=== PATIENT | male | born 1945 | race Caucasian/White ===

== ENCOUNTER → 2018-06-18 11:36 | Outpatient (CLI) | payer MEDICARE, OTHER, SELFPAY ==
--- NOTE | 2018-06-18 | DI.RAD.S_ITS ---
PROCEDURE: XR SHOULDER RT MIN 2V INDICATIONS: SHOULDER PAIN TECHNIQUE: 3 views of the shoulder were acquired. COMPARISON: None. FINDINGS: Bones: No fractures or dislocations. No suspicious bony lesions. Visualized ribs appear intact. Soft tissues: No suspicious soft tissue calcifications. IMPRESSION: Moderate a.c. joint osteoarthritis. Dictated by: Mateo Delgado M.D. on 06/18/2018 at 12:30 Approved by: Mateo Delgado M.D. on 06/18/2018 at 12:30
--- NOTE | 2018-06-18 | DI.RAD.S_ITS ---
PROCEDURE: XR CERVICAL SPINE 2V OR 3V INDICATIONS: SHOULDER PAIN TECHNIQUE: 4 view(s) of the cervical spine were acquired. COMPARISON: None. FINDINGS: Bones: No fractures or dislocations to the T1 level. The lateral masses of C1 appear intact on the odontoid view. No suspicious bony lesions. Moderately severe degenerative disc disease is seen at C5-6 and C6-7 and there is also slight anterolisthesis of C4 on C5. Moderate osteoarthritis along the facet joints or the middle and lower thirds of the cervical spine is associated. Soft tissues: No prevertebral soft tissue swelling. IMPRESSION: Degenerative disc disease and facet osteoarthritis is moderate to moderately severe along the middle and lower thirds of the cervical spine, where spinal and foraminal stenosis likely would be present. Additionally there is slight grade 1 anterolisthesis of C4 on C5. Dictated by: Mateo Delgado M.D. on 06/18/2018 at 12:30 Approved by: Mateo Delgado M.D. on 06/18/2018 at 12:31
== END ==
PROVIDERS: PCP Physician Assistant; Visit Provider Physician Assistant
DX: M19.011 Primary osteoarthritis, right shoulder (principal); M43.12 Spondylolisthesis, cervical region; M47.22 Other spondylosis with radiculopathy, cervical region; M50.122 Cervical disc disorder at C5-C6 level with radiculopathy; M25.511 Pain in right shoulder
CPT/HCPCS: 72040; 73030

== ENCOUNTER → 2018-07-21 13:49 | Outpatient (CLI) | payer MEDICARE, OTHER, SELFPAY ==
--- NOTE | 2018-07-21 | DI.MRI.S_ITS ---
PROCEDURE: MR CERVICAL SPINE WO CON INDICATIONS: LOW BACK PAIN CERVICALGIA TECHNIQUE: Noncontrast sagittal T1 spin echo and T2 fast spin echo, sagittal STIR, foraminal oblique sagittal T2 fast spin echo, and axial gradient echo or T2 fast spin echo through the cervical spine. COMPARISON: None. FINDINGS: Image quality: Partially degraded by motion artifact. Alignment and Curvature: There is loss of normal cervical lordosis. There is mild grade 1 retrolisthesis of C5 on C6. Bone Marrow: Marrow demonstrates normal overall signal. There is mild reactive signal within the endplates adjacent to the C5-C6, C6-C7, C7-T1, and T1-T2 intervertebral discs. Spinal Cord: Visualized spinal cord has normal size and signal. No cerebellar tonsillar herniation. Paraspinous Soft Tissues: No paravertebral masses. Prevertebral soft tissues are normal in thickness. C2-C3: Moderate disc desiccation. Mild diffuse disc bulge with superimposed left far lateral broad-based protrusion/osteophyte. Mild facet and uncovertebral hypertrophy, left greater than right. Moderate canal stenosis. Moderate right and severe left foraminal stenosis. C3-C4: Mild disc height loss and desiccation. Mild diffuse disc bulge/osteophyte. Moderate facet and uncovertebral hypertrophy bilaterally. Moderate canal stenosis. Severe right and moderate left foraminal stenosis. C4-C5: Moderate disc desiccation and diffuse disc bulge with superimposed central protrusion. Right greater than left moderate facet and uncovertebral hypertrophy. Moderate canal stenosis. Moderate right and mild to moderate left foraminal stenosis. C5-C6: Moderate discoid loss and desiccation. Moderate diffuse disc bulge/osteophyte. Moderate facet and uncovertebral hypertrophy bilaterally. Severe canal stenosis. Mild cord flattening. Severe foraminal stenosis bilaterally. C6-C7: Moderate disc height loss and desiccation. Moderate diffuse disc bulge/osteophyte with superimposed broad-based left posterolateral protrusion/osteophyte. Moderate facet and uncovertebral hypertrophy bilaterally. Moderate to severe canal stenosis. Minimal left cord flattening. Severe foraminal stenosis bilaterally. C7-T1: Moderate disc height loss and desiccation. Moderate diffuse disc bulge/osteophyte. Moderate facet and uncovertebral hypertrophy. Mild canal stenosis. Severe foraminal stenosis bilaterally. IMPRESSION: 1. Multilevel degenerative disc and facet disease, as well as uncovertebral hypertrophy. 2. Multilevel canal stenoses, worst at C5-C6 where there is mild cord flattening. There is moderate to severe canal stenosis at C6-C7 with minimal cord flattening. 3. Multilevel foraminal stenoses as described above. Dictated by: Ramandeep Terrazas M.D. on 07/21/2018 at 16:52 Approved by: Ramandeep Terrazas M.D. on 07/21/2018 at 16:57
--- NOTE | 2018-07-21 | DI.MRI.S_ITS ---
PROCEDURE: MR LUMBAR SPINE WO CON INDICATIONS: LOW BACK PAIN CERVICALGIA TECHNIQUE: Noncontrast sagittal T1 spin echo and T2 fast echo, sagittal STIR, axial T1 and T2 fast spin echo through the lumbar spine. In cases with scoliosis, additional coronal T2 fast spin echo may be performed. COMPARISON: [facility], MR, L-SPINE WITHOUT CONTRAST, 08/22/2016, 7:42. [facility], CR, L-SPINE 2-3 VIEWS, 10/05/2014, 14:10. [facility], CR, L-SPINE 2-3 VIEWS, 02/23/2012, 10:25. FINDINGS: Image quality: Excellent. Alignment and Curvature: Mild dextroconvex scoliotic curvature is seen. Bone Marrow: Marrow is of normal overall signal. No acute vertebral body compression fractures. Scattered foci are seen, which are hyperintense on T1-weighted and T2-weighted imaging, which are most consistent with benign vertebral body hemangiomas. Spinal Cord: Conus medullaris terminates at the L1 level. Visualized cord demonstrates normal signal and size. Paraspinous Soft Tissues: No paravertebral masses. T12-L1: Moderate loss of disc height is seen. Loss of disc signal is seen. Moderate disc bulge is seen at this level. There is a central/right disc extrusion seen. The volume of the disc extrusion is decreased compared to the prior examination. There is moderate to severe central canal narrowing. Moderate bilateral neural foraminal narrowing is seen. L1-L2: Mild to moderate loss of disc height is seen. Loss of disc signal is seen. Moderate disc bulge is seen, which is eccentric to the left. There is a central/left disc extrusion seen, with inferior migration of the disc material. This disc extrusion is new compared to 2016. Moderate bilateral neural foraminal narrowing is seen, right worse than left. There is at least moderate central canal narrowing. L2-L3: The disc height is well-preserved. Loss of disc signal is seen at this level. Moderate disc bulge is seen, which is eccentric to the right. Mild to moderate facet hypertrophy is seen. There is moderate right-sided and mild left-sided neural foraminal narrowing seen. Moderate central canal narrowing is seen. These findings are similar to the prior examination. L3-L4: The disc height is well-preserved. Loss of disc signal is seen at this level. Moderate disc bulge is seen at this level. There is a central disc protrusion seen. Moderate to prominent facet hypertrophy is seen. There is moderate right-sided and moderate to severe left-sided neural foraminal narrowing seen. There is a degree of impingement upon the exiting left L3 nerve root. Moderate to severe central canal narrowing is seen. The degenerative changes have progressed compared to 2016. L4-L5: The disc height is well-preserved. Loss of disc signal is seen at this level. Moderate generalized disc bulge is seen. Moderate to prominent facet hypertrophy is seen, right worse than left. There is at least moderate bilateral neural foraminal narrowing seen. At least moderate central canal narrowing is seen. These findings are similar to the prior examination. L5-S1: At least moderate loss of disc height is seen. There is loss of disc signal. Reactive marrow endplate changes are seen, which are hyperintense on T1-weighted and T2-weighted imaging and most consistent with fatty metaplasia (Modic type II changes). Moderate disc bulge is seen, which is eccentric to the left. Moderate facet joint hypertrophy is seen. There is at least moderate right-sided and moderate to severe left-sided neural foraminal narrowing seen. A degree of impingement can be seen upon the exiting left L5 nerve root. Minimal central canal narrowing is seen. These findings are similar to the prior examination. IMPRESSION: There is a new disc extrusion seen on the LEFT at the L1-L2 level. Interval improvement of the previously seen RIGHT sided disc extrusion at T12-L1. Progression of degenerative change is also seen at L3-L4 compared to 2016. Dictated by: Taiwo Rosario M.D. on 07/21/2018 at 16:15 Approved by: Taiwo Rosario M.D. on 07/21/2018 at 16:30
== END ==
PROVIDERS: PCP Physician Assistant; Visit Provider Orthopaedic Surgery Orthopaedic Surgery of the Spine
DX: M51.26 Other intervertebral disc displacement, lumbar region (principal); M51.36 Other intervertebral disc degeneration, lumbar region; M48.02 Spinal stenosis, cervical region; M50.31 Other cervical disc degeneration, high cervical region
CPT/HCPCS: 72141; 72148

== ENCOUNTER → 2018-08-07 11:37 | Outpatient (CLI) | payer MEDICARE, OTHER, SELFPAY | PROVIDERS: PCP Physician Assistant; Visit Provider Orthopaedic Surgery Orthopaedic Surgery of the Spine | DX: Z01.818 Encounter for other preprocedural examination (principal) | CPT/HCPCS: 93005 ==

== ENCOUNTER → 2018-08-13 13:29 | Outpatient (CLI) | payer MEDICARE, OTHER, SELFPAY ==
[2018-08-13 14:02] LABS: Add Manual Diff / Slide Review NO; Basophils Percent Auto 0.8 % (0-2); Hematocrit 44.7 % (41-53); Hemoglobin 15.3 g/dL (13.5-17.5); Lymphocytes Percent Auto 30.5 % (25-40); Mean Corpuscular HGB Conc 34.3 % (30-36); Mean Corpuscular Hemoglobin 29.8 PG (26-34); Monocytes Percent Auto 7.7 % (3-14); Neutrophils Absolute Auto 4100 /uL (3000-5900); Platelet Count 230 X10^3/uL (150-400); Red Blood Cell Count 5.14 X10^6/uL (4.5-5.9); Red Cell Distribution Width 13.8 % (11.6-14.8); White Blood Cell Count 7.4 X10^3/uL (4.5-11.0)
[2018-08-13 15:01] LABS: Blood Urea Nitrogen 19 mg/dL (9-20); Calcium 10.1 mg/dL (8.4-10.2); Carbon Dioxide 32 mmol/L (22-32); Chloride 101 mmol/L (98-107); Estimated Glomerular Filt Rate > 60.0 mL/min (>60); Glucose 101 mg/dL (80-110); HEMOLYSIS < 15 (0-50); Potassium 4.4 mmol/L (3.4-5.1); Sodium 141 mmol/L (137-145)
== END ==
PROVIDERS: PCP Physician Assistant; Visit Provider Orthopaedic Surgery Orthopaedic Surgery of the Spine
DX: M51.24 Other intervertebral disc displacement, thoracic region (principal)
CPT/HCPCS: 36415; 80048; 85025

== ENCOUNTER 2018-09-06 12:10 | Inpatient (IN) | payer MEDICARE, OTHER, SELFPAY ==
[2018-09-03 08:45] VITALS: BMI 35.9
[2018-09-06] VITALS (13 sets, daily range): BP systolic 113–141; BP diastolic 52–83; PULSE 63–114; RESP 13–23; TEMP 36.2–37.2; O2SAT 93–99; BMI 35.9
--- NOTE | 2018-09-06 | DI.RAD.S_ITS ---
PROCEDURE: XR CERVICAL SPINE 2V OR 3V INDICATIONS: C56 C67 ACDF TECHNIQUE: Fluoroscopic images were obtained during an operative procedure and submitted for interpretation following the completion of the procedure. COMPARISON: [facility], MR, MR CERVICAL SPINE WO CON, 07/21/2018, 14:00. [facility], CR, XR CERVICAL SPINE 2V OR 3V, 06/18/2018, 11:21. FINDINGS: These fluoroscopic images were performed for intraoperative localization. On these images, anterior fixation hardware has been placed at the C4-C6 levels. Please correlate with intraoperative findings. IMPRESSION: Normal intraoperative examination. Dictated by: Taiwo Rosario M.D. on 09/06/2018 at 16:56 Approved by: Taiwo Rosario M.D. on 09/06/2018 at 16:57
--- NOTE | 2018-09-06 14:05 | PM.PREOP ---
Pre-operative Note Interval Note Pre-op Check: Yes History & Physical Reviewed by Physician, Yes Exam Performed and Yes History & Physical exam performed today by Physician Changes: No
[2018-09-06] MEDS: LACTATED RINGERS 1,000 ML 42 ML IV ×2 (15:00→16:08)
[2018-09-06] MEDS: CEFAZOLIN 2 GM/100 ML FROZ.PIGGY IV ×2 (15:10→22:19)
--- NOTE | 2018-09-06 15:47 | SUR.OPER ---
Supine on padded OR bed, head on gel donut, arms papoosed with gel pads, legs uncrossed, safety belt at thigh, tape over blanket over lower legs, pt taped from shoulders to foot of bed .
[2018-09-06] MEDS: BUPIVACAINE 0.25% W/ EPI VIAL 50 ML INJ (15:59)
--- NOTE | 2018-09-06 17:40 | P.OP_ITS ---
Operative Date/Time/Diagnoses Date of procedure: 09/06/18 Time of procedure: 15:32 Pre-op diagnosis: 1. C4-5, C5-6, C6-7 spondylosis with radiculopathy 2. C4-5, C5-6, C6-7 spinal stenosis Post-op diagnosis: same Procedure & Clinicians Procedure: 1. C4-5, C5-6 anterior cervical diskectomy and fusion 2. C4-5, C5-6 anterior interbody cage placement 3. C4-5, C5-6 anterior instrumentation with plate and screw placement in C4-5, C5-6 vertebrae 4. Utilization of microsurgical technique and operating microscope Same procedure as scheduled: No Indications: Patient has been having chronic neck pain and worsening cervical radiculopathy. Patient failed multiple conservative management with worsening pain weakness and numbness in her upper extremity. Patient has been having difficulty performing activity of daily living. After discussing risks benefits of treatment options, patient elected proceed with surgery. Surgeon: Ana M Alas Sulfide Head Operator: Krystin Lee'Brien Click Yes if Unassisted: No Anesthesia Type: General Operative Notes Closure Type: primary Implants & Drains: GLobus extend plate, Peek cages Estimated Blood Loss (mL): 50 Procedure in detail: Patient was seen in the preoperative area. Risks and benefits of the surgery was discussed with the patient. Operative consent was obtained and placed in the chart. Patient was then taken to the operative room. Prophylactic antibiotic was given less than 0.5 hr prior to skin incision. General anesthesia was administered. Patient was placed into a supine position on her radiolucent table. Bilateral shoulders were taped down to allow proper C-arm imaging. Anterior cervical area was prepped and draped in a sterile fashion. Time-out was performed at this time. Patient was originally scheduled for C5-6, C6-7 level ACDF. After reviewing patient's MRI again in the operating room and correlating with patient's symptoms, decision was made intraoperatively to perform C4-5, C5-6 ACDF instead of the originally scheduled levels. Using lateral C-arm imaging, the level between C4-5, C5-6 was identified and marked on patient's neck. A oblique incision from midline towards medial border of sternocleidomastoid muscle was made. The platysma muscle was incised in line with skin incision. Metzenbaum scissor was used to develop the plane between the medial border of sternocleidomastoid d and the strap muscles medially. The carotid sheath and its contents were identified and protected behind the hand- held retractor during the entire case. The plane between the carotid sheath and strap muscles was developed with Metzenbaum scissors. Dissection was made down to the level of the anterior cervical fascia. Longus colli muscle was incised on the anterior aspect of vertebral bodies bilaterally from C4-5, C5-6. Spinal needle was placed into the C5-6 disc space and confirmed with lateral C-arm imaging. Using microsurgical technique and operative microscope, anterior cervical diskectomy was performed at C4-5, C5-6 level. This was done by removing the disc material, removing the anterior and posterior osteophytes posterior longitudinal ligaments along with performing bilateral foraminotomies at both levels. Patient was found to have severe central and foraminal stenosis at both levels. Patient's stenosis was fully decompressed after decompression was completed. After the diskectomy was completed, 2 anterior interbody cages were obtained. The cages were packed with globus via cell bone grafting material. One cage each along with the bone grafting material was then packed into the interbody spaces from C4-5, C5-6 with one cage into each interbody level. After the cages were placed, the anterior cervical plate was stabilized to the C4-5, C5-6 vertebrae using 2 screws at each each level. Total 6 screws were placed. After confirming placement of the hardware with AP and lateral C-arm imaging, the screws were locked into the plate using the locking mechanism and torque limiting screwdriver. After the hardware was placed and confirmed with AP and lateral C-arm imaging, the wound was irrigated with sterile normal saline. The platysma muscle and the subcutaneous tissue was closed with 2-0 Vicryl. The skin was closed with 4- 0Monocryl and Steri-Strips. Patient tolerated the procedure well. Patient was transferred recovery room in stable condition. There were no complications. Patient's was notified by phone the changes in the operating levels after the procedure was completed and the reasons for doing so. She understands the information and will pass it onto her when she sees him. I will do the same once patient is more alert. Complications: none Condition: stable Disposition: Acute Care Plan for aftercare: Admit to inpatient hospital
[2018-09-06] MEDS: hydrOXYzine 50 MG/ML INJ 25 MG IM (18:05)
[2018-09-06] MEDS: HYDROMORPHONE 2 MG INJ 0.5 MG IV ×3 (18:11→18:30)
--- NOTE | 2018-09-06 18:28 | SUR.PHASEI ---
pt turned independently to rt. side. Repoted pain decreased.
--- NOTE | 2018-09-06 18:38 | SUR.PHASEI ---
Report called to José Rausch
--- NOTE | 2018-09-06 19:04 | SUR.PHASEI ---
Pt. transferred to the floor. Report to PHILOMENA Lerma. VS stable. IV saline locked. Pt moving all extremities independently. Neck dressing CDI. Cervical in place.
[2018-09-06] MEDS: SODIUM CHLORIDE 0.9% 1,000 ML 100 ML IV (20:33)
[2018-09-06] MEDS: AMLODIPINE 5 MG TABLET PO (20:34)
[2018-09-06] MEDS: LOSARTAN 50 MG TABLET 100 MG PO (20:34)
[2018-09-06] MEDS: DOCUSATE 100 MG CAPSULE PO (20:34)
[2018-09-06] MEDS: SENNOSIDES 8.6 MG TABLET 17.2 MG PO (20:35)
[2018-09-06] MEDS: ALLOPURINOL 300 MG TABLET PO (20:38)
[2018-09-06] MEDS: hydroCHLOROthiazide 25 MG TABLET 50 MG PO ×2 (20:38→20:40)
[2018-09-06] MEDS: hydrOXYzine pamoate 25 MG CAPSULE PO (23:06)
--- NOTE | 2018-09-07 00:54 | PC.NURSE ---
1900- Pt arrived to room from PACU via bed. A.O x3, 95% RA, LS clear. Incision to anterior neck covered with gauze and tegaderm, CDI. Denies pain at this time. PP+, BT+, denies nausea. Advanced diet to regular and provided pt with snacks, water, and coffee. RFA NS @ 100 infusing. Own CPAP for sleep without O2 bleed-in. Using urinal indep so doesn't have to take the iv pole with to the bathroom. Reports going home tomorrow. Call light in reach and bed alarm on.
--- NOTE | 2018-09-07 01:41 | PC.NURSE ---
Addendum entered by Lesa Mir R.N. 09/07/18 06:00: Last note was entered incorrectly in this patient's chart Original Note: Addendum entered by Lesa Mir R.N. 09/07/18 05:51: States pain is only 1/10 in severity and declines pain med but requested and was given an ice pack for comfort. Original Note: Addendum entered by Lesa Mir R.N. 09/07/18 05:47: Continues to complain of very minimal pain stating only 1-2/10 and feels like someone is pinching him. Declines any pain medication. Has been awake most of night. HR remains slightly elevated at 101. RA sat 95%. Original Note: Patient is alert and oriented. Breath sounds CTA with sat of 94% with use of CPAP; on continuous pulse oximeter per MD order. HRR but tachy at 106 bpm. Denies nausea. BT present and is passing flatus. Denies dysuria, frequency, urgency or incontinence; using urinal in bed. Independent with bed mobility. Dressing to anterior neck is CDI; declines to wear soft collar as is too hot. Does complain of 3-4/10 pain in neck muscle to left of incision but declines pain med and/or ice. CMS intact. Wearing bilateral SCD's. Fall risk score is moderate; bed alarm is activated.
[2018-09-07 03:08] VITALS: O2SAT 93
[2018-09-07 03:21] VITALS: BP 138/82; PULSE 100; RESP 20; TEMP 36.6; O2SAT 95
[2018-09-07] MEDS: CEFAZOLIN 2 GM/100 ML FROZ.PIGGY IV (06:28)
[2018-09-07 06:36] LABS: Hematocrit 41.7 % (41-53); Hemoglobin 14.2 g/dL (13.5-17.5)
[2018-09-07 08:00] VITALS: BP 144/84; PULSE 88; RESP 16; TEMP 36.3; O2SAT 94
--- NOTE | 2018-09-07 08:09 | P.DS_ITS ---
History of Present Illness Date Patient Seen: 09/07/18 Chief complaint: C5-6 C6-7 acdf with anterior instrumentation Narrative: Patient seen bedside s/p C5-6, C6-[address] Alas on 09/06/18. Patient is POD #1. Denies N/V, SOB, CP, pain is well controlled. He would like to go home today. Discharge Providers Date of admission: 09/06/18 12:10 Primary care physician: Maryann Wray PA-C Consults: 09/06/18 18:54 Consult to Occupational Therapy Evaluate & Treat Comment: Physician Instructions: Evaluate and treat Consult to Physical Therapy Evaluate & Treat Comment: Physician Instructions: Evaluate and Treat 09/06/18 19:02 Consult to Respiratory Therapy Evaluate & Treat Comment: Physician Instructions: Evaluate and treat Discharge provider: Robina Acevedo PA-C Discharge Date: 09/07/18 Summary Discharge Diagnosis: 1. 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 Cervical spinal stenosis Hospital Course: Patient was admitted s/p C5-6, C6-[address] Alas on . Patient tolerated the procedure well with no major complications. Patient was transferred to the acute care floor where he was seen by physical therapy and recommended for discharge home. He was stable and ready for discharge on . Status at Discharge Cognitive/behavioral status at discharge: Alert & oriented x3 Functional status at discharge: independent ambulation Overall status at discharge: patient is progressing back to baseline Time Spent with Patient Less than 30 minutes Exam Vital Signs (past 8 hours): - 09/07/18 03:08 09/07/18 03:21 Temperature 97.8 F Pulse Rate 100 H Respiratory Rate 20 Blood Pressure 138/82 Pulse Oximetry 93 95 Oxygen Delivery Method CPAP Oxygen Flow Rate 0 Narrative Exam Narrative: WDWN NAD A&Ox3. Anterior neck dressing CDI, minimal edema/ erythma noted. No focal deficits in upper extremities noted. Objective Labs Result Diagrams: 09/07/18 05:32 Labs: Laboratory Results - last 24 hr 09/07/18 05:32 Hgb 14.2 Hct 41.7 Discharge Plan Discharge Plan Patient Disposition: Home Discharge Med Rec/Prescriptions Prescriptions: New acetaminophen 325 mg Tablet 650 mg PO Q6HR PRN (Reason: Pain, Mild (1-3)) Qty: 0 RF: 0 docusate sodium 100 mg Capsule 100 mg PO BID Qty: 0 RF: 0 hydroxyzine pamoate 25 mg Capsule 25 mg PO Q4HR PRN (Reason: Nausea And Vomiting) Qty: 50 RF: 1 oxycodone 5 mg tablet 5 mg PO Q4-6H PRN (Reason: pain) Qty: 40 RF: 0 Continue losartan [Cozaar] 50 MG tablet 100 mg PO BEDTIME Qty: 0 RF: 0 hydrochlorothiazide 50 MG tablet 50 mg PO QDAY Qty: 0 RF: 0 allopurinol 300 MG tablet 300 mg PO QDAY Qty: 0 RF: 0 ibuprofen 800 mg Tablet 800 mg PO BID PRN (Reason: pain) RF: 0 amlodipine 5 mg Tablet 5 mg PO BEDTIME RF: 0 oxycodone 5 MG tablet 1 - 2 tab PO Q6HP PRN (Reason: pain) RF: 0 Discontinued aspirin 325 MG tablet 325 mg PO QDAY Qty: 0 RF: 0 Follow up/Referrals: Maryann Wray PA-C [Primary Care Provider] - Ana M Alas MD [Physician] - 09/20/18 3:30 pm (Follow up with Christie Ibrahim PA-C at the [facility] office.) Provider Discharge Instructions Diet: Diet as Tolerated Activity: Limit turning head, wear soft collar when ambulating/sleeping, limit lifting to no more than 5 lbs. Cold/Heat Therapy: Apply ice as needed to surgical area. Skin/Wound/Dressing Care Report to your healthcare provider any signs of infection, such as:: chills, fever, night sweats, increased pain and unusual drainage Dressing: Keep surgical dressing clean, dry, and intact. Visit Report/Discharge Packet Instructions: DI for Anterior Cervical Discectomy and Fusion, Acetaminophen, Hydroxyzine Visit Report Forms: Stroke Signs & Symptoms Discharge Data Primary Care Provider: Maryann Wray Attending Provider: Ana M Alas Admit Date/Time: 09/06/18 12:10 Discharges patient from system. Discharge Date/Time: 09/07/18 11:10 Quality VTE Deep Vein Thrombosis/Pulmonary Embolism Present on Admission: No
--- NOTE | 2018-09-07 09:15 | PT.IIE ---
Current Diagnoses Other spondylosis with radiculopathy, cervical region (09/06/18) Spinal stenosis, cervical region (09/06/18) Surgery Performed Operation Date: 09/06/18 14:15 Actual Procedures p C5-6, C6-7 ACDF w/Anterior Instru. - Ana M Alas MD Surgical History (Last Updated 09/03/18 @ 08:52 by Nicolle Ren, RN) Hx of microdiscectomy (Acute 09/24/16) S/P excision of lipoma (Acute) Status post cataract extraction of both eyes with insertion of intraocular lens (Acute) Medical History (Last Updated 09/03/18 @ 09:09 by Nicolle Ren RN) Primary insomnia (Resolved) Snoring (Resolved) BPH (benign prostatic hyperplasia) (Acute) Low back pain (Acute) Nephrolithiasis (Acute) SOTERO treated with BiPAP (Acute) Osteoporosis (Acute) Polio (Acute) Shingles (Acute) Spinal stenosis (Acute) Tingling of right upper extremity (Acute) Allergic rhinitis (Chronic) Degenerative disc disease, lumbar (Chronic) GERD (gastroesophageal reflux disease) (Chronic) Gout (Chronic) Hyperlipidemia (Chronic) Hypertension (Chronic) Osteoarthritis (Chronic) Physical Therapy Inpatient Evaluation/Re-Eval M1 PT/OT-IP Prior Functional Status Start: 09/07/18 10:33 Freq: NEEDED Status: Active Protocol: Document 09/07/18 09:15 AB (Rec: 09/07/18 10:41 AB [email or web address]) Medical Review Prior Functional Status Medical History Reviewed Yes Communication able to make needs known Mobility and Gait stated that he is independent with all mobilities and ambulation without AD Social History Household Members spouse Living Arrangements House Number of Floors (Floors) One Floor Number of Stairs To Enter/Railing? 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 M2 PT-IP Current Condition Start: 09/07/18 10:33 Freq: NEEDED Status: Active Protocol: Document 09/07/18 09:15 AB (Rec: 09/07/18 10:41 AB [email or web address]) Physical Therapy Current Condition Current Condition Evaluation Date 09/07/18 Treatment Diagnosis s/p C4-6 ACDF; difficulty in walking Onset Date 09/06/18 Precautions Cervical Spine Precautions Soft Collar for Comfort Brace cervical soft collar M3 PT-IP Subjective Start: 09/07/18 10:33 Freq: NEEDED Status: Active Protocol: Document 09/07/18 09:15 AB (Rec: 09/07/18 10:41 AB [email or web address]) Subjective Physical Therapy Visit Type Type Initial Evaluation Visit Start Time 09:15 Visit Stop Time 09:40 Total Visit Minutes 25 Number of MACHINE I ENGRAVER Visits 0 Physical Therapy Visit Comments Patient Comments pt agreeable to do PT Patient Goals to go home Therapy Pain Assessment Pain Present Pain Present Denied Pain M4 PT-IP Mobility and Gait Start: 09/07/18 10:33 Freq: NEEDED Status: Active Protocol: Document 09/07/18 09:15 AB (Rec: 09/07/18 10:41 AB [email or web address]) PT-Bed Mobility Assessment Supine to Sit Supine to Sit Standby Assistance Head of Bed Elevated Sit to Supine Sit to Supine Standby Assistance Head of Bed Elevated Scooting Scooting to Edge of Bed Standby Assistance PT-Transfer Assessment Sit to and From Stand Sit to and from Stand Standby Assistance Equipment Transfer Assistive Device Gait Belt Comments Mobility Comments pt has an adjustable bed and usually has HOB elevated when getting in/out of bed. Gait Assessment Gait Gait Assistance Required: Standby Assistance Distance (Feet) 200 Able to Maintain Weight Bearing Status Yes During Gait Assistive Devices Assistive Device Gait Belt Factors Limiting Gait Function Factors Limiting Gait Function Limited Range of Motion Stair Climbing Assessment Evaluation Level of Assist On Stairs Standby Assistance Devices Stair Climbing Assistive Devices Right Railing Technique/Endurance Stair Climbing Direction Ascend and Descend Stair Climbing Technique Step to Step Number of Steps Climbed 1 Query Text: Stair Climbing Set # Repetitions (reps) 4 PT-Balance Assessment Sitting Balance and Reactions Static Sitting Balance Ability Good Dynamic Sitting Balance Ability Good Standing Balance and Reactions Static Standing Balance Ability Good Dynamic Standing Balance Ability Fair Device Used without AD M5 PT-IP Objective Assessments Start: 09/07/18 10:33 Freq: NEEDED Status: Active Protocol: Document 09/07/18 09:15 AB (Rec: 09/07/18 10:41 AB [email or web address]) Orientation Orientation/Cognition Level of Alertness Alert Orientation Name Age Birthday Month Date Year Day of Week Place Situation Safety Awareness Understands Safety Issues Gross Range of Motion Lower Extremity ROM Assessment Within Functional Limits Strength Lower Extremity Strength Assessment Within Functional Limits Sensation Assessment Sensation Gross Sensation WNL M6 PT-IP Treatment Start: 09/07/18 10:33 Freq: NEEDED Status: Active Protocol: Document 09/07/18 09:15 AB (Rec: 09/07/18 10:41 AB [email or web address]) Physical Therapy Treatment Education Education Provided Precautions Weight Bearing Status Post-Op Packet Safety Brace Education [place] Patient Other Treatments Other Treatment Performed educated pt on donning/doffing soft collar and was able to manage safely M7 PT-IP Assessment and Plan Start: 09/07/18 10:33 Freq: NEEDED Status: Active Protocol: Document 09/07/18 09:15 AB (Rec: 09/07/18 10:41 AB [email or web address]) PT Summary Assessment and Plan Potential Rehabilitation Potential Good Status of Condition at Evaluation Stable Summary Impairments ROM Balance Bed Mobility Transfers Gait Activity Tolerance Assessment Summary pt doing well with mobility and plans to go home with spouse and daughter to assist him. Goals Bed Mobility Goal Independent Transfer Goal Independent Gait Goal Independent Gait Distance 250 Other Goals up/down 1 step without rail SBA Days to Meet Goals 2 Frequency of Treatment Frequency Of Treatment Twice a Day Treatment Plan Physical Therapy Treatment Plan Bed Mobility Training Transfer Training Gait Training Therapeutic Exercise Balance Retraining Post Op Education Discharge Planning Hot or Cold Pack Neuromuscular Re-ed Coordination Retraining Manual Therapy Recommendations To Nursing Amount of Assist Needed Standby Assistance Discharge Recommendations PT Discharge Recommendations Home with Assistance
[2018-09-07] MEDS: SODIUM CHLORIDE 0.9% FLUSH 10 ML IV (09:29)
[2018-09-07] MEDS: DOCUSATE 100 MG CAPSULE PO (09:29)
--- NOTE | 2018-09-07 09:52 | PC.NURSE ---
Addendum entered by Mckayla Steward R.N. 09/07/18 11:14: Spoke with Felicitas Acevedo PA-C, HOLD ASA 81mg. Pt aware of this. Pt D/C'D with all belongings and escorted down by MINE SAFETY MANAGER to personal vehicle w/spouse. Original Note: Pt A&Ox3. Anterior neck drsg CDI, agreed to wear soft collar after P.T. He reports aching to LT side, denies swallowing or breathing issues, numbness and tingling resolved. Instructor Programmable Controllers equal/strong. O2 RA 95%. Minimal pain rating 2-3/10. Expresses eagerness to d/c. Awaiting clearance from P.T/O.T.
--- NOTE | 2018-09-07 10:16 | ST.IPSCREEN ---
Swallow screen performed per ACDF protocol. Patient denies any difficulty with swallowing or voice. Written education provided.
--- NOTE | 2018-09-07 10:28 | OT.IP.EVAL ---
Current Diagnoses Other spondylosis with radiculopathy, cervical region (09/06/18) Spinal stenosis, cervical region (09/06/18) Surgery Performed Operation Date: 09/06/18 14:15 Actual Procedures p C5-6, C6-7 ACDF w/Anterior Instru. - Ana M Alas MD Past Medical History (Last Updated 09/03/18 @ 09:09 by Nicolle Ren RN) Primary insomnia (Resolved) Snoring (Resolved) BPH (benign prostatic hyperplasia) (Acute) Low back pain (Acute) Nephrolithiasis (Acute) SOTERO treated with BiPAP (Acute) Osteoporosis (Acute) Polio (Acute) Shingles (Acute) Spinal stenosis (Acute) Tingling of right upper extremity (Acute) Allergic rhinitis (Chronic) Degenerative disc disease, lumbar (Chronic) GERD (gastroesophageal reflux disease) (Chronic) Gout (Chronic) Hyperlipidemia (Chronic) Hypertension (Chronic) Osteoarthritis (Chronic) Surgical History (Last Updated 09/03/18 @ 08:52 by Nicolle Ren RN) Hx of microdiscectomy (Acute 09/24/16) S/P excision of lipoma (Acute) Status post cataract extraction of both eyes with insertion of intraocular lens (Acute) Occupational Therapy Inpatient Evaluation/Re-Eval M1 PT/OT-IP Prior Functional Status Start: 09/07/18 14:53 Freq: NEEDED Status: Active Protocol: Document 09/07/18 10:28 BASIA (Rec: 09/07/18 15:04 BASIA [email or web address]) Medical Review Prior Functional Status Medical History Reviewed Yes Diet/Fluid Consistency Regular Communication WNL Mobility and Gait stated that he is independent with all mobilities and ambulation without AD Activities of Daily Living and IADL's Pt was independent in all self care and IADLS. 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 He plans to take 8 weeks off work. Social History Household Members spouse Living Arrangements House Number of Floors (Floors) One Floor Number of Stairs To Enter/Railing? 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 M2 OT-IP Current Condition Start: 09/07/18 14:53 Freq: Status: Active Protocol: Document 09/07/18 10:28 PJM (Rec: 09/07/18 15:04 [facility] [id number]) Occupational Therapy Current Condition Current Condition Evaluation Date 09/07/18 Treatment Diagnosis decreased self care s/p C5-7 ACDF Post Operative Precautions Cervical Spine Precautions Soft Collar for Comfort No Heavy Lifting Log Roll M3 OT- IP Subjective and Pain Start: 09/07/18 14:53 Freq: Status: Active Protocol: Document 09/07/18 10:28 PJM (Rec: 09/07/18 15:04 [facility] [id number]) OT- Subjective Occupational Therapy Visit Type Type Initial Evaluation Visit Start Time 10:00 Visit Stop Time 10:28 Total Visit Minutes 28 Occupational Therapy Visit Comments Patient Comments My can help me out at home. Patient/Caregiver Goals to return to work in 8 weeks OT Pain Assessment Pain When Pain Assessed At Rest Pain Present Pain Present Pain Reported Location neck Intensity 1 Scale Used Numeric (1 - 10) Description Aching Acute M4 OT- IP ADL's Start: 09/07/18 14:53 Freq: Status: Active Protocol: Document 09/07/18 10:28 PJM (Rec: 09/07/18 15:04 [facility] [id number]) OT [id number] General Evaluation Diet Level for Self-Feeding soft diet recommended Self-Feeding Ability Independent OT ADL-Grooming General Evaluation Grooming Ability Independent Comments OT Grooming Comments after education re: body mechanics standing at sink OT ADL-Oral Care General Eval Oral Care Ability Independent Comments Oral Care Comments after education re: body mechanics standing at sink OT ADL-Dressing General Eval Upper Body Dressing Ability Independent Lower Body Dressing Ability Independent Comments OT Dressing Comments Pt declines need for any adaptive equipt. Provided education re: body mechanics. OT ADL-Toileting General Evaluation Toileting Ability Independent OT ADL-Bathing Bathing Type Bathing Type Shower General Evaluation Bathing Ability Standby Assistance Comments OT Bathing Comments can assist PRN. Provided education re: body mechanics and keeping incision dry. M5 OT- IP IADL's Start: 09/07/18 14:53 Freq: Status: Active Protocol: Document 09/07/18 10:28 PJM (Rec: 09/07/18 15:04 [facility] [email or web address]) OT-Instrumental Activities of Daily Living Deficits IADL Deficits Identified Deficits Home Safety Awareness Awareness of Need for Assistance at Home Good Awareness Ability to Problem Solve Emergency Able to Problem Solve Situations Medication Management Medication Management No Deficits Identified Money Management Money Management No Deficits Identified Meal Preparation Meal Preparation Caregiver Provides Assist Meal Preparation Comments to assist PRN Blower Installer Blower Installer Caregiver Provides Assist Blower Installer Comments to assist PRN Driving Driving Caregiver Provides Assist Driving Comments to assist until pt able M6 OT- IP Functional Cognition Start: 09/07/18 14:53 Freq: Status: Active Protocol: Document 09/07/18 10:28 PJM (Rec: 09/07/18 15:04 [facility] NRTM) Cognitive Factors Limiting Selfcare Function Cognitive Ability Level of Alertness Alert Patient Orientation Name Age Birthday Month Date Year Day of Week Place Situation Attention Span Ability Capable of Focused Attention Capable of Sustained Attention Ability to Follow Commands Able to Follow One Step Commands Able to Follow Multi-Step Commands Memory Description No Deficits Noted Safety Awareness No Deficits Noted Problem Solving Ability No deficits Noted Executive Function Ability No Deficits Noted Cognitive Comments Cognitive Assessment Comments Pt recalls and applies C spine precautions during self care tasks. Cognition appears WNL. OT- Vision and Hearing OT- Hearing Assessment OT- Hearing Assessment WFL OT- Vision Assessment Visual Acuity WFL Vision Assessment Comments Pt denies any recent vison changes. M7 OT- IP Mobility and Balance Start: 09/07/18 14:53 Freq: Status: Active Protocol: Document 09/07/18 10:28 PJM (Rec: 09/07/18 15:04 [facility] NR) OT-Transfer Assessment Sit to and From Stand Sit to and from Stand Independent Transfers Transfer Ability Independent Technique Transfer Destination Car Chair Comments Mobility Comments provided education re: car transfer technique. Pt up in chair when therapist arrived. OT- Gait Assessment Gait Gait Assistance Required: Independent Assistive Devices Assistive Device None Comments Gait Ability Comments Pt up ad moises in room. OT- Balance Assessment Sitting Balance and Reactions Static Sitting Balance Ability Good Dynamic Sitting Balance Ability Good Standing Balance and Reactions Static Standing Balance Ability Good Dynamic Standing Balance Ability Good M8 OT- IP Objective Assessments Start: 09/07/18 14:53 Freq: Status: Active Protocol: Document 09/07/18 10:28 PJM (Rec: 09/07/18 15:04 [facility] NRTM) OT Gross Range of Motion Upper Extremity Range of Motion Assessment Within Functional Limits ROM Impairments end range of shoulders NT due to recent C spine surgery OT Strength Upper Extremity Strength Assessment Within Functional Limits Comments Strength Comments full MMT not completed due to recent C spine surgery OT- Coordination Assessment Comments Coordination Comments BUE WFL OT-Muscle Tone Assessment Muscle Tone WNL Yes OT Sensation Assessment Comments Summary Comments Pt denies sensory deficits in BUE's Edema Edema Absent Edema Comments None in BUE's M9 OT- IP Assessment and Plan Start: 09/07/18 14:53 Freq: Status: Active Protocol: Document 09/07/18 10:28 PJM (Rec: 09/07/18 15:04 PJM [email or web address]) OT Summary Assessment and Plan Potential Rehabilitation Potential Excellent Analytic Complexity at Evaluation Low Summary Progress Towards Goals Safe For Discharge Assessment Summary Low complexity OT assessment and all OT education completed today re: C spine precautions, body mechanics and adapted ADLS. Pt plans to d/c home today with 24 hr assist from supportive . No further OT services needed. Frequency of Treatment Frequency Of Treatment Discharge Discharge Recommendations OT Discharge Recommendations Home with Assistance Home Equipment Needs long bath sponge recommended
--- NOTE | 2018-09-07 11:29 | CM.DANOTE ---
DCP: Case received, EMR reviewed and met with patient. Introduced self and role. DCP template completed with information currently available. Patient is a 73 year old male who admitted yesterdy leonel to the care of the hospitalist team. PCP: Maryann Wray. Payer: confirmed: Medicare/[employer] FFT. Patient came to hospital for C4-5, C5-6 Cervical Disketomy. Patient had procedure due to chronic neck pain. Patient pleasant, alert and oriented. Lives in [place] with his spouse. 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 Patient is anxious to return home, does not feel that he needs any additional resources. P: Patient should be discharged home today. Mónica Yao RN/Zinc Miner
--- NOTE | 2018-10-22 16:22 | CM.IDA ---
DCP Assessment: Met w/pt this morning, he hopes to be DC home later today. 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 Pt is indp at baseline, eager to return home and plans to get outpt PT when cleared through Dr Alas's office. No barriers indicated for safe return home, PT = Home. Family to transport. ISAI Mcclure
== END 2018-09-07 11:10 | disposition home or self-care (01) | DRG 473 ==
PROVIDERS: Admitting Provider Orthopaedic Surgery Orthopaedic Surgery of the Spine; PCP Physician Assistant; Visit Provider Orthopaedic Surgery Orthopaedic Surgery of the Spine
PROC: 0RG20A0 Fusion of 2 or more Cervical Vertebral Joints with Interbody Fusion Device, Anterior Approach, Anterior Column, Open Approach (ICD-10-PCS; principal; 2018-09-06 14:15)
DX: M48.02 Spinal stenosis, cervical region (principal); M47.22 Other spondylosis with radiculopathy, cervical region; G47.33 Obstructive sleep apnea (adult) (pediatric); M81.0 Age-related osteoporosis without current pathological fracture; I10 Essential (primary) hypertension; Z87.891 Personal history of nicotine dependence; K21.9 Gastro-esophageal reflux disease without esophagitis
CPT/HCPCS: 36415; 72040; 76001; 85014; 85018; 97161; 97165; C1776; J0690; J1100; J1170; J2250; J2405; J2704; J3010; J3410

== ENCOUNTER → 2018-10-14 12:35 | Outpatient (CLI) | payer MEDICARE, OTHER, SELFPAY ==
[2018-09-06 18:55] VITALS: BMI 35.9
[2018-10-14 13:12] LABS: Add Manual Diff / Slide Review NO; Basophils Percent Auto 0.7 % (0-2); Eosinophils Percent Auto 7.9 % (2-4); Hematocrit 42.3 % (41-53); Hemoglobin 14.7 g/dL (13.5-17.5); Lymphocytes Percent Auto 20.8 % (25-40); Mean Corpuscular HGB Conc 34.7 % (30-36); Mean Corpuscular Hemoglobin 30.2 PG (26-34); Mean Corpuscular Volume 87.1 fL (80-100); Monocytes Percent Auto 8.8 % (3-14); Neutrophils Absolute Auto 5200 /uL (3000-5900); Neutrophils Percent Auto 61.8 % (50-75); Platelet Count 221 X10^3/uL (150-400); Red Blood Cell Count 4.85 X10^6/uL (4.5-5.9); Red Cell Distribution Width 13.6 % (11.6-14.8); White Blood Cell Count 8.4 X10^3/uL (4.5-11.0)
[2018-10-14 13:22] LABS: Blood Urea Nitrogen 22 mg/dL (9-20); Calcium 10.1 mg/dL (8.4-10.2); Carbon Dioxide 29 mmol/L (22-32); Chloride 100 mmol/L (98-107); Estimated Glomerular Filt Rate > 60.0 mL/min (>60); Glucose 106 mg/dL (80-110); HEMOLYSIS < 15 (0-50); Potassium 3.5 mmol/L (3.4-5.1); Sodium 143 mmol/L (137-145)
== END ==
PROVIDERS: PCP Physician Assistant; Visit Provider Orthopaedic Surgery Orthopaedic Surgery of the Spine
DX: M51.24 Other intervertebral disc displacement, thoracic region (principal)
CPT/HCPCS: 36415; 80048; 85025

== ENCOUNTER 2018-10-21 10:46 | Inpatient (IN) | payer MEDICARE, OTHER, SELFPAY ==
[2018-09-06 18:55] VITALS: BMI 35.9
[2018-10-19 11:01] VITALS: BMI 34.8
[2018-10-21] VITALS (14 sets, daily range): BP systolic 95–164; BP diastolic 54–95; PULSE 63–105; RESP 10–18; TEMP 35.8–36.6; O2SAT 90–98; BMI 34.8
--- NOTE | 2018-10-21 | DI.RAD.S_ITS ---
PROCEDURE: XR LUMBAR SPINE 2-3V INDICATIONS: L5-S1 TLIF TECHNIQUE: 2 views of the lumbar spine were acquired. COMPARISON: [facility], , L-SPINE 2-3 VIEWS, 09/24/2016, 18:16. FINDINGS: Spot fluoroscopic intraoperative images demonstrating L5-S1 posterior spinal fixation with interbody cage graft. There is expected intraoperative alignment. Dictated by: José Miguel Duvall M.D. on 10/21/2018 at 15:56 Approved by: José Miguel Duvall M.D. on 10/21/2018 at 15:58
[2018-10-21] MEDS: LACTATED RINGERS 1,000 ML 42 ML IV (11:21)
[2018-10-21] MEDS: CEFAZOLIN 2 GM/100 ML FROZ.PIGGY IV ×2 (13:08→21:31)
--- NOTE | 2018-10-21 13:21 | PM.PREOP ---
Pre-operative Note Interval Note Pre-op Check: Yes History & Physical Reviewed by Physician, Yes Exam Performed and Yes History & Physical exam performed today by Physician Changes: No
--- NOTE | 2018-10-21 13:50 | SUR.OPER ---
Prone on spine table, head in foam head support, padded chest and pelvic supports, gel pad at knees, lower legs supported by pillows; nipples, genitalia and toes free of pressure, arms secured on foam padded arm boards at <90 degrees abduction. Tape over blanket at thigh secured to table.
[2018-10-21] MEDS: BUPIVACAINE 0.25% W/ EPI VIAL 30 ML INJ (14:05)
[2018-10-21] MEDS: BUPIVACAINE LIPOSOME 266 MG/20 ML VIAL INJ (14:06)
[2018-10-21] MEDS: ACETAMINOPHEN 1,000 MG/100 ML VIAL IV (15:10)
--- NOTE | 2018-10-21 15:27 | PM.OP.1 ---
Operative Date/Time/Diagnoses Date of procedure: 10/21/18 Time of procedure: 13:15 Pre-op diagnosis: 1. L5-S1 spinal stenosis 2. L5-S1 spondylosis with radiculopathy Post-op diagnosis: same Procedure & Clinicians Procedure: 1. L5-S1 Postero-lateral and posterior interbody fusion 2. L5-S1 interbody cage placement. 3. L5-S1 decompressive laminectomy with bilateral facetecomies 4. L5-S1 Posterior non-segmental instrumentation 5. [place] of bone marrow from iliac crest 6. Utilization of microsurgical technique and operating microscope Same procedure as scheduled: Yes Indications: Patient failed multiple conservative management with worsening pain weakness and numbness in her lower extremity. Patient has been having difficulty performing activity of daily living. After discussing risks benefits of treatment options, patient elected proceed with surgery. Surgeon: Ana M Alas Plush Dresser: Sharri Ware Click Yes if Unassisted: No Anesthesia Type: General Operative Notes Closure Type: primary Specimen(s): none sent Implants & Drains: Globus revolve screws, Rise cage Estimated Blood Loss (mL): 50 Blood products transfused: none Procedure in detail: Patient was seen in the preoperative area. Risks and benefits of the surgery was discussed with the patient. Informed consent was obtained from the patient and placed in the chart. Surgical site was marked. Patient was taken to the operative room. General anesthesia was administered. Prophylactic antibiotic was given to the patient less than 30 min before the incision was made. Patient was placed into a prone position on the Bryce table. Patient's back was then prepped and draped in the sterile fashion. Time-out was performed at this time. Using AP and lateral C-arm imaging the interval between L5-S1 was identified and marked on patient's back. A 2 inch incision 2 in from midline was made on the left side first. The fascia was incised in line with skin incision. Globus MARS retractors was placed inside the incision and docked onto the L5 lamina. Using microsurgical technique and operating microscope, a L5 laminectomy and L5-S1 facetectomy was performed using a Kerrison rongeur. The disc space at L5-S1 was identified. And a total diskectomy was performed at L5-S1 level. The endplates were decorticated using a rasp and shaver. The total diskectomy and decortication was performed at L5-S1 level in order to to accomplish a L5-S1 fusion. The local bone from the laminectomy and facetectomy was saved for local bone grafting. After the total diskectomy and decortication was completed, Globus viacell bone graft material was combined with local bone that was harvested earlier. At this time, a separate skin is incision was made over the iliac crest. The bone grafting material, which consisted of local bone that was harvested earlier along with bio4 bone grafting material was placed into the L5-S1 interbody space along with a expandable cage. The cage was expanded to its maximum height using the torque limiting screwdriver. At this time a mirror image incision was made on the right side. The fascia was incised in line with the skin incision. Globus MARS retractor was inserted and docked onto the L5-S1 posterolateral gutter. Using the power drill, posterior-lateral decortication was performed at L5-S1 level until bleeding cortical bone was identified. The remaining bone grafting material was placed into the L5-S1 posterior lateral gutter he order to accomplish posterolateral fusion at the L5-S1 level. Using the double C-arm technique, pedicle screws were placed into the L5-S1 pedicles bilaterally. This was done by placing the Jamshidi needle into the pedicles, then placing the guidewires over the Jamshidi needle, and finally placing the cannulated screws over the guidewires bilaterally. After the pedicle screws were placed, 2 titanium rods was locked into the heads of the pedicle screws using locking caps and torque limiting screwdriver. After all the hardware was placed, and confirmed with AP and lateral C-arm imaging, the wound was then irrigated with sterile normal saline and packed with Ray-Fili gauze for 3 min to accomplish hemostasis. After the gauze was removed the deep fascia was closed with #1 Vicryl suture. The subcutaneous layer was closed with 2-0 Vicryl. The skin was closed with skin tara. Patient tolerated the procedure well. There were no complications. Condition: stable Disposition: PACU Plan for aftercare: Admit to inpatient hospital
--- NOTE | 2018-10-21 15:30 | P.OP_ITS ---
Operative Date/Time/Diagnoses Date of procedure: 10/21/18 Time of procedure: 13:15 Pre-op diagnosis: 1. L5-S1 spinal stenosis 2. L5-S1 spondylosis with radiculopathy Post-op diagnosis: same Procedure & Clinicians Procedure: 1. L5-S1 Postero-lateral and posterior interbody fusion 2. L5-S1 interbody cage placement. 3. L5-S1 decompressive laminectomy with bilateral facetecomies 4. L5-S1 Posterior non-segmental instrumentation 5. Parkman of bone marrow from iliac crest 6. Utilization of microsurgical technique and operating microscope Same procedure as scheduled: Yes Indications: Patient failed multiple conservative management with worsening pain weakness and numbness in her lower extremity. Patient has been having difficulty performing activity of daily living. After discussing risks benefits of treatment options, patient elected proceed with surgery. Surgeon: Ana M Alas [place] Conservation Laborer: Sharri Ware Click Yes if Unassisted: No Anesthesia Type: General Operative Notes Closure Type: primary Specimen(s): none sent Implants & Drains: Globus revolve screws, Rise cage Estimated Blood Loss (mL): 50 Blood products transfused: none Procedure in detail: Patient was seen in the preoperative area. Risks and benefits of the surgery was discussed with the patient. Informed consent was obtained from the patient and placed in the chart. Surgical site was marked. Patient was taken to the operative room. General anesthesia was administered. Prophylactic antibiotic was given to the patient less than 30 min before the incision was made. Patient was placed into a prone position on the Bryce table. Patient's back was then prepped and draped in the sterile fashion. Time- out was performed at this time. Using AP and lateral C-arm imaging the interval between L5-S1 was identified and marked on patient's back. A 2 inch incision 2 in from midline was made on the left side first. The fascia was incised in line with skin incision. Globus MARS retractors was placed inside the incision and docked onto the L5 lamina. Using microsurgical technique and operating microscope, a L5 laminectomy and L5- S1 facetectomy was performed using a Kerrison rongeur. The disc space at L5-S1 was identified. And a total diskectomy was performed at L5-S1 level. The endplates were decorticated using a rasp and shaver. The total diskectomy and decortication was performed at L5-S1 level in order to to accomplish a L5-S1 fusion. The local bone from the laminectomy and facetectomy was saved for local bone grafting. After the total diskectomy and decortication was completed , Globus viacell bone graft material was combined with local bone that was harvested earlier. At this time, a separate skin is incision was made over the iliac crest. The bone grafting material, which consisted of local bone that was harvested earlier along with bio4 bone grafting material was placed into the L5-S1 interbody space along with a expandable cage. The cage was expanded to its maximum height using the torque limiting screwdriver. At this time a mirror image incision was made on the right side. The fascia was incised in line with the skin incision. Globus MARS retractor was inserted and docked onto the L5-S1 posterolateral gutter. Using the power drill, posterior- lateral decortication was performed at L5-S1 level until bleeding cortical bone was identified. The remaining bone grafting material was placed into the L5-S1 posterior lateral gutter he order to accomplish posterolateral fusion at the L5- S1 level. Using the double C-arm technique, pedicle screws were placed into the L5-S1 pedicles bilaterally. This was done by placing the Jamshidi needle into the pedicles, then placing the guidewires over the Jamshidi needle, and finally placing the cannulated screws over the guidewires bilaterally. After the pedicle screws were placed, 2 titanium rods was locked into the heads of the pedicle screws using locking caps and torque limiting screwdriver. After all the hardware was placed, and confirmed with AP and lateral C-arm imaging, the wound was then irrigated with sterile normal saline and packed with Ray-Fili gauze for 3 min to accomplish hemostasis. After the gauze was removed the deep fascia was closed with #1 Vicryl suture. The subcutaneous layer was closed with 2-0 Vicryl. The skin was closed with skin tara. Patient tolerated the procedure well. There were no complications. Condition: stable Disposition: PACU Plan for aftercare: Admit to inpatient hospital
--- NOTE | 2018-10-21 16:06 | SUR.PHASEI ---
PT TOLERATING JUICE, DENIES ANY PAIN OR DISCOMFORT. BACK DRESSING REMAINS DRY AND INTAKE.
[2018-10-21] MEDS: SODIUM CHLORIDE 0.9% 1,000 ML 100 ML IV (17:42)
[2018-10-21] MEDS: AMLODIPINE 5 MG TABLET PO (21:13)
[2018-10-21] MEDS: LOSARTAN 50 MG TABLET 100 MG PO (21:13)
[2018-10-21] MEDS: DOCUSATE 100 MG CAPSULE PO (21:14)
[2018-10-21] MEDS: NITROFURANTOIN 50 MG CAPSULE 100 MG PO (21:32)
[2018-10-21] MEDS: SENNOSIDES 8.6 MG TABLET 17.2 MG PO (21:32)
[2018-10-22 00:30] VITALS: BP 131/70; PULSE 96; RESP 17; TEMP 36.4; O2SAT 93
[2018-10-22 04:31] VITALS: BP 133/73; PULSE 96; RESP 18; TEMP 36.4; O2SAT 95
[2018-10-22] MEDS: CEFAZOLIN 2 GM/100 ML FROZ.PIGGY IV (05:06)
[2018-10-22 06:24] LABS: Hemoglobin 13.7 g/dL (13.5-17.5)
--- NOTE | 2018-10-22 06:55 | PC.NURSE ---
No c/o pain tonight. Heplocked IV at 0635 after last dose of cefazolin completed. Patient taking po well, and voiding per urinal.
--- NOTE | 2018-10-22 07:26 | PM.PNPO.1 ---
Subjective Date Patient Seen: 10/22/18 Interval history: Patient seen bedside s/p L5-S1 TLIF [address] Dr[address] Alas POD #1. Patient is doing well, he is resting comfortably and pain is under control. Exam Vital Signs (past 8 hours): - 10/22/18 00:30 10/22/18 04:31 Temperature 97.5 F L 97.5 F L Pulse Rate 96 H 96 H Respiratory Rate 17 18 Blood Pressure 131/70 133/73 Pulse Oximetry 93 95 Oxygen Delivery Method Nasal Cannula,CPAP Oxygen Flow Rate 2 Narrative Exam Narrative: WDWN NAD A&Ox3. Dressing on lumbar spine is CDI, no signs of erythema, edema, or drainage. Calves are soft and compressible, no focal deficits noted. Objective Labs Result Diagrams: 10/22/18 06:03 Labs: Laboratory Results - last 24 hr 10/22/18 06:03 Hgb 13.7 Hct 40.0 L Assessment & Plan Post-op Postoperative Procedures Operation Date: 10/21/18 12:15 Actual Procedures Side Surgeon p L4-5 Hemilaminectomy, L5-S1 TLIF w/Posterior Instru. Ana M Alas MD 1. POD #1 s/p above procedure--up with PT, discontinue saucedo when mobile, pain control. If patient cleared by PT and comfortable he may go home later today. If not plan for discharge over the weekend. Quality VTE Deep Vein Thrombosis/Pulmonary Embolism Present on Admission: No
[2018-10-22 08:00] VITALS: BP 163/92; PULSE 88; RESP 16; TEMP 36.6
--- NOTE | 2018-10-22 09:10 | PT.IIE ---
Current Diagnoses Other spondylosis with radiculopathy, lumbar region (10/21/18) Spinal stenosis, lumbar region without neurogenic claudication (10/21/18) Surgery Performed Operation Date: 10/21/18 12:15 Actual Procedures p L4-5 Hemilaminectomy, L5-S1 TLIF w/Posterior Instru. - Ana M Alas MD Surgical History (Last Updated 10/19/18 @ 11:10 by Nicolle Ren, RN) Hx of microdiscectomy (Acute 09/24/16) S/P cervical spinal fusion (Acute 09/06/18) S/P excision of lipoma (Acute) Status post cataract extraction of both eyes with insertion of intraocular lens (Acute) Medical History (Last Updated 10/19/18 @ 11:10 by Nicolle Ren RN) Primary insomnia (Resolved) Snoring (Resolved) BPH (benign prostatic hyperplasia) (Acute) Low back pain (Acute) Nephrolithiasis (Acute) SOTERO treated with BiPAP (Acute) Osteoporosis (Acute) Polio (Acute) Shingles (Acute) Spinal stenosis (Acute) Tingling of right upper extremity (Acute) Allergic rhinitis (Chronic) Degenerative disc disease, lumbar (Chronic) GERD (gastroesophageal reflux disease) (Chronic) Gout (Chronic) Hyperlipidemia (Chronic) Hypertension (Chronic) Osteoarthritis (Chronic) Physical Therapy Inpatient Evaluation/Re-Eval M1 PT/OT-IP Prior Functional Status Start: 10/22/18 09:45 Freq: NEEDED Status: Active Protocol: Document 10/22/18 09:10 AB (Rec: 10/22/18 09:50 AB [id number]) Medical Review Prior Functional Status Medical History Reviewed Yes Communication able to make needs known Mobility and Gait stated that he is independent with all mobilities and ambulation without AD Social History Household Members spouse Living Arrangements House Number of Floors (Floors) One Floor Number of Stairs To Enter/Railing? 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 PT-IP Current Condition Start: 10/22/18 09:45 Freq: NEEDED Status: Active Protocol: Document 10/22/18 09:10 AB (Rec: 10/22/18 09:50 AB [id number]) Physical Therapy Current Condition Current Condition Evaluation Date 10/22/18 Treatment Diagnosis s/p L5S1 TLIF/lami; difficulty in walking Onset Date 10/21/18 Precautions Cervical Spine Precautions Soft Collar for Comfort No Heavy Lifting Log Roll Lumbar Precautions Log Roll No Twisting Limit Bending Lifting Restriction of 10 lbs Gait Belt above Incisional Area M3 PT-IP Subjective Start: 10/22/18 09:45 Freq: NEEDED Status: Active Protocol: Document 10/22/18 09:10 AB (Rec: 10/22/18 09:50 AB [id number]) Subjective Physical Therapy Visit Type Type Initial Evaluation Visit Start Time 09:10 Visit Stop Time 09:33 Total Visit Minutes 23 Number of DESKTOP SUPPORT SPECIALIST Visits 0 M4 PT-IP Mobility and Gait Start: 10/22/18 09:45 Freq: NEEDED Status: Active Protocol: Document 10/22/18 09:10 AB (Rec: 10/22/18 09:59 AB [id number]) PT-Bed Mobility Assessment Rolling Type of Rolling Log Rolling Level of Assist Standby Assistance Supine to Sit Supine to Sit Standby Assistance Scooting Scooting to Edge of Bed Standby Assistance PT-Transfer Assessment Sit to and From Stand Sit to and from Stand Standby Assistance Equipment Transfer Assistive Device Gait Belt Orthotic/Prosthetic Devices or Brace: No Gait Assessment Gait Gait Assistance Required: Standby Assistance Distance (Feet) 125 Able to Maintain Weight Bearing Status Yes During Gait Assistive Devices Assistive Device Gait Belt Front Wheeled Walker Orthotic/Prosthetic Devices or Brace: No Gait Deviations General Gait Pattern Antalgic Factors Limiting Gait Function Factors Limiting Gait Function Decreased Activity Tolerance Decreased Strength Limited Range of Motion Comments Gait Comments pt ambulated using FWW 125 ft + 50 ft SBA. assessed ambulation using SPC and completed ~ 40 ft SBA to CGA with unsteady uneven steps. ambulated in room without AD ~ 30 ft SBA and presents to be steadier compared to use of SPC. pt also presens with increase lateral trunk shift to the R and pt stated that he had polio when he was young and one leg is shorter that the other. educated pt on using FWW especially for outdoor mobility but may ambulate at home short distances without AD. pt agreed. Stair Climbing Assessment Evaluation Level of Assist On Stairs Standby Assistance Contact Guard Assistance Devices Stair Climbing Assistive Devices None Straight Cane Technique/Endurance Stair Climbing Direction Ascend and Descend Stair Climbing Technique Step to Step Number of Steps Climbed 1 Query Text: Stair Climbing Set # Repetitions (reps) 4 Comments Stair Climbing Comments pt completed up/down platform step without AD CGA; completed again with use of SPC SBA. pt presented to be steadier with use of SPC and educated on use of SPC for stair climbing and pt agreed. PT-Balance Assessment Sitting Balance and Reactions Static Sitting Balance Ability Good Dynamic Sitting Balance Ability Good Standing Balance and Reactions Static Standing Balance Ability Fair Dynamic Standing Balance Ability Fair Device Used FWW M5 PT-IP Objective Assessments Start: 10/22/18 09:45 Freq: NEEDED Status: Active Protocol: Document 10/22/18 09:10 AB (Rec: 10/22/18 09:59 AB [id number]) Orientation Orientation/Cognition Level of Alertness Alert Orientation Name Age Birthday Month Date Year Day of Week Place Situation Safety Awareness Understands Safety Issues Memory Description No Deficits Noted Gross Range of Motion Lower Extremity ROM Assessment Within Functional Limits Strength Lower Extremity Strength Assessment Within Functional Limits Coordination Assessment Gross Coordination Gross Coordination WNL Sensation Assessment Sensation Gross Sensation Right LE Impaired Sensation Description Numbness Comments Sensation Comments c/o R plantar foot numbness Muscle Tone Muscle Tone WNL Yes M6 PT-IP Treatment Start: 10/22/18 09:45 Freq: NEEDED Status: Active Protocol: Document 10/22/18 09:10 AB (Rec: 10/22/18 09:59 AB [id number]) Physical Therapy Treatment Education Education Provided Precautions Weight Bearing Status Post-Op Packet Safety M7 PT-IP Assessment and Plan Start: 10/22/18 09:45 Freq: NEEDED Status: Active Protocol: Document 10/22/18 09:10 AB (Rec: 10/22/18 09:59 AB [id number]) PT Summary Assessment and Plan Potential Rehabilitation Potential Good Status of Condition at Evaluation Stable Summary Impairments Pain ROM Strength Balance Sensation Bed Mobility Transfers Gait Activity Tolerance Assessment Summary pt doing well with mobility requiring SBA to CGA and plans to go home today. pt will have spouse to assist him at home. pt just had cervical surgery last september and stated that he has outpt PT for that. Goals Bed Mobility Goal Independent Transfer Goal Independent Gait Goal Independent Gait Distance 250 Other Goals up/down 2 steps without rail mod I Days to Meet Goals 2 Frequency of Treatment Frequency Of Treatment Twice a Day Treatment Plan Physical Therapy Treatment Plan Bed Mobility Training Transfer Training Gait Training Therapeutic Exercise Balance Retraining Post Op Education Discharge Planning Hot or Cold Pack Neuromuscular Re-ed Coordination Retraining Manual Therapy Other Recommendations and Next Treatment ambulation; stair climbing Focus Recommendations To Nursing Amount of Assist Needed Standby Assistance Discharge Recommendations PT Discharge Recommendations Home with Assistance
[2018-10-22] MEDS: ALLOPURINOL 300 MG TABLET PO (09:42)
[2018-10-22] MEDS: DOCUSATE 100 MG CAPSULE PO (09:42)
[2018-10-22] MEDS: NITROFURANTOIN 50 MG CAPSULE 100 MG PO (09:42)
[2018-10-22] MEDS: hydroCHLOROthiazide 25 MG TABLET 50 MG PO (09:42)
--- NOTE | 2018-10-22 10:44 | OT.IP.EVAL ---
Current Diagnoses Other spondylosis with radiculopathy, lumbar region (10/21/18) Spinal stenosis, lumbar region without neurogenic claudication (10/21/18) Surgery Performed Operation Date: 10/21/18 12:15 Actual Procedures p L4-5 Hemilaminectomy, L5-S1 TLIF w/Posterior Instru. - Ana M Alas MD Past Medical History (Last Updated 10/19/18 @ 11:10 by Nicolle Ren RN) Primary insomnia (Resolved) Snoring (Resolved) BPH (benign prostatic hyperplasia) (Acute) Low back pain (Acute) Nephrolithiasis (Acute) SOTERO treated with BiPAP (Acute) Osteoporosis (Acute) Polio (Acute) Shingles (Acute) Spinal stenosis (Acute) Tingling of right upper extremity (Acute) Allergic rhinitis (Chronic) Degenerative disc disease, lumbar (Chronic) GERD (gastroesophageal reflux disease) (Chronic) Gout (Chronic) Hyperlipidemia (Chronic) Hypertension (Chronic) Osteoarthritis (Chronic) Surgical History (Last Updated 10/19/18 @ 11:10 by Nicolle Ren RN) Hx of microdiscectomy (Acute 09/24/16) S/P cervical spinal fusion (Acute 09/06/18) S/P excision of lipoma (Acute) Status post cataract extraction of both eyes with insertion of intraocular lens (Acute) Occupational Therapy Inpatient Evaluation/Re-Eval M1 PT/OT-IP Prior Functional Status Start: 10/22/18 09:45 Freq: NEEDED Status: Active Protocol: Document 10/22/18 09:10 AB (Rec: 10/22/18 09:50 AB [id number]) Medical Review Prior Functional Status Medical History Reviewed Yes Communication able to make needs known Mobility and Gait stated that he is independent with all mobilities and ambulation without AD Social History Household Members spouse Living Arrangements House Number of Floors (Floors) One Floor Number of Stairs To Enter/Railing? 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 Social History Household Members spouse Living Arrangements House Number of Floors (Floors) One Floor Number of Stairs To Enter/Railing? 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 OT-IP Current Condition Start: 10/22/18 10:32 Freq: Status: Active Protocol: Document 10/22/18 10:34 [facility] (Rec: 10/22/18 10:43 [facility] [id number]) Occupational Therapy Current Condition Current Condition Evaluation Date 10/22/18 Treatment Diagnosis Lumbar spinal stenosis Diagnosis Onset Date 10/21/18 Post Operative Precautions Lumbar Precautions Log Roll No Twisting Limit Bending Lifting Restriction of 10 lbs Gait Belt above Incisional Area M3 OT- IP Subjective and Pain Start: 10/22/18 10:32 Freq: Status: Active Protocol: Document 10/22/18 10:34 [facility] (Rec: 10/22/18 10:43 [facility] [id number]) OT- Subjective Occupational Therapy Visit Type Type Initial Evaluation Visit Start Time 09:05 Visit Stop Time 10:00 Total Visit Minutes 55 Occupational Therapy Visit Comments Patient Comments Pt agreeable to get up and wanting to go home today. OT Pain Assessment Pain When Pain Assessed At Rest Pain Present Pain Present Denied Pain M4 OT- IP ADL's Start: 10/22/18 10:32 Freq: Status: Active Protocol: Document 10/22/18 10:34 [facility] (Rec: 10/22/18 10:43 [facility] [id number]) OT ADL-Dressing General Eval Upper Body Dressing Ability Independent Lower Body Dressing Ability Minimal Assistance Areas Needing Assistance Shoes Comments OT Dressing Comments Just assist to help put shoes on and tied them, otherwise educated for use of sock aid and servicer. OT ADL-Toileting Comments OT Toileting Comments Educated to stand from pericare needs after bowel movement. M5 OT- IP IADL's Start: 10/22/18 10:32 Freq: Status: Active Protocol: Document 10/22/18 10:34 [facility] (Rec: 10/22/18 10:43 [facility] [id number]) OT-Instrumental Activities of Daily Living Home Safety Awareness Awareness of Need for Assistance at Home Good Awareness Medication Management Medication Management No Deficits Identified Money Management Money Management No Deficits Identified Meal Preparation Meal Preparation Caregiver Provides Assist Investigative Reporter Investigative Reporter Caregiver Provides Assist M6 OT- IP Functional Cognition Start: 10/22/18 10:32 Freq: Status: Active Protocol: Document 10/22/18 10:34 [facility] (Rec: 10/22/18 10:43 [facility] [id number]) Cognitive Factors Limiting Selfcare Function Cognitive Ability Level of Alertness Alert Patient Orientation Name Age Birthday Month Date Year Day of Week Place Situation Attention Span Ability Capable of Focused Attention Capable of Sustained Attention Ability to Follow Commands Able to Follow Multi-Step Commands Memory Description No Deficits Noted Safety Awareness No Deficits Noted Problem Solving Ability No deficits Noted Executive Function Ability No Deficits Noted Cognitive Comments Cognitive Assessment Comments Pt independent with all needs for cognition. OT- Vision and Hearing OT- Hearing Assessment OT- Hearing Assessment WFL M7 OT- IP Mobility and Balance Start: 10/22/18 10:32 Freq: Status: Active Protocol: Document 10/22/18 10:34 [facility] (Rec: 10/22/18 10:43 [facility] [id number]) OT- Bed Mobility Assessment Rolling Type of Rolling Roll to Right Level of Assistance Standby Assistance Supine to Sit Supine to Sit Assist Standby Assistance OT-Transfer Assessment Sit to and From Stand Sit to and from Stand Standby Assistance Transfers Transfer Ability Standby Assistance Technique Transfer Destination Bed Chair Transfer Technique Stand Step Pivot Devices Transfer Assistive Devices None Gait Belt Straight Cane Front Wheeled Walker Comments Mobility Comments Pt SBA with FWW, a little unsteady when using cahe with PT, and actually better without device then cane. For know suggesting use of FWW . OT- Balance Assessment Sitting Balance and Reactions Static Sitting Balance Ability Normal Dynamic Sitting Balance Ability Normal Standing Balance and Reactions Static Standing Balance Ability Normal Dynamic Standing Balance Ability Good M8 OT- IP Objective Assessments Start: 10/22/18 10:32 Freq: Status: Active Protocol: Document 10/22/18 10:34 [facility] (Rec: 10/22/18 10:43 [facility] [id number]) OT Gross Range of Motion Upper Extremity Range of Motion Assessment Within Functional Limits OT Strength Upper Extremity Strength Assessment Within Functional Limits M9 OT- IP Assessment and Plan Start: 10/22/18 10:32 Freq: Status: Active Protocol: Document 10/22/18 10:34 [facility] (Rec: 10/22/18 10:43 [facility] [id number]) OT Summary Assessment and Plan Potential Rehabilitation Potential Excellent Analytic Complexity at Evaluation Low Summary OT Impairments Balance Functional Mobility Progress Towards Goals Progressing Toward Goals Assessment Summary Pt Low complexity and doing well and going home today, to assist as needed at home. Pt mainly just needing assist for tying shoes, IADl needs, and for showering. Goals Patient/Caregiver Education Goal Demonstrate Post-Op Precautions OT-Other Goals Pt to have good safety for all Adl needs and incorporation of back precautions. Days to Meet Goals 1 Frequency of Treatment Frequency Of Treatment Once a Day Treatment Plan OT Treatment Plan Patient/Family Education Discharge Planning Discharge Recommendations OT Discharge Recommendations Home with Assistance Home Equipment Needs sock aid issued
--- NOTE | 2018-10-22 11:43 | PC.NURSE ---
Pt is ready for discharge home. He is dressed, dressing to back changed, discharge orders reviewed-discussed d/c meds, time of last dose, no bending, lifting, or twisting. Keep dressing clean and dry. Reviewed stroke education. Pt denies pain and declines pain meds. Pt ready for discharge home when son arrives and will be taken out via w/c to pov with Son and all belongings.
== END 2018-10-22 11:53 | disposition home or self-care (01) | DRG 455 ==
PROVIDERS: Admitting Provider Orthopaedic Surgery Orthopaedic Surgery of the Spine; PCP Physician Assistant; Visit Provider Orthopaedic Surgery Orthopaedic Surgery of the Spine
PROC: 0SG30AJ Fusion of Lumbosacral Joint with Interbody Fusion Device, Posterior Approach, Anterior Column, Open Approach (ICD-10-PCS; principal; 2018-10-21 12:15)
DX: M48.07 Spinal stenosis, lumbosacral region (principal); M48.061 Spinal stenosis, lumbar region without neurogenic claudication; M47.26 Other spondylosis with radiculopathy, lumbar region; G47.33 Obstructive sleep apnea (adult) (pediatric); I10 Essential (primary) hypertension; E78.5 Hyperlipidemia, unspecified; Z87.891 Personal history of nicotine dependence
CPT/HCPCS: 72100; 76001; 85014; 85018; 97161; 97165; 97530; 97535; C1776; C9290; J0131; J0330; J0690; J1100; J1170; J2405; J2704; J3010

== ENCOUNTER → 2018-12-23 10:58 | Outpatient (CLI) | payer MEDICARE, OTHER, SELFPAY ==
[2018-10-21 12:08] VITALS: BMI 34.8
--- NOTE | 2018-12-23 | DI.US.S_ITS ---
PROCEDURE: US RENAL COMPLETE INDICATIONS: DYSURIA TECHNIQUE: Real-time scanning was performed of the kidneys and bladder, with image documentation. COMPARISON: CT abdomen and pelvis dated . FINDINGS: Kidneys: Kidneys are normal in size. Right kidney measures 12.7 cm long; left kidney measures 13.4 cm long. Right renal cortical thickness is 1.8 cm; left renal cortical thickness is 1.7 cm. Renal cortical echotexture is normal. No right-sided hydronephrosis or nephrolithiasis. Interval increase in size of right renal cyst now measuring approximately 6.0 cm in maximum dimension versus 5.4 cm previously. Small nonobstructing left nephrolithiasis and a 1.2 cm left renal cyst is identified. No suspicious solid mass lesions. Bladder: Pre-void bladder volume is 206 mL. Post-void residual is 192 mL. Pre-void images demonstrate no intraluminal masses or stones. On pre-void images, bilateral ureteral jets are noted with color Doppler interrogation. (Of note, ureteral jets may not be detectable in up to 25% of cases due to insufficient differences in specific gravity between ureteral and bladder urine). Miscellaneous: No free pelvic fluid. IMPRESSION: 1. Left nephrolithiasis without evidence for obstruction. 2. Mild interval increase in size of right renal cyst now measuring up to 6.0 cm in maximum dimension versus 5.4 cm previously. No right-sided nephrolithiasis or hydronephrosis. 3. Post void residual urinary bladder volume of 192 mL versus prevoid urinary bladder volume of 206 mL. Dictated by: Ja Kincaid M.D. on 12/23/2018 at 23:13 Approved by: Ja Kincaid M.D. on 12/23/2018 at 23:20
== END ==
PROVIDERS: PCP Physician Assistant; Visit Provider Urology
DX: R30.0 Dysuria (principal); N20.0 Calculus of kidney; N28.1 Cyst of kidney, acquired
CPT/HCPCS: 76770

== ENCOUNTER → 2019-02-08 09:48 | Outpatient (CLI) | payer MEDICARE, OTHER, SELFPAY ==
[2018-12-28 16:01] VITALS: BMI 34.8
--- NOTE | 2019-02-08 | DI.CT.S_ITS ---
PROCEDURE: CT CHEST WO CON INDICATIONS: SOLITARY PULMONARY NODULE TECHNIQUE: Noncontrast 5 mm thick sections acquired from the pulmonary apices to the posterior costophrenic angles. 7 mm thick coronal and sagittal MIP reformats were then acquired. For radiation dose reduction, the following was used: automated exposure control, adjustment of mA and/or kV according to patient size. COMPARISON: [facility], RG, XR CXR 2V, 12/27/2018, 14:28. FINDINGS: Image quality: Excellent. Lungs and pleura: No acute air space opacities. No pleural effusions or pneumothorax. Central and peripheral airways are patent and normal in caliber. Mediastinum: Heart size is normal. No pericardial effusion. No mediastinal adenopathy by size criteria. Thoracic aorta and central pulmonary arteries are normal in size. Esophagus is normal in caliber. No hiatal hernia. Bones and chest wall: No suspicious bony lesions. No vertebral body compression fractures. No axillary or supraclavicular adenopathy by size criteria. Thyroid gland is not well-seen by this noncontrast CT. Abdomen: Visualized upper abdominal solid organs and bowel loops appear normal in the absence of contrast. IMPRESSION: No left upper lobe nodule is present. The area of prior plain film concern appears to have represented superimposition of normal structures. No followup recommended. Dictated by: Mateo Delgado M.D. on 02/08/2019 at 13:04 Approved by: Mateo Delgado M.D. on 02/08/2019 at 13:05
== END ==
PROVIDERS: PCP Physician Assistant; Visit Provider Physician Assistant
DX: R91.1 Solitary pulmonary nodule (principal)
CPT/HCPCS: 71250

== ENCOUNTER 2019-03-01 13:04 | Emergency (ER) | payer MEDICARE, OTHER, SELFPAY ==
[2018-12-28 16:01] VITALS: BMI 34.8
[2019-03-01 13:14] VITALS: BP 132/79; PULSE 96; RESP 20; TEMP 36.4; O2SAT 97
[2019-03-01 14:12] LABS: Add Manual Diff / Slide Review NO; Basophils Absolute Auto 0 /uL (0-100); Basophils Percent Auto 0.1 % (0-2); Eosinophils Absolute Auto 100 /uL (0-450); Eosinophils Percent Auto 1.4 % (2-4); Hematocrit 46.4 % (41-53); Hemoglobin 15.6 g/dL (13.5-17.5); Lymphocytes Absolute Auto 200 /uL (1100-4500); Lymphocytes Percent Auto 2.2 % (25-40); Mean Corpuscular HGB Conc 33.5 % (30-36); Mean Corpuscular Hemoglobin 28.7 PG (26-34); Mean Corpuscular Volume 85.8 fL (80-100); Monocytes Absolute Auto 300 /uL (0-900); Monocytes Percent Auto 2.6 % (3-14); Neutrophils Absolute Auto 9900 /uL (1500-7000); Neutrophils Percent Auto 93.7 % (50-75); Platelet Count 193 X10^3/uL (150-400); Red Blood Cell Count 5.41 X10^6/uL (4.5-5.9); Red Cell Distribution Width 14.6 % (11.6-14.8); White Blood Cell Count 10.6 X10^3/uL (4.5-11.0)
[2019-03-01 14:36] LABS: Alanine Aminotransferase 38 IU/L (21-72); Albumin 4.5 g/dL (3.5-5.0); Albumin Globulin Ratio 1.5 (1.0-2.8); Alkaline Phosphatase 66 U/L (38-126); Amylase 69 U/L (30-110); Aspartate Aminotransferase 33 IU/L (17-59); BUN Creatinine Ratio 28.8 (6-22); Bilirubin Total 1.2 mg/dL (0.2-1.3); Blood Urea Nitrogen 23 mg/dL (9-20); Calcium 9.1 mg/dL (8.4-10.2); Carbon Dioxide 25 mmol/L (22-32); Chloride 102 mmol/L (98-107); Estimated Glomerular Filt Rate > 60.0 mL/min (>60); Glucose 130 mg/dL (80-110); HEMOLYSIS 16 (0-50); Lipase 101 U/L (23-300); Potassium 3.1 mmol/L (3.4-5.1); Sodium 137 mmol/L (137-145); Total Protein 7.5 g/dL (6.3-8.2)
[2019-03-01] MEDS: ONDANSETRON 4 MG/2 ML INJ IV (14:36)
[2019-03-01] MEDS: SODIUM CHLORIDE 0.9% 500 ML 1000 ML IV (14:36)
[2019-03-01 15:16] LABS: Influenza A and B by PCR Rapid Negative (Negative)
--- NOTE | 2019-03-01 15:33 | DI.CT.S_ITS ---
PROCEDURE: CT ABDOMEN PELVIS W CON INDICATIONS: abd pain, fever TECHNIQUE: After the administration of oral and intravenous contrast, 5 mm thick sections acquired from the diaphragms to the symphysis. 5 mm thick coronal and sagittal reformats were performed. For radiation dose reduction, the following was used: automated exposure control, adjustment of mA and/or kV according to patient size. COMPARISON: [facility], CT, KIDNEY/ URETER/BLADDER, 08/13/2016, 19:23. [facility], CT, ABDOMEN/PELVIS WITH CONTRAST, 04/05/2013, 10:07. FINDINGS: Image quality: Diagnostic. ABDOMEN: Lung bases: Lung bases are clear. Mild scarring at the right lung base is similar to the prior exam. Otherwise, the lung bases are clear. There is coronary artery atherosclerosis. Heart size is normal. Solid organs: The liver is slightly hypodense when compared to the spleen. No focal liver lesions are identified, however. The gallbladder is not enlarged or inflamed. No extrahepatic biliary dilatation is evident. The pancreas is atrophic. The spleen is unremarkable. The adrenals are within normal limits. A dominant simple appearing posterior right inferior renal cyst is identified. The kidneys are otherwise unremarkable. There is no hydronephrosis. No solid renal lesions are evident. No definite renal calculi are appreciated. Peritoneum and bowel: The stomach and duodenum are unremarkable. The small bowel loops are nondilated. The appendix is well-visualized and normal. Distal colonic diverticulosis is present without surrounding mesenteric inflammation/edema to suggest acute diverticulitis. Incidental note is made of a small fat containing periumbilical hernia with a defect of the anterior abdominal wall measuring up to 2.1 cm. No bowel extends into this hernia. No free fluid, loculated fluid collection or free air is identified. Nodes and vessels: No retroperitoneal or mesenteric adenopathy. Aorta and inferior vena cava are normal in caliber. There is aortic and iliac artery atherosclerosis. Bones: No acute fractures or suspicious osseous lesions are present. Moderate multilevel degenerative changes of the lower lumbar spine are primarily evident involving the lower lumbar facet joints. Post surgical changes related to a lumbosacral fusion are present at L5-S1 with an interbody spacer evident. The hardware appears to be grossly intact. PELVIS: Genitourinary: Bladder wall thickness is normal. The prostate is not enlarged. Miscellaneous: No inguinal hernias or adenopathy. No free fluid or loculated fluid collection is evident. Bones: No suspicious bony lesions. No acute pelvic fractures are identified. Age-appropriate degenerative changes of the pelvic joints are noted. IMPRESSION: 1. No source for the patient's abdominal pain or fever is evident. 2. Colonic diverticulosis without evidence of diverticulitis. No bowel obstruction. 2. Hepatic steatosis. 4. Simple right renal cyst appears similar to the exam from 2016. 5. Small fat containing periumbilical hernia. 6. Coronary and aortic atherosclerosis. Dictated by: Ha Ocampo M.D. on 03/01/2019 at 15:10 Approved by: Ha Ocampo M.D. on 03/01/2019 at 15:15
--- NOTE | 2019-03-01 16:19 | ED_ITS ---
HPI - Abdominal Pain <Marialuisa PaceYANELIP-BC - Last Filed: 03/01/19 22:06> General Chief Complaint: Abdominal Pain Stated Complaint: FEVER UPSET STOMACH INFECTION OF SOMETHING THROWIN Time Seen by Provider: 03/01/19 13:32 Source: patient and family Mode of arrival: ambulatory Limitations: no limitations History of Present Illness HPI narrative: The patient is a 73-year-old male with history of hypertension who presents with a chief complaint of a sudden onset of fever, chills nausea and vomiting. He states he thinks he ate a bad piece of bread. He denies any chest pain or shortness of breath. He does state that he has a recent diagnosis of pleurisy. He has not taken anything at home to feel better. He denies any diarrhea and states that he had a good bowel movement this morning. He denies any blood in his vomit or stool. He was recently started on finasteride. He denies any cough or congestion. Related Data Home Medications Medication Instructions Recorded Confirmed allopurinol 150 mg PO DAILY #0 12/14/12 03/01/19 hydrochlorothiazide 50 mg PO DAILY #0 12/14/12 03/01/19 amlodipine 5 mg PO BEDTIME 09/03/18 03/01/19 BIPAP PRO #1 ea 01/12/19 03/01/19 aspirin 325 mg tablet 325 mg PO DAILY 02/16/19 03/01/19 finasteride 5 mg tablet 5 mg PO DAILY 02/16/19 03/01/19 d-mannose 1 dose PO DIRECTED 03/01/19 ibuprofen 800 mg PO TID PRN 03/01/19 03/01/19 losartan 100 mg PO BEDTIME 03/01/19 03/01/19 ranitidine HCl 75 mg PO BEDTIME PRN 03/01/19 03/01/19 Previous Rx's Medication Instructions Recorded ondansetron 4 mg PO TID PRN 5 Days #20 tab 03/01/19 Allergies Allergy/AdvReac Type Severity Reaction Status Date / Time cefuroxime [From Ceftin] Allergy Unknown Verified 03/01/19 15:54 tamsulosin Allergy Difficulty Verified 02/16/19 10:14 Breathing doxazosin AdvReac Intermediate SOB, Verified 03/01/19 14:08 fever, extreme fatigue, cough, flu-like symptoms lisinopril AdvReac Mild COUGH, Verified 02/16/19 10:14 Palpitations cyclobenzaprine AdvReac Unknown Drowsy Verified 03/01/19 15:54 [From Flexeril] ezetimibe [From Vytorin] AdvReac Unknown Back Pain Verified 03/01/19 15:54 hydrocodone [HYDROCODONE] AdvReac Unknown CONSTIPATIO Verified 02/16/19 10:14 N pravastatin [From Pravachol] AdvReac Unknown Back Pain Verified 03/01/19 15:54 simvastatin [From Vytorin] AdvReac Unknown Back Pain Verified 03/01/19 15:54 Review of Systems <CHRISTINA Osorio - Last Filed: 03/01/19 22:06> Review of Systems GENERAL: See HPI HEENT: Denies sinus pain, ear pain, sore throat, difficulty swallowing, dizziness. RESPIRATORY: Denies dyspnea, cough, wheezing, hemoptysis, sputum. CARDIOVASCULAR: Denies chest pain, palpitations, orthopnea, edema, GASTROINTESTINAL: See HPI : Denies dysuria, frequency, incontinence, hematuria, urinary retention. MUSCULOSKELETAL: denies weakness, joint pain, or bony pain SKIN: Denies rash, skin lesions, or other NEUROLOGIC: Denies weakness, headache, numbness, change in speech, confusion, seizures, incoordination. PSYCHIATRIC: No concerning psychosocial issues. 12 point review of systems is negative except for those stated above PFSH <CHRISTINA Osorio - Last Filed: 03/01/19 22:06> Medical History Primary insomnia (Resolved) Snoring (Resolved) Nephrolithiasis (Acute) Polio (Acute) Shingles (Acute) Tingling of right upper extremity (Acute) Allergic rhinitis (Chronic) BPH (benign prostatic hyperplasia) (Chronic) Degenerative disc disease, lumbar (Chronic) GERD (gastroesophageal reflux disease) (Chronic) Gout (Chronic) Hyperlipidemia (Chronic) Hypertension (Chronic) Low back pain (Chronic) SOTERO treated with BiPAP (Chronic) Osteoarthritis (Chronic) Osteoporosis (Chronic) Spinal stenosis (Chronic) Surgical History Hx of microdiscectomy (Acute 09/24/16) S/P cervical spinal fusion (Acute 09/06/18) S/P excision of lipoma (Acute) Status post cataract extraction of both eyes with insertion of intraocular lens (Acute) Social History marital status: household members: spouse Smoking Status: Former smoker alcohol intake: current substance use type: does not use Social History marital status: household members: spouse Smoking Status: Former smoker alcohol intake: current substance use type: does not use Exam <CHRISTINA Osorio - Last Filed: 03/01/19 22:06> Narrative Exam Narrative: GENERAL: Obese gentleman lying on stretcher HEAD: Atraumatic. Normocephalic. No temporal or scalp tenderness. EYES: Pupils equal round and reactive. Extraocular motions intact. No scleral icterus. No injection or drainage. ENT: Nose without bleeding, purulent drainage or septal hematoma. Throat without erythema, tonsillar hypertrophy or exudate. Uvula midline. Airway patent. NECK: Trachea midline. No JVD or lymphadenopathy. Supple, nontender, no meningeal signs. CARDIOVASCULAR: Regular rate and rhythm RESPIRATORY: Clear to auscultation. Breath sounds equal bilaterally. No wheezes, rales, or rhonchi. No cough on exam. No increased accessory muscle use. GASTROINTESTINAL: Abdomen soft, diffusely tender, nondistended. No hepato- splenomegaly, or palpable masses. No guarding. active bowel sounds all 4 quadrants EXTREMITIES: No clubbing, cyanosis, or edema. No joint tenderness, effusion, or edema noted. BACK: Nontender without deformity or crepitance. No flank tenderness. NEURO: AOx3. Stable gait. SKIN: No rash or erythema. Initial Vital Signs Initial Vital Signs: Vital Signs Temperature 97.6 F 03/01/19 13:14 Pulse Rate 96 H 03/01/19 13:14 Respiratory Rate 20 03/01/19 13:14 Blood Pressure 132/79 03/01/19 13:14 Pulse Oximetry 97 03/01/19 13:14 <America Cortez MD - Last Filed: 03/02/19 07:32> Initial Vital Signs Initial Vital Signs: Vital Signs Temperature 97.6 F 03/01/19 13:14 Pulse Rate 96 H 03/01/19 13:14 Respiratory Rate 20 03/01/19 13:14 Blood Pressure 132/79 03/01/19 13:14 Pulse Oximetry 97 03/01/19 13:14 Course <CHRISTINA Osorio - Last Filed: 03/01/19 22:06> Orders Ordered: Discontinued Medications Sodium Chloride (Normal Saline 0.9%) 500 mls @ 1,000 mls/hr IV BOLUS ONE Stop: 03/01/19 14:32 Last Infusion: 03/01/19 15:10 Dose: 0 mls/hr Admin: 03/01/19 14:36 Dose: 1,000 mls/hr Ondansetron HCl (Zofran) 4 mg IV NOW ONE Stop: 03/01/19 14:03 Last Admin: 03/01/19 14:36 Dose: 4 mg Potassium Chloride (Potassium Chloride) 40 meq PO NOW ONE Stop: 03/01/19 16:20 Last Admin: 03/01/19 16:24 Dose: 40 meq Vital Signs - 8 hr 03/01/19 17:03 Temperature 101.0 F H Pulse Rate 90 Respiratory Rate 18 Blood Pressure [Left Arm] 118/71 Pulse Oximetry 95 <America Cortez MD - Last Filed: 03/02/19 07:32> Orders Ordered: Discontinued Medications Sodium Chloride (Normal Saline 0.9%) 500 mls @ 1,000 mls/hr IV BOLUS ONE Stop: 03/01/19 14:32 Last Infusion: 03/01/19 15:10 Dose: 0 mls/hr Admin: 03/01/19 14:36 Dose: 1,000 mls/hr Ondansetron HCl (Zofran) 4 mg IV NOW ONE Stop: 03/01/19 14:03 Last Admin: 03/01/19 14:36 Dose: 4 mg Potassium Chloride (Potassium Chloride) 40 meq PO NOW ONE Stop: 03/01/19 16:20 Last Admin: 03/01/19 16:24 Dose: 40 meq Vital Signs - 8 hr 03/01/19 17:03 Temperature 101.0 F H Pulse Rate 90 Respiratory Rate 18 Blood Pressure [Left Arm] 118/71 Pulse Oximetry 95 MDM - Abdominal Pain <CHRISTINA Osorio - Last Filed: 03/01/19 22:06> Lab Data Result diagrams: 03/01/19 13:57 03/01/19 13:57 Lab Results 03/01/19 03/01/19 03/01/19 Range/Units 13:57 13:57 13:57 WBC 10.6 (4.5-11.0) X10^3/uL RBC 5.41 (4.5-5.9) X10^6/uL Hgb 15.6 (13.5-17.5) g/dL Hct 46.4 (41-53) % MCV 85.8 (80-100) fL MCH 28.7 (26-34) PG MCHC 33.5 (30-36) % RDW 14.6 (11.6-14.8) % Plt Count 193 (150-400) X10^3/uL Neut % (Auto) 93.7 H (50-75) % Lymph % (Auto) 2.2 L (25-40) % [place] % (Auto) 2.6 L (3-14) % Eos % (Auto) 1.4 L (2-4) % Baso % (Auto) 0.1 (0-2) % Neut # (Auto) 9900 H (6185-1386) /uL Lymph # (Auto) 200 L (5606-7646) /uL [place] # (Auto) 300 (0-900) /uL Eos # (Auto) 100 (0-450) /uL Baso # (Auto) 0 (0-100) /uL Sodium 137 (137-145) mmol/L Potassium 3.1 L (3.4-5.1) mmol/L Chloride 102 (98-107) mmol/L Carbon Dioxide 25 (22-32) mmol/L BUN 23 H (9-20) mg/dL Creatinine 0.80 (0.66-1.25) mg/dL Estimated GFR > 60.0 (>60) mL/min BUN/Creatinine Ratio 28.8 H (6-22) Glucose 130 H (80-110) mg/dL Calcium 9.1 (8.4-10.2) mg/dL Total Bilirubin 1.2 (0.2-1.3) mg/dL AST 33 (17-59) IU/L ALT 38 (21-72) IU/L Alkaline Phosphatase 66 (38-126) U/L Total Creatine Kinase (55-170) U/L CK-MB (CK-2) (<2.37) ng/mL CK-MB (CK-2) Rel Index (1.5-5.0) % Troponin I (0.01-0.034) ng/mL Total Protein 7.5 (6.3-8.2) g/dL Albumin 4.5 (3.5-5.0) g/dL Globulin 3.0 (1.7-4.1) g/dL Albumin/Globulin Ratio 1.5 (1.0-2.8) Amylase 69 (30-110) U/L Lipase 101 (23-300) U/L Urine RBC (0-5/HPF) Urine WBC (0-5/HPF) Ur Squamous Epith Cells (0-5/HPF) Urine Bacteria (None) Ur Culture Indicated? Influenza A & B (PCR) (Negative) 03/01/19 03/01/19 03/01/19 Range/Units 13:57 14:52 15:51 WBC (4.5-11.0) X10^3/uL RBC (4.5-5.9) X10^6/uL Hgb (13.5-17.5) g/dL Hct (41-53) % MCV (80-100) fL MCH (26-34) PG MCHC (30-36) % RDW (11.6-14.8) % Plt Count (150-400) X10^3/uL Neut % (Auto) (50-75) % Lymph % (Auto) (25-40) % [place] % (Auto) (3-14) % Eos % (Auto) (2-4) % Baso % (Auto) (0-2) % Neut # (Auto) (7706-3528) /uL Lymph # (Auto) (7700-0029) /uL [place] # (Auto) (0-900) /uL Eos # (Auto) (0-450) /uL Baso # (Auto) (0-100) /uL Sodium (137-145) mmol/L Potassium (3.4-5.1) mmol/L Chloride (98-107) mmol/L Carbon Dioxide (22-32) mmol/L BUN (9-20) mg/dL Creatinine (0.66-1.25) mg/dL Estimated GFR (>60) mL/min BUN/Creatinine Ratio (6-22) Glucose (80-110) mg/dL Calcium (8.4-10.2) mg/dL Total Bilirubin (0.2-1.3) mg/dL AST (17-59) IU/L ALT (21-72) IU/L Alkaline Phosphatase (38-126) U/L Total Creatine Kinase 180 H (55-170) U/L CK-MB (CK-2) 2.14 (<2.37) ng/mL CK-MB (CK-2) Rel Index 1.2 L (1.5-5.0) % Troponin I < 0.012 (0.01-0.034) ng/mL Total Protein (6.3-8.2) g/dL Albumin (3.5-5.0) g/dL Globulin (1.7-4.1) g/dL Albumin/Globulin Ratio (1.0-2.8) Amylase (30-110) U/L Lipase (23-300) U/L Urine RBC 5-10/hpf H (0-5/HPF) Urine WBC 1-5/hpf (0-5/HPF) Ur Squamous Epith Cells 0-1 /hpf (0-5/HPF) Urine Bacteria Occasional (0-1) (None) Ur Culture Indicated? Cult not indicated Influenza A & B (PCR) Negative (Negative) Point of care testing: Urine Dip Bedside Urine Glucose Negative Bedside Urine Bilirubin - Negative Bedside Urine Ketone +/- 5 Urine Specific [place] 1.025 Bedside Urine Occult Blood +/- Bedside Urine pH 6.0 Bedside Urine Protein +/- 15 Bedside Urine Urobilinogen +/- 1mg Bedside Urine Nitrite - Negative Bedside Urine Leukocytes - Negative Esterase Imaging Data CT scan - abdomen: Radiologist's impression: [address] [address] [address] Scan Report Signed Patient: Huey Newman [facility]#: [id number] : 7Acct:[id number] Age/Sex: 73 / MDate of Service: 03/01/19 Loc: ED Accession Number: [id number] Procedure: CT abdomen pelvis w con Ordering Provider: Marialuisa Pace [employer]IDENT[employer]ERTY MANAGER-BC PROCEDURE: CT ABDOMEN PELVIS W CON INDICATIONS: abd pain, fever TECHNIQUE: After the administration of oral and intravenous contrast, 5 mm thick sections acquired from the diaphragms to the symphysis. 5 mm thick coronal and sagittal reformats were performed. For radiation dose reduction, the following was used: automated exposure control, adjustment of mA and/or kV according to patient size. COMPARISON: [facility], CT, KIDNEY/ URETER/BLADDER, 08/13/2016, 19:23. [facility], CT, ABDOMEN/PELVIS WITH CONTRAST, 04/05/2013, 10:07. FINDINGS: Image quality: Diagnostic. ABDOMEN: Lung bases: Lung bases are clear. Mild scarring at the right lung base is similar to the prior exam. Otherwise, the lung bases are clear. There is coronary artery atherosclerosis. Heart size is normal. Solid organs: The liver is slightly hypodense when compared to the spleen. No focal liver lesions are identified, however. The gallbladder is not enlarged or inflamed. No extrahepatic biliary dilatation is evident. The pancreas is atrophic. The spleen is unremarkable. The adrenals are within normal limits. A dominant simple appearing posterior right inferior renal cyst is identified. The kidneys are otherwise unremarkable. There is no hydronephrosis. No solid renal lesions are evident. No definite renal calculi are appreciated. Peritoneum and bowel: The stomach and duodenum are unremarkable. The small bowel loops are nondilated. The appendix is well-visualized and normal. Distal colonic diverticulosis is present without surrounding mesenteric inflammation/edema to suggest acute diverticulitis. Incidental note is made of a small fat containing periumbilical hernia with a defect of the anterior abdominal wall measuring up to 2.1 cm. No bowel extends into this hernia. No free fluid, loculated fluid collection or free air is identified. Nodes and vessels: No retroperitoneal or mesenteric adenopathy. Aorta and inferior vena cava are normal in caliber. There is aortic and iliac artery atherosclerosis. Bones: No acute fractures or suspicious osseous lesions are present. Moderate multilevel degenerative changes of the lower lumbar spine are primarily evident involving the lower lumbar facet joints. Post surgical changes related to a lumbosacral fusion are present at L5-S1 with an interbody spacer evident. The hardware appears to be grossly intact. PELVIS: Genitourinary: Bladder wall thickness is normal. The prostate is not enlarged. Miscellaneous: No inguinal hernias or adenopathy. No free fluid or loculated fluid collection is evident. Bones: No suspicious bony lesions. No acute pelvic fractures are identified. Age-appropriate degenerative changes of the pelvic joints are noted. IMPRESSION: 1. No source for the patient's abdominal pain or fever is evident. 2. Colonic diverticulosis without evidence of diverticulitis. No bowel obstruction. 2. Hepatic steatosis. 4. Simple right renal cyst appears similar to the exam from 2016. 5. Small fat containing periumbilical hernia. 6. Coronary and aortic atherosclerosis. Dictated by: Ha Ocampo M.D. on 03/01/2019 at 15:10 Approved by: Ha Ocampo M.D. on 03/01/2019 at 15:15 Chest x-ray: Radiologist's impression: [address] [address] XRay Report Signed Patient: Huey Newman [facility]#: [id number] : 7Acct:[id number] Age/Sex: 73 / MDate of Service: 03/01/19 Loc: ED Accession Number: [id number] Procedure: XR chest 1V Ordering Provider: Marialuisa Pace PROCEDURE: XR CHEST 1V INDICATIONS: difficulty breathing TECHNIQUE: One view of the chest was acquired. COMPARISON: [facility], , CHEST 2 VIEW, 02/03/2013, 8:20. FINDINGS: Surgical changes and devices: Post-fusion changes in lower cervical spine are seen. Lungs and pleura: Mild pulmonary vascular congestion is seen. No definite focal infiltrate. No pleural effusions or pneumothorax. Mediastinum: Mediastinal contours appear normal. Heart size is enlarged. Bones and chest wall: No suspicious bony lesions. Overlying soft tissues appear unremarkable. IMPRESSION: Cardiomegaly and mild congestion. No focal infiltrate, pleural effusion or pneumothorax. Dictated by: Tony Marie M.D. on 03/01/2019 at 16:52 Approved by: Tony Marie M.D. on 03/01/2019 at 16:[address] [facility] Narrative Medical decision making narrative: The patient is a 73-year-old male who presents with a chief complaint of fever, muscle aches nausea and vomiting. He did not vomit in the emergency department. He had a negative troponin, grossly normal lab work, a normal chest x-ray as well as a normal CT of his abdomen and pelvis. He did have a negative flu swab here. I discussed at length with the patient conservative measures including Zofran, and symptomatic care. He passed a p.o. trial the emergency department prior to discharge. His potassium was slightly low, so I did replace him in the ER. I discussed at length that he needs to follow up with primary care provider soon as possible and discuss coming back to the emergency department for any acute concerns such as chest pain, shortness of breath or inability keep down fluids. The patient's history correlates with a viral illness at this point time. He did not vomit or have any diarrhea in the emergency department. He was hemodynamically stable throughout his stay. <America Cortez MD - Last Filed: 03/02/19 07:32> Lab Data Lab Results 03/01/19 03/01/19 03/01/19 Range/Units 13:57 13:57 13:57 WBC 10.6 (4.5-11.0) X10^3/uL RBC 5.41 (4.5-5.9) X10^6/uL Hgb 15.6 (13.5-17.5) g/dL Hct 46.4 (41-53) % MCV 85.8 (80-100) fL MCH 28.7 (26-34) PG MCHC 33.5 (30-36) % RDW 14.6 (11.6-14.8) % Plt Count 193 (150-400) X10^3/uL Neut % (Auto) 93.7 H (50-75) % Lymph % (Auto) 2.2 L (25-40) % [place] % (Auto) 2.6 L (3-14) % Eos % (Auto) 1.4 L (2-4) % Baso % (Auto) 0.1 (0-2) % Neut # (Auto) 9900 H (3096-1264) /uL Lymph # (Auto) 200 L (9324-0440) /uL [place] # (Auto) 300 (0-900) /uL Eos # (Auto) 100 (0-450) /uL Baso # (Auto) 0 (0-100) /uL Sodium 137 (137-145) mmol/L Potassium 3.1 L (3.4-5.1) mmol/L Chloride 102 (98-107) mmol/L Carbon Dioxide 25 (22-32) mmol/L BUN 23 H (9-20) mg/dL Creatinine 0.80 (0.66-1.25) mg/dL Estimated GFR > 60.0 (>60) mL/min BUN/Creatinine Ratio 28.8 H (6-22) Glucose 130 H (80-110) mg/dL Calcium 9.1 (8.4-10.2) mg/dL Total Bilirubin 1.2 (0.2-1.3) mg/dL AST 33 (17-59) IU/L ALT 38 (21-72) IU/L Alkaline Phosphatase 66 (38-126) U/L Total Creatine Kinase (55-170) U/L CK-MB (CK-2) (<2.37) ng/mL CK-MB (CK-2) Rel Index (1.5-5.0) % Troponin I (0.01-0.034) ng/mL Total Protein 7.5 (6.3-8.2) g/dL Albumin 4.5 (3.5-5.0) g/dL Globulin 3.0 (1.7-4.1) g/dL Albumin/Globulin Ratio 1.5 (1.0-2.8) Amylase 69 (30-110) U/L Lipase 101 (23-300) U/L Urine RBC (0-5/HPF) Urine WBC (0-5/HPF) Ur Squamous Epith Cells (0-5/HPF) Urine Bacteria (None) Ur Culture Indicated? Influenza A & B (PCR) (Negative) 03/01/19 03/01/19 03/01/19 Range/Units 13:57 14:52 15:51 WBC (4.5-11.0) X10^3/uL RBC (4.5-5.9) X10^6/uL Hgb (13.5-17.5) g/dL Hct (41-53) % MCV (80-100) fL MCH (26-34) PG MCHC (30-36) % RDW (11.6-14.8) % Plt Count (150-400) X10^3/uL Neut % (Auto) (50-75) % Lymph % (Auto) (25-40) % [place] % (Auto) (3-14) % Eos % (Auto) (2-4) % Baso % (Auto) (0-2) % Neut # (Auto) (3658-7797) /uL Lymph # (Auto) (5145-2684) /uL [place] # (Auto) (0-900) /uL Eos # (Auto) (0-450) /uL Baso # (Auto) (0-100) /uL Sodium (137-145) mmol/L Potassium (3.4-5.1) mmol/L Chloride (98-107) mmol/L Carbon Dioxide (22-32) mmol/L BUN (9-20) mg/dL Creatinine (0.66-1.25) mg/dL Estimated GFR (>60) mL/min BUN/Creatinine Ratio (6-22) Glucose (80-110) mg/dL Calcium (8.4-10.2) mg/dL Total Bilirubin (0.2-1.3) mg/dL AST (17-59) IU/L ALT (21-72) IU/L Alkaline Phosphatase (38-126) U/L Total Creatine Kinase 180 H (55-170) U/L CK-MB (CK-2) 2.14 (<2.37) ng/mL CK-MB (CK-2) Rel Index 1.2 L (1.5-5.0) % Troponin I < 0.012 (0.01-0.034) ng/mL Total Protein (6.3-8.2) g/dL Albumin (3.5-5.0) g/dL Globulin (1.7-4.1) g/dL Albumin/Globulin Ratio (1.0-2.8) Amylase (30-110) U/L Lipase (23-300) U/L Urine RBC 5-10/hpf H (0-5/HPF) Urine WBC 1-5/hpf (0-5/HPF) Ur Squamous Epith Cells 0-1 /hpf (0-5/HPF) Urine Bacteria Occasional (0-1) (None) Ur Culture Indicated? Cult not indicated Influenza A & B (PCR) Negative (Negative) Point of care testing: Urine Dip Bedside Urine Glucose Negative Bedside Urine Bilirubin - Negative Bedside Urine Ketone +/- 5 Urine Specific [place] 1.025 Bedside Urine Occult Blood +/- Bedside Urine pH 6.0 Bedside Urine Protein +/- 15 Bedside Urine Urobilinogen +/- 1mg Bedside Urine Nitrite - Negative Bedside Urine Leukocytes - Negative Esterase Discharge Plan Departure Patient Disposition: Home Clinical Impression: Nausea & vomiting Qualifiers: Vomiting type: unspecified Vomiting Intractability: non-intractable Qualified Code(s): R11.2 - Nausea with vomiting, unspecified Fever Qualifiers: Fever type: unspecified Qualified Code(s): R50.9 - Fever, unspecified Discharge Date/Time: 03/01/19 18:03 Interventions: ED Discharge Assessment Last Done: 03/01/19 18:02 Instructions: DI for Abdominal Pain-Adult, DI for Nausea -- Adult, DI for Vomiting -- Adult, DI for Fever (Symptom) -- Adult Activity Restrictions/Additional Instructions: Your chest x-ray and abdominal CT, UA, and flu test came back normal today. Please symptomatic care including the nausea medication I have given you. Please eat a simple diet. Please follow up with primary care provider soon as possible. Please come back to emergency department for concern of heart attack stroke or other concerns. Please rest and push fluids. Come back to the ER if needed. Prescriptions: New ondansetron 4 mg tablet,disintegrating 4 mg PO TID PRN (Reason: nausea and vomiting) 5 Days Qty: 20 RF: 0 No Action hydrochlorothiazide 50 MG tablet 50 mg PO DAILY Qty: 0 RF: 0 allopurinol 300 MG tablet 150 mg PO DAILY Qty: 0 RF: 0 aspirin 325 mg tablet 325 mg PO DAILY RF: 0 finasteride 5 mg tablet 5 mg PO DAILY RF: 0 amlodipine 5 mg Tablet 5 mg PO BEDTIME RF: 0 losartan 100 mg tablet 100 mg PO BEDTIME RF: 0 ibuprofen 800 mg Tablet 800 mg PO TID PRN (Reason: Back Pain) RF: 0 ranitidine HCl 75 mg Tablet 75 mg PO BEDTIME PRN (Reason: Acid Reflux) RF: 0 d-mannose Powder 1 dose PO DIRECTED RF: 0 BIPAP PRO Qty: 1 RF: 0 Referrals: Maryann Wray PA-C [Primary Care Provider] -
[2019-03-01] MEDS: POTASSIUM CHLORIDE 20 MEQ/15 ML UDC 40 MEQ PO (16:24)
--- NOTE | 2019-03-01 16:29 | DI.RAD.S_ITS ---
PROCEDURE: XR CHEST 1V INDICATIONS: difficulty breathing TECHNIQUE: One view of the chest was acquired. COMPARISON: [facility], , CHEST 2 VIEW, 02/03/2013, 8:20. FINDINGS: Surgical changes and devices: Post-fusion changes in lower cervical spine are seen. Lungs and pleura: Mild pulmonary vascular congestion is seen. No definite focal infiltrate. No pleural effusions or pneumothorax. Mediastinum: Mediastinal contours appear normal. Heart size is enlarged. Bones and chest wall: No suspicious bony lesions. Overlying soft tissues appear unremarkable. IMPRESSION: Cardiomegaly and mild congestion. No focal infiltrate, pleural effusion or pneumothorax. Dictated by: Tony Marie M.D. on 03/01/2019 at 16:52 Approved by: Tony Marie M.D. on 03/01/2019 at 16:53
[2019-03-01 16:53] LABS: Bacteria Urine Occasional (0-1); Culture Indicated Urine Cult Not Indicated; RBC Urine 5-10/HPF (0-5/HPF); Squamous Epithelial Cell Urine 0-1 /HPF (0-5/HPF); WBC Urine 1-5/HPF (0-5/HPF)
[2019-03-01 17:03] VITALS: BP 118/71; PULSE 90; RESP 18; TEMP 38.3; O2SAT 95
[2019-03-01 17:10] LABS: Creatine Kinase 180 U/L (55-170)
[2019-03-01 17:21] LABS: Troponin I < 0.012 ng/mL (0.01-0.034)
[2019-03-01 17:25] LABS: CKMB % Relative Index 1.2 % (1.5-5.0); Creatine Kinase MB 2.14 ng/mL (<2.37)
== END 2019-03-01 18:03 | disposition home or self-care (01) ==
PROVIDERS: Emergency Medicine; Emergency Provider Nurse Practitioner Family; PCP Physician Assistant
DX: R11.2 Nausea with vomiting, unspecified (principal); R10.9 Unspecified abdominal pain; R50.9 Fever, unspecified; I10 Essential (primary) hypertension
CPT/HCPCS: 36591; 71045; 74177; 80053; 81003; 81015; 82150; 82550; 82553; 83690; 84484; 85025; 87400; 93005; 96361; 96374; 99283; 99285; J2405; Q9967

== ENCOUNTER → 2019-03-04 09:02 | Outpatient (CLI) | payer MEDICARE, OTHER, SELFPAY ==
[2018-12-28 16:01] VITALS: BMI 34.8
--- NOTE | 2019-03-04 | DI.ECHO.S_ITS ---
[facility]+ [facility] +---------+ : : [address] : : : : [id number] : : : : Phone: [phone]+ Echocardiogram Report + + :Name: FRANTZ LANZA Study Date: 03/04/2019 Height: 72 in : :[facility] Weight: 238 lb : : Gender: Male BSA: 2.3 m2 : :: 1945 Age: 73 yrs BP: 122/62 mmHg: :Reason For Study: CHEST PAIN : : Performed By: Blanca Yang : :Referring: DEE FRANK : + + Interpretation Summary -Color Doppler suggests abnormal flow, posterior to the aortic root. No obvious dissection flap is seen. This could be an inlet VSD based on the mid- parasternal short axis view. But is unusual as the flow is mostly diastolic, raising the possibility that this could be the jet of aortic insufficiency. -The left ventricular ejection fraction is normal with no focal wall motion abnormalities. -The right ventricle is moderately dilated. -No prior echo for comparison. -Recommend a cardiac CT or CODY for further evaluation. Procedure: A two-dimensional transthoracic echocardiogram with color flow and Doppler was performed. The study quality was technically adequate. There is no prior echocardiogram noted for this patient. A contrast injection of Definity was performed to improve assessment of LV function. The patient was in normal sinus rhythm during the exam. The patient had frequent PACs during the exam. Left Ventricle: The left ventricle is normal in size. There is normal left ventricular wall thickness. The ejection fraction is estimated to be 55-60%. Right Ventricle: The right ventricle is moderately dilated. Right ventricular systolic function is at the lower limits of normal. Atria: Both atria are normal in size. Mitral Valve: The mitral valve is normal in structure and function. There is trace mitral regurgitation. Aortic Valve: The aortic valve is trileaflet. The aortic valve opens well. There is no aortic valve stenosis. There is mild to moderate aortic regurgitation. Tricuspid Valve: The tricuspid valve is normal in structure and function. There is a trace or physiologic amount of tricuspid regurgitation. Pulmonary artery pressures cannot be estimated because of the lack of a measurable TR jet velocity. Pulmonic Valve: The pulmonic valve is not well visualized. There is mild to moderate pulmonic regurgitation. Great Vessels: The aortic root is mildly dilated. The ascending aorta is mildly enlarged. The aortic arch could not be visualized. The pulmonary artery is normal size. The IVC is dilated (diameter is greater than 2.1 cm) yet it collapses greater than 50% with a sniff. This suggests a right atrial pressure of 8 mm Hg. Pericardium/ Pleura There is no pericardial effusion. There is no pleural effusion. MMode/2D Measurements & Calculations LVIDd: 5.3 cm LVOT diam: 2.3 cm LVIDs: 3.4 cm Ao root diam: 4.3 cm FS: 35.7 % asc Aorta Diam: 4.0 cm IVSd: 1.0 cm LVPWd: 0.99 cm LV mcneil. diameter/BSA (cm/m^2): 2.3 LV sys. diameter/BSA (cm/m^2): 1.5 LA A2 area: 21.1 cm2 RA long axis: 5.1 cm LA A4 area: 23.2 cm2 RA area: 18.5 cm2 LA length (vol): 6.0 cm RA vol: 57.3 ml LA vol: 69.0 ml RA : 25.0 ml/m2 LA vol index: 30.1 ml/m2 IVC diam: 2.2 cm RVD1 (basal): 5.1 cm TAPSE: 1.7 cm Doppler Measurements & Calculations Ao V2 max: 114.3 cm/sec LVOT Max Brian: 100.0 cm/sec Ao V2 mean: 81.7 cm/sec LV V1 max P.0 mmHg Ao max P.2 mmHg LV V1 VTI: 19.3 cm Ao mean P.9 mmHg CHANDLER(I,D): 3.2 cm2 Ao V2 VTI: 24.9 cm CHANDLER(V,D): 3.6 cm2 sev ratio: 0.77 CHANDLER indexed to BSA (cm^2/m^2): 1.4 MV E max brian: 49.5 cm/sec SV(LVOT): 80.0 ml MV A max brian: 58.7 cm/sec MV E/A: 0.84 Med Peak E' Brian: 4.5 cm/sec E/E' med: 10.9 Lat Peak E' Brian: 7.3 cm/sec E/E' lat: 6.8 E/e' average: 8.9 MV dec time: 0.22 sec Electronically signed by: Checo Benites M.D. on Reading Physician:03/04/2019 10:54 PM
== END ==
PROVIDERS: PCP Physician Assistant; Visit Provider Physician Assistant
DX: I35.1 Nonrheumatic aortic (valve) insufficiency (principal); I37.1 Nonrheumatic pulmonary valve insufficiency; R07.9 Chest pain, unspecified; I77.89 Other specified disorders of arteries and arterioles
CPT/HCPCS: C8929; Q9957

== ENCOUNTER 2019-12-26 10:59 | Inpatient (IN) | payer MEDICARE, OTHER, SELFPAY ==
[2018-12-28 16:01] VITALS: BMI 34.8
[2019-12-26] VITALS (17 sets, daily range): BP systolic 104–148; BP diastolic 63–91; PULSE 52–95; RESP 10–19; TEMP 36–36.9; O2SAT 91–96; BMI 34.2
--- NOTE | 2019-12-26 | PATH_ITS ---
[facility] Accession Number: [id number] . 01 Material submitted: . prostate - PROSTATE CHIPS . 01 Diagnosis: Prostate Chips, Transurethral Resection: Benign prostatic parenchyma, 9.0 grams, with mild chronic inflammation. Mild chronic inflammation of urothelial mucosa also present. Negative for high-grade prostatic intraepithelial neoplasia and invasive carcinoma. MRV 12/28/2019 1522 Local . 01 Electronically signed: . Mckinley Fletcher MD, Pathologist NPI- [id number] . 01 Gross description: . Received in formalin, labeled with the patient's name and prostate chips, is a 9.0 gram, 6.0 x 6.0 x 1.5 cm aggregate of multiple irregular fragments of rubbery pink and light chin soft tissue, entirely submitted. Summary of sections: A1-A5 - multiple pieces. (CT:[id number] [id number]) /MRV 12/27/2019 1336 Local . 01 Pathologist provided ICD-10: N40.1 . 01 CPT . 205438 Performed at: [address] [address], [place], [place] [id number] MD Davon Toro MD Phone: [phone]
[2019-12-26] MEDS: CELECOXIB 200 MG CAPSULE 400 MG PO (12:09)
[2019-12-26] MEDS: GABAPENTIN 300 MG CAPSULE PO (12:09)
[2019-12-26] MEDS: LACTATED RINGERS 1,000 ML 42 ML IV (12:23)
--- NOTE | 2019-12-26 12:56 | PM.PREOP ---
Pre-operative Note Interval Note History & Physical reviewed/Exam performed by Physician: Yes Changes to H&P: No H&P completed within 30 days and has changed as indicated here:: There are no changes to the scanned history and physical examination on file.
[2019-12-26] MEDS: levoFLOXacin 500 MG/100 ML PIGGYBACK 100 MG IV (13:19)
--- NOTE | 2019-12-26 13:43 | SUR.OPER ---
Lithotomy on padded OR bed, head on pillow, arms secured on padded arm boards at <90 degrees abduction. Legs secured in padded yellow fins stirrups.
[2019-12-26] MEDS: BELLADONNA/OPIUM SUPPOSITORIES 1 EACH PR (13:55)
--- NOTE | 2019-12-26 14:48 | P.OP_ITS ---
Operative Date/Time/Diagnoses Date of procedure: 12/26/19 Time of procedure: 14:48 Pre-op diagnosis: 1. Bladder outlet obstruction. 2. Failure of medical therapy. Post-op diagnosis: same Procedure & Clinicians Procedure: Transurethral section of prostate Same procedure as scheduled: Yes Indications: 1. Bladder outlet obstruction. 2. Failure medical therapy. Surgeon: Kenrda Ellis Click Yes if Unassisted: Yes Anesthesia Type: General Operative Notes Findings: Urethra normal. External sphincter coapted. Prostate 4 cm length with obstructing trilobar hyperplasia and elevated median bar. Bladder 2+ trabeculation normal orifices bilaterally no stone tumor or foreign body seen. Closure Type: not applicable Specimen(s): other (Prostate chips) Applied: catheter (Twenty-four Lebanese [address] hematuria catheter) Estimated Blood Loss (mL): 5 Blood products transfused: none Tourniquet time (min): 0 Procedure in detail: Patient was positioned supine and administered general anesthesia. He was then repositioned in semi lithotomy in the lower abdomen genitalia and groin were then prepped and draped in sterile fashion. The 25 Lebanese resectoscope was then advanced lower urinary tract with the findings as described above. Next a resecting loop and element were fitted within the resectoscope sheath. Transurethral incisions were made at the 11 and 1:00 a.m. positions on the prostate from bladder neck to verumontanum. The intervening anterior tissue was then resected. Next the left lobe, then followed by the right lobe were resected from anterior to posterior. Finally the median bar was resected from bladder neck to verumontanum. Resection was contained within the surgical capsule and no further distal than the verumontanum. Intentionally apical tissue was left on resected. Altered all chips were then irrigated manually removed from the bladder and prostatic fossa. These were some then submitted to pathology for routine gross and microscopic examination. The bladder was left partially filled. A 24 Lebanese hematuria catheter was then inserted and lower urinary tract and the balloon was filled with 30 cc it was then hand irrigated and was clear. The infant inflow was then attached to his gravity drainage continuous bladder irrigation the L flow to a [place] bag. The patient was then repositioned supine and was awakened. He was then transferred to [facility] and transferred to recovery in stable condition. Complications: none Post-operative Condition: stable Disposition: PACU Plan for aftercare: Admit to acute care for observation and continuous bladder irrigation.
--- NOTE | 2019-12-26 15:59 | SUR.PHASEI ---
Bladder scan reveals 18 mls of output. Abdomen soft and non-distended. Patient denies any pain at this time.
[2019-12-26] MEDS: DEXTROSE 5%-0.45% NS 1,000 ML 125 ML IV (16:37)
--- NOTE | 2019-12-26 18:59 | PC.NURSE ---
Addendum entered by Yue Ellis R.N. 12/26/19 23:36: CBI infusing w/o incidence Pt denies discomfort. IVF infusing as per orders. Call light w/in reach, bed alarm on for pt safety. Continue w/plan of care. Original Note: Pt arrived from PACU @ 1618 Alert/oriented. IV in right wrist area intact/patent. D5 1/2NS @ 125cc/hr via pup infusing w/o incidence. Triple lumen saucedo cath patent light mirella colored urine. CBI continues as per orders. Stable psot op course. Call light w/in reach, bed alarm on for pt safety.
[2019-12-26] MEDS: AMLODIPINE 5 MG TABLET PO (21:16)
[2019-12-26] MEDS: LOSARTAN 50 MG TABLET 100 MG PO (21:16)
[2019-12-26] MEDS: SODIUM CHLORIDE IRRIG SOLUTION 3,000 ML 3000 ML IRR ×2 (23:06→23:07)
[2019-12-27] MEDS: DEXTROSE 5%-0.45% NS 1,000 ML 125 ML IV (01:16)
[2019-12-27 01:19] VITALS: O2SAT 93
[2019-12-27] MEDS: SODIUM CHLORIDE IRRIG SOLUTION 3,000 ML 3000 ML IRR (04:18)
[2019-12-27 04:20] VITALS: BP 123/78; RESP 18; TEMP 36.6; O2SAT 95
--- NOTE | 2019-12-27 06:28 | PC.NURSE ---
Due to charting discrepancy on NOC shift patient had 1075ml urine output.
--- NOTE | 2019-12-27 07:18 | PM.DS.1 ---
History of Present Illness History of Present Illness Date Patient Seen: 12/27/19 Time Patient Seen: 07:18 Chief complaint: [id number] Narrative: 1. Bladder outlet obstruction. 2. Failure of medical therapy. Discharge Providers Provider Date of admission: 12/26/19 10:59 Discharge Date: 12/27/19 Primary care physician: Maryann Wray PA-C Consults: 12/26/19 16:26 Consult to Discharge Planning Routine Comment: Discharge provider: Kendra Ellis MD Summary Hospital Course Discharge Diagnosis: 1. Bladder outlet obstruction. 2. Failure of medical therapy. Hospital Course: The patient was admitted on the afternoon of 12/26/2019 and underwent an uncomplicated transurethral resection of the prostate under general anesthesia. His postoperative course was unremarkable and that he tolerated a general diet immediately postoperative and was able to ambulate without assistance on the 1st postoperative morning. Continuous bladder irrigation was kept at a low rate with a very clear out outflow and no clot. On the morning of the 1st postoperative day a catheter plug was placed in the inflow port and the catheter was left to gravity drainage. the outflow remained clear. He was stable for discharge. Arrangements will be made for supervised voiding trial in 24-48 hours. He was provided routine post TURP activity hygiene and driving instructions and restrictions. He was provided prescription for Macrobid and oxycodone. Pathology is pending at discharge. Status at Discharge Cognitive/behavioral status at discharge: oriented Functional status at discharge: independent ambulation Overall status at discharge: patient is back to baseline Exam Vital Signs (past 8 hours): - 12/27/19 01:19 12/27/19 04:20 Temperature 97.9 F Respiratory Rate 18 Blood Pressure 123/78 Pulse Oximetry 93 95 Oxygen Delivery Method Room Air,CPAP Oxygen Flow Rate 0 Discharge Plan Discharge Plan Patient Disposition: Home Discharge orders & Medications Prescriptions: New oxycodone 5 mg Tablet 5 mg PO Q6HR PRN (Reason: Pain, Moderate (4-6)) Qty: 10 RF: 0 Continued hydrochlorothiazide 50 MG tablet 50 mg PO DAILY Qty: 0 RF: 0 allopurinol 300 MG tablet 150 mg PO DAILY Qty: 0 RF: 0 aspirin 325 mg tablet 325 mg PO DAILY RF: 0 amlodipine 5 mg Tablet 5 mg PO BEDTIME RF: 0 losartan 100 mg tablet 100 mg PO BEDTIME RF: 0 ibuprofen 800 mg Tablet 800 mg PO TID PRN (Reason: Back Pain) RF: 0 d-mannose Powder 1 dose PO DIRECTED RF: 0 Discontinued alfuzosin 10 mg tablet extended release 24 hr 10 mg PO DAILY RF: 0 No Action (DME) BIPAP PRO Qty: 1 RF: 0 Follow up/Referrals: Maryann Wray PA-C [Primary Care Provider] - Discharge Data Primary Care Provider: Maryann Wray Quality VTE Deep Vein Thrombosis/Pulmonary Embolism Present on Admission: No
[2019-12-27 08:00] VITALS: O2SAT 96
[2019-12-27 08:21] VITALS: O2SAT 96
[2019-12-27] MEDS: SENNOSIDES 8.6 MG TABLET 17.2 MG PO (10:18)
[2019-12-27] MEDS: hydroCHLOROthiazide 25 MG TABLET 50 MG PO (10:18)
[2019-12-27] MEDS: allopurinoL 300 MG TABLET 150 MG PO (10:19)
--- NOTE | 2019-12-27 10:24 | CM.DANOTE ---
DCP: Case received, EMR reviewed and met with patient. Introduced self and role. Was able to meet with patient to obtain information regarding baseline activity and living situation. DCP assessment completed with information currently available. Patient is a 74 year old male who admitted yesterday morning to the care of the hospitalist/urology, team. PCP: Dr. Wray. Payer: confirmed: Medicare/[employer]. Patient came to the hospital for a surgical procedure. He had transurethral section of the prostate. Met with patient in his room. He was sitting up in his chair by his bed. pleasant. 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 Patient is independent. He resides in [place] with his spouse, Silvio. P: DCP to continue to follow. Patient does have discharge orders for home today. He will go home with his catheter, and will follow up at the urology office. Mónica Yao RN/Store Operations Specialist
[2019-12-27 11:46] VITALS: BP 122/68
--- NOTE | 2019-12-27 13:04 | PC.NURSE ---
Discharge- Pt denies pain all shift. Up with SBA and then independently. CBI clamped this AM, urine at start was quite red however no clots were ever observed. Urine cleared as day went on. Attempted to change saucedo bag to leg bag however i was unable to remove the catheter from night bag. Pt stated he was fine leaving the night bag in place. Instructed pt how to change to leg bag should he choose to do so at home and left with printed instructions as well. Aware to keep bag below level of catheter and to monitor for clots and reduction/stoppage of flow of urine. aware of f/u apt with MD on 12/29 for voiding trial and to contact MD with any additional questions or concerns. Left with all belongings. PIV removed prior to d/c. pt left in w/c with escort to car with .
== END 2019-12-27 12:50 | disposition home or self-care (01) | DRG 713 ==
PROVIDERS: Admitting Provider Specialist; PCP Physician Assistant; Referring Provider Specialist; Visit Provider Specialist
PROC: 0VT08ZZ Resection of Prostate, Via Natural or Artificial Opening Endoscopic (ICD-10-PCS; CPT 52601; principal; 2019-12-26 12:30)
DX: N40.1 Benign prostatic hyperplasia with lower urinary tract symptoms (principal); N13.8 Other obstructive and reflux uropathy; R33.9 Retention of urine, unspecified; N52.9 Male erectile dysfunction, unspecified; Z87.440 Personal history of urinary (tract) infections; G47.33 Obstructive sleep apnea (adult) (pediatric)
CPT/HCPCS: 87086; 94762; J1100; J1956; J2405; J2704; J3010

== ENCOUNTER 2020-03-30 21:01 | Emergency (ER) | payer MEDICARE, OTHER, SELFPAY ==
[2019-12-26 18:49] VITALS: BMI 34.2
[2020-03-30 21:10] VITALS: BP 166/77; PULSE 88; RESP 17; TEMP 37.1; O2SAT 95; BMI 34.4
--- NOTE | 2020-03-30 22:16 | ED.LOWEXIN ---
HPI - Extremity Injury (Lower) General Chief Complaint: Extremity Injury, Lower Stated Complaint: R inner thigh sore, pain, multiple complaints Time Seen by Provider: 03/30/20 22:08 Source: patient Mode of arrival: Ambulatory Limitations: no limitations History of Present Illness HPI Narrative: The patient developed low back pain initial about 6 weeks ago. He is having very and pains from his back, to his inner groin, down to his legs. He is taking narcotic and nonnarcotic analgesics, pain persist. He almost passed out for pain today. He has a history 3 lumbar surgeries, prior scans show a left SI arthritis. The pain starts in every the back, but he has pain radiating to the groin on both sides. He has no bowel or bladder incontinence. Has no nausea, vomiting or diarrhea. He underwent TURP December 2019. Earlier this month he was admitted for strep urosepsis. He just finished antibiotics. The pain persist. He is having no fever or chills. He has no dysuria. He has no difficulty making a stream of urine. Related Data Home Medications Medication Instructions Recorded Confirmed allopurinol 150 mg PO DAILY #0 12/14/12 01/04/20 hydrochlorothiazide 50 mg PO DAILY #0 12/14/12 01/04/20 amlodipine 5 mg PO BEDTIME 09/03/18 01/04/20 BIPAP PRO #1 ea 01/12/19 01/04/20 aspirin 325 mg tablet 325 mg PO DAILY 02/16/19 01/04/20 ibuprofen 800 mg PO TID PRN 03/01/19 01/04/20 losartan 100 mg PO BEDTIME 03/01/19 01/04/20 Previous Rx's Medication Instructions Recorded oxycodone 5 mg PO Q6HR PRN #10 tab 12/27/19 ciprofloxacin HCl [Cipro] 500 mg PO Q12H #20 tab 03/31/20 Allergies Allergy/AdvReac Type Severity Reaction Status Date / Time tamsulosin Allergy Severe Difficulty Verified 12/26/19 11:42 Breathing cefuroxime [From Ceftin] Allergy Unknown Verified 07/06/19 10:18 doxazosin AdvReac Intermediate SOB, Verified 07/06/19 10:18 fever, extreme fatigue, cough, flu-like symptoms lisinopril AdvReac Mild COUGH, Verified 07/06/19 10:18 Palpitations cyclobenzaprine AdvReac Unknown Drowsy Verified 07/06/19 10:18 [From Flexeril] ezetimibe [From Vytorin] AdvReac Unknown Back Pain Verified 07/06/19 10:18 hydrocodone [HYDROCODONE] AdvReac Unknown CONSTIPATIO Verified 07/06/19 10:18 N pravastatin [From Pravachol] AdvReac Unknown Back Pain Verified 07/06/19 10:18 simvastatin [From Vytorin] AdvReac Unknown Back Pain Verified 07/06/19 10:18 Review of Systems Review of Systems ROS Unobtainable: All systems reviewed & are unremarkable except as noted in HPI and below Constitutional Constitutional: Denies chills, Denies fever(s), Denies lethargy and Denies weakness ENT Ears, Nose, Mouth, and Throat: Denies vertigo and Denies dizziness Cardiovascular Cardiovascular: Denies chest pain, Denies lightheadedness, Denies palpitations, Denies dyspnea and Denies orthopnea Respiratory Respiratory: Denies cough and Denies dyspnea Gastrointestinal Gastrointestinal: Denies abdominal pain, Denies change in bowel habits, Denies diarrhea, Denies nausea and Denies vomiting Genitourinary Genitourinary: Denies genital pain, Denies dysuria and Denies testicular pain Comments: Normal urine output. Musculoskeletal Musculoskeletal: Denies numbness Comments: Pain in the lower back, pain in the groins, pain to the Internal thighs. Pain exacerbated with motion. Integumentary/Breasts Skin/Breast: Denies erythema and Denies rash Neurologic Neurologic: Denies confusion, Denies vertigo, Denies dizziness, Denies numbness and Denies weakness Psychiatric Psychiatric: Denies anxiety, Denies confusion, Denies depression, Denies homicidal ideation and Denies suicidal ideation Endocrine Endocrine: Denies palpitations Patient History Medical History (Updated 03/31/20 @ 02:22 by Fran Blount MD) Allergic rhinitis (Chronic) BPH w urinary obs/LUTS (Acute) Degenerative disc disease, lumbar (Chronic) GERD (gastroesophageal reflux disease) (Chronic) Gout (Chronic) Hyperlipidemia (Chronic) Hypertension (Chronic) Low back pain (Chronic) Nephrolithiasis (Acute) SOTERO treated with BiPAP (Chronic) Osteoarthritis (Chronic) Osteoporosis (Chronic) Polio (Acute) Shingles (Acute) Snoring (Inactive) Spinal stenosis (Chronic) Tingling of right upper extremity (Acute) Surgical History (Updated 12/23/19 @ 08:12 by Nicolle Ren RN) History of lumbar spinal fusion (Acute 10/21/18) History of vasectomy (Acute) Hx of circumcision (Acute) Hx of microdiscectomy (Acute 09/24/16) S/P cervical spinal fusion (Acute 09/06/18) S/P excision of lipoma (Acute) Status post cataract extraction of both eyes with insertion of intraocular lens (Acute) Social History marital status: household members: spouse Smoking Status: Former smoker alcohol intake: current substance use type: does not use Smoking Status: Former smoker alcohol intake frequency: a few times a month Substance Use Type: does not use Exam Initial Vital Signs Initial Vital Signs: Vital Signs Temperature 98.8 F 03/30/20 21:10 Pulse Rate 88 03/30/20 21:10 Respiratory Rate 17 03/30/20 21:10 Blood Pressure 166/77 H 03/30/20 21:10 Pulse Oximetry 95 03/30/20 21:10 Course Course Course Narrative: The patient was given IV Toradol for pain. Continued UTI despite his recent inpatient treatment for urosepsis was discovered, he was started on Cipro. CT of the abdomen pelvis had no significant findings. The clinical exam is consistent with piriformis syndrome, bilaterally. Regarding the UTI, he is advised to recheck with his physician following treatment of the UTI. He may consider following up with his urologist if he has ongoing infectious issues even with this forthcoming treatment. Regarding the pain, he has analgesics. I advised follow-up with his doctor and seek physical therapy. Orders Ordered: ED Orders 03/30/20 22:27 Urine Culture Stat Urine Microscopic Stat 03/30/20 22:37 CT abdomen pelvis w con Stat 03/30/20 23:00 Complete Blood Count AUTO DIFF Stat Comprehensive Metabolic Panel Stat Discontinued Medications Sodium Chloride (Normal Saline 0.9%) 1,000 mls @ 150 mls/hr IV CONT CHELI Last Infusion: 03/31/20 02:44 Dose: 0 mls/hr Documented by: Admin: 03/30/20 22:51 Dose: 150 mls/hr Documented by: MARY Ketorolac Tromethamine (Toradol) 15 mg IV NOW ONE Stop: 03/30/20 22:38 Last Admin: 03/30/20 22:50 Dose: 15 mg Documented by: MARY Levofloxacin (Levaquin) 500 mg PO NOW ONE Stop: 03/31/20 02:17 Last Admin: 03/31/20 02:44 Dose: 500 mg Documented by: SU Vital Signs Vital signs: Vital Signs - 8 hr 03/31/20 00:00 03/31/20 01:00 03/31/20 02:30 Pulse Rate 84 81 93 H Respiratory Rate 16 Blood Pressure [Left Arm] 175/84 H 156/75 H 156/74 H Pulse Oximetry 96 95 95 MDM - Extremity Injury (Lower) Lab Data Result diagrams: 03/30/20 23:00 03/30/20 23:00 Labs: Lab Results 03/30/20 03/30/20 03/30/20 Range/Units 22:27 23:00 23:00 WBC 12.7 H (4.5-11.0) X10^3/uL RBC 4.58 (4.5-5.9) X10^6/uL Hgb 13.3 L (13.5-17.5) g/dL Hct 38.7 L (41-53) % MCV 84.6 (80-100) fL MCH 29.0 (26-34) PG MCHC 34.2 (30-36) % RDW 13.7 (11.6-14.8) % Plt Count 251 (150-400) X10^3/uL Neut % (Auto) 76.2 H (50-75) % Lymph % (Auto) 11.5 L (25-40) % Jessamine % (Auto) 8.7 (3-14) % Eos % (Auto) 3.1 (2-4) % Baso % (Auto) 0.5 (0-2) % Neut # (Auto) 9700 H (4147-9753) /uL Lymph # (Auto) 1500 (1019-7108) /uL Jessamine # (Auto) 1100 H (0-900) /uL Eos # (Auto) 400 (0-450) /uL Baso # (Auto) 100 (0-100) /uL Sodium 137 (137-145) mmol/L Potassium 3.2 L (3.4-5.1) mmol/L Chloride 99 (98-107) mmol/L Carbon Dioxide 28 (22-32) mmol/L BUN 32 H (9-20) mg/dL Creatinine 1.03 (0.66-1.25) mg/dL Estimated GFR > 60.0 (>60) mL/min BUN/Creatinine Ratio 31.1 H (6-22) Glucose 125 H (80-110) mg/dL Calcium 9.7 (8.4-10.2) mg/dL Total Bilirubin 0.7 (0.2-1.3) mg/dL AST 27 (17-59) IU/L ALT 16 (<50) IU/L Alkaline Phosphatase 99 (38-126) U/L Total Protein 7.6 (6.3-8.2) g/dL Albumin 4.3 (3.5-5.0) g/dL Globulin 3.3 (1.7-4.1) g/dL Albumin/Globulin Ratio 1.3 (1.0-2.8) Urine RBC 0-1/hpf (0-5/HPF) Urine WBC 10-30/hpf H (0-5/HPF) Urine Bacteria Many (>30) H (None) Ur Culture Indicated? Specimen cultured Imaging Data CT scan - abdomen/pelvis: Radiologist's Impression: No acute intra-abdominal or pelvic findings. Diverticulosis without diverticulitis. Constipation. No bowel obstruction. Discharge Plan Departure Patient Disposition: Home Clinical Impression: Bilateral piriformis syndrome Urinary tract infection Qualifiers: Urinary tract infection type: acute cystitis Hematuria presence: without hematuria Qualified Code(s): N30.00 - Acute cystitis without hematuria Discharge Date/Time: 03/31/20 02:52 Instructions: Chronic Pelvic Pain-Male, DI for Urinary Tract Infection (UTI) Activity Restrictions/Additional Instructions: Cipro 2 times daily as instructed. Be sure you are drinking plenty of fluids. Continue your current pain medications, ibuprofen 3-4 times daily. Use oxycodone every 6 hours as needed for added pain control. Contact your doctor, I would recommend physical therapy for the pelvic pain. I would recommend recheck the urine sample in approximately 2 weeks. You may consider a repeat evaluation from your urologist for the persistent urinary infection. Return to the ER as necessary. Prescriptions: New ciprofloxacin HCl [Cipro] 500 mg tablet 500 mg PO Q12H Qty: 20 RF: 0 No Action hydrochlorothiazide 50 MG tablet 50 mg PO DAILY Qty: 0 RF: 0 allopurinol 300 MG tablet 150 mg PO DAILY Qty: 0 RF: 0 aspirin 325 mg tablet 325 mg PO DAILY RF: 0 amlodipine 5 mg Tablet 5 mg PO BEDTIME RF: 0 oxycodone 5 mg Tablet 5 mg PO Q6HR PRN (Reason: Pain, Moderate (4-6)) Qty: 10 RF: 0 losartan 100 mg tablet 100 mg PO BEDTIME RF: 0 ibuprofen 800 mg Tablet 800 mg PO TID PRN (Reason: Back Pain) RF: 0 (DME) BIPAP PRO Qty: 1 RF: 0 Referrals: Maryann Wray PA-C [Primary Care Provider] -
[2020-03-30 22:33] VITALS: BP 166/77; PULSE 82; RESP 12; O2SAT 97
--- NOTE | 2020-03-30 22:37 | DI.CT.S_ITS ---
PROCEDURE: CT ABDOMEN PELVIS W CON INDICATIONS: Status post TURP. Status post urosepsis. Pelvic pain for 6 weeks TECHNIQUE: After the administration of oral and intravenous contrast, 5 mm thick sections acquired from the diaphragms to the symphysis. 5 mm thick coronal and sagittal reformats were performed. For radiation dose reduction, the following was used: automated exposure control, adjustment of mA and/or kV according to patient size. COMPARISON: None. FINDINGS: Image quality: Excellent. ABDOMEN: Lung bases: Lung bases are clear. Heart size is normal. Extensive coronary artery calcifications. Solid organs: Liver is normal in size and enhancement. Gallbladder is unremarkable. Biliary system is non-dilated. Pancreas enhances normally. Spleen is normal in size and enhancement. No adrenal nodules. Kidneys are normal in size and enhancement, without hydronephrosis. Exophytic right renal cyst off the lower pole measuring 5.9 cm. Peritoneum and bowel: Stomach, small bowel, and colon loops are normal in caliber and wall thickness. No free fluid or air. Mild diverticulosis. No abscess cavity. Nodes and vessels: No retroperitoneal or mesenteric adenopathy. Aorta and inferior vena cava are normal in caliber. Mild atherosclerotic calcifications. Miscellaneous: Periumbilical hernia containing fat. PELVIS: Genitourinary: Bladder wall thickness is normal. TURP defect in the prostate. Miscellaneous: No inguinal hernias or adenopathy. Bones: No suspicious bony lesions. No vertebral body compression fractures. L5-S1 fusion. Canal stenosis at L3-L4 and L4-L5. IMPRESSION: 1. No evidence of acute abdominal process. 2. Incidental note made of lumbar canal stenosis at L3-4 and L4-L5. Comment: Final report is concordant with preliminary interpretation provided by [facility]. Dictated by: Philip Hunter M.D. on 03/31/2020 at 6:51 Approved by: Philip Hunter M.D. on 03/31/2020 at 6:56
[2020-03-30] MEDS: KETOROLAC 60 MG/2 ML VIAL 15 MG IV (22:50)
[2020-03-30] MEDS: SODIUM CHLORIDE 0.9% 1,000 ML 150 ML IV (22:51)
[2020-03-30 23:02] LABS: Bacteria Urine Many (>30); RBC Urine 0-1/HPF (0-5/HPF); WBC Urine 10-30/HPF (0-5/HPF)
[2020-03-30 23:03] LABS: Culture Indicated Urine Specimen Cultured
[2020-03-30 23:10] LABS: Add Manual Diff / Slide Review NO; Basophils Absolute Auto 100 /uL (0-100); Basophils Percent Auto 0.5 % (0-2); Eosinophils Absolute Auto 400 /uL (0-450); Eosinophils Percent Auto 3.1 % (2-4); Hematocrit 38.7 % (41-53); Hemoglobin 13.3 g/dL (13.5-17.5); Lymphocytes Absolute Auto 1500 /uL (1100-4500); Lymphocytes Percent Auto 11.5 % (25-40); Mean Corpuscular HGB Conc 34.2 % (30-36); Mean Corpuscular Volume 84.6 fL (80-100); Monocytes Absolute Auto 1100 /uL (0-900); Monocytes Percent Auto 8.7 % (3-14); Neutrophils Absolute Auto 9700 /uL (1500-7000); Neutrophils Percent Auto 76.2 % (50-75); Platelet Count 251 X10^3/uL (150-400); Red Blood Cell Count 4.58 X10^6/uL (4.5-5.9); Red Cell Distribution Width 13.7 % (11.6-14.8); White Blood Cell Count 12.7 X10^3/uL (4.5-11.0)
[2020-03-30 23:17] LABS: Alanine Aminotransferase 16 IU/L (<50); Albumin 4.3 g/dL (3.5-5.0); Albumin Globulin Ratio 1.3 (1.0-2.8); Alkaline Phosphatase 99 U/L (38-126); Aspartate Aminotransferase 27 IU/L (17-59); BUN Creatinine Ratio 31.1 (6-22); Bilirubin Total 0.7 mg/dL (0.2-1.3); Blood Urea Nitrogen 32 mg/dL (9-20); Calcium 9.7 mg/dL (8.4-10.2); Carbon Dioxide 28 mmol/L (22-32); Chloride 99 mmol/L (98-107); Estimated Glomerular Filt Rate > 60.0 mL/min (>60); Globulin 3.3 g/dL (1.7-4.1); Glucose 125 mg/dL (80-110); HEMOLYSIS 17 (0-50); Potassium 3.2 mmol/L (3.4-5.1); Sodium 137 mmol/L (137-145); Total Protein 7.6 g/dL (6.3-8.2)
[2020-03-31] VITALS: BP 175/84; PULSE 84; O2SAT 96
[2020-03-31 01:00] VITALS: BP 156/75; PULSE 81; O2SAT 95
[2020-03-31 02:30] VITALS: BP 156/74; PULSE 93; RESP 16; O2SAT 95
[2020-03-31] MEDS: levoFLOXacin 250 MG TABLET 500 MG PO (02:44)
== END 2020-03-31 02:52 | disposition home or self-care (01) ==
PROVIDERS: Emergency Provider Emergency Medicine; PCP Physician Assistant
DX: G57.03 Lesion of sciatic nerve, bilateral lower limbs (principal); N30.00 Acute cystitis without hematuria; K59.00 Constipation, unspecified
CPT/HCPCS: 36415; 74177; 80053; 81015; 85025; 87077; 87086; 87186; 96361; 96374; 99284; 99285; J1885; Q9967

== ENCOUNTER 2020-04-10 14:52 | Emergency (ER) | payer MEDICARE, OTHER, SELFPAY ==
[2019-12-26 18:49] VITALS: BMI 34.2
[2020-04-10 15:08] VITALS: BP 181/89; PULSE 87; RESP 18; TEMP 36.8; O2SAT 96
[2020-04-10 15:23] LABS: Add Manual Diff / Slide Review NO; Basophils Absolute Auto 100 /uL (0-100); Basophils Percent Auto 0.9 % (0-2); Eosinophils Absolute Auto 600 /uL (0-450); Eosinophils Percent Auto 7.5 % (2-4); Hematocrit 39.4 % (41-53); Hemoglobin 13.6 g/dL (13.5-17.5); Lymphocytes Absolute Auto 2000 /uL (1100-4500); Mean Corpuscular HGB Conc 34.4 % (30-36); Mean Corpuscular Hemoglobin 28.9 PG (26-34); Monocytes Absolute Auto 600 /uL (0-900); Monocytes Percent Auto 7.9 % (3-14); Neutrophils Absolute Auto 4200 /uL (1500-7000); Neutrophils Percent Auto 56.7 % (50-75); Platelet Count 357 X10^3/uL (150-400); Red Blood Cell Count 4.69 X10^6/uL (4.5-5.9); White Blood Cell Count 7.4 X10^3/uL (4.5-11.0)
[2020-04-10 15:36] LABS: Alanine Aminotransferase 19 IU/L (<50); Albumin 4.6 g/dL (3.5-5.0); Albumin Globulin Ratio 1.2 (1.0-2.8); Alkaline Phosphatase 114 U/L (38-126); Aspartate Aminotransferase 37 IU/L (17-59); BUN Creatinine Ratio 19.6 (6-22); Bilirubin Total 0.6 mg/dL (0.2-1.3); Blood Urea Nitrogen 19 mg/dL (9-20); Calcium 9.8 mg/dL (8.4-10.2); Carbon Dioxide 29 mmol/L (22-32); Chloride 101 mmol/L (98-107); Estimated Glomerular Filt Rate > 60.0 mL/min (>60); Globulin 3.7 g/dL (1.7-4.1); Glucose 120 mg/dL (80-110); HEMOLYSIS 34 (0-50); Lipase 134 U/L (23-300); Potassium 3.9 mmol/L (3.4-5.1); Sodium 138 mmol/L (137-145); Total Protein 8.3 g/dL (6.3-8.2)
[2020-04-10] MEDS: SODIUM CHLORIDE 0.9% 1,000 ML 150 ML IV (15:50)
--- NOTE | 2020-04-10 16:29 | DI.CT.S_ITS ---
PROCEDURE: CT ABDOMEN PELVIS W CON INDICATIONS: LLQ pain. Hx of diverticulitis, current tx for prostatitis TECHNIQUE: After the administration of intravenous contrast, 5 mm thick sections acquired from the diaphragm to the symphysis. 5 mm coronal and sagittal reformats were acquired. For radiation dose reduction, the following was used: automated exposure control, adjustment of mA and/or kV according to patient size. COMPARISON: [facility], CT, CT ABDOMEN PELVIS W CON, 03/30/2020, 23:28. FINDINGS: Image quality: Excellent. ABDOMEN: Lung bases: Lung bases are clear. Heart size is normal. Coronary artery calcifications are present. A Solid organs: Liver is normal in size and enhancement. Gallbladder negative. Biliary system is non dilated. Pancreas enhances normally. Spleen is normal in size and enhancement. No adrenal nodules. Kidneys demonstrate normal size and enhancement, without hydronephrosis. Large simple appearing right renal cyst Peritoneum and bowel: Bowel loops demonstrate normal wall thickness and caliber. No free fluid or air. Colonic diverticulosis is seen without evidence of acute complication. Appendix is not clearly identified however no suspicious pericecal inflammatory changes are seen. Nodes and vessels: No retroperitoneal or mesenteric adenopathy by size criteria. Aorta and inferior vena cava are normal in size. Fat containing small periumbilical hernia. PELVIS: Genitourinary: Bladder wall thickness is normal. Miscellaneous: No inguinal hernias or adenopathy. Bones: No suspicious bony lesions. No vertebral body compression fractures. Diffuse spondylosis, and postsurgical changes at L5-S1 IMPRESSION: No evidence of acute diverticulitis. No specific visualized etiology for left lower quadrant pain. Simple appearing right renal cyst Additional chronic and incidental findings as above. Dictated by: José Miguel Duvall M.D. on 04/10/2020 at 17:07 Approved by: José Miguel Duvall M.D. on 04/10/2020 at 17:13
[2020-04-10 16:51] VITALS: BP 147/77; PULSE 74; RESP 19; O2SAT 95; O2SAT 99
[2020-04-10 16:52] LABS: Bacteria Urine Few (2-10); RBC Urine 30-100/HPF (0-5/HPF); Squamous Epithelial Cell Urine 0-1 /HPF (0-5/HPF); WBC Urine 5-10/HPF (0-5/HPF)
[2020-04-10 16:53] LABS: Culture Indicated Urine Specimen Cultured
[2020-04-10 17:55] VITALS: BP 155/77; PULSE 71; RESP 18; O2SAT 97
--- NOTE | 2020-04-10 21:49 | ED_ITS ---
HPI - Abdominal Pain General Chief Complaint: Abdominal Pain Stated Complaint: pain right side abdominal pain Time Seen by Provider: 04/10/20 15:13 Source: patient Mode of arrival: Ambulatory Limitations: no limitations Related Data Home Medications Medication Instructions Recorded Confirmed allopurinol 150 mg PO DAILY #0 12/14/12 01/04/20 hydrochlorothiazide 50 mg PO DAILY #0 12/14/12 01/04/20 amlodipine 5 mg PO BEDTIME 09/03/18 01/04/20 BIPAP PRO #1 ea 01/12/19 01/04/20 aspirin 325 mg tablet 325 mg PO DAILY 02/16/19 01/04/20 ibuprofen 800 mg PO TID PRN 03/01/19 01/04/20 losartan 100 mg PO BEDTIME 03/01/19 01/04/20 Previous Rx's Medication Instructions Recorded oxycodone 5 mg PO Q6HR PRN #10 tab 12/27/19 ciprofloxacin HCl [Cipro] 500 mg PO Q12H #20 tab 03/31/20 Allergies Allergy/AdvReac Type Severity Reaction Status Date / Time tamsulosin Allergy Severe Difficulty Verified 12/26/19 11:42 Breathing cefuroxime [From Ceftin] Allergy Unknown Verified 07/06/19 10:18 doxazosin AdvReac Intermediate SOB, Verified 07/06/19 10:18 fever, extreme fatigue, cough, flu-like symptoms lisinopril AdvReac Mild COUGH, Verified 07/06/19 10:18 Palpitations cyclobenzaprine AdvReac Unknown Drowsy Verified 07/06/19 10:18 [From Flexeril] ezetimibe [From Vytorin] AdvReac Unknown Back Pain Verified 07/06/19 10:18 hydrocodone [HYDROCODONE] AdvReac Unknown CONSTIPATIO Verified 07/06/19 10:18 N pravastatin [From Pravachol] AdvReac Unknown Back Pain Verified 07/06/19 10:18 simvastatin [From Vytorin] AdvReac Unknown Back Pain Verified 07/06/19 10:18 Patient History Medical History (Updated 04/10/20 @ 17:48 by DEVONTE Sherman) Allergic rhinitis (Chronic) BPH w urinary obs/LUTS (Acute) Degenerative disc disease, lumbar (Chronic) GERD (gastroesophageal reflux disease) (Chronic) Gout (Chronic) Hyperlipidemia (Chronic) Hypertension (Chronic) Low back pain (Chronic) Nephrolithiasis (Acute) SOTERO treated with BiPAP (Chronic) Osteoarthritis (Chronic) Osteoporosis (Chronic) Polio (Acute) Shingles (Acute) Snoring (Inactive) Spinal stenosis (Chronic) Tingling of right upper extremity (Acute) Surgical History (Updated 12/23/19 @ 08:12 by Nicolle Ren RN) History of lumbar spinal fusion (Acute 10/21/18) History of vasectomy (Acute) Hx of circumcision (Acute) Hx of microdiscectomy (Acute 09/24/16) S/P cervical spinal fusion (Acute 09/06/18) S/P excision of lipoma (Acute) Status post cataract extraction of both eyes with insertion of intraocular lens (Acute) Social History marital status: household members: spouse Smoking Status: Former smoker alcohol intake: current substance use type: does not use Smoking Status: Former smoker alcohol intake frequency: a few times a month Substance Use Type: does not use Exam Initial Vital Signs Initial Vital Signs: Vital Signs Temperature 98.2 F 04/10/20 15:08 Pulse Rate 87 04/10/20 15:08 Respiratory Rate 18 04/10/20 15:08 Blood Pressure 181/89 H 04/10/20 15:08 Pulse Oximetry 96 04/10/20 15:08 Course Orders Ordered: ED Orders 04/10/20 15:17 Complete Blood Count AUTO DIFF Stat Comprehensive Metabolic Panel Stat Lactate (Lactic Acid) Stat Lipase Stat 04/10/20 16:15 Urine Culture Stat Urine Microscopic Stat 04/10/20 16:29 CT abdomen pelvis w con Stat Discontinued Medications Sodium Chloride (Normal Saline 0.9%) 1,000 mls @ 150 mls/hr IV CONT CHELI Last Admin: 04/10/20 15:50 Dose: 150 mls/hr Documented by: JAE Vital Signs Vital signs: Vital Signs - 8 hr 04/10/20 15:08 04/10/20 16:51 04/10/20 17:55 Temperature 98.2 F Pulse Rate 87 74 71 Respiratory Rate 18 19 18 Blood Pressure 181/89 H 155/77 H Blood Pressure [Left Arm] 147/77 H Pulse Oximetry 96 99 97 MDM - Abdominal Pain Lab Data Result diagrams: 04/10/20 15:17 04/10/20 15:17 Labs: Lab Results 04/10/20 04/10/20 04/10/20 Range/Units 15:17 15:17 15:17 WBC 7.4 (4.5-11.0) X10^3/uL RBC 4.69 (4.5-5.9) X10^6/uL Hgb 13.6 (13.5-17.5) g/dL Hct 39.4 L (41-53) % MCV 84.0 (80-100) fL MCH 28.9 (26-34) PG MCHC 34.4 (30-36) % RDW 14.0 (11.6-14.8) % Plt Count 357 (150-400) X10^3/uL Neut % (Auto) 56.7 (50-75) % Lymph % (Auto) 27.0 (25-40) % Randall % (Auto) 7.9 (3-14) % Eos % (Auto) 7.5 H (2-4) % Baso % (Auto) 0.9 (0-2) % Neut # (Auto) 4200 (3734-7524) /uL Lymph # (Auto) 2000 (3100-9232) /uL Randall # (Auto) 600 (0-900) /uL Eos # (Auto) 600 H (0-450) /uL Baso # (Auto) 100 (0-100) /uL Sodium 138 (137-145) mmol/L Potassium 3.9 (3.4-5.1) mmol/L Chloride 101 (98-107) mmol/L Carbon Dioxide 29 (22-32) mmol/L BUN 19 (9-20) mg/dL Creatinine 0.97 (0.66-1.25) mg/dL Estimated GFR > 60.0 (>60) mL/min BUN/Creatinine Ratio 19.6 (6-22) Glucose 120 H (80-110) mg/dL Lactate 1.0 (0.7-2.1) mmol/L Calcium 9.8 (8.4-10.2) mg/dL Total Bilirubin 0.6 (0.2-1.3) mg/dL AST 37 (17-59) IU/L ALT 19 (<50) IU/L Alkaline Phosphatase 114 (38-126) U/L Total Protein 8.3 H (6.3-8.2) g/dL Albumin 4.6 (3.5-5.0) g/dL Globulin 3.7 (1.7-4.1) g/dL Albumin/Globulin Ratio 1.2 (1.0-2.8) Lipase 134 (23-300) U/L Urine RBC (0-5/HPF) Urine WBC (0-5/HPF) Ur Squamous Epith Cells (0-5/HPF) Urine Bacteria (None) Ur Culture Indicated? 04/10/20 Range/Units 16:15 WBC (4.5-11.0) X10^3/uL RBC (4.5-5.9) X10^6/uL Hgb (13.5-17.5) g/dL Hct (41-53) % MCV (80-100) fL MCH (26-34) PG MCHC (30-36) % RDW (11.6-14.8) % Plt Count (150-400) X10^3/uL Neut % (Auto) (50-75) % Lymph % (Auto) (25-40) % Randall % (Auto) (3-14) % Eos % (Auto) (2-4) % Baso % (Auto) (0-2) % Neut # (Auto) (7081-0047) /uL Lymph # (Auto) (5677-2550) /uL Randall # (Auto) (0-900) /uL Eos # (Auto) (0-450) /uL Baso # (Auto) (0-100) /uL Sodium (137-145) mmol/L Potassium (3.4-5.1) mmol/L Chloride (98-107) mmol/L Carbon Dioxide (22-32) mmol/L BUN (9-20) mg/dL Creatinine (0.66-1.25) mg/dL Estimated GFR (>60) mL/min BUN/Creatinine Ratio (6-22) Glucose (80-110) mg/dL Lactate (0.7-2.1) mmol/L Calcium (8.4-10.2) mg/dL Total Bilirubin (0.2-1.3) mg/dL AST (17-59) IU/L ALT (<50) IU/L Alkaline Phosphatase (38-126) U/L Total Protein (6.3-8.2) g/dL Albumin (3.5-5.0) g/dL Globulin (1.7-4.1) g/dL Albumin/Globulin Ratio (1.0-2.8) Lipase (23-300) U/L Urine RBC 30-100/hpf H (0-5/HPF) Urine WBC 5-10/hpf H (0-5/HPF) Ur Squamous Epith Cells 0-1 /hpf (0-5/HPF) Urine Bacteria Few (2-10) H (None) Ur Culture Indicated? Specimen cultured Point of care testing: Urine Dip Bedside Urine Glucose Negative Bedside Urine Bilirubin - Negative Bedside Urine Ketone - Negative Urine Specific [place] 1.020 Bedside Urine Occult Blood +++ Bedside Urine pH 6.0 Bedside Urine Protein ++ 100 Bedside Urine Urobilinogen - Negative Bedside Urine Nitrite - Negative Bedside Urine Leukocytes +/- 15 Esterase Discharge Plan Departure Patient Disposition: Home Clinical Impression: Abdominal pain Qualifiers: Abdominal location: left lower quadrant Qualified Code(s): R10.32 - Left lower quadrant pain Discharge Date/Time: 04/10/20 17:55 Instructions: DI for Abdominal Pain-Adult Activity Restrictions/Additional Instructions: You have been diagnosed with [left lower quadrant pain likely strain muscle. Blood tests and CT test are assuring. No indication of infection today. CT test of abdomen and pelvis does not show acute findings. Incidental finding of simple renal cyst in right kidney. Urine test result appears to be improved from last visit in March 30. Urine is pending for culture and continue to take Cipro for next 1 month for prostatitis and please follow-up with Dr. Ellis as planned. Please follow-up with physical therapy as planned.]. What to do: *Take your medications as directed. You can take Tylenol 650-1000 mg as needed up to 3 to 4 times a day. Try to limit taking ibuprofen since this can cause GI upset and bleed. If needed, he can take ibuprofen 400 mg as needed up to 3 times a day with food *Follow up with your primary care provider in 2-3 days, call for an appointment. Let them know you were seen in the ED and that we asked you to be seen in follow up. *Return to ED if you have any new, worsening, or concerning symptoms, such as [chest pain, breathing difficulty, unable to tolerate fluids, fever, any acute concerns.]. Prescriptions: No Action hydrochlorothiazide 50 MG tablet 50 mg PO DAILY Qty: 0 RF: 0 allopurinol 300 MG tablet 150 mg PO DAILY Qty: 0 RF: 0 aspirin 325 mg tablet 325 mg PO DAILY RF: 0 amlodipine 5 mg Tablet 5 mg PO BEDTIME RF: 0 oxycodone 5 mg Tablet 5 mg PO Q6HR PRN (Reason: Pain, Moderate (4-6)) Qty: 10 RF: 0 losartan 100 mg tablet 100 mg PO BEDTIME RF: 0 ibuprofen 800 mg Tablet 800 mg PO TID PRN (Reason: Back Pain) RF: 0 ciprofloxacin HCl [Cipro] 500 mg tablet 500 mg PO Q12H Qty: 20 RF: 0 (DME) BIPAP PRO Qty: 1 RF: 0 Referrals: Maryann Wray PA-C [Primary Care Provider] -
--- NOTE | 2020-04-10 22:57 | ED_ITS ---
HPI - Abdominal Pain <DEVONTE Sherman - Last Filed: 04/10/20 23:20> General Chief Complaint: Abdominal Pain Stated Complaint: pain right side abdominal pain Time Seen by Provider: 04/10/20 15:13 Source: patient Mode of arrival: Ambulatory Limitations: no limitations History of Present Illness HPI narrative: This is a 75-year-old male, former smoker, who presents to ED with left lower quadrant pain for last 2 weeks which has been different from his recent abdominal pain which was locating suprapubic, low back, or right groin region. Patient states pain is more consistent and severe last couple of days. Patient states he just completed 7 day course of Cipro for UTI and when he followed up with his urologist he was diagnosed as prostatitis and he is about to start low-dose Cipro for 1 month. Patient denies urinary symptoms such as urgency, frequency, dysuria, hematuria. Patient denies fever, chills, nausea or vomiting. Patient denies bulging or swelling to left groin region. He reports pain is worse with certain movements. Patient states he had colonoscopy done 3 years ago at age 72 at that time some polyps were found and removed. Patient also was told has diverticulosis. He has remote history of 2 or 3 incidence of diverticulitis but that time the pain seemed different which was constant and sharp. Patient also states he was seen in ED about 10 days ago with hip and bilateral low abdominal pain which felt different. Reports CT and blood tests were negative for acute findings at that time. Related Data Home Medications Medication Instructions Recorded Confirmed allopurinol 150 mg PO DAILY #0 12/14/12 01/04/20 hydrochlorothiazide 50 mg PO DAILY #0 12/14/12 01/04/20 amlodipine 5 mg PO BEDTIME 09/03/18 01/04/20 BIPAP PRO #1 ea 01/12/19 01/04/20 aspirin 325 mg tablet 325 mg PO DAILY 02/16/19 01/04/20 ibuprofen 800 mg PO TID PRN 03/01/19 01/04/20 losartan 100 mg PO BEDTIME 03/01/19 01/04/20 Previous Rx's Medication Instructions Recorded oxycodone 5 mg PO Q6HR PRN #10 tab 12/27/19 ciprofloxacin HCl [Cipro] 500 mg PO Q12H #20 tab 03/31/20 Allergies Allergy/AdvReac Type Severity Reaction Status Date / Time tamsulosin Allergy Severe Difficulty Verified 12/26/19 11:42 Breathing cefuroxime [From Ceftin] Allergy Unknown Verified 07/06/19 10:18 doxazosin AdvReac Intermediate SOB, Verified 07/06/19 10:18 fever, extreme fatigue, cough, flu-like symptoms lisinopril AdvReac Mild COUGH, Verified 07/06/19 10:18 Palpitations cyclobenzaprine AdvReac Unknown Drowsy Verified 07/06/19 10:18 [From Flexeril] ezetimibe [From Vytorin] AdvReac Unknown Back Pain Verified 07/06/19 10:18 hydrocodone [HYDROCODONE] AdvReac Unknown CONSTIPATIO Verified 07/06/19 10:18 N pravastatin [From Pravachol] AdvReac Unknown Back Pain Verified 07/06/19 10:18 simvastatin [From Vytorin] AdvReac Unknown Back Pain Verified 07/06/19 10:18 Review of Systems <DEVONTE Sherman - Last Filed: 04/10/20 23:20> Review of Systems Narrative: General: Denies fever, chills, fatigue, malaise, sweats. HEENT: Denies sinus pain, ear pain, sore throat, difficulty swallowing, dizziness. Respiratory: Denies dyspnea, cough, wheezing, hemoptysis, sputum. Cardiovascular: Denies chest pain, palpitations, orthopnea, edema. Gastrointestinal: See HPI : See HPI Musculoskeletal: Denies weakness, joint pain or bony pain. Skin: Denies rash, skin lesions, or other. Neurologic: Denies weakness, headache, numbness, change in speech, confusion, seizures, incoordination. Psychiatric: No concerning psychosocial issues. 12-point review of systems is negative except for those stated above. Patient History <DEVONTE Sherman - Last Filed: 04/10/20 23:20> Medical History Allergic rhinitis (Chronic) BPH w urinary obs/LUTS (Acute) Degenerative disc disease, lumbar (Chronic) GERD (gastroesophageal reflux disease) (Chronic) Gout (Chronic) Hyperlipidemia (Chronic) Hypertension (Chronic) Low back pain (Chronic) Nephrolithiasis (Acute) SOTERO treated with BiPAP (Chronic) Osteoarthritis (Chronic) Osteoporosis (Chronic) Polio (Acute) Shingles (Acute) Snoring (Inactive) Spinal stenosis (Chronic) Tingling of right upper extremity (Acute) Surgical History History of lumbar spinal fusion (Acute 10/21/18) History of vasectomy (Acute) Hx of circumcision (Acute) Hx of microdiscectomy (Acute 09/24/16) S/P cervical spinal fusion (Acute 09/06/18) S/P excision of lipoma (Acute) Status post cataract extraction of both eyes with insertion of intraocular lens (Acute) Social History marital status: household members: spouse Smoking Status: Former smoker alcohol intake: current substance use type: does not use Smoking Status: Former smoker alcohol intake frequency: a few times a month Substance Use Type: does not use Exam <DEVONTE Sherman - Last Filed: 04/10/20 23:20> Narrative Exam Narrative: General appearance: well developed, well nourished, in no acute distress. Head: normocephalic, atraumatic, no scalp lesions, non-tender. ENT: Hearing grossly intact. Nose without bleeding, purulent discharge. Mucous membrane moist, no mucosal lesion. Throat without erythema, tonsillar hypertrophy or exudate. Uvula in midline, airway patent. Neck/Thyroid: neck supple, full range of motion, no visible masses or meningeal signs. No JVD, non-tender without lymphadenopathy. Skin: no suspicious rashes, lesions over visible areas. Warm and dry and appropriate color for ethnicity. Heart: no clubbing, no cyanosis, no edema. S1 and S2 normal. RRR w/o murmurs, clicks, or bruits. Lungs: Breathing even and unlabored. No stridor. No accessory muscles used. Able to speak in full sentences. Chest: normal shape and expansion. Abdomen: obese, non-distended, intact bowel sounds in 4 quadrant. Abdomen soft to palpate without rebound tenderness. Neurologic: alert and oriented. Cognitive exam, BLACK TOP ROLLER and PNS grossly intact on informal exam. Psych: good eye contact, normal affect. Initial Vital Signs Initial Vital Signs: Vital Signs Temperature 98.2 F 04/10/20 15:08 Pulse Rate 87 04/10/20 15:08 Respiratory Rate 18 04/10/20 15:08 Blood Pressure 181/89 H 04/10/20 15:08 Pulse Oximetry 96 04/10/20 15:08 <David Shukla DO - Last Filed: 04/11/20 07:12> Initial Vital Signs Initial Vital Signs: Vital Signs Temperature 98.2 F 04/10/20 15:08 Pulse Rate 87 04/10/20 15:08 Respiratory Rate 18 04/10/20 15:08 Blood Pressure 181/89 H 04/10/20 15:08 Pulse Oximetry 96 04/10/20 15:08 Scores <DEVONTE Sherman - Last Filed: 04/10/20 23:20> GCS [place] coma scale eye opening: Spontaneous [place] coma scale verbal response: Orientated [place] coma scale motor response: Obey commands Mary [place] coma scale total score: 15 Course <DEVONTE Sherman - Last Filed: 04/10/20 23:20> Orders Ordered: Discontinued Medications Sodium Chloride (Normal Saline 0.9%) 1,000 mls @ 150 mls/hr IV CONT CHELI Last Admin: 04/10/20 15:50 Dose: 150 mls/hr Documented by: EUSEBIO Vital Signs Vital signs: Vital Signs - 8 hr 04/10/20 15:08 04/10/20 16:51 04/10/20 17:55 Temperature 98.2 F Pulse Rate 87 74 71 Respiratory Rate 18 19 18 Blood Pressure 181/89 H 155/77 H Blood Pressure [Left Arm] 147/77 H Pulse Oximetry 96 99 97 <David Shukla DO - Last Filed: 04/11/20 07:12> Orders Ordered: Discontinued Medications Sodium Chloride (Normal Saline 0.9%) 1,000 mls @ 150 mls/hr IV CONT CHELI Last Admin: 04/10/20 15:50 Dose: 150 mls/hr Documented by: EUSEBIO Vital Signs Vital signs: Vital Signs - 8 hr 04/10/20 15:08 04/10/20 16:51 04/10/20 17:55 Temperature 98.2 F Pulse Rate 87 74 71 Respiratory Rate 18 19 18 Blood Pressure 181/89 H 155/77 H Blood Pressure [Left Arm] 147/77 H Pulse Oximetry 96 99 97 MDM - Abdominal Pain <Zelalem IGNACIA CorriganP - Last Filed: 04/10/20 23:20> Differential Diagnosis Differential diagnosis: Likely abdominal pain, calculus of kidney, diverticulitis, small bowel obstruction and other (Bladder infection) Medical Records Attestation: I reviewed the patient's medical records. Lab Data Attestation: I reviewed the patient's lab results. Result diagrams: 04/10/20 15:17 04/10/20 15:17 Labs: Lab Results 04/10/20 04/10/20 04/10/20 Range/Units 15:17 15:17 15:17 WBC 7.4 (4.5-11.0) X10^3/uL RBC 4.69 (4.5-5.9) X10^6/uL Hgb 13.6 (13.5-17.5) g/dL Hct 39.4 L (41-53) % MCV 84.0 (80-100) fL MCH 28.9 (26-34) PG MCHC 34.4 (30-36) % RDW 14.0 (11.6-14.8) % Plt Count 357 (150-400) X10^3/uL Neut % (Auto) 56.7 (50-75) % Lymph % (Auto) 27.0 (25-40) % [place] % (Auto) 7.9 (3-14) % Eos % (Auto) 7.5 H (2-4) % Baso % (Auto) 0.9 (0-2) % Neut # (Auto) 4200 (0717-0547) /uL Lymph # (Auto) 2000 (1896-3293) /uL [place] # (Auto) 600 (0-900) /uL Eos # (Auto) 600 H (0-450) /uL Baso # (Auto) 100 (0-100) /uL Sodium 138 (137-145) mmol/L Potassium 3.9 (3.4-5.1) mmol/L Chloride 101 (98-107) mmol/L Carbon Dioxide 29 (22-32) mmol/L BUN 19 (9-20) mg/dL Creatinine 0.97 (0.66-1.25) mg/dL Estimated GFR > 60.0 (>60) mL/min BUN/Creatinine Ratio 19.6 (6-22) Glucose 120 H (80-110) mg/dL Lactate 1.0 (0.7-2.1) mmol/L Calcium 9.8 (8.4-10.2) mg/dL Total Bilirubin 0.6 (0.2-1.3) mg/dL AST 37 (17-59) IU/L ALT 19 (<50) IU/L Alkaline Phosphatase 114 (38-126) U/L Total Protein 8.3 H (6.3-8.2) g/dL Albumin 4.6 (3.5-5.0) g/dL Globulin 3.7 (1.7-4.1) g/dL Albumin/Globulin Ratio 1.2 (1.0-2.8) Lipase 134 (23-300) U/L Urine RBC (0-5/HPF) Urine WBC (0-5/HPF) Ur Squamous Epith Cells (0-5/HPF) Urine Bacteria (None) Ur Culture Indicated? 04/10/20 Range/Units 16:15 WBC (4.5-11.0) X10^3/uL RBC (4.5-5.9) X10^6/uL Hgb (13.5-17.5) g/dL Hct (41-53) % MCV (80-100) fL MCH (26-34) PG MCHC (30-36) % RDW (11.6-14.8) % Plt Count (150-400) X10^3/uL Neut % (Auto) (50-75) % Lymph % (Auto) (25-40) % [place] % (Auto) (3-14) % Eos % (Auto) (2-4) % Baso % (Auto) (0-2) % Neut # (Auto) (2126-2726) /uL Lymph # (Auto) (4981-6379) /uL [place] # (Auto) (0-900) /uL Eos # (Auto) (0-450) /uL Baso # (Auto) (0-100) /uL Sodium (137-145) mmol/L Potassium (3.4-5.1) mmol/L Chloride (98-107) mmol/L Carbon Dioxide (22-32) mmol/L BUN (9-20) mg/dL Creatinine (0.66-1.25) mg/dL Estimated GFR (>60) mL/min BUN/Creatinine Ratio (6-22) Glucose (80-110) mg/dL Lactate (0.7-2.1) mmol/L Calcium (8.4-10.2) mg/dL Total Bilirubin (0.2-1.3) mg/dL AST (17-59) IU/L ALT (<50) IU/L Alkaline Phosphatase (38-126) U/L Total Protein (6.3-8.2) g/dL Albumin (3.5-5.0) g/dL Globulin (1.7-4.1) g/dL Albumin/Globulin Ratio (1.0-2.8) Lipase (23-300) U/L Urine RBC 30-100/hpf H (0-5/HPF) Urine WBC 5-10/hpf H (0-5/HPF) Ur Squamous Epith Cells 0-1 /hpf (0-5/HPF) Urine Bacteria Few (2-10) H (None) Ur Culture Indicated? Specimen cultured Point of care testing: Urine Dip Bedside Urine Glucose Negative Bedside Urine Bilirubin - Negative Bedside Urine Ketone - Negative Urine Specific [place] 1.020 Bedside Urine Occult Blood +++ Bedside Urine pH 6.0 Bedside Urine Protein ++ 100 Bedside Urine Urobilinogen - Negative Bedside Urine Nitrite - Negative Bedside Urine Leukocytes +/- [address] scan - abdomen/pelvis: Radiologist's Impression: [address] [address] [address] Scan Report Signed Patient: Huey Newman [facility]#: [id number] : 7Acct:[id number] Age/Sex: 75 / MDate of Service: 04/10/20 Loc: ED Accession Number: [id number] Procedure: CT abdomen pelvis w con Ordering Provider: Zelalem Corrigan PROCEDURE: CT ABDOMEN PELVIS W CON INDICATIONS: LLQ pain. Hx of diverticulitis, current tx for prostatitis TECHNIQUE: After the administration of intravenous contrast, 5 mm thick sections acquired from the diaphragm to the symphysis. 5 mm coronal and sagittal reformats were acquired. For radiation dose reduction, the following was used: automated exposure control, adjustment of mA and/or kV according to patient size. COMPARISON: [facility], CT, CT ABDOMEN PELVIS W CON, 03/30/2020, 23:28. FINDINGS: Image quality: Excellent. ABDOMEN: Lung bases: Lung bases are clear. Heart size is normal. Coronary artery calcifications are present. A Solid organs: Liver is normal in size and enhancement. Gallbladder negative. Biliary system is non dilated. Pancreas enhances normally. Spleen is normal in size and enhancement. No adrenal nodules. Kidneys demonstrate normal size and enhancement, without hydronephrosis. Large simple appearing right renal cyst Peritoneum and bowel: Bowel loops demonstrate normal wall thickness and caliber. No free fluid or air. Colonic diverticulosis is seen without evidence of acute complication. Appendix is not clearly identified however no suspicious pericecal inflammatory changes are seen. Nodes and vessels: No retroperitoneal or mesenteric adenopathy by size criteria. Aorta and inferior vena cava are normal in size. Fat containing small periumbilical hernia. PELVIS: Genitourinary: Bladder wall thickness is normal. Miscellaneous: No inguinal hernias or adenopathy. Bones: No suspicious bony lesions. No vertebral body compression fractures. Diffuse spondylosis, and postsurgical changes at L5-S1 IMPRESSION: No evidence of acute diverticulitis. No specific visualized etiology for left lower quadrant pain. Simple appearing right renal cyst Additional chronic and incidental findings as above. Dictated by: José Miguel Duvall M.D. on 04/10/2020 at 17:07 Approved by: José Miguel Duvall M.D. on 04/10/2020 at 17:13 [facility] Narrative Medical decision making narrative: This is a 75-year-old gentleman who return to ED with abdominal pain which seems different from previous visit on 03/30/20 as far as for locations with increase in severity. Patient is afebrile with within normal heart rate and hemodynamically stable. Patient has history of diverticulitis and diverticulosis in the past. Patient is currently getting treatment for UTI/prostatitis with Cipro and sees Dr. Ellis after TURP procedure in December this year. CBC without leukocytosis. Normal lipase with liver function test. Normal lactate of 1.0. Urine is pending for culture. Urine micro test shows RBC of 30-100 with WBC of 5-10 and few bactaria which appears to be an improvement from the previous visit. Urine culture from previous visit shows >100,000 Enterococcus faecalis and sensitivity to Cipro. Today's diagnostic test results her assuring. Patient reports he has been using [id number] Tylenol, Motrin, occasional Percocet from previous surgery for pain management. Findings were discussed with patient and advise to continue with [id number] Tylenol as first-line pain management with occasional low dose of Motrin 400 mg up to 3 times a day as needed. Patient advised to use stool softener or MiraLax as needed to prevent constipation. Return precautions were discussed with patient and patient advised to follow-up with PCP. Patient advised to continue with Cipro for next 1 month to treat prostatitis and follow-up with Dr. Ellis. Patient v erbalized understanding and agreement with treatment plan. <David Shukla, DO - Last Filed: 04/11/20 07:12> Lab Data Labs: Lab Results 04/10/20 04/10/20 04/10/20 Range/Units 15:17 15:17 15:17 WBC 7.4 (4.5-11.0) X10^3/uL RBC 4.69 (4.5-5.9) X10^6/uL Hgb 13.6 (13.5-17.5) g/dL Hct 39.4 L (41-53) % MCV 84.0 (80-100) fL MCH 28.9 (26-34) PG MCHC 34.4 (30-36) % RDW 14.0 (11.6-14.8) % Plt Count 357 (150-400) X10^3/uL Neut % (Auto) 56.7 (50-75) % Lymph % (Auto) 27.0 (25-40) % [place] % (Auto) 7.9 (3-14) % Eos % (Auto) 7.5 H (2-4) % Baso % (Auto) 0.9 (0-2) % Neut # (Auto) 4200 (9117-7817) /uL Lymph # (Auto) 2000 (5779-8769) /uL [place] # (Auto) 600 (0-900) /uL Eos # (Auto) 600 H (0-450) /uL Baso # (Auto) 100 (0-100) /uL Sodium 138 (137-145) mmol/L Potassium 3.9 (3.4-5.1) mmol/L Chloride 101 (98-107) mmol/L Carbon Dioxide 29 (22-32) mmol/L BUN 19 (9-20) mg/dL Creatinine 0.97 (0.66-1.25) mg/dL Estimated GFR > 60.0 (>60) mL/min BUN/Creatinine Ratio 19.6 (6-22) Glucose 120 H (80-110) mg/dL Lactate 1.0 (0.7-2.1) mmol/L Calcium 9.8 (8.4-10.2) mg/dL Total Bilirubin 0.6 (0.2-1.3) mg/dL AST 37 (17-59) IU/L ALT 19 (<50) IU/L Alkaline Phosphatase 114 (38-126) U/L Total Protein 8.3 H (6.3-8.2) g/dL Albumin 4.6 (3.5-5.0) g/dL Globulin 3.7 (1.7-4.1) g/dL Albumin/Globulin Ratio 1.2 (1.0-2.8) Lipase 134 (23-300) U/L Urine RBC (0-5/HPF) Urine WBC (0-5/HPF) Ur Squamous Epith Cells (0-5/HPF) Urine Bacteria (None) Ur Culture Indicated? 04/10/20 Range/Units 16:15 WBC (4.5-11.0) X10^3/uL RBC (4.5-5.9) X10^6/uL Hgb (13.5-17.5) g/dL Hct (41-53) % MCV (80-100) fL MCH (26-34) PG MCHC (30-36) % RDW (11.6-14.8) % Plt Count (150-400) X10^3/uL Neut % (Auto) (50-75) % Lymph % (Auto) (25-40) % [place] % (Auto) (3-14) % Eos % (Auto) (2-4) % Baso % (Auto) (0-2) % Neut # (Auto) (6331-0309) /uL Lymph # (Auto) (4484-0758) /uL [place] # (Auto) (0-900) /uL Eos # (Auto) (0-450) /uL Baso # (Auto) (0-100) /uL Sodium (137-145) mmol/L Potassium (3.4-5.1) mmol/L Chloride (98-107) mmol/L Carbon Dioxide (22-32) mmol/L BUN (9-20) mg/dL Creatinine (0.66-1.25) mg/dL Estimated GFR (>60) mL/min BUN/Creatinine Ratio (6-22) Glucose (80-110) mg/dL Lactate (0.7-2.1) mmol/L Calcium (8.4-10.2) mg/dL Total Bilirubin (0.2-1.3) mg/dL AST (17-59) IU/L ALT (<50) IU/L Alkaline Phosphatase (38-126) U/L Total Protein (6.3-8.2) g/dL Albumin (3.5-5.0) g/dL Globulin (1.7-4.1) g/dL Albumin/Globulin Ratio (1.0-2.8) Lipase (23-300) U/L Urine RBC 30-100/hpf H (0-5/HPF) Urine WBC 5-10/hpf H (0-5/HPF) Ur Squamous Epith Cells 0-1 /hpf (0-5/HPF) Urine Bacteria Few (2-10) H (None) Ur Culture Indicated? Specimen cultured Point of care testing: Urine Dip Bedside Urine Glucose Negative Bedside Urine Bilirubin - Negative Bedside Urine Ketone - Negative Urine Specific [place] 1.020 Bedside Urine Occult Blood +++ Bedside Urine pH 6.0 Bedside Urine Protein ++ 100 Bedside Urine Urobilinogen - Negative Bedside Urine Nitrite - Negative Bedside Urine Leukocytes +/- 15 Esterase Discharge Plan Departure Patient Disposition: Home Clinical Impression: Abdominal pain Qualifiers: Abdominal location: left lower quadrant Qualified Code(s): R10.32 - Left lower quadrant pain Discharge Date/Time: 04/10/20 17:55 Instructions: DI for Abdominal Pain-Adult Activity Restrictions/Additional Instructions: You have been diagnosed with [left lower quadrant pain likely strain muscle. Blood tests and CT test are assuring. No indication of infection today. CT test of abdomen and pelvis does not show acute findings. Incidental finding of simple renal cyst in right kidney. Urine test result appears to be improved from last visit in March 30. Urine is pending for culture and continue to take Cipro for next 1 month for prostatitis and please follow-up with Dr. Kevwitch as planned. Please follow-up with physical therapy as planned.]. What to do: *Take your medications as directed. You can take Tylenol 650-1000 mg as needed up to 3 to 4 times a day. Try to limit taking ibuprofen since this can cause GI upset and bleed. If needed, he can take ibuprofen 400 mg as needed up to 3 time s a day with food *Follow up with your primary care provider in 2-3 days, call for an appointment. Let them know you were seen in the ED and that we asked you to be seen in follow up. *Return to ED if you have any new, worsening, or concerning symptoms, such as [chest pain, breathing difficulty, unable to tolerate fluids, fever, any acute concerns.]. Prescriptions: No Action hydrochlorothiazide 50 MG tablet 50 mg PO DAILY Qty: 0 RF: 0 allopurinol 300 MG tablet 150 mg PO DAILY Qty: 0 RF: 0 aspirin 325 mg tablet 325 mg PO DAILY RF: 0 amlodipine 5 mg Tablet 5 mg PO BEDTIME RF: 0 oxycodone 5 mg Tablet 5 mg PO Q6HR PRN (Reason: Pain, Moderate (4-6)) Qty: 10 RF: 0 losartan 100 mg tablet 100 mg PO BEDTIME RF: 0 ibuprofen 800 mg Tablet 800 mg PO TID PRN (Reason: Back Pain) RF: 0 ciprofloxacin HCl [Cipro] 500 mg tablet 500 mg PO Q12H Qty: 20 RF: 0 (DME) BIPAP PRO Qty: 1 RF: 0 Referrals: Maryann Wray PA-C [Primary Care Provider] - <David Shukla DO - Last Filed: 04/11/20 07:12> [facility]: Dr Shukla Co-Sign Statement: I was available for consultation during this patient's emergency department visit. This chart is signed by myself for administrative purposes only. I did not have direct contact with this patient during this visit. They were seen independently by the APC.
== END 2020-04-10 17:55 | disposition home or self-care (01) ==
PROVIDERS: Emergency Medicine; Emergency Provider Nurse Practitioner Family; PCP Physician Assistant
DX: R10.32 Left lower quadrant pain (principal)
CPT/HCPCS: 36415; 74177; 80053; 81003; 81015; 83605; 83690; 85025; 87086; 99284; Q9967

== ENCOUNTER 2020-09-04 02:00 | Emergency (ER) | payer MEDICARE, OTHER, SELFPAY ==
[2019-12-26 18:49] VITALS: BMI 34.2
[2020-09-04] VITALS (34 sets, daily range): BP systolic 86–147; BP diastolic 51–76; PULSE 66–110; RESP 17–28; TEMP 36.5; O2SAT 93–99; BMI 34.8
--- NOTE | 2020-09-04 02:21 | ED_ITS ---
HPI - GI Bleed <David Shukla, DO - Last Filed: 09/08/20 07:04> General Chief complaint: GI Bleed Stated complaint: rectal bleeding Time Seen by Provider: 09/04/20 02:10 Source: patient Mode of arrival: Ambulatory Limitations: no limitations History of Present Illness HPI Narrative: Patient is a 75-year-old male here for evaluation of bright red blood per rectum. He states that he takes opioid medication for chronic back pain which causes him to have issues with constipation. He frequently has to use stool softeners in even laxatives. He states that he felt like he was somewhat constipated and he did take a laxative. He had 1 bowel movement earlier in the day yesterday that was somewhat hard with an has had multiple subsequent bowel movements after that that have been soft and were bright red. He has had hemorrhoids in the past. He states the bowel movements are not painful for him. He has no abdominal tenderness. No urinary symptoms. No fevers. He states that he is somewhat lightheaded with standing up which is new for him. Related Data Home Medications Medication Instructions Recorded Confirmed allopurinol 150 mg PO DAILY #0 12/14/12 01/04/20 hydrochlorothiazide 50 mg PO DAILY #0 12/14/12 01/04/20 amlodipine 5 mg PO BEDTIME 09/03/18 01/04/20 BIPAP PRO #1 ea 01/12/19 01/04/20 aspirin 325 mg tablet 325 mg PO DAILY 02/16/19 01/04/20 ibuprofen 800 mg PO TID PRN 03/01/19 01/04/20 losartan 100 mg PO BEDTIME 03/01/19 01/04/20 Previous Rx's Medication Instructions Recorded oxycodone 5 mg PO Q6HR PRN #10 tab 12/27/19 ciprofloxacin HCl [Cipro] 500 mg PO Q12H #20 tab 03/31/20 Allergies Allergy/AdvReac Type Severity Reaction Status Date / Time tamsulosin Allergy Severe Difficulty Verified 12/26/19 11:42 Breathing cefuroxime [From Ceftin] Allergy Unknown Verified 07/06/19 10:18 doxazosin AdvReac Intermediate SOB, Verified 07/06/19 10:18 fever, extreme fatigue, cough, flu-like symptoms lisinopril AdvReac Mild COUGH, Verified 07/06/19 10:18 Palpitations cyclobenzaprine AdvReac Unknown Drowsy Verified 07/06/19 10:18 [From Flexeril] ezetimibe [From Vytorin] AdvReac Unknown Back Pain Verified 07/06/19 10:18 hydrocodone [HYDROCODONE] AdvReac Unknown CONSTIPATIO Verified 07/06/19 10:18 N pravastatin [From Pravachol] AdvReac Unknown Back Pain Verified 07/06/19 10:18 simvastatin [From Vytorin] AdvReac Unknown Back Pain Verified 07/06/19 10:18 Review of Systems <David Shukla DO - Last Filed: 09/08/20 07:04> Constitutional Constitutional: Denies chills, Denies fever(s) and Denies headache(s) Eyes Eyes: Denies change in vision ENT Ears, Nose, Mouth, and Throat: Denies headache(s) Cardiovascular Cardiovascular: Denies chest pain and Reports dyspnea Respiratory Respiratory: Reports dyspnea Gastrointestinal Gastrointestinal: Denies abdominal pain, Reports hematochezia, Reports constipation, Denies nausea and Denies vomiting Genitourinary Genitourinary: Denies dysuria Genitourinary: Denies dysuria Musculoskeletal Musculoskeletal: Denies arthralgias and Denies myalgias Integumentary/Breasts Skin/Breast: Denies rash Neurologic Neurologic: Denies behavioral changes and Denies headache(s) Psychiatric Psychiatric: Denies behavioral changes Hematologic/Lymphatic Hematologic/Lymphatic: Denies easy bleeding and Denies easy bruising Allergic/Immunologic Allergic/Immunologic: Denies urticaria Patient History <David Shukla DO - Last Filed: 09/08/20 07:04> Medical History Allergic rhinitis (Chronic) Arthritis (Acute) BPH (benign prostatic hyperplasia) (Acute) BPH w urinary obs/LUTS (Acute) Chronic UTI (Acute) Degenerative disc disease, lumbar (Chronic) Depression (Acute) Diverticular disease (Acute) GERD (gastroesophageal reflux disease) (Chronic) Gout (Chronic) Hyperlipidemia (Chronic) Hypertension (Chronic) Low back pain (Chronic) Male circumcision (Acute) Nephrolithiasis (Acute) SOTERO treated with BiPAP (Chronic) Osteoarthritis (Chronic) Osteoporosis (Chronic) Polio (Acute) Shingles (Acute) Skin cancer (Acute) Snoring (Inactive) Spinal stenosis (Chronic) Tingling of right upper extremity (Acute) Surgical History H/O prostatectomy (Acute) History of lumbar spinal fusion (Acute 10/21/18) History of vasectomy (Acute) Hx of circumcision (Acute) Hx of microdiscectomy (Acute 09/24/16) Previous back surgery (Acute) S/P cervical spinal fusion (Acute 09/06/18) S/P excision of lipoma (Acute) Status post cataract extraction of both eyes with insertion of intraocular lens (Acute) Social History marital status: household members: spouse Smoking Status: Former smoker alcohol intake: current substance use type: does not use Smoking Status: Former smoker alcohol intake frequency: a few times a month Substance Use Type: does not use Exam <David Shukla DO - Last Filed: 09/08/20 07:04> Initial Vital Signs Initial Vital Signs: Vital Signs Temperature 97.7 F 09/04/20 02:11 Pulse Rate 110 H 09/04/20 02:11 Respiratory Rate 09/04/20 02:11 Blood Pressure 127/76 09/04/20 02:11 Pulse Oximetry 98 09/04/20 02:11 Const General: cooperative, healthy appearing, comfortable and well developed HENFL Head: normal to inspection and normocephalic Chest Chest: No tenderness Resp Effort & Inspection: normal respiratory effort and not labored Auscultation: clear to auscultation bilaterally Cardio Rate: tachycardic Rhythm: regular rhythm GI Inspection: non-distended Palpation: soft Rectal Exam: heme positive stool and hemorrhoids (External) Skin Lesions: no lesions Rashes: no rashes Neuro General: patient alert and patient awake Cognition: normal cognition Speech: speech normal Extrem General: normal to inspection and capillary refill normal Psych Appearance: grossly normal and well kempt <Katelynn Meadows MD - Last Filed: 09/04/20 17:20> Initial Vital Signs Initial Vital Signs: Vital Signs Temperature 97.7 F 09/04/20 02:11 Pulse Rate 110 H 09/04/20 02:11 Respiratory Rate 20 09/04/20 02:11 Blood Pressure 127/76 09/04/20 02:11 Pulse Oximetry 98 09/04/20 02:11 Scores <David PiperDO mimi - Last Filed: 09/08/20 07:04> GCS [place] coma scale eye opening: Spontaneous [place] coma scale verbal response: Orientated [place] coma scale motor response: Obey commands Mary [place] coma scale total score: 15 Course <David ShuklaDO - Last Filed: 09/08/20 07:04> Orders Ordered: Discontinued Medications Enoxaparin Sodium (Lovenox) 115 mg 1 mg/kg (115 mg) SUBCUT BID CHELI Enoxaparin Sodium (Lovenox) 115 mg 1 mg/kg (115 mg) SUBCUT NOW ONE Stop: 09/04/20 06:47 Last Admin: 09/04/20 06:53 Dose: 115 mg Documented by: KGALLAG Sodium Chloride (Normal Saline 0.9%) 1,000 mls @ 1,000 mls/hr IV BOLUS ONE Stop: 09/04/20 03:20 Last Infusion: 09/04/20 05:00 Dose: 0 mls/hr Documented by: Admin: 09/04/20 02:52 Dose: 1,000 mls/hr Documented by: KGALLAG Sodium Chloride (Normal Saline 0.9%) 1,000 mls @ 1,000 mls/hr IV BOLUS ONE Stop: 09/04/20 07:54 Last Infusion: 09/04/20 08:11 Dose: 0 mls/hr Documented by: Admin: 09/04/20 07:02 Dose: 1,000 mls/hr Documented by: KGALLAG Sodium Chloride (Normal Saline 0.9%) 1,000 mls @ 150 mls/hr IV CONT CHELI Last Admin: 09/04/20 09:34 Dose: 150 mls/hr Documented by: OZZIE Vital Signs Vital signs: Vital Signs - 8 hr 09/04/20 09:30 09/04/20 10:00 09/04/20 10:02 Pulse Rate 91 H 88 86 Respiratory Rate 27 H 23 28 H Blood Pressure 98/62 89/60 L 91/54 L Pulse Oximetry 97 95 96 09/04/20 10:30 09/04/20 10:31 09/04/20 11:00 Pulse Rate 84 85 77 Respiratory Rate 22 19 20 Blood Pressure 86/51 L 105/58 L Pulse Oximetry 97 97 97 09/04/20 11:30 09/04/20 12:00 09/04/20 12:30 Pulse Rate 95 H 90 92 H Respiratory Rate 20 25 H 27 H Blood Pressure 102/69 101/67 103/60 Pulse Oximetry 95 94 96 09/04/20 13:00 09/04/20 13:30 09/04/20 14:00 Pulse Rate 85 100 H 97 H Respiratory Rate 19 18 20 Blood Pressure 127/72 111/69 Pulse Oximetry 93 94 96 09/04/20 14:30 09/04/20 15:32 Pulse Rate 97 H 110 H Respiratory Rate 22 20 Blood Pressure 118/60 137/76 Pulse Oximetry 95 99 <Katelynn Meadows MD - Last Filed: 09/04/20 17:20> Course Course Narrative: 7:32 care is assumed 75-year-old gentleman presents with painless bright red blood per rectum initial H&H unremarkable. With workup an incidental large saddle pulmonary embolus was noted and confirmed with CT angio of the chest. Ultrasound of lower extremities reveal a left popliteal DVT. He was given a dose of Lovenox and within minutes had a episode of dizziness and mild hypotension with systolic dropping to 92 but map maintained 65. Blood work was repeated and over the course of his ER visit he has had 1 L of normal saline and hematocrit changed from 40.6 down to 35.8 and hemoglobin decreased from 13.4 down to 12.0. Echocardiogram has not yet been done. Now with evidence of rectal bleeding uncertain source (with no evidence of significant intra-abdominal mass on CT scan), hematocrit decreasing beyond what would be expected for simply 1 L of fluid and large saddle pulmonary embolus the patient will need to be transferred to a facility for higher level of care with consideration of interventional procedure to try to remove some of the clot in his pulmonary artery. Spoke with [facility], given the diagnostic uncertainty and Lovenox given in light of GI bleeding as well as unexpected episode of hypotension and tachypnea I believe that ICU care to begin with will likely be appropriate. 7:36: Dr Lui, [facility] returns call. All imaging studies have been sent to [facility]. 9:15 echocardiogram has been done were waiting for report. Troponin was repeated in his lower (still negative). Patient remains hemodynamically stable. No additional rectal bleeding although he is having some tenesmus. Patient is informed of plans and requests rechecking with [facility] for bed availability. 1230 patient has been accepted to [address] Rich hospitalist. Dr Winters, , will consult. Waiting for bed availability. Orders Ordered: Discontinued Medications Enoxaparin Sodium (Lovenox) 115 mg 1 mg/kg (115 mg) SUBCUT BID CHELI Enoxaparin Sodium (Lovenox) 115 mg 1 mg/kg (115 mg) SUBCUT NOW ONE Stop: 09/04/20 06:47 Last Admin: 09/04/20 06:53 Dose: 115 mg Documented by: KGALLAG Sodium Chloride (Normal Saline 0.9%) 1,000 mls @ 1,000 mls/hr IV BOLUS ONE Stop: 09/04/20 03:20 Last Infusion: 09/04/20 05:00 Dose: 0 mls/hr Documented by: Admin: 09/04/20 02:52 Dose: 1,000 mls/hr Documented by: KGALLAG Sodium Chloride (Normal Saline 0.9%) 1,000 mls @ 1,000 mls/hr IV BOLUS ONE Stop: 09/04/20 07:54 Last Infusion: 09/04/20 08:11 Dose: 0 mls/hr Documented by: Admin: 09/04/20 07:02 Dose: 1,000 mls/hr Documented by: KGALLAG Sodium Chloride (Normal Saline 0.9%) 1,000 mls @ 150 mls/hr IV CONT CHELI Last Admin: 09/04/20 09:34 Dose: 150 mls/hr Documented by: OZZIE Vital Signs Vital signs: Vital Signs - 8 hr 09/04/20 09:30 09/04/20 10:00 09/04/20 10:02 Pulse Rate 91 H 88 86 Respiratory Rate 27 H 23 28 H Blood Pressure 98/62 89/60 L 91/54 L Pulse Oximetry 97 95 96 09/04/20 10:30 09/04/20 10:31 09/04/20 11:00 Pulse Rate 84 85 77 Respiratory Rate 22 19 20 Blood Pressure 86/51 L 105/58 L Pulse Oximetry 97 97 97 09/04/20 11:30 09/04/20 12:00 09/04/20 12:30 Pulse Rate 95 H 90 92 H Respiratory Rate 20 25 H 27 H Blood Pressure 102/69 101/67 103/60 Pulse Oximetry 95 94 96 09/04/20 13:00 09/04/20 13:30 09/04/20 14:00 Pulse Rate 85 100 H 97 H Respiratory Rate 19 18 20 Blood Pressure 127/72 111/69 Pulse Oximetry 93 94 96 09/04/20 14:30 09/04/20 15:32 Pulse Rate 97 H 110 H Respiratory Rate 22 20 Blood Pressure 118/60 137/76 Pulse Oximetry 95 99 MDM - GI Bleed <David Shukla, - Last Filed: 09/08/20 07:04> Lab Data Attestation: I reviewed the patient's lab results. Result diagrams: 09/04/20 07:00 09/04/20 02:20 Labs: Lab Results 09/04/20 09/04/20 09/04/20 Range/Units 02:20 02:20 02:20 WBC 14.4 H (4.5-11.0) X10^3/uL RBC 4.66 (4.5-5.9) X10^6/uL Hgb 13.4 L (13.5-17.5) g/dL Hct 40.6 L (41-53) % MCV 87.0 (80-100) fL MCH 28.8 (26-34) PG MCHC 33.0 (30-36) % RDW 14.6 (11.6-14.8) % Plt Count 263 (150-400) X10^3/uL Neut % (Auto) Not Reportable Lymph % (Auto) Not Reportable [place] % (Auto) Not Reportable Eos % (Auto) Not Reportable Baso % (Auto) Not Reportable Neut # (Auto) (0184-9093) /uL Lymph # (Auto) Not Reportable [place] # (Auto) Not Reportable Eos # (Auto) (0-450) /uL Baso # (Auto) Not Reportable Total Counted 100 Seg Neutrophils % 55.0 (38-70) % Band Neutrophils % 5.0 (3-7) % Lymphocytes % (Manual) 32.0 (25-45) % Monocytes % (Manual) 6.0 (2-11) % Eosinophils % (Manual) 1.0 L (2-4) % Metamyelocytes % 1.0 H (-0) % Neutrophils # (Manual) 8640 H (5093-8502) /uL RBC Morphology Normal morphology PT 11.3 (10.1-12.7) SECONDS INR 1.0 (0.9-1.3) APTT (26.4-36.2) SECONDS Sodium 136 L (137-145) mmol/L Potassium 3.3 L (3.4-5.1) mmol/L Chloride 101 (98-107) mmol/L Carbon Dioxide 32 (22-32) mmol/L BUN 31 H (9-20) mg/dL Creatinine 0.89 (0.66-1.25) mg/dL Estimated GFR > 60.0 (>60) mL/min BUN/Creatinine Ratio 34.8 H (6-22) Glucose 127 H (80-110) mg/dL Calcium 9.7 (8.4-10.2) mg/dL Total Bilirubin 0.6 (0.2-1.3) mg/dL AST 19 (17-59) IU/L ALT 20 (<50) IU/L Alkaline Phosphatase 67 (38-126) U/L Total Creatine Kinase (55-170) U/L CK-MB (CK-2) CK-MB (CK-2) Rel Index Troponin I (0.01-0.034) ng/mL NT-Pro-B Natriuret Pep 79 (<125) pg/mL Total Protein 6.7 (6.3-8.2) g/dL Albumin 4.0 (3.5-5.0) g/dL Globulin 2.7 (1.7-4.1) g/dL Albumin/Globulin Ratio 1.5 (1.0-2.8) Lipase 50 (23-300) U/L COVID-19 PCR (Negative) Blood Type Antibody Screen 09/04/20 09/04/20 09/04/20 Range/Units 02:20 02:20 02:25 WBC (4.5-11.0) X10^3/uL RBC (4.5-5.9) X10^6/uL Hgb (13.5-17.5) g/dL Hct (41-53) % MCV (80-100) fL MCH (26-34) PG MCHC (30-36) % RDW (11.6-14.8) % Plt Count (150-400) X10^3/uL Neut % (Auto) Lymph % (Auto) [place] % (Auto) Eos % (Auto) Baso % (Auto) Neut # (Auto) (3068-2179) /uL Lymph # (Auto) [place] # (Auto) Eos # (Auto) (0-450) /uL Baso # (Auto) Total Counted Seg Neutrophils % (38-70) % Band Neutrophils % (3-7) % Lymphocytes % (Manual) (25-45) % Monocytes % (Manual) (2-11) % Eosinophils % (Manual) (2-4) % Metamyelocytes % (-0) % Neutrophils # (Manual) (8940-3637) /uL RBC Morphology PT (10.1-12.7) SECONDS INR (0.9-1.3) APTT 26 L (26.4-36.2) SECONDS Sodium (137-145) mmol/L Potassium (3.4-5.1) mmol/L Chloride (98-107) mmol/L Carbon Dioxide (22-32) mmol/L BUN (9-20) mg/dL Creatinine (0.66-1.25) mg/dL Estimated GFR (>60) mL/min BUN/Creatinine Ratio (6-22) Glucose (80-110) mg/dL Calcium (8.4-10.2) mg/dL Total Bilirubin (0.2-1.3) mg/dL AST (17-59) IU/L ALT (<50) IU/L Alkaline Phosphatase (38-126) U/L Total Creatine Kinase 46 L (55-170) U/L CK-MB (CK-2) TNP CK-MB (CK-2) Rel Index TNP Troponin I 0.028 (0.01-0.034) ng/mL NT-Pro-B Natriuret Pep (<125) pg/mL Total Protein (6.3-8.2) g/dL Albumin (3.5-5.0) g/dL Globulin (1.7-4.1) g/dL Albumin/Globulin Ratio (1.0-2.8) Lipase (23-300) U/L COVID-19 PCR (Negative) Blood Type O Negative Antibody Screen Negative 09/04/20 09/04/20 09/04/20 Range/Units 07:00 07:35 09:25 WBC 15.5 H (4.5-11.0) X10^3/uL RBC 4.11 L (4.5-5.9) X10^6/uL Hgb 12.0 L (13.5-17.5) g/dL Hct 35.8 L (41-53) % MCV 86.9 (80-100) fL MCH 29.2 (26-34) PG MCHC 33.6 (30-36) % RDW 14.1 (11.6-14.8) % Plt Count 251 (150-400) X10^3/uL Neut % (Auto) 58.2 Lymph % (Auto) 33.7 [place] % (Auto) 5.7 Eos % (Auto) 1.7 L Baso % (Auto) 0.7 Neut # (Auto) 9000 H (8744-7797) /uL Lymph # (Auto) [address] # (Auto) 900 Eos # (Auto) 300 (0-450) /uL Baso # (Auto) 100 Total Counted Seg Neutrophils % (38-70) % Band Neutrophils % (3-7) % Lymphocytes % (Manual) (25-45) % Monocytes % (Manual) (2-11) % Eosinophils % (Manual) (2-4) % Metamyelocytes % (-0) % Neutrophils # (Manual) (3697-2401) /uL RBC Morphology PT (10.1-12.7) SECONDS INR (0.9-1.3) APTT (26.4-36.2) SECONDS Sodium (137-145) mmol/L Potassium (3.4-5.1) mmol/L Chloride (98-107) mmol/L Carbon Dioxide (22-32) mmol/L BUN (9-20) mg/dL Creatinine (0.66-1.25) mg/dL Estimated GFR (>60) mL/min BUN/Creatinine Ratio (6-22) Glucose (80-110) mg/dL Calcium (8.4-10.2) mg/dL Total Bilirubin (0.2-1.3) mg/dL AST (17-59) IU/L ALT (<50) IU/L Alkaline Phosphatase (38-126) U/L Total Creatine Kinase 33 L (55-170) U/L CK-MB (CK-2) TNP CK-MB (CK-2) Rel Index TNP Troponin I < 0.012 (0.01-0.034) ng/mL NT-Pro-B Natriuret Pep 54 (<125) pg/mL Total Protein (6.3-8.2) g/dL Albumin (3.5-5.0) g/dL Globulin (1.7-4.1) g/dL Albumin/Globulin Ratio (1.0-2.8) Lipase (23-300) U/L COVID-19 PCR Negative (Negative) Blood Type Antibody Screen Imaging Data CT scan - abdomen/pelvis: Radiologist's Impression: Questionable pulmonary embolism within the right main pulmonary artery which is partially imaged. Recommend CT of the chest for further evaluation No evidence of colitis diverticulitis bowel obstruction or obstructive uropathy or acute appendicitis. CT scan - chest: Radiologist's Impression: Large saddle pulmonary embolism with extension of bilateral segmental pulmonary arteries of the right upper right middle right lower and left upper lobes. Mosaic attenuation along for ankle suggestive reactive airway disease ECG Data Attestation: I personally reviewed and interpreted this ECG as follows: Prior ECG tracings: not available for review Interpretation: Sinus rhythm Ventricular rate 81 Normal axis Normal QRS Normal QTC No ST T wave changes MDM Narrative Medical decision making narrative: Initial presentation shows a patient with l ess than 12 hours of multiple episodes of bright red blood per rectum. Was slightly tachycardic upon arrival but not hypotensive. He has a history of constipation secondary to opioid use. His exam was relatively unremarkable however does have external hemorrhoids that are nonthrombosed. Given his age, tachycardia, lightheadedness obtained a CT scan of his abdomen pelvis. This showed no intra-abdominal pathology that would be the cause of his rectal bleeding. On the CT scan there was an incidental finding of what looked like a right-sided pulmonary embolus. Went back in to re-evaluate the patient any does state that he has been somewhat short of breath over the past month. He also states he has been somewhat sedentary secondary to his back pain. A CT scan of his chest was obtained which showed a large saddle/bilateral pulmonary emboli. Troponin and BNP were unremarkable. I discussed the case with Dr. Hall with cardiology who recommended admission for echocardiogram and bilateral DVT ultrasounds and further workup of why they put his chin to potentially had a pulmonary embolism. 1 milligram/kilogram of Lovenox was ordered. As this was being administered I was called to the patient's room secondary to him feeling lightheaded. The Lovenox was administered. He was laid supine. Blood pressures obtained had a systolic in the 90s with a mean arterial pressure in the mid 60s. Patient did feel better after lying flat. He was not tachycardic during this time. Not hypoxic during this time. Repeat blood work was obtained. Does show a drop in his hemoglobin and hematocrit. This was over the course of several hours however during this time he did receive 1 L of normal saline secondary to the CT scans. Repeat troponin and BNP were ordered. The right DVT ultrasound was negative. The left DVT ultrasound showed a popliteal DVT. Echocardiogram pending. I then discussed the case with Dr. Lui with the ICU at [facility]. Discussion was around disposition as the cardiac/pulmonary issue would be handled at [facility] in the potential GI bleed would be hand read another everly. Patient's blood pressure improved. Plan of these to wait for repeat troponin and BNP and also obtain an echocardiogram to further distinguish whether not patient should be sent to facility where they could potentially handle catheter directed tPA or clot retrieval of the pulmonary embolus or potentially be sent to facility where he be seen for his GI issues. Care turned over to Dr. Meadows to continue with follow-up. <Katelynn Meadows MD - Last Filed: 09/04/20 17:20> Medical Records Attestation: I reviewed the patient's medical records. Lab Data Attestation: I reviewed the patient's lab results. Labs: Lab Results 09/04/20 09/04/20 09/04/20 Range/Units 02:20 02:20 02:20 WBC 14.4 H (4.5-11.0) X10^3/uL RBC 4.66 (4.5-5.9) X10^6/uL Hgb 13.4 L (13.5-17.5) g/dL Hct 40.6 L (41-53) % MCV 87.0 (80-100) fL MCH 28.8 (26-34) PG MCHC 33.0 (30-36) % RDW 14.6 (11.6-14.8) % Plt Count 263 (150-400) X10^3/uL Neut % (Auto) Not Reportable Lymph % (Auto) Not Reportable [place] % (Auto) Not Reportable Eos % (Auto) Not Reportable Baso % (Auto) Not Reportable Neut # (Auto) (3512-1900) /uL Lymph # (Auto) Not Reportable [place] # (Auto) Not Reportable Eos # (Auto) (0-450) /uL Baso # (Auto) Not Reportable Total Counted 100 Seg Neutrophils % 55.0 (38-70) % Band Neutrophils % 5.0 (3-7) % Lymphocytes % (Manual) 32.0 (25-45) % Monocytes % (Manual) 6.0 (2-11) % Eosinophils % (Manual) 1.0 L (2-4) % Metamyelocytes % 1.0 H (-0) % Neutrophils # (Manual) 8640 H (3361-8345) /uL RBC Morphology Normal morphology PT 11.3 (10.1-12.7) SECONDS INR 1.0 (0.9-1.3) APTT (26.4-36.2) SECONDS Sodium 136 L (137-145) mmol/L Potassium 3.3 L (3.4-5.1) mmol/L Chloride 101 (98-107) mmol/L Carbon Dioxide 32 (22-32) mmol/L BUN 31 H (9-20) mg/dL Creatinine 0.89 (0.66-1.25) mg/dL Estimated GFR > 60.0 (>60) mL/min BUN/Creatinine Ratio 34.8 H (6-22) Glucose 127 H (80-110) mg/dL Calcium 9.7 (8.4-10.2) mg/dL Total Bilirubin 0.6 (0.2-1.3) mg/dL AST 19 (17-59) IU/L ALT 20 (<50) IU/L Alkaline Phosphatase 67 (38-126) U/L Total Creatine Kinase (55-170) U/L CK-MB (CK-2) CK-MB (CK-2) Rel Index Troponin I (0.01-0.034) ng/mL NT-Pro-B Natriuret Pep 79 (<125) pg/mL Total Protein 6.7 (6.3-8.2) g/dL Albumin 4.0 (3.5-5.0) g/dL Globulin 2.7 (1.7-4.1) g/dL Albumin/Globulin Ratio 1.5 (1.0-2.8) Lipase 50 (23-300) U/L COVID-19 PCR (Negative) Blood Type Antibody Screen 09/04/20 09/04/20 09/04/20 Range/Units 02:20 02:20 02:25 WBC (4.5-11.0) X10^3/uL RBC (4.5-5.9) X10^6/uL Hgb (13.5-17.5) g/dL Hct (41-53) % MCV (80-100) fL MCH (26-34) PG MCHC (30-36) % RDW (11.6-14.8) % Plt Count (150-400) X10^3/uL Neut % (Auto) Lymph % (Auto) [place] % (Auto) Eos % (Auto) Baso % (Auto) Neut # (Auto) (3070-4046) /uL Lymph # (Auto) [place] # (Auto) Eos # (Auto) (0-450) /uL Baso # (Auto) Total Counted Seg Neutrophils % (38-70) % Band Neutrophils % (3-7) % Lymphocytes % (Manual) (25-45) % Monocytes % (Manual) (2-11) % Eosinophils % (Manual) (2-4) % Metamyelocytes % (-0) % Neutrophils # (Manual) (3507-6818) /uL RBC Morphology PT (10.1-12.7) SECONDS INR (0.9-1.3) APTT 26 L (26.4-36.2) SECONDS Sodium (137-145) mmol/L Potassium (3.4-5.1) mmol/L Chloride (98-107) mmol/L Carbon Dioxide (22-32) mmol/L BUN (9-20) mg/dL Creatinine (0.66-1.25) mg/dL Estimated GFR (>60) mL/min BUN/Creatinine Ratio (6-22) Glucose (80-110) mg/dL Calcium (8.4-10.2) mg/dL Total Bilirubin (0.2-1.3) mg/dL AST (17-59) IU/L ALT (<50) IU/L Alkaline Phosphatase (38-126) U/L Total Creatine Kinase 46 L (55-170) U/L CK-MB (CK-2) TNP CK-MB (CK-2) Rel Index TNP Troponin I 0.028 (0.01-0.034) ng/mL NT-Pro-B Natriuret Pep (<125) pg/mL Total Protein (6.3-8.2) g/dL Albumin (3.5-5.0) g/dL Globulin (1.7-4.1) g/dL Albumin/Globulin Ratio (1.0-2.8) Lipase (23-300) U/L COVID-19 PCR (Negative) Blood Type O Negative Antibody Screen Negative 09/04/20 09/04/20 09/04/20 Range/Units 07:00 07:35 09:25 WBC 15.5 H (4.5-11.0) X10^3/uL RBC 4.11 L (4.5-5.9) X10^6/uL Hgb 12.0 L (13.5-17.5) g/dL Hct 35.8 L (41-53) % MCV 86.9 (80-100) fL MCH 29.2 (26-34) PG MCHC 33.6 (30-36) % RDW 14.1 (11.6-14.8) % Plt Count 251 (150-400) X10^3/uL Neut % (Auto) 58.2 Lymph % (Auto) 33.7 [place] % (Auto) 5.7 Eos % (Auto) 1.7 L Baso % (Auto) 0.7 Neut # (Auto) 9000 H (3679-8158) /uL Lymph # (Auto) [address] [place] # (Auto) 900 Eos # (Auto) 300 (0-450) /uL Baso # (Auto) 100 Total Counted Seg Neutrophils % (38-70) % Band Neutrophils % (3-7) % Lymphocytes % (Manual) (25-45) % Monocytes % (Manual) (2-11) % Eosinophils % (Manual) (2-4) % Metamyelocytes % (-0) % Neutrophils # (Manual) (0901-1137) /uL RBC Morphology PT (10.1-12.7) SECONDS INR (0.9-1.3) APTT (26.4-36.2) SECONDS Sodium (137-145) mmol/L Potassium (3.4-5.1) mmol/L Chloride (98-107) mmol/L Carbon Dioxide (22-32) mmol/L BUN (9-20) mg/dL Creatinine (0.66-1.25) mg/dL Estimated GFR (>60) mL/min BUN/Creatinine Ratio (6-22) Glucose (80-110) mg/dL Calcium (8.4-10.2) mg/dL Total Bilirubin (0.2-1.3) mg/dL AST (17-59) IU/L ALT (<50) IU/L Alkaline Phosphatase (38-126) U/L Total Creatine Kinase 33 L (55-170) U/L CK-MB (CK-2) TNP CK-MB (CK-2) Rel Index TNP Troponin I < 0.012 (0.01-0.034) ng/mL NT-Pro-B Natriuret Pep 54 (<125) pg/mL Total Protein (6.3-8.2) g/dL Albumin (3.5-5.0) g/dL Globulin (1.7-4.1) g/dL Albumin/Globulin Ratio (1.0-2.8) Lipase (23-300) U/L COVID-19 PCR Negative (Negative) Blood Type Antibody Screen Imaging Data Cardiac echo: Radiologist's Impression: + + :Name: POOL FRANTZ Harris Study Date: 09/04/2020 Height: 71 in : :[facility] Weight: 250 lb : : Gender: Male BSA: 2.3 m2 : :: 1945 Age: 75 yrs BP: 140/66 mmHg: :Reason For Study: PULMONARY EMBOLISM : :Ordering Physician: ELSA, : :DAVID Performed By: Sandra Singleton : :Referring: LANKER, DAVID : + + Interpretation Summary Normal sinus rhythm. Normal LV size. Mild concentric LVH. Normal wall motion and LV systolic function. EF is 55-60%. Normal chamber sizes. Aortic sclerosis with mild associated aortic regurgitation.. No evidence of RV dilation or elevated PA systolic pressure. Compared to prior study 03/04/2019 no changes have occurred. Discharge Plan Departure Patient Disposition: [facility] Clinical Impression: Lower gastrointestinal hemorrhage Pulmonary embolism Qualifiers: Pulmonary embolism type: saddle Chronicity: acute Acute cor pulmonale presence: without acute cor pulmonale Qualified Code(s): I26.92 - Saddle embolus of pulmonary artery without acute cor pulmonale Discharge Date/Time: 09/04/20 14:58 Prescriptions: No Action hydrochlorothiazide 50 MG tablet 50 mg PO DAILY Qty: 0 RF: 0 allopurinol 300 MG tablet 150 mg PO DAILY Qty: 0 RF: 0 aspirin 325 mg tablet 325 mg PO DAILY RF: 0 amlodipine 5 mg Tablet 5 mg PO BEDTIME RF: 0 oxycodone 5 mg Tablet 5 mg PO Q6HR PRN (Reason: Pain, Moderate (4-6)) Qty: 10 RF: 0 losartan 100 mg tablet 100 mg PO BEDTIME RF: 0 ibuprofen 800 mg Tablet 800 mg PO TID PRN (Reason: Back Pain) RF: 0 ciprofloxacin HCl [Cipro] 500 mg tablet 500 mg PO Q12H Qty: 20 RF: 0 (DME) BIPAP PRO Qty: 1 RF: 0 Referrals: Maryann Wray PA-C [Primary Care Provider] -
--- NOTE | 2020-09-04 02:22 | DI.CT.S_ITS ---
PROCEDURE: CT ABDOMEN PELVIS W CON INDICATIONS: Rectal bleeding, lightheaded, tachycardic TECHNIQUE: After the administration of intravenous contrast, 5 mm thick sections acquired from the diaphragm to the symphysis. 5 mm coronal and sagittal reformats were acquired. For radiation dose reduction, the following was used: automated exposure control, adjustment of mA and/or kV according to patient size. COMPARISON: [facility], CT, CT ANGIO CHEST PE PROTOCOL, 09/04/2020, 4:35. [facility], CT, CT ABDOMEN PELVIS W CON, 04/10/2020, 16:29. [facility], CT, CT ABDOMEN PELVIS W CON, 03/30/2020, 23:28. FINDINGS: Image quality: Excellent. ABDOMEN: Lung bases: Lung bases are clear. Heart size is normal. Note is made of what appears to be a pulmonary embolus within the right lower lobe pulmonary artery orifice seen on the 1st image of the examination. Solid organs: Liver is normal in size and enhancement. Gallbladder appears normal . Biliary system is non dilated. Pancreas enhances normally. Spleen is normal in size and enhancement. No adrenal nodules. Kidneys demonstrate normal size and enhancement, without hydronephrosis. Bilateral renal cortical cysts measuring up to 5.9 cm exophytic posteriorly on the right and 1.2 cm exophytic laterally on the left Peritoneum and bowel: Bowel loops demonstrate normal wall thickness and caliber. No free fluid or air. Nodes and vessels: No retroperitoneal or mesenteric adenopathy by size criteria. Aorta and inferior vena cava are normal in size. Miscellaneous: No ventral hernias. PELVIS: Genitourinary: Bladder wall thickness is normal. Miscellaneous: No inguinal hernias or adenopathy. Sigmoid diverticulosis, no mass lesion seen. Bones: No suspicious bony lesions. No vertebral body compression fractures. Incidental note is made of a small ovoid lipoma within the gluteus katy muscle on the left. IMPRESSION: 1. Small pulmonary embolus partially visualized within the orifice of the right lower lobe pulmonary artery, seen at the uppermost imaging margin. Chest CT pulmonary angiogram is anticipated. Please refer to the report from that examination. 2. A source of rectal bleeding is not found. No mass lesion within the sigmoid colon or elsewhere is found. Mild sigmoid diverticulosis without acute diverticulitis is noted. 3. Incidental note is made of a small ovoid lipoma within the left gluteus katy muscle requiring no follow-up. Dictated by: Mateo Delgado M.D. on 09/04/2020 at 8:41 Approved by: Mateo Delgado M.D. on 09/04/2020 at 8:50
[2020-09-04 02:40] LABS: Hematocrit 40.6 % (41-53); Hemoglobin 13.4 g/dL (13.5-17.5); Mean Corpuscular Hemoglobin 28.8 PG (26-34); Platelet Count 263 X10^3/uL (150-400); Red Blood Cell Count 4.66 X10^6/uL (4.5-5.9); Red Cell Distribution Width 14.6 % (11.6-14.8); White Blood Cell Count 14.4 X10^3/uL (4.5-11.0)
[2020-09-04 02:41] LABS: Add Manual Diff / Slide Review YES
[2020-09-04 02:42] LABS: Prothrombin Time 11.3 SECONDS (10.1-12.7)
[2020-09-04 02:48] LABS: Alanine Aminotransferase 20 IU/L (<50); Albumin Globulin Ratio 1.5 (1.0-2.8); Alkaline Phosphatase 67 U/L (38-126); Aspartate Aminotransferase 19 IU/L (17-59); BUN Creatinine Ratio 34.8 (6-22); Bilirubin Total 0.6 mg/dL (0.2-1.3); Blood Urea Nitrogen 31 mg/dL (9-20); Calcium 9.7 mg/dL (8.4-10.2); Carbon Dioxide 32 mmol/L (22-32); Chloride 101 mmol/L (98-107); Estimated Glomerular Filt Rate > 60.0 mL/min (>60); Globulin 2.7 g/dL (1.7-4.1); Glucose 127 mg/dL (80-110); HEMOLYSIS < 15 (0-50); Lipase 50 U/L (23-300); Potassium 3.3 mmol/L (3.4-5.1); Sodium 136 mmol/L (137-145); Total Protein 6.7 g/dL (6.3-8.2)
[2020-09-04] MEDS: SODIUM CHLORIDE 0.9% 1,000 ML 1000 ML IV ×2 (02:52→07:02)
[2020-09-04 02:55] LABS: Neutrophils Absolute Manual 8640 /uL (3000-5900); Total Cells Counted 100
[2020-09-04 02:56] LABS: RBC Morphology Normal Morphology
[2020-09-04 02:57] LABS: NT-proBNP (BNP-Adult 18+) 79 pg/mL (<125)
--- NOTE | 2020-09-04 04:18 | DI.CT.S_ITS ---
PROCEDURE: CT ANGIO CHEST PE PROTOCOL INDICATIONS: Right-sided Pulmonary embolism on CT abdomen TECHNIQUE: After the administration of intravenous contrast, 2 mm thick sections acquired from the pulmonary apices to the posterior costophrenic angles. 3-dimensional maximum intensity projection (MIP) coronal and sagittal reformats were then acquired through the thorax. For radiation dose reduction, the following was used: automated exposure control, adjustment of mA and/or kV according to patient size. COMPARISON: None. FINDINGS: Image quality: Excellent. Pulmonary arteries: Pulmonary arteries are normal in size, and demonstrate definite intraluminal filling defects to diagnostic of central pulmonary embolism. There is a large right greater than left saddle embolus the crosses the main pulmonary artery bifurcation, with a thin strand of embolus tracking into the left upper lobe pulmonary artery. The majority of this saddle embolus extends rightward, partially occlusive, with extension of tendrils of this embolus into the right upper lobe, right middle lobe, and right lower lobe pulmonary arteries centrally. Lungs and pleura: Lungs are difficult to accurately assess due to prominently reduced inspiratory volume, right greater than left. There is likely atelectasis rather than cardiogenic pulmonary edema as cause of slight alveolar prominence.. No pleural effusions or pneumothorax. Central and peripheral airways are patent. Mediastinum: Heart size is normal, without pericardial effusion. No mediastinal or hilar adenopathy. Thoracic aorta is normal in caliber and enhancement. Esophagus is normal in caliber, without hiatal hernia. Bones and chest wall: No suspicious bony lesions. Ribs and thoracic spine appear intact throughout. Thyroid gland appears normal where well seen . No axillary or supraclavicular adenopathy. Abdomen: Visualized upper abdominal solid organs appear normal in the early arterial phase of enhancement. IMPRESSION: Large pulmonary embolus, saddle embolus, right greater than left as discussed above. Reduced inspiratory volume, secondary mild atelectasis. Note: These findings are concordant with the preliminary interpretation. Dictated by: Mateo Delgado M.D. on 09/04/2020 at 8:03 Approved by: Mateo Delgado M.D. on 09/04/2020 at 8:08
[2020-09-04 04:30] LABS: Creatine Kinase 46 U/L (55-170)
[2020-09-04 04:43] LABS: PTT Partial Thromboplastin Tim 26 SECONDS (26.4-36.2); Troponin I 0.028 ng/mL (0.01-0.034)
--- NOTE | 2020-09-04 06:37 | DI.US.S_ITS ---
PROCEDURE: US PERIPH VENOUS LOW EXTREM BI INDICATIONS: SOB TECHNIQUE: Real-time imaging, as well as color and pulse Doppler interrogation, were performed of the deep veins of both legs from the inguinal ligament to the popliteal fossa. COMPARISON: None. FINDINGS: Right: The common femoral, femoral and popliteal veins are normally compressible, and free of intraluminal thrombus. Color and pulse Doppler demonstrate normal phasic intravascular flow. There is normal augmentation response to distal compression maneuver. Left: The common femoral and femoral veins are normally compressible, and free of intraluminal thrombus. There is, however, Thor on this within the popliteal vein Color and pulse Doppler demonstrate normal phasic intravascular flow. There is normal augmentation response to distal compression maneuver. IMPRESSION: DVT within the popliteal vein on the left, the remaining left-side and entire right side venous structures of the lower extremities show no thrombosis. Please also review chest CT report regarding significant pulmonary emboli currently present. Dictated by: Mateo Delgado M.D. on 09/04/2020 at 9:18 Approved by: Mateo Delgado M.D. on 09/04/2020 at 9:20
--- NOTE | 2020-09-04 06:38 | DI.ECHO.S_ITS ---
[place] [facility]---------+ [facility] +---------+ : : [address] : : : : [id number] : : : : Phone: [phone] Echocardiogram Report + + :Name: FRANTZ LANZA Study Date: 09/04/2020 Height: 71 in : :[facility] Weight: 250 lb : : Gender: Male BSA: 2.3 m2 : :: 1945 Age: 75 yrs BP: 140/66 mmHg: :Reason For Study: PULMONARY EMBOLISM : :Ordering Physician: ELSA, : :ROWENA Performed By: Sandra Singleton : :Referring: ROWENA HUNTER : + + Interpretation Summary Normal sinus rhythm. Normal LV size. Mild concentric LVH. Normal wall motion and LV systolic function. EF is 55-60%. Normal chamber sizes. Aortic sclerosis with mild associated aortic regurgitation.. No evidence of RV dilation or elevated PA systolic pressure. Compared to prior study 03/04/2019 no changes have occurred. Procedure: A two-dimensional transthoracic echocardiogram with color flow and Doppler was performed. The study quality was technically adequate. Comparison is made with the echocardiogram of 03/04/2019. The patient was in sinus rhythm with heart rates between 77-85 bpm during the exam. The patient had frequent PACs during the exam. Left Ventricle: The left ventricle is normal in size. There is mild concentric left ventricular hypertrophy. Proximal septal thickening is noted. The ejection fraction is estimated to be 55-60%. Right Ventricle: The right ventricle is mildly dilated. The right ventricular systolic function is normal. Atria: Both atria are normal in size. There is no Doppler evidence for an interatrial shunt. Mitral Valve: The mitral valve is normal in structure and function. There is mild mitral regurgitation. Aortic Valve: The aortic valve opens well. The aortic valve is trileaflet. There is no aortic valve stenosis. There is mild aortic regurgitation. Tricuspid Valve: The tricuspid valve is not well visualized, but is grossly normal. There is mild tricuspid regurgitation. Pulmonary artery pressures cannot be estimated because of the lack of a measurable TR jet velocity but the IVC suggests a CVP of around 3 mmHg. Pulmonic Valve: The pulmonic valve is not well visualized. There is mild pulmonic regurgitation. Great Vessels: The aortic root is normal size. The ascending aorta is mildly enlarged. The IVC is of normal diameter and collapses greater than 50% with a sniff. This suggests a low right atrial pressure of 3 mm Hg. Pericardium/ Pleura There is no pericardial effusion. There is no pleural effusion. MMode/2D Measurements & Calculations LVIDd: 4.5 cm LVOT diam: 2.3 cm LVIDs: 2.9 cm Ao root diam: 3.7 cm FS: 35.2 % asc Aorta Diam: 4.1 cm IVSd: 1.4 cm Ao Arch Diam (Prox Trans): 2.8 cm LVPWd: 1.4 cm LV mcneil. diameter/BSA (cm/m^2): 1.9 LV sys. diameter/BSA (cm/m^2): 1.2 LA A2 area: 18.7 cm2 RA long axis: 4.7 cm LA A4 area: 17.0 cm2 RA area: 11.3 cm2 LA length (vol): 4.5 cm RA vol: 23.2 ml LA vol: 60.5 ml RA : 10.0 ml/m2 LA vol index: 26.1 ml/m2 IVC diam: 1.7 cm RVD1 (basal): 4.3 cm TAPSE: 2.0 cm Doppler Measurements & Calculations Ao V2 max: 137.2 cm/sec LVOT Max Brian: 120.8 cm/sec Ao V2 mean: 89.2 cm/sec LV V1 max P.8 mmHg Ao max P.5 mmHg LV V1 VTI: 22.0 cm Ao mean P.7 mmHg CHANDLER(I,D): 4.1 cm2 Ao V2 VTI: 22.5 cm CHANDLER(V,D): 3.7 cm2 sev ratio: 0.98 CHANDLER indexed to BSA (cm^2/m^2): 1.8 MV E max brian: 54.0 cm/sec SV(LVOT): 93.3 ml MV A max brian: 62.5 cm/sec MV E/A: 0.87 Med Peak E' Brian: 5.2 cm/sec E/E' med: 10.4 Lat Peak E' Brian: 9.8 cm/sec E/E' lat: 5.5 E/e' average: 8.0 MV dec time: 0.20 sec Electronically signed by: Rubina Hawkins M.D. on Reading Physician:09/04/2020 09:27 AM
[2020-09-04] MEDS: ENOXAPARIN 100 MG/ML SYRINGE 115 MG SUBCUT (06:53)
--- NOTE | 2020-09-04 07:04 | PC.NURSE ---
Pt put personal development educator light to report lightheadedness/clamminess. Symptoms occured when he repositioned himself to sit up straighter. Initial automatic BP reading didn't take; HOB lowered and BP retaken-- 92/51. Pt reports feeling better with HOB lower. Dr Shukla summoned to bedside, orders received to recheck labs, give IVF.
[2020-09-04 07:16] LABS: Basophils Absolute Auto 100 /uL (0-100); Lymphocytes Absolute Auto 5200 /uL (1100-4500)
[2020-09-04 07:19] LABS: Add Manual Diff / Slide Review NO; Basophils Percent Auto 0.7 % (0-2); Eosinophils Absolute Auto 300 /uL (0-450); Eosinophils Percent Auto 1.7 % (2-4); Hematocrit 35.8 % (41-53); Lymphocytes Percent Auto 33.7 % (25-40); Mean Corpuscular HGB Conc 33.6 % (30-36); Mean Corpuscular Hemoglobin 29.2 PG (26-34); Mean Corpuscular Volume 86.9 fL (80-100); Monocytes Absolute Auto 900 /uL (0-900); Monocytes Percent Auto 5.7 % (3-14); Neutrophils Absolute Auto 9000 /uL (1500-7000); Neutrophils Percent Auto 58.2 % (50-75); Platelet Count 251 X10^3/uL (150-400); Red Blood Cell Count 4.11 X10^6/uL (4.5-5.9); Red Cell Distribution Width 14.1 % (11.6-14.8); White Blood Cell Count 15.5 X10^3/uL (4.5-11.0)
[2020-09-04 07:53] LABS: Creatine Kinase 33 U/L (55-170)
[2020-09-04 08:06] LABS: NT-proBNP (BNP-Adult 18+) 54 pg/mL (<125); Troponin I < 0.012 ng/mL (0.01-0.034)
--- NOTE | 2020-09-04 08:52 | PC.NURSE ---
Assisted pt to the commode. Pt felt like he needed to have a bowel movement but was unable to have one. Pt denied any dizziness or lightheadedness. PHILOMENA Cantor and Dr Meadows notified
[2020-09-04] MEDS: SODIUM CHLORIDE 0.9% 1,000 ML 150 ML IV (09:34)
[2020-09-04 09:49] LABS: COVID19 -Nasal RAPID Negative (Negative)
--- NOTE | 2020-09-04 13:30 | PC.NURSE ---
pt requesting a meal. will ask dr. nicole.
--- NOTE | 2020-09-04 13:41 | PC.NURSE ---
Per dr Bobby orders, pt was given food and water. Pt is sitting on bed with phone. Call light is within reach, and patient is on the media monitor
--- NOTE | 2020-09-04 15:33 | PC.NURSE ---
report given to brian canales.
--- NOTE | 2020-09-26 17:28 | PC.NURSE ---
late entry 09/04/20 ns iv 1000ml infused at 1000.
== END 2020-09-04 14:58 | disposition short-term general hospital (02) ==
PROVIDERS: Emergency Medicine; Emergency Provider Emergency Medicine; PCP Physician Assistant
DX: K92.2 Gastrointestinal hemorrhage, unspecified (principal); I26.92 Saddle embolus of pulmonary artery without acute cor pulmonale; R42 Dizziness and giddiness; R00.0 Tachycardia, unspecified
CPT/HCPCS: 36415; 71275; 74177; 80053; 82550; 83690; 83880; 84484; 85025; 85610; 85730; 86850; 86900; 86901; 87635; 93005; 93306; 93970; 96360; 96361; 96372; 99285; J1650; Q9967

== ENCOUNTER 2020-10-15 11:30 | Emergency (ER) | payer MEDICARE, OTHER, SELFPAY ==
[2019-12-26 18:49] VITALS: BMI 34.2
[2020-10-15 11:35] VITALS: BP 173/103; PULSE 99; RESP 16; TEMP 36.2; O2SAT 99; BMI 34.8
[2020-10-15 12:11] LABS: Add Manual Diff / Slide Review NO; Basophils Absolute Auto 100 /uL (0-100); Basophils Percent Auto 0.9 % (0-2); Eosinophils Absolute Auto 400 /uL (0-450); Eosinophils Percent Auto 6.2 % (2-4); Hematocrit 39.3 % (41-53); Hemoglobin 12.8 g/dL (13.5-17.5); Lymphocytes Absolute Auto 1500 /uL (1100-4500); Mean Corpuscular HGB Conc 32.6 % (30-36); Mean Corpuscular Hemoglobin 28.8 PG (26-34); Mean Corpuscular Volume 88.3 fL (80-100); Monocytes Absolute Auto 500 /uL (0-900); Monocytes Percent Auto 8.2 % (3-14); Neutrophils Absolute Auto 3800 /uL (1500-7000); Neutrophils Percent Auto 60.7 % (50-75); Platelet Count 296 X10^3/uL (150-400); Red Blood Cell Count 4.45 X10^6/uL (4.5-5.9); Red Cell Distribution Width 15.7 % (11.6-14.8); White Blood Cell Count 6.2 X10^3/uL (4.5-11.0)
[2020-10-15 12:25] LABS: Alanine Aminotransferase 15 IU/L (<50); Albumin 4.6 g/dL (3.5-5.0); Albumin Globulin Ratio 1.3 (1.0-2.8); Alkaline Phosphatase 81 U/L (38-126); Aspartate Aminotransferase 24 IU/L (17-59); BUN Creatinine Ratio 12.9 (6-22); Bilirubin Total 0.8 mg/dL (0.2-1.3); Blood Urea Nitrogen 12 mg/dL (9-20); Calcium 10.1 mg/dL (8.4-10.2); Carbon Dioxide 28 mmol/L (22-32); Chloride 104 mmol/L (98-107); Estimated Glomerular Filt Rate > 60.0 mL/min (>60); Globulin 3.5 g/dL (1.7-4.1); Glucose 123 mg/dL (80-110); HEMOLYSIS < 15 (0-50); Lipase 70 U/L (23-300); Potassium 3.4 mmol/L (3.4-5.1); Sodium 138 mmol/L (137-145); Total Protein 8.1 g/dL (6.3-8.2)
--- NOTE | 2020-10-15 12:53 | DI.CT.S_ITS ---
PROCEDURE: CT ABDOMEN PELVIS W CON INDICATIONS: abd pain. 09/15 IR intervention for GI bleeding, ?complicati TECHNIQUE: After the administration of intravenous contrast, 5 mm thick sections acquired from the diaphragm to the symphysis. 5 mm coronal and sagittal reformats were acquired. For radiation dose reduction, the following was used: automated exposure control, adjustment of mA and/or kV according to patient size. COMPARISON: [facility], CT, CT ABDOMEN PELVIS W CON, 09/04/2020, 2:57. FINDINGS: Image quality: Excellent. ABDOMEN: Lung bases: Lung bases are clear. Heart size is normal. Coronary artery calcifications. Solid organs: Liver is normal in size and enhancement. Gallbladder is unremarkable. Biliary system is non dilated. Pancreas enhances normally. Spleen is normal in size and enhancement. No adrenal nodules. Kidneys demonstrate normal size and enhancement, without hydronephrosis. Peritoneum and bowel: Interval placement of arterial embolization coils at the level of the transverse colon. There is mild inflammatory change in the surrounding fat. The transverse colon becomes mildly narrowed just distal to the coils. However, this segment was somewhat narrowing the caliber in this location prior to embolization. There is moderate to large fecal debris proximal to the narrowed segment. Mild colonic diverticulosis without evidence of diverticulitis. No free fluid or air. Bowel loops are otherwise unremarkable. Nodes and vessels: No retroperitoneal or mesenteric adenopathy by size criteria. Aorta and inferior vena cava are normal in size. Miscellaneous: Small periumbilical hernia containing fat. PELVIS: Genitourinary: Bladder wall thickness is normal. Miscellaneous: No inguinal hernias or adenopathy. Bones: No suspicious bony lesions. No vertebral body compression fractures. A calcified posterior disc protrusion at T12-L1 causes canal stenosis. This is a chronic . Finding. Canal stenosis at L3-L4. Previous posterior laminectomy at L5-S1 and jose and pedicle screw fixation at L5-S1 and hemilaminectomy at L4-L5. IMPRESSION: 1. Interval embolization of a transverse colonic bleed. 2. Just distal to the embolization coils is a narrowed segment of transverse colon. This appears to be a chronically narrowed segment of distal transverse colon. It was narrowed prior to the embolization. It may represent an area of chronic ischemia. It may result in a degree of obstruction of the colon, as there is moderately large fecal debris proximal to this narrowed segment. 3. Coronary artery disease. Dictated by: Philip Hunter M.D. on 10/15/2020 at 13:06 Approved by: Philip Hunter M.D. on 10/15/2020 at 13:16
--- NOTE | 2020-10-15 15:03 | ED_ITS ---
HPI - Abdominal Pain General Chief Complaint: Abdominal Pain Stated Complaint: Gut pain for five days Time Seen by Provider: 10/15/20 11:51 Source: patient Mode of arrival: Ambulatory Limitations: no limitations History of Present Illness HPI narrative: 75-year-old gentleman with a history of rectal bleeding that on workup was found to have a bleeding area in the transverse colon and incidental saddle pulmonary embolism. He was sent to [facility] where the transverse colon area of bleeding was embolized via Interventional Radiology and then started on Xarelto for the large pulmonary embolism. He was also started on pantoprazole and told to continue it for a month. He found that it definitely helped with his reflux symptoms but he is concerned that it is causing significant abdominal pain. Over the last week he has noticed that he is having more and more episodes of severe crampy abdominal pain seeming to be located along the right side to the middle portion of his abdomen. He reports no vomi ting, diarrhea, fevers, dyspnea, shortness of breath, chest pain, increased lower extremity edema, headaches. Related Data Home Medications Medication Instructions Recorded Confirmed allopurinol 150 mg PO DAILY #0 12/14/12 01/04/20 hydrochlorothiazide 50 mg PO DAILY #0 12/14/12 01/04/20 amlodipine 5 mg PO BEDTIME 09/03/18 01/04/20 BIPAP PRO #1 ea 01/12/19 01/04/20 aspirin 325 mg tablet 325 mg PO DAILY 02/16/19 01/04/20 ibuprofen 800 mg PO TID PRN 03/01/19 01/04/20 losartan 100 mg PO BEDTIME 03/01/19 01/04/20 Previous Rx's Medication Instructions Recorded oxycodone 5 mg PO Q6HR PRN #10 tab 12/27/19 ciprofloxacin HCl [Cipro] 500 mg PO Q12H #20 tab 03/31/20 Allergies Allergy/AdvReac Type Severity Reaction Status Date / Time tamsulosin Allergy Severe Difficulty Verified 12/26/19 11:42 Breathing cefuroxime [From Ceftin] Allergy Unknown Verified 07/06/19 10:18 doxazosin AdvReac Intermediate SOB, Verified 07/06/19 10:18 fever, extreme fatigue, cough, flu-like symptoms lisinopril AdvReac Mild COUGH, Verified 07/06/19 10:18 Palpitations cyclobenzaprine AdvReac Unknown Drowsy Verified 07/06/19 10:18 [From Flexeril] ezetimibe [From Vytorin] AdvReac Unknown Back Pain Verified 07/06/19 10:18 hydrocodone [HYDROCODONE] AdvReac Unknown CONSTIPATIO Verified 07/06/19 10:18 N pravastatin [From Pravachol] AdvReac Unknown Back Pain Verified 07/06/19 10:18 simvastatin [From Vytorin] AdvReac Unknown Back Pain Verified 07/06/19 10:18 Review of Systems Review of Systems Narrative: Remainder of review of systems including constitutional, ENT, cardiovascular, respiratory, GI, , musculoskeletal, skin, neurologic and psychiatric systems reviewed and are unremarkable except as noted in HPI. Patient History Medical History Allergic rhinitis Arthritis BPH (benign prostatic hyperplasia) BPH w urinary obs/LUTS Chronic UTI Degenerative disc disease, lumbar Depression Diverticular disease GERD (gastroesophageal reflux disease) Gout Hyperlipidemia Hypertension Low back pain Male circumcision Nephrolithiasis SOTERO treated with BiPAP Osteoarthritis Osteoporosis Polio Shingles Skin cancer Snoring Spinal stenosis Tingling of right upper extremity Surgical History H/O prostatectomy History of lumbar spinal fusion (10/21/18) History of vasectomy Hx of circumcision Hx of microdiscectomy (09/24/16) Previous back surgery S/P cervical spinal fusion (09/06/18) S/P excision of lipoma Status post cataract extraction of both eyes with insertion of intraocular lens Social History marital status: household members: spouse Smoking Status: Former smoker alcohol intake: current substance use type: does not use Smoking Status: Former smoker alcohol intake frequency: a few times a month Substance Use Type: does not use Exam Narrative Exam Narrative: General: Healthy appearing, in no acute distress. Able to give a complete and coherent history. Well-nourished well-developed Respiratory: Lungs are clear to auscultation, no wheezing no rales no rhonchi. Full and symmetrical air movement Cardiac: Regular rate and rhythm no murmurs no bruits Abdomen: Obese, Soft, mild right-sided tenderness without rebound or guarding , no flank pain Skin: Warm and dry, no rashes Neurologic: Grossly neurologically intact with no obvious asymmetries or abnormalities Extremities: No trauma, well perfused Psych: Cooperative, appropriate insight and affect Initial Vital Signs Initial Vital Signs: Vital Signs Temperature 97.2 F L 10/15/20 11:35 Pulse Rate 99 H 10/15/20 11:35 Respiratory Rate 16 10/15/20 11:35 Blood Pressure 173/103 H 10/15/20 11:35 Pulse Oximetry 99 10/15/20 11:35 Course Orders Ordered: ED Orders 10/15/20 12:00 Complete Blood Count AUTO DIFF Stat Comprehensive Metabolic Panel Stat Lactate (Lactic Acid) Stat Lipase Stat Type and Screen Stat 10/15/20 12:53 CT abdomen pelvis w con Stat Discontinued Medications Magnesium Citrate (Magnesium Citrate 300 Ml Solution) 300 ml PO NOW ONE Stop: 10/15/20 15:04 Vital Signs Vital signs: Vital Signs - 8 hr 10/15/20 11:35 Temperature 97.2 F L Pulse Rate 99 H Respiratory Rate 16 Blood Pressure 173/103 H Pulse Oximetry 99 MDM - Abdominal Pain Medical Records Attestation: I reviewed the patient's medical records. Lab Data Attestation: I reviewed the patient's lab results. Result diagrams: 10/15/20 12:00 10/15/20 12:00 Labs: Lab Results 10/15/20 10/15/20 10/15/20 Range/Units 12:00 12:00 12:00 WBC 6.2 (4.5-11.0) X10^3/uL RBC 4.45 L (4.5-5.9) X10^6/uL Hgb 12.8 L (13.5-17.5) g/dL Hct 39.3 L (41-53) % MCV 88.3 (80-100) fL MCH 28.8 (26-34) PG MCHC 32.6 (30-36) % RDW 15.7 H (11.6-14.8) % Plt Count 296 (150-400) X10^3/uL Neut % (Auto) 60.7 (50-75) % Lymph % (Auto) 24.0 L (25-40) % Hodgeman % (Auto) 8.2 (3-14) % Eos % (Auto) 6.2 H (2-4) % Baso % (Auto) 0.9 (0-2) % Neut # (Auto) 3800 (6656-8945) /uL Lymph # (Auto) 1500 (9848-2630) /uL Hodgeman # (Auto) 500 (0-900) /uL Eos # (Auto) 400 (0-450) /uL Baso # (Auto) 100 (0-100) /uL Sodium 138 (137-145) mmol/L Potassium 3.4 (3.4-5.1) mmol/L Chloride 104 (98-107) mmol/L Carbon Dioxide 28 (22-32) mmol/L BUN 12 (9-20) mg/dL Creatinine 0.93 (0.66-1.25) mg/dL Estimated GFR > 60.0 (>60) mL/min BUN/Creatinine Ratio 12.9 (6-22) Glucose 123 H (80-110) mg/dL Lactate 1.0 (0.7-2.1) mmol/L Calcium 10.1 (8.4-10.2) mg/dL Total Bilirubin 0.8 (0.2-1.3) mg/dL AST 24 (17-59) IU/L ALT 15 (<50) IU/L Alkaline Phosphatase 81 (38-126) U/L Total Protein 8.1 (6.3-8.2) g/dL Albumin 4.6 (3.5-5.0) g/dL Globulin 3.5 (1.7-4.1) g/dL Albumin/Globulin Ratio 1.3 (1.0-2.8) Lipase 70 (23-300) U/L Blood Type Antibody Screen 10/15/20 Range/Units 12:00 WBC (4.5-11.0) X10^3/uL RBC (4.5-5.9) X10^6/uL Hgb (13.5-17.5) g/dL Hct (41-53) % MCV (80-100) fL MCH (26-34) PG MCHC (30-36) % RDW (11.6-14.8) % Plt Count (150-400) X10^3/uL Neut % (Auto) (50-75) % Lymph % (Auto) (25-40) % Hodgeman % (Auto) (3-14) % Eos % (Auto) (2-4) % Baso % (Auto) (0-2) % Neut # (Auto) (5029-1308) /uL Lymph # (Auto) (6599-2098) /uL Hodgeman # (Auto) (0-900) /uL Eos # (Auto) (0-450) /uL Baso # (Auto) (0-100) /uL Sodium (137-145) mmol/L Potassium (3.4-5.1) mmol/L Chloride (98-107) mmol/L Carbon Dioxide (22-32) mmol/L BUN (9-20) mg/dL Creatinine (0.66-1.25) mg/dL Estimated GFR (>60) mL/min BUN/Creatinine Ratio (6-22) Glucose (80-110) mg/dL Lactate (0.7-2.1) mmol/L Calcium (8.4-10.2) mg/dL Total Bilirubin (0.2-1.3) mg/dL AST (17-59) IU/L ALT (<50) IU/L Alkaline Phosphatase (38-126) U/L Total Protein (6.3-8.2) g/dL Albumin (3.5-5.0) g/dL Globulin (1.7-4.1) g/dL Albumin/Globulin Ratio (1.0-2.8) Lipase (23-300) U/L Blood Type O Negative Antibody Screen Negative Imaging Data CT scan - abdomen/pelvis: Radiologist's Impression: FINDINGS: Image quality: Excellent. ABDOMEN: Lung bases: Lung bases are clear. Heart size is normal. Coronary artery calcifications. Solid organs: Liver is normal in size and enhancement. Gallbladder is unremarkable. Biliary system is non dilated. Pancreas enhances normally. Spleen is normal in size and enhancement. No adrenal nodules. Kidneys demonstrate normal size and enhancement, without hydronephrosis. Peritoneum and bowel: Interval placement of arterial embolization coils at the level of the transverse colon. There is mild inflammatory change in the surrounding fat. The transverse colon becomes mildly narrowed just distal to the coils. However, t his segment was somewhat narrowing the caliber in this location prior to embolization. There is moderate to large fecal debris proximal to the narrowed segment. Mild colonic diverticulosis without evidence of diverticulitis. No free fluid or air. Bowel loops are otherwise unremarkable. Nodes and vessels: No retroperitoneal or mesenteric adenopathy by size criteria. Aorta and inferior vena cava are normal in size. Miscellaneous: Small periumbilical hernia containing fat. PELVIS: Genitourinary: Bladder wall thickness is normal. Miscellaneous: No inguinal hernias or adenopathy. Bones: No suspicious bony lesions. No vertebral body compression fractures. A calcified posterior disc protrusion at T12-L1 causes canal stenosis. This is a chronic . Finding. Canal stenosis at L3-L4. Previous posterior laminectomy at L5-S1 and jose and pedicle screw fixation at L5-S1 and hemilaminectomy at L4-L5. IMPRESSION: 1. Interval embolization of a transverse colonic bleed. 2. Just distal to the embolization coils is a narrowed segment of transverse colon. This appears to be a chronically narrowed segment of distal transverse colon. It was narrowed prior to the embolization. It may represent an area of chronic ischemia. It may result in a degree of obstruction of the colon, as there is moderately large fecal debris proximal to this narrowed segment. 3. Coronary artery disease. Dictated by: Philip Hunter M.D. on 10/15/2020 at 13:06 [facility] Narrative Medical decision making narrative: 75-year-old gentleman with abdominal pain likely related to right-sided constipation secondary to a chronically narrowed segment of the distal transverse colon that seems to predate his recent in terventional radiology procedure for transverse colon bleeding site. No evidence of bowel obstruction, recurrent bleeding, sepsis or other abnormalities today. All labs and CT scans reviewed with him. Questions are answered. He is given magnesium citrate along with instructions on continuing MiraLax to keep his stool as soft as possible to avoid continued difficulties with right-sided constipation. He is safe for home discharge at this time Discharge Plan Departure Patient Disposition: Home Clinical Impression: Constipation Qualifiers: Constipation type: unspecified constipation type Qualified Code(s): K59.00 - Constipation, unspecified Abdominal pain Qualifiers: Abdominal location: generalized Qualified Code(s): R10.84 - Generalized abdominal pain Instructions: DI for Constipation Activity Restrictions/Additional Instructions: Thank you for coming in today Your labs in CT scan are very reassuring. Your CT scan does show quite a bit of stool backed up in the right side of your colon. There is an area in the mid transverse colon that is somewhat constricted but likely is causing part of the problem. This area is close to the area where the bleeding was but not related and was there prior to the procedure that you had at the bleeding site this month. I very much doubt that the pantoprazole is causing your abdominal pain. I have given you a bottle of magnesium citrate to try and encourage the right side of your colon to pushed all of the stool through the tight area so that you can evacuate. If you do not have quite a bit of stool come out you can repeat the magnesium citrate tomorrow (it is available [email or web address]). Once you have gotten mostly cleaned out I would recommend daily MiraLax to keep your stool soft so that this small stricture does not continue to cause problems If you have fevers, worsening pain, something else is changing or additional concerns, please feel free to return to the emergency department Prescriptions: No Action hydrochlorothiazide 50 MG tablet 50 mg PO DAILY Qty: 0 RF: 0 allopurinol 300 MG tablet 150 mg PO DAILY Qty: 0 RF: 0 aspirin 325 mg tablet 325 mg PO DAILY RF: 0 amlodipine 5 mg Tablet 5 mg PO BEDTIME RF: 0 oxycodone 5 mg Tablet 5 mg PO Q6HR PRN (Reason: Pain, Moderate (4-6)) Qty: 10 RF: 0 losartan 100 mg tablet 100 mg PO BEDTIME RF: 0 ibuprofen 800 mg Tablet 800 mg PO TID PRN (Reason: Back Pain) RF: 0 ciprofloxacin HCl [Cipro] 500 mg tablet 500 mg PO Q12H Qty: 20 RF: 0 (DME) BIPAP PRO Qty: 1 RF: 0 Referrals: Maryann Wray PA-C [Primary Care Provider] -
[2020-10-15] MEDS: MAGNESIUM CITRATE 300 ML SOLUTION PO (15:11)
[2020-10-15 15:15] VITALS: BP 184/88; PULSE 73; RESP 22; O2SAT 100
== END 2020-10-15 15:25 | disposition home or self-care (01) ==
PROVIDERS: Emergency Provider Emergency Medicine; PCP Physician Assistant
DX: K59.00 Constipation, unspecified (principal); R10.84 Generalized abdominal pain; I26.99 Other pulmonary embolism without acute cor pulmonale; Z79.01 Long term (current) use of anticoagulants; Z79.82 Long term (current) use of aspirin; I10 Essential (primary) hypertension; K21.9 Gastro-esophageal reflux disease without esophagitis; E78.5 Hyperlipidemia, unspecified
CPT/HCPCS: 36415; 74177; 80053; 83605; 83690; 85025; 86850; 86900; 86901; 99283; 99284; Q9967

== ENCOUNTER 2020-10-18 14:06 | Emergency (ER) | payer MEDICARE, OTHER, SELFPAY ==
[2019-12-26 18:49] VITALS: BMI 34.2
[2020-10-18 14:18] VITALS: BP 192/98; PULSE 91; RESP 18; TEMP 36.4; O2SAT 96; BMI 34.8
--- NOTE | 2020-10-18 14:20 | ED_ITS ---
HPI - Abdominal Pain General Chief Complaint: Abdominal Pain Stated Complaint: Abd Pain, Blockage of Some Sort Time Seen by Provider: 10/18/20 14:11 Source: patient and family () Mode of arrival: Ambulatory Limitations: no limitations History of Present Illness HPI narrative: This is a 75-year-old male who comes to the emergency department with complaint of abdominal discomfort and cramping. Patient has had an eventful several months he had severe back pain which caused him to be essentially bed-bound for approximately a month he developed constipation from narcotics subsequently a GI bleed which required embolization but was also found to have a pulmonary embolism and he is now on Eliquis. This was in September. He was seen here 3 days prior after having abdominal pain, cramping and no bowel movement. Patient was found to have some chronic narrowing adjacent to the area embolization and patient had a large amount of stool on CT. He went home took a bottle Mag citrate with minimal improvement and took another bottle and had large watery bowel movement, he has had several additional and last night took his MiraLax and had a large liquidy bowel movement that did not have any bright red blood or melena. He states today he continued to have some cramping sometimes the same level of intensity as before, he has not had any additional bowel movements since this morning. He has not had any nausea or vomiting in the last 2 days, he has not had any issues with urination. He felt warm last night but is unsure if he had a temperature. He has not had any chest pain or pressure. His shortness of breath has been improving since his PE was diagnosed, he has not had any new swelling in his extremities. Related Data Home Medications Medication Instructions Recorded Confirmed allopurinol 150 mg PO DAILY #0 12/14/12 01/04/20 hydrochlorothiazide 50 mg PO DAILY #0 12/14/12 01/04/20 amlodipine 5 mg PO BEDTIME 09/03/18 01/04/20 BIPAP PRO #1 ea 01/12/19 01/04/20 aspirin 325 mg tablet 325 mg PO DAILY 02/16/19 01/04/20 ibuprofen 800 mg PO TID PRN 03/01/19 01/04/20 losartan 100 mg PO BEDTIME 03/01/19 01/04/20 Previous Rx's Medication Instructions Recorded oxycodone 5 mg PO Q6HR PRN #10 tab 12/27/19 ciprofloxacin HCl [Cipro] 500 mg PO Q12H #20 tab 03/31/20 dicyclomine 10 mg PO TID PRN #10 cap 10/18/20 Allergies Allergy/AdvReac Type Severity Reaction Status Date / Time tamsulosin Allergy Severe Difficulty Verified 12/26/19 11:42 Breathing cefuroxime [From Ceftin] Allergy Unknown Verified 07/06/19 10:18 doxazosin AdvReac Intermediate SOB, Verified 07/06/19 10:18 fever, extreme fatigue, cough, flu-like symptoms lisinopril AdvReac Mild COUGH, Verified 07/06/19 10:18 Palpitations cyclobenzaprine AdvReac Unknown Drowsy Verified 07/06/19 10:18 [From Flexeril] ezetimibe [From Vytorin] AdvReac Unknown Back Pain Verified 07/06/19 10:18 hydrocodone [HYDROCODONE] AdvReac Unknown CONSTIPATIO Verified 07/06/19 10:18 N pravastatin [From Pravachol] AdvReac Unknown Back Pain Verified 07/06/19 10:18 simvastatin [From Vytorin] AdvReac Unknown Back Pain Verified 07/06/19 10:18 Review of Systems Review of Systems ROS Unobtainable: All systems reviewed & are unremarkable except as noted in HPI and below Patient History Medical History (Updated 10/18/20 @ 16:35 by Marialuisa Coronado DO) Allergic rhinitis Arthritis BPH (benign prostatic hyperplasia) BPH w urinary obs/LUTS Chronic UTI Degenerative disc disease, lumbar Depression Diverticular disease GERD (gastroesophageal reflux disease) Gout Hyperlipidemia Hypertension Low back pain Male circumcision Nephrolithiasis SOTERO treated with BiPAP Osteoarthritis Osteoporosis Polio Shingles Skin cancer Snoring Spinal stenosis Tingling of right upper extremity Surgical History H/O prostatectomy History of lumbar spinal fusion (10/21/18) History of vasectomy Hx of circumcision Hx of microdiscectomy (09/24/16) Previous back surgery S/P cervical spinal fusion (09/06/18) S/P excision of lipoma Status post cataract extraction of both eyes with insertion of intraocular lens Social History marital status: household members: spouse Smoking Status: Former smoker alcohol intake: current substance use type: does not use Smoking Status: Former smoker alcohol intake frequency: a few times a month Substance Use Type: does not use Exam Narrative Exam Narrative: GENERAL: Alert and oriented x three, obese male in mild distress. HEENT: Head normocephalic, atraumatic, EOMI, pupils reactive, face symmetric, moist mucous membranes NECK: Supple, full range of motion CARDIOVASCULAR: Regular rate and rhythm without murmurs, rubs or gallops. RESPIRATORY: Breath sounds equal bilaterally, no wheezes rales or rhonchi. ABDOMEN: Soft, nontender. Normoactive bowel sounds all 4 quadrants. No guarding or rebound, rigidity, no mass. : No CVA tenderness EXTREMITIES: Normal range of motion, no clubbing or edema. Neurovascularly intact NEUROLOGICAL: Cranial nerves II through XII grossly intact. Moving all extremities SKIN: Warm, dry, no petechiae, no rashes or lesions. Initial Vital Signs Initial Vital Signs: Vital Signs Temperature 97.5 F L 10/18/20 14:18 Pulse Rate 91 H 10/18/20 14:18 Respiratory Rate 18 10/18/20 14:18 Blood Pressure 192/98 H 10/18/20 14:18 Pulse Oximetry 96 10/18/20 14:18 Course Orders Ordered: ED Orders 10/18/20 14:22 Complete Blood Count AUTO DIFF Stat Comprehensive Metabolic Panel Stat Lipase Stat Partial Thromboplastin Time Stat Prothrombin Time INR Stat 10/18/20 14:24 EKG-12 Lead Stat 10/18/20 14:50 CT abdomen pelvis w con Stat Discontinued Medications Sodium Chloride (Normal Saline 0.9%) 1,000 mls @ 500 mls/hr IV CONT CHELI Last Infusion: 10/18/20 16:47 Dose: 0 mls/hr Documented by: Admin: 10/18/20 15:00 Dose: 500 mls/hr Documented by: ROSI Vital Signs Vital signs: Vital Signs - 8 hr 10/18/20 14:18 10/18/20 17:02 Temperature 97.5 F L Pulse Rate 91 H 70 Respiratory Rate 18 19 Blood Pressure 192/98 H 180/84 H Pulse Oximetry 96 97 MDM - Abdominal Pain Lab Data Attestation: I reviewed the patient's lab results. Result diagrams: 10/18/20 14:22 10/18/20 14:22 Labs: Lab Results 10/18/20 10/18/20 10/18/20 Range/Units 14:22 14:22 14:22 WBC 6.7 (4.5-11.0) X10^3/uL RBC 4.29 L (4.5-5.9) X10^6/uL Hgb 12.2 L (13.5-17.5) g/dL Hct 37.8 L (41-53) % MCV 88.3 (80-100) fL MCH 28.6 (26-34) PG MCHC 32.4 (30-36) % RDW 15.5 H (11.6-14.8) % Plt Count 291 (150-400) X10^3/uL Neut % (Auto) 56.7 (50-75) % Lymph % (Auto) 24.3 L (25-40) % Edwards % (Auto) 9.1 (3-14) % Eos % (Auto) 8.9 H (2-4) % Baso % (Auto) 1.0 (0-2) % Neut # (Auto) 3800 (9483-4194) /uL Lymph # (Auto) 1600 (9521-4686) /uL Edwards # (Auto) 600 (0-900) /uL Eos # (Auto) 600 H (0-450) /uL Baso # (Auto) 100 (0-100) /uL PT 13.4 H (10.1-12.7) SECONDS INR 1.2 (0.9-1.3) APTT 34 D (26.4-36.2) SECONDS Sodium 138 (137-145) mmol/L Potassium 3.6 (3.4-5.1) mmol/L Chloride 103 (98-107) mmol/L Carbon Dioxide 28 (22-32) mmol/L BUN 21 H (9-20) mg/dL Creatinine 1.20 (0.66-1.25) mg/dL Estimated GFR 59.3 L (>60) mL/min BUN/Creatinine Ratio 17.5 (6-22) Glucose 128 H (80-110) mg/dL Calcium 9.6 (8.4-10.2) mg/dL Total Bilirubin 0.6 (0.2-1.3) mg/dL AST 25 (17-59) IU/L ALT 13 (<50) IU/L Alkaline Phosphatase 79 (38-126) U/L Total Protein 7.2 (6.3-8.2) g/dL Albumin 4.2 (3.5-5.0) g/dL Globulin 3.0 (1.7-4.1) g/dL Albumin/Globulin Ratio 1.4 (1.0-2.8) Lipase 81 (23-300) U/L Point of care testing: Urine Dip Bedside Urine Glucose Negative Bedside Urine Bilirubin - Negative Bedside Urine Ketone - Negative Urine Specific [place] 1.015 Bedside Urine Occult Blood - Negative Bedside Urine pH 7.0 Bedside Urine Protein - Negative Bedside Urine Urobilinogen - Negative Bedside Urine Nitrite - Negative Bedside Urine Leukocytes - Negative Esterase Imaging Data CT scan - abdomen/pelvis: Radiologist's Impression: [address] [id number] Scan ReportSigned Patient: Huey Newman [facility]#: [id number]: 7Acct:[id number]/Sex: 75 / MDate of Service: 10/18/20Loc: EDAccession Number: [id number] Procedure: CT abdomen pelvis w con Ordering Provider: Marialuisa Coronado D.O. PROCEDURE: CT ABDOMEN PELVIS W CON INDICATIONS: intermittent abd pain, narrowing from area of embolization TECHNIQUE: After the administration of intravenous contrast, 5 mm thick sections acquired from the diaphragm to the symphysis. 5 mm coronal and sagittal reformats were acquired. For radiation dose reduction, the following was used: automated exposure control, adjustment of mA and/or kV according to patient size. COMPARISON: [facility], CT, CT ABDOMEN PELVIS W CON, 10/15/2020, 12:55. FINDINGS: Image quality: Excellent. ABDOMEN: Lung bases: Lung bases are clear. Heart size is normal. Extensive coronary artery calcifications. Solid organs: Liver is normal in size and enhancement. Gallbladder is unremarkable. Biliary system is non dilated. Pancreas enhances normally. Spleen is normal in size and enhancement. No adrenal nodules. Kidneys demonstrate normal size and enhancement, without hydronephrosis. Peritoneum and bowel: Vascular embolization coils at the level of the transverse colon. Chronic mild focal narrowing of the transverse colon just distal to the embolization coils. Slight interval decrease in the amount of fecal content present proximal to that area of narrowing. No abnormally dilated loops of bowel. Bowel loops otherwise demonstrate normal wall thickness and caliber. Mild diverticulosis without evidence of diverticulitis. No free fluid or air. Nodes and vessels: No retroperitoneal or mesenteric adenopathy by size criteria. Aorta and inferior vena cava are normal in size. Miscellaneous: Small periumbilical hernia containing fat. PELVIS: Genitourinary: Bladder wall thickness is normal. Miscellaneous: No inguinal hernias or adenopathy. Bones: No suspicious bony lesions. No vertebral body compression fractures. Extensive lumbar degenerative change with multilevel canal stenosis. Previous lower lumbar laminectomy and fusion. IMPRESSION: 1. Evidence of coil embolization of the transverse colon. 2. Mild chronic narrowing of the transverse colon just distal to the embolization coils, present before the embolization. 3. Improvement in the amount of fecal debris present in the colon proximal to the area of mild colonic narrowing. 4. No evidence of acute abdominal process. 5. Prominent coronary artery calcifications. Dictated by: Philip Hunter M.D. on 10/18/2020 at 16:12 Approved by: Philip Hunter M.D. on 10/18/2020 at 16:17 ECG Data Attestation: I personally reviewed and interpreted this ECG as follows: Prior ECG tracings: available for review Interpretation: Sinus rhythm with a rate of 82, P are 188, QRS of 110 and QTC of 455. No ST elevation depression appreciated. S1Q3T3 present on EKG. Patient has prior EKG with similar findings from 09/04/20. [facility] Narrative Medical decision making narrative: This is a 75-year-old male who comes in with complaint of abdominal pain that is been occurring for the past week he was seen on the had a CT which showed some mild narrowing adjacent to the ER where he had embolization for GI bleed. He also has known saddle PE and is currently on Eliquis and taking it regularly. Patient's labs show a stable anemia, BUN is 21, GFR is 59 slightly decreased from 10/15. Discussed with patient he has had multiple CTs recently likely benefit from not having any further and increasing his fluid intake. Urine is negative. Imaging shows mild narrowing which is chronic on the transverse colon just distal to the embolization coils, there is improvement amount of fecal debris in the colon proximal to the area of mild colonic narrowing and no obvious signs of bowel obstruction or acute abdominal process otherwise. He does have prominent coronary artery calcifications. Patient to continue with stools softeners prn. He has been having bowel movements but they have been liquid. Patient does have intermittent cramping and offered bentyl prescription but discussed this may slow gut motility and to be vigilant about preventing constipation. Discharge Plan Departure Patient Disposition: Home Clinical Impression: Abdominal pain Instructions: DI for Abdominal Pain-Adult Activity Restrictions/Additional Instructions: Follow up with your physician. Your imaging today shows an area of chronic narrowing but does not appear to be blocked or obstructed. Continue your home medications. I would use the stools softeners as needed. If you have liquid stools hold or stop the softeners and if you have harder stools take the stool softener. Return to the ER for lightheadedness, passing out, black or bloody stools, rapidly worsening abdominal pain, persistent vomiting, new swelling in her extremities or distention of her abdomen. New chest pain or shortness of breath or other new or concerning symptoms. Prescriptions: New dicyclomine 10 mg capsule 10 mg PO TID PRN (Reason: abdominal cramping) Qty: 10 RF: 0 No Action hydrochlorothiazide 50 MG tablet 50 mg PO DAILY Qty: 0 RF: 0 allopurinol 300 MG tablet 150 mg PO DAILY Qty: 0 RF: 0 aspirin 325 mg tablet 325 mg PO DAILY RF: 0 amlodipine 5 mg Tablet 5 mg PO BEDTIME RF: 0 oxycodone 5 mg Tablet 5 mg PO Q6HR PRN (Reason: Pain, Moderate (4-6)) Qty: 10 RF: 0 losartan 100 mg tablet 100 mg PO BEDTIME RF: 0 ibuprofen 800 mg Tablet 800 mg PO TID PRN (Reason: Back Pain) RF: 0 ciprofloxacin HCl [Cipro] 500 mg tablet 500 mg PO Q12H Qty: 20 RF: 0 (DME) BIPAP PRO Qty: 1 RF: 0 Referrals: Maryann Wray PA-C [Primary Care Provider] -
[2020-10-18 14:31] LABS: Add Manual Diff / Slide Review NO; Basophils Absolute Auto 100 /uL (0-100); Eosinophils Absolute Auto 600 /uL (0-450); Eosinophils Percent Auto 8.9 % (2-4); Hematocrit 37.8 % (41-53); Hemoglobin 12.2 g/dL (13.5-17.5); Lymphocytes Absolute Auto 1600 /uL (1100-4500); Lymphocytes Percent Auto 24.3 % (25-40); Mean Corpuscular HGB Conc 32.4 % (30-36); Mean Corpuscular Hemoglobin 28.6 PG (26-34); Mean Corpuscular Volume 88.3 fL (80-100); Monocytes Absolute Auto 600 /uL (0-900); Monocytes Percent Auto 9.1 % (3-14); Neutrophils Absolute Auto 3800 /uL (1500-7000); Neutrophils Percent Auto 56.7 % (50-75); Platelet Count 291 X10^3/uL (150-400); Red Blood Cell Count 4.29 X10^6/uL (4.5-5.9); Red Cell Distribution Width 15.5 % (11.6-14.8); White Blood Cell Count 6.7 X10^3/uL (4.5-11.0)
[2020-10-18 14:44] LABS: INR 1.2 (0.9-1.3); Prothrombin Time 13.4 SECONDS (10.1-12.7)
[2020-10-18 14:47] LABS: PTT Partial Thromboplastin Tim 34 SECONDS (26.4-36.2)
[2020-10-18 14:48] LABS: Alanine Aminotransferase 13 IU/L (<50); Albumin 4.2 g/dL (3.5-5.0); Albumin Globulin Ratio 1.4 (1.0-2.8); Alkaline Phosphatase 79 U/L (38-126); Aspartate Aminotransferase 25 IU/L (17-59); BUN Creatinine Ratio 17.5 (6-22); Bilirubin Total 0.6 mg/dL (0.2-1.3); Blood Urea Nitrogen 21 mg/dL (9-20); Calcium 9.6 mg/dL (8.4-10.2); Carbon Dioxide 28 mmol/L (22-32); Chloride 103 mmol/L (98-107); Estimated Glomerular Filt Rate 59.3 mL/min (>60); Glucose 128 mg/dL (80-110); HEMOLYSIS < 15 (0-50); Lipase 81 U/L (23-300); Potassium 3.6 mmol/L (3.4-5.1); Sodium 138 mmol/L (137-145); Total Protein 7.2 g/dL (6.3-8.2)
--- NOTE | 2020-10-18 14:50 | DI.CT.S_ITS ---
PROCEDURE: CT ABDOMEN PELVIS W CON INDICATIONS: intermittent abd pain, narrowing from area of embolization TECHNIQUE: After the administration of intravenous contrast, 5 mm thick sections acquired from the diaphragm to the symphysis. 5 mm coronal and sagittal reformats were acquired. For radiation dose reduction, the following was used: automated exposure control, adjustment of mA and/or kV according to patient size. COMPARISON: [facility], CT, CT ABDOMEN PELVIS W CON, 10/15/2020, 12:55. FINDINGS: Image quality: Excellent. ABDOMEN: Lung bases: Lung bases are clear. Heart size is normal. Extensive coronary artery calcifications. Solid organs: Liver is normal in size and enhancement. Gallbladder is unremarkable. Biliary system is non dilated. Pancreas enhances normally. Spleen is normal in size and enhancement. No adrenal nodules. Kidneys demonstrate normal size and enhancement, without hydronephrosis. Peritoneum and bowel: Vascular embolization coils at the level of the transverse colon. Chronic mild focal narrowing of the transverse colon just distal to the embolization coils. Slight interval decrease in the amount of fecal content present proximal to that area of narrowing. No abnormally dilated loops of bowel. Bowel loops otherwise demonstrate normal wall thickness and caliber. Mild diverticulosis without evidence of diverticulitis. No free fluid or air. Nodes and vessels: No retroperitoneal or mesenteric adenopathy by size criteria. Aorta and inferior vena cava are normal in size. Miscellaneous: Small periumbilical hernia containing fat. PELVIS: Genitourinary: Bladder wall thickness is normal. Miscellaneous: No inguinal hernias or adenopathy. Bones: No suspicious bony lesions. No vertebral body compression fractures. Extensive lumbar degenerative change with multilevel canal stenosis. Previous lower lumbar laminectomy and fusion. IMPRESSION: 1. Evidence of coil embolization of the transverse colon. 2. Mild chronic narrowing of the transverse colon just distal to the embolization coils, present before the embolization. 3. Improvement in the amount of fecal debris present in the colon proximal to the area of mild colonic narrowing. 4. No evidence of acute abdominal process. 5. Prominent coronary artery calcifications. Dictated by: Philip Hunter M.D. on 10/18/2020 at 16:12 Approved by: Philip Hunetr M.D. on 10/18/2020 at 16:17
[2020-10-18] MEDS: SODIUM CHLORIDE 0.9% 1,000 ML 500 ML IV (15:00)
[2020-10-18 17:02] VITALS: BP 180/84; PULSE 70; RESP 19; O2SAT 97
== END 2020-10-18 17:03 | disposition home or self-care (01) ==
PROVIDERS: Emergency Provider Emergency Medicine; PCP Physician Assistant
DX: R10.9 Unspecified abdominal pain (principal); I26.99 Other pulmonary embolism without acute cor pulmonale; Z79.01 Long term (current) use of anticoagulants; R06.02 Shortness of breath; I10 Essential (primary) hypertension
CPT/HCPCS: 36415; 74177; 80053; 81003; 83690; 85025; 85610; 85730; 93005; 93010; 96360; 96361; 99282; 99284

== ENCOUNTER → 2020-11-28 15:24 | Outpatient (CLI) | payer MEDICARE, OTHER, SELFPAY ==
[2019-12-26 18:49] VITALS: BMI 34.2
== END ==
PROVIDERS: PCP Physician Assistant; Visit Provider Specialist
DX: N39.0 Urinary tract infection, site not specified (principal); R31.9 Hematuria, unspecified; Z87.440 Personal history of urinary (tract) infections; N40.1 Benign prostatic hyperplasia with lower urinary tract symptoms
CPT/HCPCS: 51798; 81002; 87077; 87086; 87186; 99214

== ENCOUNTER 2020-12-04 15:16 | Emergency (ER) | payer MEDICARE, OTHER, SELFPAY ==
[2020-11-28 16:04] VITALS: BMI 34.2
[2020-12-04] VITALS (30 sets, daily range): BP systolic 115–171; BP diastolic 71–97; PULSE 99–114; RESP 24–43; TEMP 35.8; O2SAT 92–96
--- NOTE | 2020-12-04 15:38 | ED_ITS ---
HPI - General Adult General Chief complaint: Abdominal Pain Stated complaint: stomach issues Time Seen by Provider: 12/04/20 15:27 Source: patient Mode of arrival: Ambulatory Limitations: no limitations History of Present Illness HPI narrative: Patient is a 75-year-old male on anticoagulation secondary to pulmonary embolisms who is here for evaluation of several weeks with worsening over the past several days of abdominal discomfort. He did state that today he started having vomiting and he does feel like his abdomen is distended. At the end of last year I evaluated this patient here in the emergency department and subsequently transferred him for a GI bleed with incidental findings of pulmonary embolisms with significant clot burden on his CT scans. He was sent to the [facility] where he subsequently underwent a embolization of the vessels supplying the transverse colon. He has been on apixaban since that time. He states that since that visit to the hospital he has had episodes where he is constipated needing to use MiraLax. He then develops diarrhea for couple days and then symptoms improving then this sequence start over again. He denies any fevers. He is taking all of his medications as directed. He is currently on antibiotic for a urinary tract infection. He has been seen here in this emergency department since his GI bleed and pulmonary embolisms for abdominal discomfort and has had multiple CT scans. Related Data Home Medications Medication Instructions Recorded Confirmed allopurinol 150 mg PO DAILY #0 12/14/12 11/28/20 hydrochlorothiazide 50 mg PO DAILY #0 12/14/12 01/04/20 amlodipine 5 mg PO BEDTIME 09/03/18 11/28/20 BIPAP PRO #1 ea 01/12/19 11/28/20 aspirin 325 mg tablet 325 mg PO DAILY 02/16/19 11/28/20 ibuprofen 800 mg PO TID PRN 03/01/19 01/04/20 losartan 100 mg PO BEDTIME 03/01/19 11/28/20 acetaminophen 500 mg tablet 500 mg PO Q6H PRN 11/23/20 11/28/20 apixaban 5 mg tablet 5 mg PO BID 11/23/20 11/28/20 gabapentin 300 mg capsule 300 mg PO DAILY 11/23/20 11/28/20 pantoprazole 40 mg tablet,delayed 40 mg PO DAILY 11/23/20 11/28/20 release Previous Rx's Medication Instructions Recorded oxycodone 5 mg PO Q6HR PRN #10 tab 12/27/19 dicyclomine 10 mg PO TID PRN #10 cap 10/18/20 ciprofloxacin HCl 500 mg tablet 500 mg PO BID #30 tab 11/30/20 Allergies Allergy/AdvReac Type Severity Reaction Status Date / Time tamsulosin Allergy Severe Difficulty Verified 12/04/20 16:21 Breathing cefuroxime [From Ceftin] Allergy Unknown Verified 12/04/20 16:21 doxazosin AdvReac Intermediate SOB, Verified 12/04/20 16:21 fever, extreme fatigue, cough, flu-like symptoms lisinopril AdvReac Mild COUGH, Verified 12/04/20 16:21 Palpitations cyclobenzaprine AdvReac Unknown Drowsy Verified 12/04/20 16:21 [From Flexeril] ezetimibe [From Vytorin] AdvReac Unknown Back Pain Verified 12/04/20 16:21 hydrocodone [HYDROCODONE] AdvReac Unknown CONSTIPATIO Verified 07/06/19 10:18 N pravastatin [From Pravachol] AdvReac Unknown Back Pain Verified 12/04/20 16:21 simvastatin [From Vytorin] AdvReac Unknown Back Pain Verified 12/04/20 16:21 Review of Systems Constitutional Constitutional: Denies fever(s) and Denies headache(s) ENT Ears, Nose, Mouth, and Throat: Denies vertigo, Denies dizziness and Denies headache(s) Cardiovascular Cardiovascular: Denies chest pain and Denies dyspnea Respiratory Respiratory: Denies dyspnea Gastrointestinal Gastrointestinal: Reports abdominal pain, Reports bloating, Reports constipation, Reports nausea and Reports vomiting Genitourinary Genitourinary: Denies dysuria Genitourinary: Denies dysuria Musculoskeletal Musculoskeletal: Denies arthralgias and Denies myalgias Integumentary/Breasts Skin/Breast: Denies lesions and Denies rash Neurologic Neurologic: Denies vertigo, Denies dizziness and Denies headache(s) Psychiatric Psychiatric: Denies anxiety Hematologic/Lymphatic On Anticoagulants: Yes Allergic/Immunologic Allergic/Immunologic: Denies urticaria Patient History Medical History Allergic rhinitis Anemia Arthritis BPH (benign prostatic hyperplasia) BPH NOS w/o ur obs/LUTS BPH w urinary obs/LUTS Chronic UTI Degenerative disc disease, lumbar Depression Diverticular disease GERD (gastroesophageal reflux disease) Gout History of UTI Hyperlipidemia Hypertension Low back pain Male circumcision Nephrolithiasis SOTERO treated with BiPAP Osteoarthritis Osteoporosis Polio Shingles Skin cancer Snoring Spinal stenosis Tingling of right upper extremity UTI (urinary tract infection) Surgical History H/O prostatectomy History of lumbar spinal fusion (10/21/18) History of vasectomy Hx of circumcision Hx of microdiscectomy (09/24/16) Previous back surgery S/P cervical spinal fusion (09/06/18) S/P excision of lipoma Status post cataract extraction of both eyes with insertion of intraocular lens Family History Mother COPD (chronic obstructive pulmonary disease) Social History marital status: number of children: 3 household members: spouse occupational status: previously employed Smoking Status: Former smoker alcohol intake: current substance use type: does not use caffeine: Yes Smoking Status: Former smoker alcohol intake frequency: a few times a month Substance Use Type: does not use Exam Initial Vital Signs Initial Vital Signs: Vital Signs Temperature 96.5 F L 12/04/20 15:19 Pulse Rate 113 H 12/04/20 15:19 Respiratory Rate 24 12/04/20 15:19 Blood Pressure 171/92 H 12/04/20 15:19 Pulse Oximetry 96 12/04/20 15:19 Const General: cooperative, comfortable, well developed and well groomed Limitations: mental status not altered [facility] Head: normocephalic Eyes General: appearance normal, both eyes and all related structures Resp Effort & Inspection: normal respiratory effort Auscultation: clear to auscultation bilaterally Cardio Rate: tachycardic Rhythm: regular rhythm GI Inspection: distended Palpation: soft and tender (Diffusely tender) Skin Lesions: no lesions Rashes: no rashes Neuro General: patient alert, patient awake and patient oriented x3 Cognition: normal cognition Speech: speech normal Extrem General: normal to inspection and capillary refill normal Psych Appearance: grossly normal and well kempt Scores GCS Mary Jane coma scale eye opening: Spontaneous Mary Jane coma scale verbal response: Orientated Mary Jane coma scale motor response: Obey commands [place] coma scale total score: 15 Course Orders Ordered: ED Orders 12/04/20 15:27 EKG-12 Lead Stat 12/04/20 15:32 Complete Blood Count AUTO DIFF Stat Comprehensive Metabolic Panel Stat Lactate (Lactic Acid) Stat Lipase Stat Partial Thromboplastin Time Stat Procalcitonin Stat Prothrombin Time INR Stat 12/04/20 15:40 CT abdomen pelvis w con Stat 12/04/20 15:42 Blood Culture Stat 12/04/20 15:49 COVID19 Stat 12/04/20 17:27 Urine Microscopic Stat Discontinued Medications Sodium Chloride (Normal Saline 0.9%) 1,000 mls @ 1,000 mls/hr IV BOLUS ONE Stop: 12/04/20 16:38 Last Infusion: 12/04/20 17:36 Dose: 0 mls/hr Documented by: Admin: 12/04/20 15:52 Dose: 1,000 mls/hr Documented by: KATE Vital Signs Vital signs: Vital Signs - 8 hr 12/04/20 15:19 12/04/20 15:47 12/04/20 16:00 Temperature 96.5 F L Pulse Rate 113 H 107 H 102 H Respiratory Rate 24 27 H 26 H Blood Pressure 171/92 H 138/82 Pulse Oximetry 96 94 94 12/04/20 16:15 12/04/20 16:30 12/04/20 16:46 Temperature Pulse Rate 101 H 100 H 105 H Respiratory Rate 26 H 28 H 26 H Blood Pressure 136/82 Pulse Oximetry 94 95 93 12/04/20 17:00 12/04/20 17:15 12/04/20 17:30 Temperature Pulse Rate 104 H 99 H 105 H Respiratory Rate 26 H 25 H 31 H Blood Pressure 134/81 142/97 H Pulse Oximetry 96 94 96 12/04/20 17:45 12/04/20 17:48 12/04/20 18:00 Temperature Pulse Rate 111 H 107 H 104 H Respiratory Rate 31 H 26 H 30 H Blood Pressure 125/75 135/72 Pulse Oximetry 94 94 95 12/04/20 18:15 12/04/20 18:30 Temperature Pulse Rate 109 H 110 H Respiratory Rate 27 H 37 H Blood Pressure 141/81 H Pulse Oximetry 95 96 Medical Decision Making Lab Data Lab results reviewed: Yes I reviewed the patient's lab results. Result diagrams: 12/04/20 15:32 12/04/20 15:32 Labs: Lab Results 12/04/20 12/04/20 12/04/20 Range/Units 15:32 15:32 15:32 WBC 12.8 H (4.5-11.0) X10^3/uL RBC 5.52 (4.5-5.9) X10^6/uL Hgb 15.4 (13.5-17.5) g/dL Hct 46.1 (41-53) % MCV 83.5 (80-100) fL MCH 27.9 (26-34) PG MCHC 33.4 (30-36) % RDW 14.2 (11.6-14.8) % Plt Count 330 (150-400) X10^3/uL Neut % (Auto) 89.1 H (50-75) % Lymph % (Auto) 6.5 L (25-40) % Brooks % (Auto) 3.9 (3-14) % Eos % (Auto) 0.2 L (2-4) % Baso % (Auto) 0.3 (0-2) % Neut # (Auto) 31736 H (8176-2317) /uL Lymph # (Auto) 800 L (6290-3180) /uL Brooks # (Auto) 500 (0-900) /uL Eos # (Auto) 0 (0-450) /uL Baso # (Auto) 0 (0-100) /uL PT 16.1 H (10.1-12.7) SECONDS INR 1.4 H (0.9-1.3) APTT 37 H (26.4-36.2) SECONDS Sodium 137 (137-145) mmol/L Potassium 3.8 (3.4-5.1) mmol/L Chloride 97 L (98-107) mmol/L Carbon Dioxide 28 (22-32) mmol/L BUN 17 (9-20) mg/dL Creatinine 1.24 (0.66-1.25) mg/dL Estimated GFR 57.1 L (>60) mL/min BUN/Creatinine Ratio 13.7 (6-22) Glucose 171 H (80-110) mg/dL Lactate (0.7-2.1) mmol/L Calcium 10.5 H (8.4-10.2) mg/dL Total Bilirubin 0.7 (0.2-1.3) mg/dL AST 37 (17-59) IU/L ALT 35 (<50) IU/L Alkaline Phosphatase 89 (38-126) U/L Total Protein 8.2 (6.3-8.2) g/dL Albumin 4.8 (3.5-5.0) g/dL Globulin 3.4 (1.7-4.1) g/dL Albumin/Globulin Ratio 1.4 (1.0-2.8) Lipase 56 (23-300) U/L Procalcitonin (<0.5) ng/mL Urine RBC (0-5/HPF) Urine WBC (0-5/HPF) Ur Squamous Epith Cells (0-5/HPF) Amorphous Sediment Urine Bacteria (None) Urine Mucus (Negative) Ur Culture Indicated? SARS-CoV-2 (PCR) (Negative) 12/04/20 12/04/20 12/04/20 Range/Units 15:32 15:32 15:49 WBC (4.5-11.0) X10^3/uL RBC (4.5-5.9) X10^6/uL Hgb (13.5-17.5) g/dL Hct (41-53) % MCV (80-100) fL MCH (26-34) PG MCHC (30-36) % RDW (11.6-14.8) % Plt Count (150-400) X10^3/uL Neut % (Auto) (50-75) % Lymph % (Auto) (25-40) % Brooks % (Auto) (3-14) % Eos % (Auto) (2-4) % Baso % (Auto) (0-2) % Neut # (Auto) (1578-7214) /uL Lymph # (Auto) (6997-3506) /uL Brooks # (Auto) (0-900) /uL Eos # (Auto) (0-450) /uL Baso # (Auto) (0-100) /uL PT (10.1-12.7) SECONDS INR (0.9-1.3) APTT (26.4-36.2) SECONDS Sodium (137-145) mmol/L Potassium (3.4-5.1) mmol/L Chloride (98-107) mmol/L Carbon Dioxide (22-32) mmol/L BUN (9-20) mg/dL Creatinine (0.66-1.25) mg/dL Estimated GFR (>60) mL/min BUN/Creatinine Ratio (6-22) Glucose (80-110) mg/dL Lactate 2.5 H (0.7-2.1) mmol/L Calcium (8.4-10.2) mg/dL Total Bilirubin (0.2-1.3) mg/dL AST (17-59) IU/L ALT (<50) IU/L Alkaline Phosphatase (38-126) U/L Total Protein (6.3-8.2) g/dL Albumin (3.5-5.0) g/dL Globulin (1.7-4.1) g/dL Albumin/Globulin Ratio (1.0-2.8) Lipase (23-300) U/L Procalcitonin < 0.05 (<0.5) ng/mL Urine RBC (0-5/HPF) Urine WBC (0-5/HPF) Ur Squamous Epith Cells (0-5/HPF) Amorphous Sediment Urine Bacteria (None) Urine Mucus (Negative) Ur Culture Indicated? SARS-CoV-2 (PCR) Negative (Negative) 12/04/20 12/04/20 Range/Units 17:27 18:01 WBC (4.5-11.0) X10^3/uL RBC (4.5-5.9) X10^6/uL Hgb (13.5-17.5) g/dL Hct (41-53) % MCV (80-100) fL MCH (26-34) PG MCHC (30-36) % RDW (11.6-14.8) % Plt Count (150-400) X10^3/uL Neut % (Auto) (50-75) % Lymph % (Auto) (25-40) % Brooks % (Auto) (3-14) % Eos % (Auto) (2-4) % Baso % (Auto) (0-2) % Neut # (Auto) (5533-6106) /uL Lymph # (Auto) (0367-4442) /uL Brooks # (Auto) (0-900) /uL Eos # (Auto) (0-450) /uL Baso # (Auto) (0-100) /uL PT (10.1-12.7) SECONDS INR (0.9-1.3) APTT (26.4-36.2) SECONDS Sodium (137-145) mmol/L Potassium (3.4-5.1) mmol/L Chloride (98-107) mmol/L Carbon Dioxide (22-32) mmol/L BUN (9-20) mg/dL Creatinine (0.66-1.25) mg/dL Estimated GFR (>60) mL/min BUN/Creatinine Ratio (6-22) Glucose (80-110) mg/dL Lactate 1.3 (0.7-2.1) mmol/L Calcium (8.4-10.2) mg/dL Total Bilirubin (0.2-1.3) mg/dL AST (17-59) IU/L ALT (<50) IU/L Alkaline Phosphatase (38-126) U/L Total Protein (6.3-8.2) g/dL Albumin (3.5-5.0) g/dL Globulin (1.7-4.1) g/dL Albumin/Globulin Ratio (1.0-2.8) Lipase (23-300) U/L Procalcitonin (<0.5) ng/mL Urine RBC None seen (0-5/HPF) Urine WBC 1-5/hpf (0-5/HPF) Ur Squamous Epith Cells 1-5 /hpf (0-5/HPF) Amorphous Sediment 1+ Urine Bacteria None seen (None) Urine Mucus 2+ H (Negative) Ur Culture Indicated? Cult not indicated SARS-CoV-2 (PCR) (Negative) Urine Dip Bedside Urine Glucose Negative Bedside Urine Bilirubin + 1 Bedside Urine Ketone +/- 5 Urine Specific [place] 1.015 Bedside Urine Occult Blood - Negative Bedside Urine pH 6.0 Bedside Urine Protein + 30 Bedside Urine Urobilinogen - Negative Bedside Urine Nitrite - Negative Bedside Urine Leukocytes - Negative Esterase Point of care testing: Urine Dip Bedside Urine Glucose Negative Bedside Urine Bilirubin + 1 Bedside Urine Ketone +/- 5 Urine Specific [place] 1.015 Bedside Urine Occult Blood - Negative Bedside Urine pH 6.0 Bedside Urine Protein + 30 Bedside Urine Urobilinogen - Negative Bedside Urine Nitrite - Negative Bedside Urine Leukocytes - Negative Esterase Imaging Data CT scan - abdomen/pelvis: Radiologist's Impression: [address] [id number] Scan ReportSigned Patient: Huey Newman [facility]#: [id number]: 7Acct:[id number]/Sex: 75 / MDate of Service: 12/04/20Loc: EDAccession Number: [id number] Procedure: CT abdomen pelvis w con Ordering Provider: David Shukla D.O. PROCEDURE: CT ABDOMEN PELVIS W CON INDICATIONS: Generalized abdominal pain and bloating TECHNIQUE: After the administration of intravenous contrast, 5 mm thick sections acquired from the diaphragm to the symphysis. 5 mm coronal and sagittal reformats were acquired. For radiation dose reduction, the following was used: automated exposure control, adjustment of mA and/or kV according to patient size. COMPARISON: [facility], CT, CT ABDOMEN PELVIS W CON, 10/18/2020, 15:27. [facility], CT, CT ABDOMEN PELVIS W CON, 03/30/2020, 23:28. FINDINGS: Image quality: Excellent. ABDOMEN: Lung bases: Lung bases are clear. Heart size is normal. Solid organs: Liver is normal in size . Moderate hepatic steatosis is seen, no discrete hepatic lesion. Gallbladder is distended and shows no gross abnormality. Biliary system is non dilated. Pancreas enhances normally. Spleen is normal in size and enhancement. No adrenal nodules. Kidneys demonstrate normal size and enhancement, without hydronephrosis. Bilateral renal cysts are again seen, unchanged from previous study. Peritoneum and bowel: There is extensive fluid distension of small bowel loops measuring up to 4.3 centimeters in diameter with multiple air-fluid levels. There is also suggestion of fluid distended ascending colon and proximal to mid transverse colon with focal bowel caliber change in mid abdomen best seen on series 2 image 44 and series 4, image 28 a metallic density is noted posterior and superior to the distended mid transverse colon just proximal to the area of caliber change series 2, image 40, new since 2019 CT study, suggest clinical correlation. There is no free fluid or free air. Descending colon and sigmoid colon is E compressed. Colonic diverticulosis is seen, no CT evidence of acute diverticulitis. Nodes and vessels: No retroperitoneal or mesenteric adenopathy by size criteria. Aorta and inferior vena cava are normal in size. Mild to moderate amount of atherosclerotic disease is seen. Miscellaneous: Small umbilical hernia is seen containing fat and small amount of ascites fluid. PELVIS: Genitourinary: Bladder wall thickness is normal. Miscellaneous: No inguinal hernias or adenopathy. Bones: No suspicious bony lesions. No vertebral body compression fractures. Postsurgical changes are again noted in lower lumbar spine. IMPRESSION: 1. Finding is suggestive of high-grade obstruction involving mid transverse colon as described above with fluid distended small bowel and colon loops proximal to the site of stenosis/obstruction. Decompressed distal colon loops and sigmoid colon. No free fluid or free air. 2. Metallic density seen near the zone of transition suggest clinical correlation. This is a new finding since previous study. 3. Bilateral renal cysts. No obstructing renal stone or hydronephrosis. 4. Hepatic steatosis. Distended gallbladder, no CT evidence of acute cholecystitis. Dictated by: Toyn Marie M.D. on 12/04/2020 at 16:13 Approved by: Tony Marie M.D. on 12/04/2020 at 16:27 ECG Data Attestation: I personally reviewed and interpreted this ECG as follows: Prior ECG tracings: not available for review Interpretation: Sinus tachycardia Ventricular rate of 115 Normal axis Normal QRS Normal QTC No ST T wave changes MDM Narrative Medical decision making narrative: Patient does have a leukocytosis and also has a soft distended diffusely tender abdomen. CT scan today is concerning for a large bowel obstruction with transition point near the embolization coil. The CT report today is comparing a CT from the beginning of last year. There have been multiple CT scans at this facility since that time that shows the embolization coil and narrowing. Patient is afebrile. He is not vomiting here in the ER. Declined the need for pain medication or nausea medication. He did take his anticoagulation today. I did discuss the case with Dr. Rodriguez with General surgery who recommended the patient be transferred to a facility where they have a more robust ICU, interventional Radiology another subspecialist given his prior history. I discussed the case with Dr. Abdi who was on-call with the General surgery group at [facility] who accepts the patient for Dr. Major. I discussed the transfer with the patient. He expressed understanding. Patient is stable for transport. Discharge Plan Departure Patient Disposition: [facility] Clinical Impression: Bowel obstruction Prescriptions: No Action hydrochlorothiazide 50 MG tablet 50 mg PO DAILY Qty: 0 RF: 0 allopurinol 300 MG tablet 150 mg PO DAILY Qty: 0 RF: 0 pantoprazole 40 mg tablet,delayed release (DR/EC) 40 mg PO DAILY RF: 0 Eliquis 5 mg tablet 5 mg PO BID RF: 0 gabapentin 300 mg capsule 300 mg PO DAILY RF: 0 acetaminophen [Tylenol Extra Strength] 500 mg tablet 500 mg PO Q6H PRNRF: 0 ciprofloxacin HCl 500 mg tablet 500 mg PO BID Qty: 30 RF: 0 aspirin 325 mg tablet 325 mg PO DAILY RF: 0 amlodipine 5 mg Tablet 5 mg PO BEDTIME RF: 0 oxycodone 5 mg Tablet 5 mg PO Q6HR PRN (Reason: Pain, Moderate (4-6)) Qty: 10 RF: 0 dicyclomine 10 mg capsule 10 mg PO TID PRN (Reason: abdominal cramping) Qty: 10 RF: 0 losartan 100 mg tablet 100 mg PO BEDTIME RF: 0 ibuprofen 800 mg Tablet 800 mg PO TID PRN (Reason: Back Pain) RF: 0 (DME) BIPAP PRO Qty: 1 RF: 0 Referrals: Maryann Wray PA-C [Primary Care Provider] -
[2020-12-04 15:52] LABS: Add Manual Diff / Slide Review NO; Basophils Absolute Auto 0 /uL (0-100); Basophils Percent Auto 0.3 % (0-2); Eosinophils Absolute Auto 0 /uL (0-450); Eosinophils Percent Auto 0.2 % (2-4); Hematocrit 46.1 % (41-53); Hemoglobin 15.4 g/dL (13.5-17.5); Lymphocytes Absolute Auto 800 /uL (1100-4500); Lymphocytes Percent Auto 6.5 % (25-40); Mean Corpuscular HGB Conc 33.4 % (30-36); Mean Corpuscular Hemoglobin 27.9 PG (26-34); Mean Corpuscular Volume 83.5 fL (80-100); Monocytes Absolute Auto 500 /uL (0-900); Monocytes Percent Auto 3.9 % (3-14); Neutrophils Absolute Auto 11400 /uL (1500-7000); Neutrophils Percent Auto 89.1 % (50-75); Platelet Count 330 X10^3/uL (150-400); Red Blood Cell Count 5.52 X10^6/uL (4.5-5.9); Red Cell Distribution Width 14.2 % (11.6-14.8); White Blood Cell Count 12.8 X10^3/uL (4.5-11.0)
[2020-12-04] MEDS: SODIUM CHLORIDE 0.9% 1,000 ML 1000 ML IV (15:52)
[2020-12-04 16:00] LABS: INR 1.4 (0.9-1.3); Prothrombin Time 16.1 SECONDS (10.1-12.7)
[2020-12-04 16:02] LABS: PTT Partial Thromboplastin Tim 37 SECONDS (26.4-36.2)
[2020-12-04 16:04] LABS: Alanine Aminotransferase 35 IU/L (<50); Albumin 4.8 g/dL (3.5-5.0); Albumin Globulin Ratio 1.4 (1.0-2.8); Alkaline Phosphatase 89 U/L (38-126); Aspartate Aminotransferase 37 IU/L (17-59); BUN Creatinine Ratio 13.7 (6-22); Bilirubin Total 0.7 mg/dL (0.2-1.3); Blood Urea Nitrogen 17 mg/dL (9-20); Calcium 10.5 mg/dL (8.4-10.2); Carbon Dioxide 28 mmol/L (22-32); Chloride 97 mmol/L (98-107); Estimated Glomerular Filt Rate 57.1 mL/min (>60); Globulin 3.4 g/dL (1.7-4.1); Glucose 171 mg/dL (80-110); HEMOLYSIS < 15 (0-50); Lactate (Lactic Acid) 2.5 mmol/L (0.7-2.1); Lipase 56 U/L (23-300); Potassium 3.8 mmol/L (3.4-5.1); Sodium 137 mmol/L (137-145); Total Protein 8.2 g/dL (6.3-8.2)
[2020-12-04 16:16] LABS: COVID19 -Nasal RAPID Negative (Negative)
[2020-12-04 16:58] LABS: Procalcitonin < 0.05 ng/mL (<0.5)
[2020-12-04 17:40] LABS: Bacteria Urine None Seen; RBC Urine None Seen (0-5/HPF)
[2020-12-04 17:47] LABS: Reflexed Lactate in 2 Hours Y
[2020-12-04 18:01] LABS: Amorphous Sediment Urine 1+; Mucus Urine 2+ (Negative); Squamous Epithelial Cell Urine 1-5 /HPF (0-5/HPF); WBC Urine 1-5/HPF (0-5/HPF)
[2020-12-04 18:02] LABS: Culture Indicated Urine Cult Not Indicated
[2020-12-04 18:25] LABS: Lactate 2HR (Lactic Acid Rflx) 1.3 mmol/L (0.7-2.1)
[2020-12-04] MEDS: SODIUM CHLORIDE 0.9% 1,000 ML 125 ML IV (20:31)
[2020-12-04] MEDS: CIPROFLOXACIN 400 MG/200 ML PIGGYBACK 200 MG IV (21:14)
== END 2020-12-04 23:20 | disposition short-term general hospital (02) ==
PROVIDERS: Emergency Provider Emergency Medicine; PCP Physician Assistant
DX: K56.609 Unspecified intestinal obstruction, unspecified as to partial versus complete obstruction (principal); D72.829 Elevated white blood cell count, unspecified; R10.84 Generalized abdominal pain; I26.99 Other pulmonary embolism without acute cor pulmonale; Z79.01 Long term (current) use of anticoagulants; R11.2 Nausea with vomiting, unspecified; K59.00 Constipation, unspecified; I10 Essential (primary) hypertension; E78.5 Hyperlipidemia, unspecified; Z20.822 Contact with and (suspected) exposure to COVID-19
CPT/HCPCS: 36415; 74177; 80053; 81003; 81015; 83605; 83690; 84145; 85025; 85610; 85730; 87040; 87635; 93005; 96361; 96365; 99284; C9803; J0744

== ENCOUNTER 2020-12-28 16:02 | Emergency (ER) | payer MEDICARE, OTHER, SELFPAY ==
[2020-11-28 16:04] VITALS: BMI 34.2
--- NOTE | 2020-12-28 16:16 | DI.RAD.S_ITS ---
PROCEDURE: XR RIBS LT MIN 3V W CXR1V INDICATIONS: Left posterior ribs TECHNIQUE: 3 views of the left ribs were acquired, along with a single view chest. COMPARISON: None. FINDINGS: Surgical changes and devices: Cervical spine fixation hardware. Bones and chest wall: No fractures or dislocations. No suspicious bony lesions. Overlying soft tissues appear unremarkable. Lungs and pleura: No pleural effusions or pneumothorax. Lungs appear clear. Mediastinum: Mediastinal contours appear normal. Heart size is normal. IMPRESSION: No displaced rib fracture. No acute cardiopulmonary disease process. Dictated by: Noni Fernandez MD, PhD on 12/28/2020 at 16:33 Approved by: Noni Fernandez MD, PhD on 12/28/2020 at 16:34
[2020-12-28 16:17] VITALS: BP 194/91; PULSE 85; RESP 17; TEMP 36.5; O2SAT 97; BMI 32.8
--- NOTE | 2020-12-28 17:34 | ED_ITS ---
HPI - Back Pain/Injury General Chief Complaint: Back Pain/Injury Stated Complaint: fall in tub, ribs pain Time Seen by Provider: 12/28/20 17:24 Source: patient Mode of arrival: Ambulatory Limitations: no limitations History of Present Illness HPI Narrative: 75-year-old male who is on anti coagulation here for evaluation of a fall. He states that earlier today he was taking a shower and he slipped in the shower landing on his left back against the faucet. He did not hit his head. There was no loss of conscious. He was ambulatory afterwards. Described no extremity tenderness. No shortness of breath. Related Data Home Medications Medication Instructions Recorded Confirmed allopurinol 150 mg PO DAILY #0 12/14/12 12/04/20 amlodipine 5 mg PO BEDTIME 09/03/18 12/04/20 BIPAP PRO #1 ea 01/12/19 12/04/20 losartan 100 mg PO BEDTIME 03/01/19 12/04/20 acetaminophen 500 mg tablet 500 mg PO Q6H PRN 11/23/20 12/04/20 apixaban 5 mg tablet 5 mg PO BID 11/23/20 12/04/20 gabapentin 300 mg capsule 300 mg PO DAILY 11/23/20 12/04/20 pantoprazole 40 mg tablet,delayed 40 mg PO DAILY 11/23/20 12/04/20 release Previous Rx's Medication Instructions Recorded oxycodone 5 mg PO Q6HR PRN #10 tab 12/27/19 ciprofloxacin HCl 500 mg tablet 500 mg PO BID #30 tab 11/30/20 Allergies Allergy/AdvReac Type Severity Reaction Status Date / Time tamsulosin Allergy Severe Difficulty Verified 12/04/20 16:21 Breathing cefuroxime [From Ceftin] Allergy Unknown Verified 12/04/20 16:21 doxazosin AdvReac Intermediate SOB, Verified 12/04/20 16:21 fever, extreme fatigue, cough, flu-like symptoms lisinopril AdvReac Mild COUGH, Verified 12/04/20 16:21 Palpitations cyclobenzaprine AdvReac Unknown Drowsy Verified 12/04/20 16:21 [From Flexeril] ezetimibe [From Vytorin] AdvReac Unknown Back Pain Verified 12/04/20 16:21 hydrocodone [HYDROCODONE] AdvReac Unknown CONSTIPATIO Verified 07/06/19 10:18 N pravastatin [From Pravachol] AdvReac Unknown Back Pain Verified 12/04/20 16:21 simvastatin [From Vytorin] AdvReac Unknown Back Pain Verified 12/04/20 16:21 Review of Systems Constitutional Constitutional: Denies fever(s) and Denies headache(s) ENT Ears, Nose, Mouth, and Throat: Denies headache(s) Cardiovascular Cardiovascular: Denies chest pain and Denies dyspnea Respiratory Respiratory: Denies dyspnea Gastrointestinal Gastrointestinal: Denies abdominal pain, Denies nausea and Denies vomiting Genitourinary Genitourinary: Denies dysuria Genitourinary: Denies dysuria Comments: No hematuria Musculoskeletal Musculoskeletal: Reports back pain Comments: Left-sided mid back pain Integumentary/Breasts Comments: Bruising left back Neurologic Neurologic: Denies behavioral changes and Denies headache(s) Psychiatric Psychiatric: Denies behavioral changes Hematologic/Lymphatic On Anticoagulants: Yes Allergic/Immunologic Allergic/Immunologic: Denies urticaria Patient History Medical History Allergic rhinitis Anemia Arthritis BPH (benign prostatic hyperplasia) BPH NOS w/o ur obs/LUTS BPH w urinary obs/LUTS Chronic UTI Degenerative disc disease, lumbar Depression Diverticular disease GERD (gastroesophageal reflux disease) Gout History of UTI Hyperlipidemia Hypertension Low back pain Male circumcision Nephrolithiasis SOTERO treated with BiPAP Osteoarthritis Osteoporosis Polio Shingles Skin cancer Snoring Spinal stenosis Tingling of right upper extremity UTI (urinary tract infection) Surgical History H/O prostatectomy History of lumbar spinal fusion (10/21/18) History of vasectomy Hx of circumcision Hx of microdiscectomy (09/24/16) Previous back surgery S/P cervical spinal fusion (09/06/18) S/P excision of lipoma Status post cataract extraction of both eyes with insertion of intraocular lens Family History Mother COPD (chronic obstructive pulmonary disease) Social History marital status: number of children: 3 household members: spouse occupational status: previously employed Smoking Status: Former smoker alcohol intake: current substance use type: does not use caffeine: Yes Smoking Status: Former smoker alcohol intake frequency: a few times a month Substance Use Type: does not use Exam Initial Vital Signs Initial Vital Signs: Vital Signs Temperature 97.7 F 12/28/20 16:17 Pulse Rate 85 12/28/20 16:17 Respiratory Rate 17 12/28/20 16:17 Blood Pressure 194/91 H 12/28/20 16:17 Pulse Oximetry 97 12/28/20 16:17 Const General: cooperative and comfortable Limitations: mental status not altered HENMT Head: normal to inspection and normocephalic Chest Chest: No crepitus and No tenderness Resp Effort & Inspection: normal respiratory effort Auscultation: clear to auscultation bilaterally Cardio Rate: regular rate Rhythm: regular rhythm GI Inspection: non-distended Palpation: soft Back/Spine/Pelvis Thoracic/Lumbar Spine: paraspinal tenderness (Left thoracic region), No thoracic spinal tenderness and No lumbar spinal tenderness Skin Other: Small 1 cm area of Bruising left flank Neuro General: patient alert and patient awake Cognition: normal cognition Speech: speech normal Extrem General: capillary refill normal Psych Appearance: grossly normal and well kempt Procedures FAST Exam FAST Exam 1: Fluid in Morison's pouch: No Fluid in Splenorenal Junction: No Fluid around bladder, Transverse view: No Fluid around bladder, Sagittal view: No Fluid in Pericardial Sac: No Gross Wall Motion Abnormality: No Study normal for this patient: Yes Images saved for further review: No Course Orders Ordered: ED Orders 12/28/20 16:16 XR ribs LT min 3V w CXR1V Stat Vital Signs Vital signs: Vital Signs - 8 hr 12/28/20 16:17 12/28/20 17:49 Temperature 97.7 F 97.7 F Pulse Rate 85 63 Respiratory Rate 17 16 Blood Pressure 194/91 H 171/88 H Pulse Oximetry 97 100 MDM - Back Pain/Injury Imaging Data Rib x-ray: Radiologist's Impression: [address] [id number] ReportSigned Patient: Huey Newman DMR#: [id number]: 7Acct:[id number]/Sex: 75 / MDate of Service: 12/28/20Loc: EDAccession Number: [id number] Procedure: XR ribs LT min 3V w CXR1V Ordering Provider: David Shukla D.O. PROCEDURE: XR RIBS LT MIN 3V W CXR1V INDICATIONS: Left posterior ribs TECHNIQUE: 3 views of the left ribs were acquired, along with a single view chest. COMPARISON: None. FINDINGS: Surgical changes and devices: Cervical spine fixation hardware. Bones and chest wall: No fractures or dislocations. No suspicious bony lesions. Overlying soft tissues appear unremarkable. Lungs and pleura: No pleural effusions or pneumothorax. Lungs appear clear. Mediastinum: Mediastinal contours appear normal. Heart size is normal. IMPRESSION: No displaced rib fracture. No acute cardiopulmonary disease process. Dictated by: Noni Fernandez MD, PhD on 12/28/2020 at 16:33 Approved by: Noni Fernandez MD, PhD on 12/28/2020 at 16:34 [facility] Narrative Medical decision making narrative: Patient has a benign exam. No fractures on the x-rays. No respiratory distress. Has a small area bruising on his left flank however it is not tender to palpation. Fast exam was negative. No abdominal tenderness. Is not having any hematuria. He did not hit his head. He has no other musculoskeletal complaints. Feel we can hold on further workup for now. He was given strict return precautions and follow-up instructions. This was a mechanical fall. He expressed understanding and agreement. Discharge Plan Departure Patient Disposition: Home Clinical Impression: Contusion of flank, Fall Instructions: Contusion Activity Restrictions/Additional Instructions: Continue all of your medications as directed. Contact her primary provider for follow-up. Return to the emergency department for any new or worsening symptoms Prescriptions: No Action allopurinol 300 MG tablet 150 mg PO DAILY Qty: 0 RF: 0 pantoprazole 40 mg tablet,delayed release (DR/EC) 40 mg PO DAILY RF: 0 Eliquis 5 mg tablet 5 mg PO BID RF: 0 gabapentin 300 mg capsule 300 mg PO DAILY RF: 0 acetaminophen [Tylenol Extra Strength] 500 mg tablet 500 mg PO Q6H PRN (Reason: Pain (Scale Score 4-6)) RF: 0 ciprofloxacin HCl 500 mg tablet 500 mg PO BID Qty: 30 RF: 0 amlodipine 5 mg Tablet 5 mg PO BEDTIME RF: 0 oxycodone 5 mg Tablet 5 mg PO Q6HR PRN (Reason: Pain, Moderate (4-6)) Qty: 10 RF: 0 losartan 100 mg tablet 100 mg PO BEDTIME RF: 0 (DME) BIPAP PRO Qty: 1 RF: 0 Referrals: Maryann Wray PA-C [Primary Care Provider] -
[2020-12-28 17:49] VITALS: BP 171/88; PULSE 63; RESP 16; TEMP 36.5; O2SAT 100
== END 2020-12-28 17:51 | disposition home or self-care (01) ==
PROVIDERS: Emergency Provider Emergency Medicine; PCP Physician Assistant
DX: S30.1XXA Contusion of abdominal wall, initial encounter (principal); W18.2XXA Fall in (into) shower or empty bathtub, initial encounter; Z79.01 Long term (current) use of anticoagulants
CPT/HCPCS: 71101; 99283

== ENCOUNTER → 2021-02-04 12:00 | Outpatient (CLI) | payer MEDICARE, OTHER, SELFPAY ==
[2020-11-28 16:04] VITALS: BMI 34.2
[2021-02-04 13:33] LABS: Prostate Specific Antigen 0.738 ng/mL (0.10-4.00)
== END ==
PROVIDERS: PCP Physician Assistant; Referring Provider Specialist; Visit Provider Specialist
DX: N40.0 Benign prostatic hyperplasia without lower urinary tract symptoms (principal); N39.0 Urinary tract infection, site not specified; Z87.440 Personal history of urinary (tract) infections
CPT/HCPCS: 36415; 81002; 84153; 99213

== ENCOUNTER → 2021-02-07 14:41 | Outpatient (ROUT) | payer MEDICARE, OTHER, SELFPAY ==
[2020-11-28 16:04] VITALS: BMI 34.2
[2021-02-07 15:04] LABS: Add Manual Diff / Slide Review NO; Basophils Absolute Auto 100 /uL (0-100); Basophils Percent Auto 1.4 % (0-2); Eosinophils Absolute Auto 500 /uL (0-450); Eosinophils Percent Auto 8.9 % (2-4); Hemoglobin 12.5 g/dL (13.5-17.5); Lymphocytes Absolute Auto 1900 /uL (1100-4500); Lymphocytes Percent Auto 36.1 % (25-40); Mean Corpuscular HGB Conc 32.2 % (30-36); Mean Corpuscular Hemoglobin 26.6 PG (26-34); Mean Corpuscular Volume 82.6 fL (80-100); Monocytes Absolute Auto 500 /uL (0-900); Monocytes Percent Auto 8.7 % (3-14); Neutrophils Absolute Auto 2300 /uL (1500-7000); Neutrophils Percent Auto 44.9 % (50-75); Platelet Count 224 X10^3/uL (150-400); Red Blood Cell Count 4.72 X10^6/uL (4.5-5.9); Red Cell Distribution Width 16.5 % (11.6-14.8); White Blood Cell Count 5.2 X10^3/uL (4.5-11.0)
[2021-02-07 15:10] LABS: Alanine Aminotransferase 18 IU/L (<50); Albumin 4.2 g/dL (3.5-5.0); Albumin Globulin Ratio 1.6 (1.0-2.8); Alkaline Phosphatase 92 U/L (38-126); Aspartate Aminotransferase 29 IU/L (17-59); BUN Creatinine Ratio 21.1 (6-22); Bilirubin Total 0.6 mg/dL (0.2-1.3); Blood Urea Nitrogen 19 mg/dL (9-20); Calcium 9.9 mg/dL (8.4-10.2); Carbon Dioxide 26 mmol/L (22-32); Chloride 104 mmol/L (98-107); Cholesterol 200 mg/dL (140-199); Estimated Glomerular Filt Rate > 60.0 mL/min (>60); Globulin 2.7 g/dL (1.7-4.1); Glucose 116 mg/dL (80-110); HDL Cholesterol 80 mg/dL (40-60); HEMOLYSIS < 15 (0-50); LDL Cholesterol Calculated 102 mg/dL (<100); Potassium 4.2 mmol/L (3.4-5.1); Sodium 138 mmol/L (137-145); Total Protein 6.9 g/dL (6.3-8.2); Triglycerides 89 mg/dL (35-150)
== END ==
PROVIDERS: PCP Physician Assistant; Visit Provider Physician Assistant
DX: I10 Essential (primary) hypertension (principal); E78.2 Mixed hyperlipidemia
CPT/HCPCS: 80053; 80061; 85025

== ENCOUNTER → 2021-04-03 10:26 | Outpatient (CLI) | payer MEDICARE, OTHER, SELFPAY ==
[2020-11-28 16:04] VITALS: BMI 34.2
--- NOTE | 2021-04-03 10:29 | DI.CT.S_ITS ---
PROCEDURE: CT LUMBAR SPINE WO CON INDICATIONS: Spinal stenosis, lumbar region without neurogenic TECHNIQUE: Noncontrast 3 mm thick sections acquired from the T12 level to the sacrum. Sagittal and coronal reformats were constructed. For radiation dose reduction, the following was used: automated exposure control. COMPARISON: [facility], CT, CT LUMBAR SPINE WITHOUT CONTRAST, 07/16/2020, 12:59. [facility], MR, MR LUMBAR SPINE WO CON, 07/21/2018, 14:28. [facility], CT, CT ABDOMEN PELVIS W CON, 12/04/2020, 16:38. [facility], CR, XR LUMBAR SPINE 2 OR 3 VIEWS, 03/26/2021, 11:05. FINDINGS: Image quality: Excellent. Bones: No acute vertebral body compression fractures. No suspicious lytic or blastic bony lesions. No pars defects. Mild dextroconvex scoliotic curvature is seen. Minimal retrolisthesis is seen at T12-L1 and L1-L2. T12-L1: At least moderate loss of disc height is seen. Vacuum disc phenomenon is seen at this level. Moderate disc bulge is seen, with posteriorly directed endplate osteophytes and calcification along the posterior aspect of the annulus fibrosus, as on series 5, image 36. At least moderate bilateral neural foraminal narrowing can be seen. Moderate to severe central canal narrowing is seen. When comparison is made with the prior images, these findings are similar. L1-L2: Mild loss of disc height is seen. Vacuum disc phenomenon is seen at this level. Moderate generalized disc bulge is seen. There is at least moderate bilateral neural foraminal narrowing seen, left worse than right. Moderate central canal narrowing is seen. The amount of gas seen along the disc space has clearly increased compared to the prior. L2-L3: The disc height is well preserved. Moderate disc bulge is seen, which is eccentric to the right. There is a central disc protrusion. There is moderate right-sided and mild left-sided neural foraminal narrowing seen. At least moderate central canal narrowing is seen. When comparison is made with the prior images, these findings are similar. L3-L4: The disc height is well preserved. Moderate disc bulge is seen, with a central disc protrusion. At least moderate facet hypertrophy is seen. There is at least moderate bilateral neural foraminal narrowing seen. Moderate to severe central canal narrowing is seen at this level. These images are similar to the prior images. L4-L5: The disc height is relatively well preserved. Vacuum disc phenomenon is seen at this level. Calcification can be seen along the disc level itself. A moderate disc bulge is seen, with a central disc protrusion. There is at least moderate bilateral neural foraminal narrowing seen. At least moderate central canal narrowing is seen at this level. These degenerative changes are similar to the outside prior. L5-S1: Postoperative changes are seen at this level, with bilateral pedicle screws and vertical fixation rods. A disc spacer is seen at this level. 5 nonrib-bearing, lumbar type vertebral bodies are seen. There has been removal of portions of the posterior elements. Moderate disc bulge is seen. There is at least moderate bilateral neural foraminal narrowing seen. No significant central canal narrowing is seen. When comparison is made with the prior images, these findings are similar. Soft tissues: No retroperitoneal masses or hematomas. Visualized aorta is normal in caliber. Atherosclerotic calcification is noted. IMPRESSION: L5-S1 postoperative hardware, which is similar to the outside prior CT examination. Multiple levels of degenerative change are seen, which are similar to the prior, although the amount of gas along the L1-L2 disc level has clearly progressed compared to 2020. Dictated by: Taiwo Rosario M.D. on 04/03/2021 at 16:58 Approved by: Taiwo Rosario M.D. on 04/03/2021 at 17:05
== END ==
PROVIDERS: PCP Physician Assistant; Referring Provider Orthopaedic Surgery Orthopaedic Surgery of the Spine; Visit Provider Orthopaedic Surgery Orthopaedic Surgery of the Spine
DX: M48.061 Spinal stenosis, lumbar region without neurogenic claudication (principal)
CPT/HCPCS: 72131

== ENCOUNTER → 2021-04-05 15:57 | Outpatient (ROUT) | payer MEDICARE, OTHER, SELFPAY ==
[2020-11-28 16:04] VITALS: BMI 34.2
[2021-04-05 16:07] LABS: Add Manual Diff / Slide Review NO; Basophils Absolute Auto 100 /uL (0-100); Basophils Percent Auto 1.1 % (0-2); Eosinophils Absolute Auto 400 /uL (0-450); Eosinophils Percent Auto 6.1 % (2-4); Hematocrit 45.9 % (41-53); Hemoglobin 14.8 g/dL (13.5-17.5); Lymphocytes Absolute Auto 1500 /uL (1100-4500); Lymphocytes Percent Auto 25.3 % (25-40); Mean Corpuscular HGB Conc 32.4 % (30-36); Mean Corpuscular Volume 86.4 fL (80-100); Monocytes Absolute Auto 500 /uL (0-900); Monocytes Percent Auto 7.9 % (3-14); Neutrophils Absolute Auto 3600 /uL (1500-7000); Neutrophils Percent Auto 59.6 % (50-75); Platelet Count 226 X10^3/uL (150-400); Red Blood Cell Count 5.31 X10^6/uL (4.5-5.9); Red Cell Distribution Width 16.3 % (11.6-14.8); White Blood Cell Count 6.1 X10^3/uL (4.5-11.0)
[2021-04-05 16:35] LABS: Alanine Aminotransferase 19 IU/L (<50); Albumin 4.2 g/dL (3.5-5.0); Albumin Globulin Ratio 1.4 (1.0-2.8); Alkaline Phosphatase 104 U/L (38-126); Aspartate Aminotransferase 32 IU/L (17-59); BUN Creatinine Ratio 15.4 (6-22); Bilirubin Total 0.5 mg/dL (0.2-1.3); Blood Urea Nitrogen 14 mg/dL (9-20); Calcium 9.8 mg/dL (8.4-10.2); Carbon Dioxide 25 mmol/L (22-32); Chloride 105 mmol/L (98-107); Estimated Glomerular Filt Rate > 60.0 mL/min (>60); Globulin 2.9 g/dL (1.7-4.1); Glucose 101 mg/dL (80-110); HEMOLYSIS < 15 (0-50); Potassium 4.2 mmol/L (3.4-5.1); Sodium 138 mmol/L (137-145); Total Protein 7.1 g/dL (6.3-8.2)
== END ==
PROVIDERS: PCP Physician Assistant; Visit Provider Physician Assistant
DX: Z01.818 Encounter for other preprocedural examination (principal); E78.2 Mixed hyperlipidemia; I10 Essential (primary) hypertension
CPT/HCPCS: 80053; 85025

== ENCOUNTER 2021-05-09 09:54 | Emergency (ER) | payer MEDICARE, OTHER, SELFPAY ==
[2020-11-28 16:04] VITALS: BMI 34.2
[2021-05-09 11:01] VITALS: BP 174/79; PULSE 54; RESP 18; TEMP 36.3; O2SAT 96; BMI 34.8
[2021-05-09 11:33] LABS: Add Manual Diff / Slide Review NO; Basophils Absolute Auto 100 /uL (0-100); Basophils Percent Auto 1.1 % (0-2); Eosinophils Absolute Auto 500 /uL (0-450); Eosinophils Percent Auto 8.7 % (2-4); Hematocrit 45.6 % (41-53); Hemoglobin 15.2 g/dL (13.5-17.5); Lymphocytes Absolute Auto 1400 /uL (1100-4500); Lymphocytes Percent Auto 23.3 % (25-40); Mean Corpuscular HGB Conc 33.4 % (30-36); Mean Corpuscular Hemoglobin 28.3 PG (26-34); Mean Corpuscular Volume 84.6 fL (80-100); Monocytes Absolute Auto 400 /uL (0-900); Monocytes Percent Auto 7.2 % (3-14); Neutrophils Absolute Auto 3600 /uL (1500-7000); Neutrophils Percent Auto 59.7 % (50-75); Platelet Count 213 X10^3/uL (150-400); Red Blood Cell Count 5.39 X10^6/uL (4.5-5.9); Red Cell Distribution Width 14.3 % (11.6-14.8); White Blood Cell Count 6.1 X10^3/uL (4.5-11.0)
[2021-05-09 11:45] LABS: Alanine Aminotransferase 22 IU/L (<50); Albumin 4.5 g/dL (3.5-5.0); Albumin Globulin Ratio 1.6 (1.0-2.8); Alkaline Phosphatase 75 U/L (38-126); Aspartate Aminotransferase 30 IU/L (17-59); BUN Creatinine Ratio 16.3 (6-22); Bilirubin Total 0.7 mg/dL (0.2-1.3); Blood Urea Nitrogen 15 mg/dL (9-20); Carbon Dioxide 27 mmol/L (22-32); Chloride 106 mmol/L (98-107); Estimated Glomerular Filt Rate > 60.0 mL/min (>60); Globulin 2.8 g/dL (1.7-4.1); Glucose 131 mg/dL (80-110); HEMOLYSIS < 15 (0-50); Lipase 79 U/L (23-300); Potassium 4.4 mmol/L (3.4-5.1); Sodium 139 mmol/L (137-145); Total Protein 7.3 g/dL (6.3-8.2)
--- NOTE | 2021-05-09 12:21 | DI.RAD.S_ITS ---
PROCEDURE: XR ABDOMEN MIN 2V INDICATIONS: blocked colon TECHNIQUE: 2 views of the abdomen were acquired. COMPARISON: None. FINDINGS: Surgical changes and devices: Spinal fixation hardware and a coil projecting in the mid abdomen Bowel: No free air identified. There is diffuse mild to moderate stool. No definite transition point. No pathologically dilated bowel loops identified. Soft tissues: No masses; visualized solid organ contours appear normal in size. No suspicious abdominal calcifications. Bones: Spondylitic changes and facet arthropathy. Mild bilateral hip joint degeneration with left os acetabula. IMPRESSION: No specific evidence of bowel obstruction seen at this time although if the patient's symptoms do not improve, continued surveillance with abdominal series radiographs could be performed. Dictated by: José Miguel Duvall M.D. on 05/09/2021 at 12:45 Approved by: José Miguel Duvall M.D. on 05/09/2021 at 12:47
--- NOTE | 2021-05-09 15:24 | DI.CT.S_ITS ---
PROCEDURE: CT ABDOMEN PELVIS W CON INDICATIONS: abdominal pain TECHNIQUE: After the administration of intravenous contrast, axial sections acquired from the lung bases to the pubic symphysis. Coronal and sagittal reformats were performed. For radiation dose reduction, the following was used: automated exposure control, adjustment of mA and/or kV according to patient size. COMPARISON: [facility], CT, CT ABDOMEN PELVIS W CON, 03/01/2019, 15:41. [facility], CT, CT ABDOMEN PELVIS W CON, 12/04/2020, 16:38. FINDINGS: ABDOMEN: Lung bases: Subsegmental scattered atelectasis/scarring. Heart: Mildly enlarged. Severe coronary artery calcifications. Liver: Hepatic steatosis. Transverse band of fat attenuation seen in the right hepatic lobe is unchanged dating back to 2019. Gallbladder: Normal. Bile ducts: Normal. Pancreas: Fatty infiltration of the pancreas, with unchanged appearance. Spleen: Normal. Adrenals: Normal. 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 There is a 6 cm simple appearing right renal cyst. Additional subcentimeter renal foci, statistically cysts, although technically too small to characterize accurately and therefore nonspecific. These appear grossly unchanged. No hydronephrosis. Ureters appear decompressed. Stomach and duodenum: Normal. Bowel: Colonic diverticulosis is seen without evidence of acute complication. Appendix is not clearly identified however no suspicious pericecal inflammatory changes are seen. It may be normal on image 64/2. Other: No free fluid or air. Abdominal nodes: Normal. Aorta and IVC: Normal in size. Scattered vascular calcifications. Ventral wall: Small fat containing periumbilical hernia measuring 2 cm. PELVIS: Bladder: Normal. Inguinal region: No hernia. Pelvic nodes: Normal. Bones: Spondylytic changes and facet arthropathy. No vertebral body compression fracture. Lumbar spinal fixation hardware. IMPRESSION: Overall, no acute abnormality. No evidence of bowel obstruction. Hepatic steatosis. Incidental colonic diverticulosis. Appendix is not clearly identified however no suspicious pericecal inflammatory changes are seen. Additional chronic and incidental findings as above. Dictated by: José Miguel Duvall M.D. on 05/09/2021 at 16:19 Approved by: José Miguel Duvall M.D. on 05/09/2021 at 16:27
--- NOTE | 2021-05-09 17:40 | ED_ITS ---
HPI - Abdominal Pain <Eugenie Roy PA-C - Last Filed: 05/09/21 20:31> General Chief Complaint: Abdominal Pain Stated Complaint: blocked colon Time Seen by Provider: 05/09/21 12:21 Source: patient Mode of arrival: Ambulatory Limitations: no limitations History of Present Illness HPI narrative: 76-year-old male PMH multiple lumbar spinal surgeries, colonic embolization (with subsequent stenosis and obstruction of surgical site), s/p 4cm colon resection 12/2020 who presents to the ER with concerns for bowel obstruction. He states that today's symptoms are similar to previous episode. after colon resection in December, he reports no difficulties with abdominal pain or bowel movements. However over the last week, he report hard bowel movements, discomfort on the right abdomen, and abdominal cramping which has gradually worsened. Last BM this morning and yesterday morning which was not hard but was small volume. Has been taking Miralax for 3 nights. Denies nausea, vomiting, CP, SOB, obstipation, or urinary sxs. Related Data Home Medications Medication Instructions Recorded Confirmed allopurinol 300 mg tablet 150 mg PO DAILY #0 12/14/12 02/04/21 amlodipine 5 mg tablet 5 mg PO BEDTIME 09/03/18 02/04/21 BIPAP PRO #1 ea 01/12/19 02/04/21 losartan 100 mg tablet 100 mg PO BEDTIME 03/01/19 02/04/21 acetaminophen 500 mg tablet 500 mg PO Q6H PRN 11/23/20 02/04/21 (Tylenol Extra Strength) apixaban 5 mg tablet (Eliquis) 5 mg PO BID 11/23/20 02/04/21 gabapentin 300 mg capsule 300 mg PO DAILY 11/23/20 02/04/21 pantoprazole 40 mg tablet,delayed 40 mg PO DAILY 11/23/20 02/04/21 release Previous Rx's Medication Instructions Recorded oxycodone 5 mg tablet 5 mg PO Q6HR PRN #10 tab 12/27/19 ciprofloxacin HCl 500 mg tablet 500 mg PO BID #30 tab 11/30/20 Allergies Allergy/AdvReac Type Severity Reaction Status Date / Time tamsulosin Allergy Severe Difficulty Verified 12/04/20 16:21 Breathing cefuroxime [From Ceftin] Allergy Unknown Verified 12/04/20 16:21 doxazosin AdvReac Intermediate SOB, Verified 12/04/20 16:21 fever, extreme fatigue, cough, flu-like symptoms lisinopril AdvReac Mild COUGH, Verified 12/04/20 16:21 Palpitations cyclobenzaprine AdvReac Unknown Drowsy Verified 12/04/20 16:21 [From Flexeril] ezetimibe [From Vytorin] AdvReac Unknown Back Pain Verified 12/04/20 16:21 hydrocodone [HYDROCODONE] AdvReac Unknown CONSTIPATIO Verified 07/06/19 10:18 N pravastatin [From Pravachol] AdvReac Unknown Back Pain Verified 12/04/20 16:21 simvastatin [From Vytorin] AdvReac Unknown Back Pain Verified 12/04/20 16:21 Review of Systems <Eugenie Roy PA-C - Last Filed: 05/09/21 20:31> Review of Systems Narrative: General: denies fever, chills Head/Neck: denies headache, neck pain Eyes: denies visual changes, eye pain Cardio: denies chest pain, palpitations Respiratory: denies shortness of breath, cough GI: See HPI : denies dysuria, hematuria MSK: denies joint pain, muscle weakness Skin: denies rash, itching Neuro: denies LOC, numbness, tingling, loss of sensory/motor function Patient History <Eugenie Roy PA-C - Last Filed: 05/09/21 20:31> Medical History Allergic rhinitis Anemia Arthritis BPH (benign prostatic hyperplasia) BPH NOS w/o ur obs/LUTS BPH w urinary obs/LUTS Chronic pain syndrome Chronic UTI DDD (degenerative disc disease), lumbosacral Degenerative disc disease, lumbar Depression Diverticular disease GERD (gastroesophageal reflux disease) Gout History of UTI Hyperlipidemia Hypertension Low back pain Male circumcision Nephrolithiasis SOTERO treated with BiPAP Osteoarthritis Osteoporosis Polio Shingles Skin cancer Snoring Spinal stenosis Tingling of right upper extremity UTI (urinary tract infection) Surgical History H/O prostatectomy History of lumbar spinal fusion (10/21/18) History of lumbar spinal fusion History of vasectomy Hx of circumcision Hx of microdiscectomy (09/24/16) Previous back surgery S/P cervical spinal fusion (09/06/18) S/P excision of lipoma Status post cataract extraction of both eyes with insertion of intraocular lens Family History Mother COPD (chronic obstructive pulmonary disease) Social History marital status: number of children: 3 household members: spouse occupational status: previously employed Smoking Status: Former smoker alcohol intake: current substance use type: does not use caffeine: Yes Smoking Status: Former smoker alcohol intake frequency: a few times a month Substance Use Type: does not use Exam <Eugenie Roy PA-C - Last Filed: 05/09/21 20:31> Narrative Exam Narrative: Independently reviewed vitals signs and nursing notes. General: Awake, alert, nontoxic, no cardiorespiratory distress Head/Neck: Atraumatic, neck full range of motion Eyes: EOMI, conjunctiva normal Nose: nares patent, no rhinorrhea Cardio: Regular rate and rhythm, no peripheral edema Respiratory: CTAB unlabored without wheezing, stridor, or rales. No retractions. GI: Abdomen soft, mild right sided TTP, nondistended, no guarding or rebound tenderness. MSK: Moves all extremities, neurovascularly intact Skin: Normal capillary refill, no rash Neuro: Normal speech and cognition, normal gait Initial Vital Signs Initial Vital Signs: Vital Signs Temperature 97.3 F L 05/09/21 11:01 Pulse Rate 54 L 05/09/21 11:01 Respiratory Rate 18 05/09/21 11:01 Blood Pressure 174/79 H 05/09/21 11:01 Pulse Oximetry 96 05/09/21 11:01 <Marialuisa Coronado DO - Last Filed: 05/09/21 21:51> Initial Vital Signs Initial Vital Signs: Vital Signs Temperature 97.3 F L 05/09/21 11:01 Pulse Rate 54 L 05/09/21 11:01 Respiratory Rate 18 05/09/21 11:01 Blood Pressure 174/79 H 05/09/21 11:01 Pulse Oximetry 96 05/09/21 11:01 Course <Eugenie Roy PA-C - Last Filed: 05/09/21 20:31> Orders Ordered: ED Orders 05/09/21 15:24 CT abdomen pelvis w con Stat Vital Signs Vital signs: Vital Signs - 8 hr 05/09/21 18:01 Pulse Rate 73 Respiratory Rate 18 Blood Pressure 168/85 H Pulse Oximetry 97 <Marialuisa Coronado DO - Last Filed: 05/09/21 21:51> Orders Ordered: ED Orders 05/09/21 15:24 CT abdomen pelvis w con Stat Vital Signs Vital signs: Vital Signs - 8 hr 05/09/21 18:01 Pulse Rate 73 Respiratory Rate 18 Blood Pressure 168/85 H Pulse Oximetry 97 MDM - Abdominal Pain <Eugenie Roy PA-C - Last Filed: 05/09/21 20:31> Lab Data Result diagrams: 05/09/21 11:21 05/09/21 11:21 Labs: Lab Results 05/09/21 05/09/21 Range/Units 11:21 11:21 WBC 6.1 (4.5-11.0) X10^3/uL RBC 5.39 (4.5-5.9) X10^6/uL Hgb 15.2 (13.5-17.5) g/dL Hct 45.6 (41-53) % MCV 84.6 (80-100) fL MCH 28.3 (26-34) PG MCHC 33.4 (30-36) % RDW 14.3 (11.6-14.8) % Plt Count 213 (150-400) X10^3/uL Neut % (Auto) 59.7 (50-75) % Lymph % (Auto) 23.3 L (25-40) % [place] % (Auto) 7.2 (3-14) % Eos % (Auto) 8.7 H (2-4) % Baso % (Auto) 1.1 (0-2) % Neut # (Auto) 3600 (2779-6493) /uL Lymph # (Auto) 1400 (7956-7905) /uL [place] # (Auto) 400 (0-900) /uL Eos # (Auto) 500 H (0-450) /uL Baso # (Auto) 100 (0-100) /uL Sodium 139 (137-145) mmol/L Potassium 4.4 (3.4-5.1) mmol/L Chloride 106 (98-107) mmol/L Carbon Dioxide 27 (22-32) mmol/L BUN 15 (9-20) mg/dL Creatinine 0.92 (0.66-1.25) mg/dL Estimated GFR > 60.0 (>60) mL/min BUN/Creatinine Ratio 16.3 (6-22) Glucose 131 H (80-110) mg/dL Calcium 10.0 (8.4-10.2) mg/dL Total Bilirubin 0.7 (0.2-1.3) mg/dL AST 30 (17-59) IU/L ALT 22 (<50) IU/L Alkaline Phosphatase 75 (38-126) U/L Total Protein 7.3 (6.3-8.2) g/dL Albumin 4.5 (3.5-5.0) g/dL Globulin 2.8 (1.7-4.1) g/dL Albumin/Globulin Ratio 1.6 (1.0-2.8) Lipase 79 (23-300) U/L Imaging Data CT scan - abdomen/pelvis: Radiologist's Impression: IMPRESSION: Overall, no acute abnormality. No evidence of bowel obstruction. Hepatic steatosis. Incidental colonic diverticulosis Appendix is not clearly identified however no suspicious pericecal inflammatory changes are seen. Additional chronic and incidental findings as above. Dictated by: José Miguel Duvall M.D. on 05/09/2021 at 16:19 Approved by: José Miguel Duvall M.D. on 05/09/2021 at 16:27 Abdominal x-ray: Radiologist's Impression: IMPRESSION: No specific evidence of bowel obstruction seen at this time although if the patient's symptoms do not improve, continued surveillance with abdominal series radiographs could be performed. Dictated by: José Miguel Duvall M.D. on 05/09/2021 at 12:45 Approved by: José Miguel Duvall M.D. on 05/09/2021 at 12:47 MDM Narrative Medical decision making narrative: 76-year-old male PMH multiple lumbar spinal surgeries, colonic embolization (with subsequent stenosis and obstruction of surgical site), s/p 4cm colon resection 12/2020 who presents to the ER with concern for bowel obstruction. Initial ddx to include but not limited to SBO/LBO, surgical complications, appendicitis, biliary pathology, hepatitis, constipation/stool impaction. Vitals reviewed hypertensive 174/79, exam with mi ld right-sided abdominal discomfort without guarding, distention. ED workup to include CBC, CMP, lipase unremarkable for acute abnormality. Abdominal x-ray and CT abdomen/pelvis performed today with no acute abnormalities or bowel obstruction. Findings of hepatic steatosis, colonic diverticulosis noted. No specific etiology for abdominal pain however history could be consistent with mild constipation. Patient appropriate and amenable to discharge home. <Marialuisa Coronado, - Last Filed: 05/09/21 21:51> Lab Data Labs: Lab Results 05/09/21 05/09/21 Range/Units 11:21 11:21 WBC 6.1 (4.5-11.0) X10^3/uL RBC 5.39 (4.5-5.9) X10^6/uL Hgb 15.2 (13.5-17.5) g/dL Hct 45.6 (41-53) % MCV 84.6 (80-100) fL MCH 28.3 (26-34) PG MCHC 33.4 (30-36) % RDW 14.3 (11.6-14.8) % Plt Count 213 (150-400) X10^3/uL Neut % (Auto) 59.7 (50-75) % Lymph % (Auto) 23.3 L (25-40) % [place] % (Auto) 7.2 (3-14) % Eos % (Auto) 8.7 H (2-4) % Baso % (Auto) 1.1 (0-2) % Neut # (Auto) 3600 (1739-3322) /uL Lymph # (Auto) 1400 (4933-1446) /uL [place] # (Auto) 400 (0-900) /uL Eos # (Auto) 500 H (0-450) /uL Baso # (Auto) 100 (0-100) /uL Sodium 139 (137-145) mmol/L Potassium 4.4 (3.4-5.1) mmol/L Chloride 106 (98-107) mmol/L Carbon Dioxide 27 (22-32) mmol/L BUN 15 (9-20) mg/dL Creatinine 0.92 (0.66-1.25) mg/dL Estimated GFR > 60.0 (>60) mL/min BUN/Creatinine Ratio 16.3 (6-22) Glucose 131 H (80-110) mg/dL Calcium 10.0 (8.4-10.2) mg/dL Total Bilirubin 0.7 (0.2-1.3) mg/dL AST 30 (17-59) IU/L ALT 22 (<50) IU/L Alkaline Phosphatase 75 (38-126) U/L Total Protein 7.3 (6.3-8.2) g/dL Albumin 4.5 (3.5-5.0) g/dL Globulin 2.8 (1.7-4.1) g/dL Albumin/Globulin Ratio 1.6 (1.0-2.8) Lipase 79 (23-300) U/L ECG Data Interpretation: Sinus bradycardia sinus arrhythmia, rate of 53. HI 2 4 QRS 114 and QTC of 410. Nonspecific change. Prior EKG from 12/04/2020. Discharge Plan Departure Patient Disposition: Home Clinical Impression: Right-sided abdominal pain of unknown cause Constipation Qualifiers: Constipation type: unspecified constipation type Qualified Code(s): K59.00 - Constipation, unspecified Instructions: DI for Abdominal Pain-Adult Activity Restrictions/Additional Instructions: *You have been diagnosed with [right-sided abdominal pain with unknown etiology] *Lab work, CT scan of your abdomen and pelvis did not reveal any acute abnormalities. *What to do: [ ] New medication prescriptions sent to your pharmacy: [ ] [ ] New medication written as a paper prescription [X] No new medications given * Continue MiraLax, maintain adequate fluid hydration, and follow-up with PCP and/or specialist. Please follow-up with your primary care provider in 2-3 days, call for an appointment. Let them know you were seen in the emergency department and that we ask you to be seen in follow-up. * if you do not have a primary care provider, please contact the [facility] Resource line at [phone]. They will ask some questions about your medical history and help to get up with a doctor in the community. * Return to the if you should have any new, worsening, or concerning symptoms, such as [fever, worsened pain, vomiting, inability to pass stool or gas]. Prescriptions: No Action allopurinol 300 MG tablet 150 mg PO DAILY Qty: 0 RF: 0 pantoprazole 40 mg tablet,delayed release (DR/EC) 40 mg PO DAILY RF: 0 Eliquis 5 mg tablet 5 mg PO BID RF: 0 gabapentin 300 mg capsule 300 mg PO DAILY RF: 0 acetaminophen [Tylenol Extra Strength] 500 mg tablet 500 mg PO Q6H PRN (Reason: Pain (Scale Score 4-6)) RF: 0 ciprofloxacin HCl 500 mg tablet 500 mg PO BID Qty: 30 RF: 0 amlodipine 5 mg Tablet 5 mg PO BEDTIME RF: 0 oxycodone 5 mg Tablet 5 mg PO Q6HR PRN (Reason: Pain, Moderate (4-6)) Qty: 10 RF: 0 losartan 100 mg tablet 100 mg PO BEDTIME RF: 0 (DME) BIPAP PRO Qty: 1 RF: 0 Referrals: Gian Flores MD [Non-Staff] - 3-5 days Maryann Wray PA-C [Primary Care Provider] - Dale Rodriguez MD [Physician] -
[2021-05-09 18:01] VITALS: BP 168/85; PULSE 73; RESP 18; O2SAT 97
== END 2021-05-09 18:01 | disposition home or self-care (01) ==
PROVIDERS: Emergency Medicine; Emergency Provider Physician Assistant; PCP Physician Assistant
DX: R10.9 Unspecified abdominal pain (principal); K59.00 Constipation, unspecified; Z87.19 Personal history of other diseases of the digestive system
CPT/HCPCS: 74019; 74177; 80053; 83690; 85025; 93005; 99282; 99284; Q9967

== ENCOUNTER → 2021-06-18 11:18 | Outpatient (CLI) | payer MEDICARE, OTHER, SELFPAY ==
[2020-11-28 16:04] VITALS: BMI 34.2
[2021-06-18 12:13] LABS: Add Manual Diff / Slide Review NO; Basophils Absolute Auto 100 /uL (0-100); Eosinophils Absolute Auto 400 /uL (0-450); Eosinophils Percent Auto 6.6 % (2-4); Hematocrit 43.6 % (41-53); Hemoglobin 14.5 g/dL (13.5-17.5); Lymphocytes Absolute Auto 1600 /uL (1100-4500); Lymphocytes Percent Auto 26.4 % (25-40); Mean Corpuscular HGB Conc 33.4 % (30-36); Mean Corpuscular Hemoglobin 28.4 PG (26-34); Mean Corpuscular Volume 85.2 fL (80-100); Monocytes Absolute Auto 600 /uL (0-900); Monocytes Percent Auto 9.6 % (3-14); Neutrophils Absolute Auto 3400 /uL (1500-7000); Neutrophils Percent Auto 56.4 % (50-75); Platelet Count 234 X10^3/uL (150-400); Red Blood Cell Count 5.11 X10^6/uL (4.5-5.9); Red Cell Distribution Width 14.3 % (11.6-14.8)
[2021-06-18 12:25] LABS: Blood Urea Nitrogen 17 mg/dL (9-20); Calcium 9.9 mg/dL (8.4-10.2); Carbon Dioxide 27 mmol/L (22-32); Chloride 105 mmol/L (98-107); Estimated Glomerular Filt Rate > 60.0 mL/min (>60); Glucose 89 mg/dL (80-110); HEMOLYSIS < 15 (0-50); Sodium 139 mmol/L (137-145)
== END ==
PROVIDERS: PCP Physician Assistant; Referring Provider Orthopaedic Surgery Orthopaedic Surgery of the Spine; Visit Provider Orthopaedic Surgery Orthopaedic Surgery of the Spine
DX: Z01.818 Encounter for other preprocedural examination (principal); Z01.812 Encounter for preprocedural laboratory examination
CPT/HCPCS: 36415; 80048; 85025; 93005; 93010

== ENCOUNTER → 2021-06-24 11:36 | Outpatient (CLI) | payer MEDICARE, OTHER, SELFPAY ==
[2020-11-28 16:04] VITALS: BMI 34.2
[2021-06-24 14:00] LABS: COVID19 -Nasal RAPID Negative (Negative)
== END ==
PROVIDERS: PCP Physician Assistant; Visit Provider Nurse Practitioner
DX: Z01.812 Encounter for preprocedural laboratory examination (principal); Z20.822 Contact with and (suspected) exposure to COVID-19
CPT/HCPCS: 87635; C9803

== ENCOUNTER 2021-06-26 06:05 | Inpatient (IN) | payer MEDICARE, OTHER, SELFPAY ==
[2020-11-28 16:04] VITALS: BMI 34.2
[2021-06-17 09:40] VITALS: BMI 35.4
[2021-06-26] VITALS (17 sets, daily range): BP systolic 142–168; BP diastolic 78–100; PULSE 53–95; RESP 14–20; TEMP 35.8–36.8; O2SAT 94–98; BMI 34.8
[2021-06-26] MEDS: LACTATED RINGERS 1,000 ML 42 ML IV ×2 (07:25→09:22)
--- NOTE | 2021-06-26 07:33 | PM.PREOP ---
Pre-operative Note COVID-19 COVID-19 status: Negative Result date/Date tested (Pos, Neg/Pending): 06/24/21 Interval Note History & Physical reviewed/Exam performed by Physician: Yes Changes to H&P: No
[2021-06-26] MEDS: CEFAZOLIN 1 GM VIAL 2 GM IV ×3 (08:00→23:33)
--- NOTE | 2021-06-26 08:25 | SUR.OPER ---
Prone on spine table, head in foam head support, padded chest and pelvic supports, gel pad at knees, lower legs supported by pillows; nipples, genitalia and toes free of pressure, arms secured on foam padded arm boards at <90 degrees abduction. Tape over blanket at thigh secured to table. Gel pad between heels, at sides of abdomen bilaterally and on mars retractor.
[2021-06-26] MEDS: BUPIVACAINE LIPOSOME 266 MG/20 ML VIAL INJ (08:35)
[2021-06-26] MEDS: BUPIVACAINE 0.25% (PF) VIAL 30 ML INJ (08:37)
--- NOTE | 2021-06-26 10:50 | DI.RAD.S_ITS ---
PROCEDURE: XR LUMBAR SPINE 2-3V INDICATIONS: L-4, L-5 TLIF TECHNIQUE: 2 views of the lumbar spine were acquired. COMPARISON: [facility], ROLAN, XR LUMBAR SPINE 2-3V, 10/21/2018, 13:43. [facility], ROLAN, L-SPINE 2-3 VIEWS, 09/24/2016, 18:16. FINDINGS: Bones: Immediate postoperative lumbosacral spine evaluation over the lower half of the LS spine shows extension of a previously present set of posterior transverse screws and vertical fixation rods that had been crossing L5-S1 and now involve L4 through S1. A new interbody disc cage fixation device is present at L4-5 in the previously present 1 at L5-S1 is unchanged. Soft tissues: Overlying bowel gas pattern is normal. No suspicious soft tissue calcifications. IMPRESSION: Extension of prior surgical intervention at the low lumbosacral spine as discussed. Normal alignment established. Dictated by: Mateo Delgado M.D. on 06/26/2021 at 11:11 Approved by: Mateo Delgado M.D. on 06/26/2021 at 11:12
--- NOTE | 2021-06-26 10:54 | PM.OP.1 ---
Operative Date/Time/Diagnoses Date of procedure: 06/26/21 Time of procedure: 08:00 Pre-op diagnosis: 1. L4-5, L5-S1 spinal stenosis 2. L4-5, L5-S1 spondylosis with radiculopathy 3. Hx of L5-S1 fusion Post-op diagnosis: same Procedure & Clinicians Procedure: 1. L4-5 posterolateral and posterior interbody fusion 2. L4-5 posterior interbody cage placement 3. L5-S1 posterior non-segmental instrumentation removal 4. L5-S1 revision laminectomy with exploration of fusion 5. L4-5, L5-S1 posterior segmental instrumentation with pedicle screw placement 6. L5-S1 posterolatearl fusion 7. Reading of bone marrow from iliac crest through a separate incision 8. Utilization of microsurgical technique and operating microscope Same procedure as scheduled: Yes Indications: Patient has been having chronic back pain and worsening lumbar radiculopathy. Patient failed multiple conservative management with worsening pain weakness and numbness in her lower extremity. Patient has been having difficulty performing activity of daily living. After discussing risks benefits of treatment options, patient elected proceed with surgery. Surgeon: Ana M Alas Supervisor Fabrication Department: Bruce Niño Click Yes if Unassisted: No Anesthesia Type: General Operative Notes Closure Type: primary Specimen(s): none sent Prosthetic devices, grafts, tissues, transplants, or devices: Globus revolve screws, Rise cage Applied: catheter Estimated Blood Loss (mL): 100 Blood products transfused: none Procedure in detail: Patient was seen in the preoperative area. Risks and benefits of the surgery was discussed with the patient. Informed consent was obtained from the patient and placed in the chart. Surgical site was marked. Patient was taken to the operative room. General anesthesia was administered. Prophylactic antibiotic was given to the patient less than 30 min before the incision was made. Patient was placed into a prone position on the Bryce table. Patient's back was then prepped and draped in the sterile fashion. Time-out was performed at this time. Using patient's previous scar incision was made over the L4-5 L5-S1 interval on the left side. Fascia was incised in line with skin incision. Patient's previously placed hardware over the L5-S1 level was identified by dissecting down to the level the hardware using a Bovie and a Neal. The locking caps which was removed using globus screwdriver. The locking jose was then removed from the tulips of the pedicle screws using a Rivera. The pedicle screws were then removed using the screwdriver. The screws were found to have good purchase. The Globus and MARS retractors was then placed into the wound and docked onto the L4 lamina using C-arm guidance. Using microsurgical technique and operating microscope a laminectomy facetectomy was performed by removing the L4 lamina and the L4-5 facet. The disc space at L4-5 level was identified next. And a total diskectomy was performed at L4-5 level. The endplates were decorticated using a rasp and shaver. The total diskectomy and decortication was performed at L4-5 level in order to to accomplish a L4-5 fusion. The local bone from the laminectomy and facetectomy was saved for local bone grafting. After the total diskectomy and decortication was completed, Trifecta bone graft material was combined with local bone that was harvested earlier. At this time, a separate skin is incision was made over the iliac crest. A Jamshidi needle was inserted into the iliac crest through a separate skin incision. 5 cc of bone marrow aspiration was obtained through the separate skin incision using a Jamshidi needle from the iliac crest. The bone marrow aspiration was combined with local bone and the Trifecta bone grafting material. The bone grafting material was placed into the L4-5 interbody space along with a expandable cage. The cage was expanded to its maximum height using the torque limiting screwdriver. At this time a mirror image incision was made on the right side. The fascia was incised in line with the skin incision. Patient's previously placed hardware on the left side was then removed in the same fashion as it was on the right side. The hardware was also found to have good purchase. The fusion mass on the left side was exposed by performing a right-sided hemilaminectomy at L5-S1 level. The hemilaminectomy was performed using the Kerrison rongeur to undercut the lamina at L5-S1 as well removing additional epidural scar tissue for purpose of decompressing the epidural space. The fusion mass was explored and was found have visible motion indicating pseudoarthrosis. Globus MARS retractor was inserted and docked onto the L4-5 L5-S1 posterolateral gutter. Using the power drill, posterior-lateral decortication was performed at L4-5 L5-S1 level until bleeding cortical bone was identified. The remaining bone grafting material was placed into the L4-5 L5-S1 posterior lateral gutter he order to accomplish posterolateral fusion at the L4-5 L5-S1 level. Using the double C-arm technique, pedicle screws were placed into the L4-L5 and S1 pedicles bilaterally. This was done by placing the Jamshidi needle into the pedicles, then placing the guidewires over the Jamshidi needle, and finally placing the cannulated screws over the guidewires bilaterally. After the pedicle screws were placed, 2 titanium rods was locked into the heads of the pedicle screws using locking caps and torque limiting screwdriver. After all the hardware was placed, and confirmed with AP and lateral C-arm imaging, the wound was then irrigated with sterile normal saline and packed with Ray-Fili gauze for 3 min to accomplish hemostasis. After the gauze was removed the deep fascia was closed with #1 Vicryl suture. The subcutaneous layer was closed with 2-0 Vicryl. The skin was closed with skin tara. Patient tolerated the procedure well. There were no complications. Complications: none Post-operative Condition: stable Disposition: PACU Plan for aftercare: Admit to inpatient hospital
[2021-06-26] MEDS: fentaNYL 100 MCG/2 ML INJ IV ×2 (11:20→11:27)
[2021-06-26] MEDS: OXYCODONE/ACETAMINOPHEN 5/325 TABLET 1 TAB PO (11:54)
[2021-06-26] MEDS: SODIUM CHLORIDE 0.9% 1,000 ML 100 ML IV ×2 (12:49→23:11)
--- NOTE | 2021-06-26 14:46 | PC.NURSE ---
On unit at 11:45 from PACU. A&Ox4. BP elevated, 159/92, HR 91, Temp 96.8, O2 94 with 2L nasal cannula. B. 5/10 pain but moving around well. Had an appetite and ate most of his lunch. Denies n/v. Peripheral pulses strong, cap refill <2 sec. Full sensation BLE. [place] catheter draining clear yellow urine, 1200 cc this shift. Some bleeding around the urethral meatus. Call light within reach, bed low.
--- NOTE | 2021-06-26 15:43 | OT.IPNOTE ---
Attempted OT eval and pt wanting to wait til tomorrow for OT eval. Able to get prior level of function and home set-up, no charge.
[2021-06-26] MEDS: ACETAMINOPHEN 325 MG TABLET 650 MG PO (16:52)
--- NOTE | 2021-06-26 17:25 | PT.IPTN ---
Current Diagnoses Other spondylosis with radiculopathy, lumbosacral region (06/26/21) Spinal stenosis, lumbar region without neurogenic claudication (06/26/21) Arthrodesis status (06/26/21) Surgery Performed Operation Date: 06/26/21 07:45 Actual Procedures p L4-5 TLIF,L5-S1 lumbar HWR,exploration of fusion,repeat laminectomy,reinsertion of hardware, L4-S1 PSF w/instrumentation - Ana M Alas MD Physical Therapy Treatment Note M3 PT-IP Subjective Start: 06/26/21 17:21 Freq: NEEDED Status: Active Protocol: Document 06/26/21 15:40 AB (Rec: 06/26/21 17:25 AB [id number]) Subjective Physical Therapy Visit Type Type Patient Refusal Notes pt refused PT and stated that he is still sore/tired from the surgery and wants to do PT tomorrow. obtained PLOF and home set up.
[2021-06-26] MEDS: DOCUSATE 100 MG CAPSULE PO (20:38)
[2021-06-26] MEDS: SENNOSIDES 8.6 MG TABLET 17.2 MG PO (20:38)
[2021-06-26] MEDS: AMLODIPINE 5 MG TABLET PO (20:38)
[2021-06-26] MEDS: GABAPENTIN 300 MG CAPSULE PO (20:38)
[2021-06-26] MEDS: allopurinoL 300 MG TABLET 150 MG PO (20:38)
[2021-06-26] MEDS: LOSARTAN 50 MG TABLET 100 MG PO (20:38)
[2021-06-26] MEDS: OXYCODONE IR 5 MG TABLET 10 MG PO (22:00)
[2021-06-26] MEDS: hydrOXYzine pamoate 25 MG CAPSULE PO (23:38)
--- NOTE | 2021-06-27 02:53 | PC.NURSE ---
Addendum entered by Lesa Mir R.N. 06/27/21 05:33: Slept most of night. States he is having sciatic nerve pain this morning with severity of 2-3/10; medicated with Tylenol but declined ice pack. Urine in catheter tubing is cassandra this morning. Original Note: Patient assessed at start of shift. Is alert and oriented. Breath sounds CTA with RA sat (on CPAP) was 95%. HRR w/elevated BP of 148/85; has been trending high. Denied nausea. BT present and is passing flatus. Indwelling catheter patent; urine is valdez red. Is able to turn himself in bed. Dressing to back intact with shadow drainage. Gait not assessed at this time but denies any weakness; evening RN reported he was up on their shift with walker and 1 assist. Stated pain was 2-3/10 so was medicated with Vistaril and has been mostly asleep since that time. Is wearing bilateral foot SCD's. Denies any tingling/numbness in extremities. Fall risk score is moderate and bed alarm is activated.
[2021-06-27 05:25] VITALS: BP 136/82; PULSE 68; RESP 16; TEMP 36.9; O2SAT 94
[2021-06-27] MEDS: ACETAMINOPHEN 325 MG TABLET 650 MG PO (05:29)
[2021-06-27 08:00] VITALS: BP 140/76; PULSE 66; RESP 16; TEMP 36.4; O2SAT 94
[2021-06-27] MEDS: GABAPENTIN 300 MG CAPSULE PO (09:12)
[2021-06-27] MEDS: DOCUSATE 100 MG CAPSULE PO (09:12)
--- NOTE | 2021-06-27 09:14 | OT.IP.EVAL ---
Current Diagnoses Other spondylosis with radiculopathy, lumbosacral region (06/26/21) Spinal stenosis, lumbar region without neurogenic claudication (06/26/21) Arthrodesis status (06/26/21) Surgery Performed Operation Date: 06/26/21 07:45 Actual Procedures p L4-5 TLIF,L5-S1 lumbar HWR,exploration of fusion,repeat laminectomy,reinsertion of hardware, L4-S1 PSF w/instrumentation - Ana M Alas MD Past Medical History (Last Updated 06/17/21 @ 10:11 by Nicolle Ren, RN) Allergic rhinitis Anemia Arthritis BPH (benign prostatic hyperplasia) BPH NOS w/o ur obs/LUTS BPH w urinary obs/LUTS Chronic pain syndrome Chronic UTI DDD (degenerative disc disease), lumbosacral Degenerative disc disease, lumbar Depression Diverticular disease GERD (gastroesophageal reflux disease) Gout H/O prostatectomy Hemorrhage (09/05/20) History of colon resection (12/2020) History of colonoscopy (06/05/21) History of lumbar spinal fusion (10/21/18) History of lumbar spinal fusion History of surgery (09/05/20) History of UTI History of vasectomy Hx of circumcision Hx of microdiscectomy (09/24/16) Hx of transurethral resection of prostate (12/26/19) Hyperlipidemia Hypertension Low back pain Male circumcision Nephrolithiasis SOTERO treated with BiPAP Osteoarthritis Osteoporosis Polio Previous back surgery Pulmonary embolism (09/05/20) S/P cervical spinal fusion (09/06/18) S/P excision of lipoma Shingles Skin cancer Snoring Spinal stenosis Status post cataract extraction of both eyes with insertion of intraocular lens Tingling of right upper extremity UTI (urinary tract infection) Surgical History (Last Updated 06/17/21 @ 10:18 by Nicolle Ren RN) H/O prostatectomy History of colon resection (12/2020) History of colonoscopy (06/05/21) History of lumbar spinal fusion (10/21/18) History of lumbar spinal fusion History of surgery (09/05/20) History of vasectomy Hx of circumcision Hx of microdiscectomy (09/24/16) Hx of transurethral resection of prostate (12/26/19) Previous back surgery S/P cervical spinal fusion (09/06/18) S/P excision of lipoma Status post cataract extraction of both eyes with insertion of intraocular lens Occupational Therapy Inpatient Evaluation/Re-Eval M1 PT/OT-IP Prior Functional Status Start: 06/26/21 17:21 Freq: NEEDED Status: Active Protocol: Document 06/27/21 08:40 [facility] (Rec: 06/27/21 10:26 [facility] [id number]) Medical Review Prior Functional Status Medical History Reviewed Yes Communication able to make needs known Mobility and Gait pt stated that he is modified independent with all mobilities and ambulation without AD but has been using his SPC on and off for the last 1-2 weeks Activities of Daily Living and IADL's Pt states able to do all ADL and IADl needs on his own with increased time or having to sit down due to his back pain. Social History Household Members spouse Living Arrangements House Number of Floors (Floors) One Floor Number of Stairs To Enter/Railing? 2 steps without rails Home Environment High Toilet,Tub/Shower Home Equipment Front Wheel Walker,Four Wheel Walker,Straight Cane,Shower Seat without Backrest,Hand Held Shower,Long Handled Shoe Horn,Residence Life Director,Sock Aid,Grab Bars Near Toilet,Grab Bars In Shower Additional Social History Comment stated that his daughter (has special needs) can also assist him if needed has a hurrycane and an adjustable bed M2 OT-IP Current Condition Start: 06/27/21 10:13 Freq: Status: Active Protocol: Document 06/27/21 08:40 [facility] (Rec: 06/27/21 10: [facility] [id number]) Occupational Therapy Current Condition Current Condition Evaluation Date 06/27/21 Treatment Diagnosis S/p L4-5 TLIF, L5-S1 lumbar HWR, reinsert of HWR L4-S1 PSF Diagnosis Onset Date 06/26/21 Post Operative Precautions Lumbar Precautions Log Roll,No Twisting,Limit Bending,Lifting Restriction of 10 lbs,Gait Belt above Incisional Area M3 OT- IP Subjective and Pain Start: 06/27/21 10:13 Freq: Status: Active Protocol: Document 06/27/21 08:40 [facility] (Rec: 06/27/21 10:26 [facility] [id number]) OT- Subjective Occupational Therapy Visit Type Type Initial Evaluation Visit Start Time 08:40 Visit Stop Time 09:14 Total Visit Minutes 34 Occupational Therapy Visit Comments Patient Comments Pt agreed to get up and dressed . Patient/Caregiver Goals To go home. OT Pain Assessment Pain When Pain Assessed At Rest Pain Present Pain Present Pain Reported Location back/left leg Intensity 1 M4 OT- IP ADL's Start: 06/27/21 10:13 Freq: Status: Active Protocol: Document 06/27/21 08:40 [facility] (Rec: 06/27/21 10:26 [facility] [id number]) OT [id number] Comments OT Self-Feeding Comments Not at meal time. OT ADL-Grooming Comments OT Grooming Comments Pt states already completed. OT ADL-Oral Care Comments Oral Care Comments Educated best to spit into a cup or hinge at his hips while spitting out into the sink to best follow his back precautions. OT ADL-Dressing General Eval Lower Body Dressing Ability Minimal Assistance Areas Needing Assistance Shoes Comments OT Dressing Comments Pt able to use sock aid and field operations farm manager to assist with is dressing needs. Pt needing cues to use the sock aid. Pt needing assist to tie his shoes. OT ADL-Toileting Comments OT Toileting Comments [place] just taken out by nursing . Blood stain on green pad noted and nursing notified. OT ADL-Bathing Comments OT Bathing Comments Pt states to shower at home. M5 OT- IP IADL's Start: 06/27/21 10:13 Freq: Status: Active Protocol: Document 06/27/21 08:40 [facility] (Rec: 06/27/21 10: [facility] [id number]) OT-Instrumental Activities of Daily Living Home Safety Awareness Home Safety Comments Pt states will have his assist him as needed. M6 OT- IP Functional Cognition Start: 06/27/21 10:13 Freq: Status: Active Protocol: Document 06/27/21 08:40 [facility] (Rec: 06/27/21 10:26 [facility] [id number]) Cognitive Factors Limiting Selfcare Function Cognitive Ability Level of Alertness Alert Patient Orientation Name,Age,Birthday,Month,Date, Year,Day of Week,Place, Situation Attention Span Ability Capable of Focused Attention, Capable of Sustained Attention Ability to Follow Commands Able to Follow One Step Commands Safety Awareness Decreased Ability to Apply Precautions,Underestimates Need for Assistance Cognitive Comments Cognitive Assessment Comments Pt needing cues to slow down and to be sure to follow his back precautions. OT- Vision and Hearing OT- Hearing Assessment OT- Hearing Assessment WFL M7 OT- IP Mobility and Balance Start: 06/27/21 10:13 Freq: Status: Active Protocol: Document 06/27/21 08:40 [facility] (Rec: 06/27/21 10:26 [facility] [id number]) OT- Bed Mobility Assessment Rolling Level of Assistance Standby Assistance,1 Person Assistance,Bedrails Supine to Sit Supine to Sit Assist Standby Assistance OT-Transfer Assessment Sit to and From Stand Sit to and from Stand Standby Assistance Transfers Transfer Ability Standby Assistance Technique Transfer Destination Bed,Chair Devices Transfer Assistive Devices Gait Belt,Front Wheeled Walker Comments Mobility Comments SBA with all mobility needs at this time. Pt safer to use the FWW at this time. M8 OT- IP Objective Assessments Start: 06/27/21 10:13 Freq: Status: Active Protocol: Document 06/27/21 08:40 [facility] (Rec: 06/27/21 10:26 [facility] [id number]) OT-Muscle Tone Assessment Muscle Tone WNL Yes M9 OT- IP Assessment and Plan Start: 06/27/21 10:13 Freq: Status: Active Protocol: Document 06/27/21 08:40 [facility] (Rec: 06/27/21 10:26 [facility] [id number]) OT Summary Assessment and Plan Potential Rehabilitation Potential Excellent Analytic Complexity at Evaluation Low Summary OT Impairments Balance,Functional Cognition, Functional Mobility,Dressing, Toileting,Bathing,Activity Tolerance Progress Towards Goals Progressing Toward Goals Assessment Summary Pt low complexity and doing well at this time from back surgery. Pt's main barriers are steps, and needing to remember to incorporate his back precautions for his needs . Pt states has a supportive family to be able to assist his at home. Goals Grooming Goal Independent Dressing Goal Independent Toileting Goal Independent Bathing Goal Independent Toilet Transfer Goal Independent Shower Transfer Goal Independent Patient/Caregiver Education Goal Demonstrate Post-Op Precautions Days to Meet Goals 3 Frequency of Treatment Frequency Of Treatment Once a Day Treatment Plan OT Treatment Plan ADL Training,Functional Cognition Training,Functional Mobility,Patient/Family Education,Discharge Planning Discharge Recommendations OT Discharge Recommendations Home with Assistance Transportation Needs at Discharge Private Vehicle
--- NOTE | 2021-06-27 09:40 | PT.IIE ---
Current Diagnoses Other spondylosis with radiculopathy, lumbosacral region (06/26/21) Spinal stenosis, lumbar region without neurogenic claudication (06/26/21) Arthrodesis status (06/26/21) Surgery Performed Operation Date: 06/26/21 07:45 Actual Procedures p L4-5 TLIF,L5-S1 lumbar HWR,exploration of fusion,repeat laminectomy,reinsertion of hardware, L4-S1 PSF w/instrumentation - Ana M Alas MD Medical History (Last Updated 06/17/21 @ 10:11 by Nicolle Ren RN) Allergic rhinitis Anemia Arthritis BPH (benign prostatic hyperplasia) BPH NOS w/o ur obs/LUTS BPH w urinary obs/LUTS Chronic pain syndrome Chronic UTI DDD (degenerative disc disease), lumbosacral Degenerative disc disease, lumbar Depression Diverticular disease GERD (gastroesophageal reflux disease) Gout Hemorrhage (09/05/20) History of UTI Hyperlipidemia Hypertension Low back pain Male circumcision Nephrolithiasis SOTERO treated with BiPAP Osteoarthritis Osteoporosis Polio Pulmonary embolism (09/05/20) Shingles Skin cancer Snoring Spinal stenosis Tingling of right upper extremity UTI (urinary tract infection) Physical Therapy Inpatient Evaluation/Re-Eval M1 PT/OT-IP Prior Functional Status Start: 06/26/21 17:21 Freq: NEEDED Status: Discharge Protocol: Document 06/27/21 09:40 [facility] (Rec: 06/27/21 13:12 [facility] [id number]) Medical Review Prior Functional Status Medical History Reviewed Yes Communication able to make needs known Mobility and Gait pt stated that he is modified independent with all mobilities and ambulation without AD but has been using his SPC on and off for the last 1-2 weeks Social History Household Members spouse Living Arrangements House Number of Floors (Floors) One Floor Number of Stairs To Enter/Railing? 2 steps without rails [ End ] Home Equipment Front Wheel Walker,Four Wheel Walker,Straight Cane,Shower Seat without Backrest,Hand Held Shower,Grab Bars Near Toilet,Grab Bars In Shower Additional Social History Comment stated that his daughter (has special needs) can also assist him if needed has a hurrycane and an adjustable bed M2 PT-IP Current Condition Start: 06/26/21 17:21 Freq: NEEDED Status: Discharge Protocol: Document 06/27/21 09:40 [facility] (Rec: 06/27/21 13:12 [id number]) Physical Therapy Current Condition Current Condition Evaluation Date 06/27/21 Treatment Diagnosis s/p L4-5, L5-S1 fusion; difficulty in walking Onset Date 06/26/21 Precautions Lumbar Precautions Log Roll,No Twisting,Limit Bending,Lifting Restriction of 10 lbs,Gait Belt above Incisional Area M3 PT-IP Subjective Start: 06/26/21 17:21 Freq: NEEDED Status: Discharge Protocol: Document 06/27/21 09:40 [facility] (Rec: 06/27/21 13:12 AB [id number]) Subjective Physical Therapy Visit Type Type Initial Evaluation Visit Start Time 09:40 Visit Stop Time 10:10 Total Visit Minutes 30 Number of OPERATIONS DISPATCHER Visits 0 Physical Therapy Visit Comments Patient Comments pt is agreeable to do PT Therapy Pain Assessment Pain When Pain Assessed At Rest Pain Present Pain Present Pain Reported Location back/left leg Intensity 3 Scale Used Numeric (0 - 10) Pain Management Techniques Apply Cold,Modification of Treatment,Re-positioning, Timing of Activity with Medications M4 PT-IP Mobility and Gait Start: 06/26/21 17:21 Freq: NEEDED Status: Discharge Protocol: Document 06/27/21 09:40 [facility] (Rec: 06/27/21 13:12 [id number]) PT-Bed Mobility Assessment Rolling Type of Rolling Log Rolling Level of Assist Standby Assistance Supine to Sit Supine to Sit Standby Assistance Sit to Supine Sit to Supine Standby Assistance Scooting Scooting to Edge of Bed Standby Assistance PT-Transfer Assessment Sit to and From Stand Sit to and from Stand Standby Assistance,Use of Upper Extremities Equipment Transfer Assistive Device Gait Belt,Front Wheeled Walker Orthotic/Prosthetic Devices or Brace: No Transfers Transfer Destination Bed,Chair Transfer Technique Stand Step Pivot Transfer Ability Level of Assist Standby Assistance,1 Person Assistance,Use of Upper Extremities Comments Mobility Comments pt ablet o recall back precautions. completed sit to stand from chair SBA and ambulated in room uisng FWW SBA. transferred to bed SBA using FWW and completed log roll bed mobiltiy supine <>sit SBA. pt ambulated out in the hallway ~ 50 ft using FWW SBA. completed up/down platform step using SPC SBA. ambulated back to his room. sat back on chair. positioned on chair. call light and table placed within reach. ice pack provided. Gait Assessment Gait Gait Assistance Required: Standby Assistance Distance (Feet) 50 Able to Maintain Weight Bearing Status Yes During Gait Assistive Devices Assistive Device Gait Belt,Front Wheeled Walker Orthotic/Prosthetic Devices or Brace: No Gait Deviations General Gait Pattern Antalgic,Decreased Stride Length,Decreased Feet Clearance Factors Limiting Gait Function Factors Limiting Gait Function Decreased Activity Tolerance, Decreased Strength,Limited Range of Motion,Pain,Poor Balance,Poor Safety Awareness Comments Gait Comments pls refer to mobility section for details Stair Climbing Assessment Evaluation Level of Assist On Stairs Standby Assistance,1 Person Assistance Devices Stair Climbing Assistive Devices Straight Cane Technique/Endurance Stair Climbing Direction Ascend and Descend Stair Climbing Technique Step to Step Number of Steps Climbed 1 Query Text: Stair Climbing Set # Repetitions (reps) 2 Comments Stair Climbing Comments refer to mobility section for details PT-Balance Assessment Sitting Balance and Reactions Static Sitting Balance Ability Good Dynamic Sitting Balance Ability Good Standing Balance and Reactions Static Standing Balance Ability Fair Dynamic Standing Balance Ability Fair Device Used FWW M5 PT-IP Objective Assessments Start: 06/26/21 17:21 Freq: NEEDED Status: Discharge Protocol: Document 06/27/21 09:40 AB (Rec: 06/27/21 13:12 AB [id number]) Orientation Orientation/Cognition Level of Alertness Alert Orientation Name,Place,Situation Language Function Ability No Deficits Noted Safety Awareness Understands Safety Issues Memory Description No Deficits Noted Gross Range of Motion Lower Extremity ROM Assessment Within Functional Limits Strength Lower Extremity Strength Assessment Within Functional Limits Coordination Assessment Gross Coordination Gross Coordination WNL Sensation Assessment Sensation Gross Sensation WNL Muscle Tone Muscle Tone WNL Yes M6 PT-IP Treatment Start: 06/26/21 17:21 Freq: NEEDED Status: Discharge Protocol: Document 06/27/21 09:40 AB (Rec: 06/27/21 13:12 AB [id number]) Physical Therapy Treatment Education Education Provided Precautions,Weight Bearing Status,Post-Op Packet,Safety M7 PT-IP Assessment and Plan Start: 06/26/21 17:21 Freq: NEEDED Status: Discharge Protocol: Document 06/27/21 09:40 AB (Rec: 06/27/21 13:12 AB [id number]) PT Summary Assessment and Plan Potential Rehabilitation Potential Good Status of Condition at Evaluation Stable Summary Impairments Pain,ROM,Strength,Balance, Coordination,Sensation,Bed Mobility,Transfers,Gait, Activity Tolerance Assessment Summary pt requiring SBA with mobility and plans to go home with family to assist. pt may go home when medically stable. Goals Bed Mobility Goal Independent Transfer Goal Independent,Front Wheeled Walker Gait Goal Independent,Front Wheel Walker Gait Distance 250 Other Goals up/down 2 steps using SPC mod I Days to Meet Goals 3 Frequency of Treatment Frequency Of Treatment Twice a Day Treatment Plan Physical Therapy Treatment Plan Bed Mobility Training,Transfer Training,Gait Training, Therapeutic Exercise,Balance Retraining,Post Op Education, Discharge Planning,Hot or Cold Pack,Neuromuscular Re-ed, Coordination Retraining,Manual Therapy Precautions Lumbar Precautions Log Roll,No Twisting,Limit Bending,Lifting Restriction of 10 lbs,Gait Belt above Incisional Area Recommendations To Nursing Amount of Assist Needed Standby Assistance Discharge Recommendations PT Discharge Recommendations Home with Assistance Transportation Needs at Discharge Private Vehicle
--- NOTE | 2021-06-27 10:22 | P.DS_ITS ---
History of Present Illness History of Present Illness Chief complaint: INPT Narrative: The patient is complaining of mild low back pain this morning, which is well controlled with current pain med with her with his current pain regimen. He denies any fevers, chills, night sweats. He denies any numbness or tingling in bilateral lower extremities. He did not work with physical therapy after surgery but is planning to today. Overall he is feeling well and like to go home today. He is concerned about is complicated GI history and his relatively recent partial colon resection. Discharge Providers Provider Date of admission: 06/26/21 06:05 Discharge Date: 06/27/21 Primary care physician: Maryann Wray PA-C Consults: 06/26/21 12:18 Consult to Occupational Therapy Evaluate & Treat Comment: Physician Instructions: Evaluate and treat Consult to Physical Therapy Evaluate & Treat Comment: Physician Instructions: Evaluate and Treat Discharge provider: Lizzette Pop PA-C Summary Hospital Course Discharge Diagnosis: 1. L4-5, L5-S1 spinal stenosis 2. L4-5, L5-S1 spondylosis with radiculopathy 3. Hx of L5-S1 fusion Hospital Course: Procedure: 1. L4-5 posterolateral and posterior interbody fusion 2. L4-5 posterior interbody cage placement 3. L5-S1 posterior non-segmental instrumentation removal 4. L5-S1 revision laminectomy with exploration of fusion 5. L4-5, L5-S1 posterior segmental instrumentation with pedicle screw placement 6. L5-S1 posterolatearl fusion 7. Starr of bone marrow from iliac crest through a separate incision 8. Utilization of microsurgical technique and operating microscope Same procedure as scheduled: Yes Indications: Patient has been having chronic back pain and worsening lumbar radiculopathy. Patient failed multiple conservative management with worsening pain weakness and numbness in her lower extremity. Patient has been having difficulty performing activity of daily living. After discussing risks benefits of treatment options, patient elected proceed with surgery. Surgeon: Ana M Alas Crop Or Grain Farmworker: Bruce Niño Click Yes if Unassisted: No Anesthesia Type: General Operative Notes Closure Type: primary Specimen(s): none sent Prosthetic devices, grafts, tissues, transplants, or devices: Globus revolve screws, Rise cage Applied: catheter Estimated Blood Loss (mL): 100 Exam Vital Signs (past 8 hours): - 06/27/21 05:25 06/27/21 08:00 Temperature 98.5 F 97.5 F L Pulse Rate 68 66 Respiratory Rate 16 16 Blood Pressure 136/82 140/76 Pulse Oximetry 94 94 Oxygen Delivery Method Room Air,CPAP Oxygen Flow Rate 0 Narrative Exam Narrative: Pleasant 76-year-old male, resting comfortably in bed, no acute distress. Incision has some scant drainage on the right side otherwise dry and intact. No surrounding erythema. Bilateral lower extremities with normal functions, sensation is also grossly intact to light touch bilaterally in lower extremities. Both legs are warm and dry. Bilateral calves are soft, nontender to palpation [facility] Medical History Allergic rhinitis Anemia Arthritis BPH (benign prostatic hyperplasia) BPH NOS w/o ur obs/LUTS BPH w urinary obs/LUTS Chronic pain syndrome Chronic UTI DDD (degenerative disc disease), lumbosacral Degenerative disc disease, lumbar Depression Diverticular disease GERD (gastroesophageal reflux disease) Gout Hemorrhage (09/05/20) History of UTI Hyperlipidemia Hypertension Low back pain Male circumcision Nephrolithiasis SOTERO treated with BiPAP Osteoarthritis Osteoporosis Polio Pulmonary embolism (09/05/20) Shingles Skin cancer Snoring Spinal stenosis Tingling of right upper extremity UTI (urinary tract infection) Surgical History H/O prostatectomy History of colon resection (12/2020) History of colonoscopy (06/05/21) History of lumbar spinal fusion (10/21/18) History of lumbar spinal fusion History of surgery (09/05/20) History of vasectomy Hx of circumcision Hx of microdiscectomy (09/24/16) Hx of transurethral resection of prostate (12/26/19) Previous back surgery S/P cervical spinal fusion (09/06/18) S/P excision of lipoma Status post cataract extraction of both eyes with insertion of intraocular lens Family History Mother COPD (chronic obstructive pulmonary disease) Social History marital status: number of children: 3 household members: spouse occupational status: previously employed Smoking Status: Former smoker alcohol intake: current substance use type: does not use caffeine: Yes Discharge Assessment & Plan Assessment and Plan Assessment: Patient is progressing as expected status post lumbar fusion. Plan of Treatment: Weightbearing as tolerated. Limit bending, lifting, twisting. The plan is to discharge home today in stable condition. Follow-up with Dr. Alas in 2 weeks for his postop visit. Discharge Plan Discharge Plan Patient Disposition: Home Discharge orders & Medications Prescriptions: New docusate sodium [DOK] 100 mg Capsule 100 mg PO BID PRN (Reason: constipation) Qty: 60 RF: 0 acetaminophen 500 mg capsule 500 mg PO Q4-5H MDD 6 tabs/day Qty: 90 RF: 0 oxycodone 5 mg Tablet See Rx Instructions .ROUTE .COMPLEX PRN (Reason: Pain, Severe (7-10)) Qty: 20 RF: 0 aspirin 81 mg tablet,delayed release (DR/EC) 81 mg PO DAILY Qty: 14 RF: 0 Continued allopurinol 300 MG tablet 150 mg PO BEDTIME Qty: 0 RF: 0 gabapentin 300 mg capsule 300 mg PO BID RF: 0 amlodipine 5 mg Tablet 5 mg PO BEDTIME RF: 0 losartan 100 mg tablet 100 mg PO BEDTIME RF: 0 (DME) BIPAP PRO Qty: 1 RF: 0 Discontinued acetaminophen [Tylenol Extra Strength] 500 mg tablet 500 mg PO BID RF: 0 oxycodone 5 mg Tablet 5 mg PO Q6HR PRN (Reason: Pain, Moderate (4-6)) Qty: 10 RF: 0 ibuprofen 800 mg Tablet 800 mg PO DAILY PRN (Reason: Pain) RF: 0 Follow up/Referrals: Maryann Wray PA-C [Primary Care Provider] - Ana M Alas MD [Physician] - (Two week postop appointment) Diet/Activity/Treatments Diet: Diet as Tolerated and Regular Cold/Heat Therapy: Use ice as needed for pain relief Skin/Wound/Dressing Care Report to your healthcare provider any signs of infection, such as:: chills, fever, night sweats, unusual drainage and unusual redness Dressing: Okay to shower after 48 hours. Please change the dressing if it becomes soiled or saturated with bodily fluids or water. Call office with any concerns Visit Report/Discharge Packet Instructions: How to Prevent Falls, DI for Prescription Opioid Use, DI for Transforaminal Lumbar Interbody Fusion Stand Alone Forms: Surgery Discharge Discharge Data Primary Care Provider: Maryann Wray
--- NOTE | 2021-06-27 10:30 | PC.NURSE ---
Day shift: Paperwork signed and all questions answered. Dressing remains CDI. Pt informed to shower only at this time. Pt has MD scripts. Pt has all personal belongings. Awaiting arrival of Pt's spouse and then Pt can go home. Passed PT/OT this AM. Pt has also voided post [place]. Pt also encouraged to drink extra fluids to prevent UTI. Pt is dressed and in chair waiting for his spouse. Pt will be taken to car in today.
--- NOTE | 2021-06-27 11:19 | PC.NURSE ---
Day shift: Pt left unit at approx 1105. See other note for specifics.
--- NOTE | 2021-06-27 11:25 | CM.DANOTE ---
Discharge Planning/Care Management DCP: assessment: case received, EMR reveiwed and discussed in Team Rounds. PT and OT had cleared pt for d/c today, a d/c to home order was in place and RN coordinator stated the pt was leaving shortly.. A check in now shows that pt has already left for home in company of his Silvio. Admitted yesterday for a scheduled spinal surgery. Surgeon: Dr. Alas Payer: Medicare and [employer]. Admission status: in review: per UR PHILOMENA Smith CM Discharge Assessment Start: 06/27/21 11:25 Freq: Status: Discharge Protocol: Document 06/27/21 11:25 ITV (Rec: 06/27/21 11:25 ITV [id number]) Discharge Planning Assessment Advance Directives? Yes Advance Directives on File No History Provided By Medical Record Prior Living Arrangements House Household Members spouse Discharge Plan Home Transportation Arrangement Spouse Referrals Initiated None needed Pre-Anesthesia Assessment Start: 06/17/21 09:40 Freq: Status: Complete Protocol: Document 06/17/21 09:40 CAB (Rec: 06/17/21 10:51 CAB [id number]) Pre-Anesthesia Assessment Preferred Name Mike Patient Information Reviewed Via Phone Assessment Assessment Completed With Patient Diagnostic Results BMP/CMP,CBC Comment Labs/EKG 05/09/21 @ , COVID screen @ [facility] 06/24/21 Primary Care Provider Maryann Wray Seen Specialist in Last 12 Months Yes Specialist Seen Box Worker,Emergency, Orthopedist,Sleep specialist Comment Unable to locate PCP clearance requested by surgeon Primary Language Ukrainian Preferred Language Ukrainian Quill Machine Tender Required No Height 180.34 cm Weight 115.212 kg Body Mass Index (BMI) 35.4 Hearing Ability Hard of Hearing,Use of Hearing Aid Visual Assist Glasses Dentition Type Teeth, Natural Present,Teeth, Missing Barriers to Learning None Hx Anesthesia Reactions No Hx Family Anesthesia Reaction No Hx Malignant Hyperthermia No Hx Blood Transfusions Yes: 2019 @ [facility] Hx Blood Transfusion Reaction No Anesthesia Review Requested No Crate Maker No alcohol intake current alcohol intake frequency a few times a week Smoking Status Former smoker Tobacco type cigarettes how long ago did patient quit smoking Quit approx 50 years ago Substance Use Type does not use Pain Present Pain Reported Musculoskeletal Symptoms Abnormal Gait,Back Pain, Difficulty Walking,Joint Pain History of Falling (Recent or History of No ) Patient is completely paralyzed or No completely immobile Mental Status Oriented to own ability Is patient on oxygen? No Does patient have HUERTA/SOB No Hx Sleep Apnea Yes CPAP/BIPAP use prescribed and used routinely Will Bring CPAP/BIPAP DOS Yes Currently Taking a Beta Marielle No Can You Climb a Flight of Stairs Without Yes SOB Hx Chest Pain No Hx SOB No Hx Syncope or Dizziness No Anti-Coagulant Therapy No Has a Upholsterer Assembly Line No Cardiac Testing No Hx Pacemaker/ICD No Pacemaker Rep Required? No Diet Type At Home Regular dysphagia No Gastrointestinal Symptoms Abdominal Pain Comment Ongoing abdominal pain r/t colon resection 12/2020 Bladder Pattern Frequency,Urgency Urinary Catheter Present No Hx Urinary Self Catheterization No Diabetes No Hx Drug Resistant Organism No Presence of External or Internal Medical No Devices Have you had any close contact with No someone diagnosed with COVID-19? Marital Status Lives With spouse Prior Living Arrangements House Number of Floors (Floors) One Floor Support System Child/Children,Spouse Does the Patient Have Assistance After Yes Surgery Patient Discharge Plan Description Return Home Comment Pt not advised on length of stay per surgeon Feels Safe in Current Environment Yes Been Physically Hurt or Threatened By a No Person in Current Environment Do you have thoughts of harming yourself None or others? Are you currently considering suicide? No Do you have a plan to hurt yourself or No Plan others? Do You Have Any Spiritual Beliefs That No May Affect Your HC Choices? Do You Have Any Cultural Practices That No May Affect Your HC Choices? Who Can We Speak to About Patient's Care Family, friends Identifying Code for Release of Patient Declines to issue Information Health Care Proxy/Next of Kin Silvio () Health Care Proxy Phone Number Home: cell: Emergency Contact Name Silvio () Emergency Contact Phone Number Home: cell: [phone] Advance Directives? Yes Advance Directives on File No Power of Fun House Attendant No PAC Instructions Bring CPAP/BIPAP,Durable medical equipment,Medications to take/avoid,Nasal antibiotic ,No ETOH/petroleum product on skin DOS,NPO,Pre-surgical wash ,Sensory aids,Sturdy shoes/ comfortable clothes,Do not bring valuables and remove jewelry
== END 2021-06-27 11:21 | disposition home or self-care (01) | DRG 454 ==
PROVIDERS: Admitting Provider Orthopaedic Surgery Orthopaedic Surgery of the Spine; PCP Physician Assistant; Referring Provider Physician Assistant; Visit Provider Orthopaedic Surgery Orthopaedic Surgery of the Spine
PROC: 0SG00AJ Fusion of Lumbar Vertebral Joint with Interbody Fusion Device, Posterior Approach, Anterior Column, Open Approach (ICD-10-PCS; principal; 2021-06-26 07:45)
DX: M48.061 Spinal stenosis, lumbar region without neurogenic claudication (principal); M96.0 Pseudarthrosis after fusion or arthrodesis; M48.07 Spinal stenosis, lumbosacral region; M47.27 Other spondylosis with radiculopathy, lumbosacral region; M47.26 Other spondylosis with radiculopathy, lumbar region; G47.33 Obstructive sleep apnea (adult) (pediatric); M96.1 Postlaminectomy syndrome, not elsewhere classified; I10 Essential (primary) hypertension; Z98.1 Arthrodesis status; Z87.891 Personal history of nicotine dependence; Z20.822 Contact with and (suspected) exposure to COVID-19
CPT/HCPCS: 72100; 76000; 82962; 87635; 97161; 97165; 97535; C1776; C9803; C9290; J0690; J1100; J1170; J2250; J2405; J2704; J3010

== ENCOUNTER 2021-06-28 09:13 | Emergency (ER) | payer MEDICARE, OTHER, SELFPAY ==
[2021-06-26 06:28] VITALS: BMI 34.8
[2021-06-28] VITALS (7 sets, daily range): BP systolic 163–212; BP diastolic 75–109; PULSE 61–87; RESP 18; TEMP 37.2; O2SAT 94–97; BMI 29.9
--- NOTE | 2021-06-28 09:38 | ED.GENADULT ---
HPI - General Adult General Chief complaint: Urogenital-Male Stated complaint: sent by Dr. Alas/ron borrero bathroom Time Seen by Provider: 06/28/21 09:37 Source: patient, family and old records reviewed Mode of arrival: Ambulatory Limitations: no limitations History of Present Illness HPI narrative: This is a 76-year-old male who comes to the emergency department for urinary retention. Patient had back surgery in the hospital on 06/[address] Alas here at [facility]. Patient states that he had a urinary catheter placed and was removed yesterday on the just prior to discharge. He states he was able to pee very small amount but has not been able to completely empty his bladder at any point. Patient states when he tries to sit urinate nothing will come out, if he leans forward he can dribble a small amount a urine but cannot completely empty. He has noted he has been constipated he had about a golf ball sized ball bowel movement earlier today but had not had a larger bowel movement since his surgery. He denies fevers, chills, no chest pain or shortness of breath. No passing out. He this abdominal pain particularly in the suprapubic area. He is having little bit more back pain than he did with his prior surgeries. Patient states he has been passing gas. He is not having any new numbness, weakness or tingling in his extremities. He has been taking Tylenol as well as narcotics as needed for pain management but has been trying to avoid narcotics. He has had issues with constipated in the past as well as bowel obstructions. He has not had issues with urinary retention in the past. Patient states he is allergic to Flomax as well as other medications in that class. Related Data Home Medications Medication Instructions Recorded Confirmed allopurinol 300 mg tablet 150 mg PO BEDTIME #0 12/14/12 06/26/21 amlodipine 5 mg tablet 5 mg PO BEDTIME 09/03/18 06/26/21 BIPAP PRO #1 ea 01/12/19 06/26/21 losartan 100 mg tablet 100 mg PO BEDTIME 03/01/19 06/26/21 gabapentin 300 mg capsule 300 mg PO BID 11/23/20 06/26/21 Previous Rx's Medication Instructions Recorded acetaminophen 500 mg capsule 500 mg PO Q4-5H #90 cap MDD 6 06/27/21 tabs/day aspirin 81 mg tablet,delayed 81 mg PO DAILY #14 tab 06/27/21 release docusate sodium 100 mg capsule 100 mg PO BID PRN #60 cap 06/27/21 (DOK) oxycodone 5 mg tablet See Rx Instructions .ROUTE 06/27/21 .COMPLEX PRN #20 tab glycerin (adult) (Fleet Glycerin 1 supp MT BID PRN #25 ea 06/28/21 (Adult)) Allergies Allergy/AdvReac Type Severity Reaction Status Date / Time tamsulosin Allergy Severe Difficulty Verified 06/26/21 06:47 Breathing cefuroxime [From Ceftin] Allergy Unknown Pt does Verified 06/26/21 06:47 not recall cyclobenzaprine AdvReac Severe Drowsy Verified 06/26/21 06:47 [From Flexeril] doxazosin AdvReac Severe SOB, Verified 06/26/21 06:47 fever, extreme fatigue, cough, flu-like symptoms ezetimibe [From Vytorin] AdvReac Severe Back Pain Verified 06/26/21 06:47 pravastatin [From Pravachol] AdvReac Severe Back Pain Verified 06/26/21 06:47 simvastatin [From Vytorin] AdvReac Severe Back Pain Verified 06/26/21 06:47 hydrocodone [HYDROCODONE] AdvReac Mild CONSTIPATIO Verified 06/26/21 06:47 N lisinopril AdvReac Mild COUGH, Verified 06/26/21 06:47 Palpitations Review of Systems Review of Systems ROS Unobtainable: All systems reviewed & are unremarkable except as noted in HPI and below Patient History Medical History Allergic rhinitis Anemia Arthritis BPH (benign prostatic hyperplasia) BPH NOS w/o ur obs/LUTS BPH w urinary obs/LUTS Chronic pain syndrome Chronic UTI DDD (degenerative disc disease), lumbosacral Degenerative disc disease, lumbar Depression Diverticular disease GERD (gastroesophageal reflux disease) Gout Hemorrhage (09/05/20) History of UTI Hyperlipidemia Hypertension Low back pain Male circumcision Nephrolithiasis SOTERO treated with BiPAP Osteoarthritis Osteoporosis Polio Pulmonary embolism (09/05/20) Shingles Skin cancer Snoring Spinal stenosis Tingling of right upper extremity UTI (urinary tract infection) Surgical History H/O prostatectomy History of colon resection (12/2020) History of colonoscopy (06/05/21) History of lumbar spinal fusion (10/21/18) History of lumbar spinal fusion History of surgery (09/05/20) History of vasectomy Hx of circumcision Hx of microdiscectomy (09/24/16) Hx of transurethral resection of prostate (12/26/19) Previous back surgery S/P cervical spinal fusion (09/06/18) S/P excision of lipoma Status post cataract extraction of both eyes with insertion of intraocular lens Family History Mother COPD (chronic obstructive pulmonary disease) Social History marital status: number of children: 3 household members: spouse occupational status: previously employed Smoking Status: Former smoker alcohol intake: current substance use type: does not use caffeine: Yes Smoking Status: Former smoker alcohol intake frequency: a few times a week Substance Use Type: does not use Exam Narrative Exam Narrative: GENERAL: Alert and oriented x three, obese male in moderate distress. HEENT: Head normocephalic, atraumatic, EOMI, pupils reactive, face symmetric, moist mucous membranes NECK: Supple, full range of motion CARDIOVASCULAR: Regular rate and rhythm without murmurs, rubs or gallops. RESPIRATORY: Breath sounds equal bilaterally, no wheezes rales or rhonchi. ABDOMEN: Soft, distended, patient has tenderness over the lower abdomen particular suprapubically. Normoactive bowel sounds all 4 quadrants. No guarding or rebound, rigidity, no mass : No CVA tenderness EXTREMITIES: Normal range of motion, no clubbing or edema. Neurovascularly intact NEUROLOGICAL: Cranial nerves II through XII grossly intact. Moving all extremities SKIN: Warm, dry, no petechiae, no rashes or lesions. Initial Vital Signs Initial Vital Signs: Vital Signs Temperature 98.9 F 06/28/21 09:40 Pulse Rate 80 06/28/21 09:40 Respiratory Rate 18 06/28/21 09:40 Blood Pressure 212/109 H 06/28/21 09:40 Pulse Oximetry 97 06/28/21 09:40 Course Orders Ordered: ED Orders 06/28/21 10:15 Complete Blood Count AUTO DIFF Stat Comprehensive Metabolic Panel Stat Lipase Stat Urinalysis and Microscopic Stat Consultations Consultation #1: Dr. Alas with orthopedic surgery. Aware of patient. low suspicion from his perspective without increase pain, other neuro changes. Vital Signs Vital signs: Vital Signs - 8 hr 06/28/21 11:00 06/28/21 11:21 06/28/21 11:30 Pulse Rate 61 78 87 Blood Pressure 163/87 H 170/84 H 171/79 H Pulse Oximetry 96 94 95 Medical Decision Making Lab Data Result diagrams: 06/28/21 10:15 06/28/21 10:15 Labs: Lab Results 06/28/21 06/28/21 06/28/21 Range/Units 10:15 10:15 10:15 WBC 11.1 H (4.5-11.0) X10^3/uL RBC 4.90 (4.5-5.9) X10^6/uL Hgb 14.0 (13.5-17.5) g/dL Hct 42.1 (41-53) % MCV 86.0 (80-100) fL MCH 28.6 (26-34) PG MCHC 33.3 (30-36) % RDW 15.3 H (11.6-14.8) % Plt Count 196 (150-400) X10^3/uL Neut % (Auto) 69.6 (50-75) % Lymph % (Auto) 16.4 L (25-40) % [place] % (Auto) 12.9 (3-14) % Eos % (Auto) 0.8 L (2-4) % Baso % (Auto) 0.3 (0-2) % Neut # (Auto) 7700 H (9532-4753) /uL Lymph # (Auto) 1800 (4029-9986) /uL [place] # (Auto) 1400 H (0-900) /uL Eos # (Auto) 100 (0-450) /uL Baso # (Auto) 0 (0-100) /uL Sodium 135 L (137-145) mmol/L Potassium 3.7 (3.4-5.1) mmol/L Chloride 102 (98-107) mmol/L Carbon Dioxide 27 (22-32) mmol/L BUN 17 (9-20) mg/dL Creatinine 0.78 (0.66-1.25) mg/dL Estimated GFR > 60.0 (>60) mL/min BUN/Creatinine Ratio 21.8 (6-22) Glucose 123 H (80-110) mg/dL Calcium 9.5 (8.4-10.2) mg/dL Total Bilirubin 1.7 H (0.2-1.3) mg/dL AST 40 (17-59) IU/L ALT 27 (<50) IU/L Alkaline Phosphatase 63 (38-126) U/L Total Protein 7.1 (6.3-8.2) g/dL Albumin 4.1 (3.5-5.0) g/dL Globulin 3.0 (1.7-4.1) g/dL Albumin/Globulin Ratio 1.4 (1.0-2.8) Lipase 284 (23-300) U/L Urine Color Yellow Urine Appearance Clear Urine pH 7.0 (4.5-8.0) Ur Specific [place] 1.015 (1.000-1.035) Urine Protein 1+ H (Negative) Urine Glucose (UA) Negative (Negative) g/dL Urine Ketones Negative (NEGATIVE) Urine Occult Blood 3+ H (Negative) Urine Nitrate Negative (Negative) Urine Bilirubin Negative (NEGATIVE) Urine Urobilinogen 0.2 (0.2) E.U./dL Ur Leukocyte Esterase Negative (NEGATIVE) Urine RBC 30-100/hpf H (0-5/HPF) Urine WBC 0-1/hpf (0-5/HPF) Urine Bacteria None seen (None) Ur Culture Indicated? Cult not indicated Imaging Data Abdominal x-ray: Radiologist's Impression: [address] [id number] ReportSigned Patient: Huey Newman [facility]#: [id number]: 1947cct:[id number]/Sex: 76 / MDate of Service: 06/28/21Loc: EDAccession Number: [id number] Procedure: XR abdomen min 2V Ordering Provider: Marialuisa Coronado D.O. PROCEDURE: XR ABDOMEN MIN 2V INDICATIONS: constipation/urinary retention s/p back surgery TECHNIQUE: 2 views of the abdomen were acquired. [facility] 12:26. FINDINGS: Surgical changes and devices: surgical clips are seen in right lower abdomen. Post fusion hardware in lower lumbar spine are seen. Bowel: No pneumoperitoneum. The bowel gas pattern is nonobstructive. Moderate fecal stasis in the colon is seen. Soft tissues: No masses; visualized solid organ contours appear normal in size. No suspicious abdominal calcifications. Bones: No suspicious bony abnormalities. IMPRESSION: Mild constipation. No gross free air. Dictated by: Tony Marie M.D. on 06/28/2021 at 10:59 Approved by: Tony Marie M.D. on 06/28/2021 at 11:03 MDM Narrative Medical decision making narrative: A 76-year-old male who is having urinary retention and has been constipated even prior to discharge from the hospital after his back surgery. Patient pain much better after [place] catheter was placed. He does not have any new neurologic changes make me suspicious for new impingement. He does not appear obstructed on his x-ray imaging and has not had other obstructive type symptoms. Patient has not been taking stool softeners regularly so discussed regimen help him have bowel movements which would likely help with his urination. He states he has significant allergies to Flomax and similar type medications so these were deferred. He does follow with Urology he has had a TURP in the past so was given referral back and [place] catheter was left in place. No signs of infection today. Patient's blood pressure was improving here in the department although not totally normalized. Discharge Plan Departure Patient Disposition: Home Clinical Impression: Acute urinary retention, Previous back surgery, Constipation Instructions: How to Care for Your [place] Catheter -- Male, DI for Urinary Retention in Men Activity Restrictions/Additional Instructions: Follow up with Dr. Ellis with Urology regarding your urinary retention. Call for an appointment. There are multiple issues that can be contributing to this. Constipation can be one of them. And constipation is always worsened when taking narcotics which are sometimes necessary after having back surgery. I would recommend taking a daily bowel regimen until you have soft regular stools. I would recommend taking Colace twice daily, MiraLax or fiber supplementation. Make sure you are drinking fluids regularly. You may also had a glycerin suppository 1-2 times daily if you find this helpful. Prescription sent to Please return for fevers, new worsening back or abdominal pain, inability to have a bowel movement, if you are not having any urinary drainage, if you are having pain in her bladder or penis, new chest pain shortness of breath or passing out or other new or concerning symptoms. Prescriptions: New glycerin (adult) [Fleet Glycerin (Adult)] Suppository 1 supp MT BID PRN (Reason: constipation) Qty: 25 RF: 0 No Action allopurinol 300 MG tablet 150 mg PO BEDTIME Qty: 0 RF: 0 gabapentin 300 mg capsule 300 mg PO BID RF: 0 amlodipine 5 mg Tablet 5 mg PO BEDTIME RF: 0 losartan 100 mg tablet 100 mg PO BEDTIME RF: 0 docusate sodium [DOK] 100 mg Capsule 100 mg PO BID PRN (Reason: constipation) Qty: 60 RF: 0 acetaminophen 500 mg capsule 500 mg PO Q4-5H MDD 6 tabs/day Qty: 90 RF: 0 oxycodone 5 mg Tablet See Rx Instructions .ROUTE .COMPLEX PRN (Reason: Pain, Severe (7-10)) Qty: 20 RF: 0 aspirin 81 mg tablet,delayed release (DR/EC) 81 mg PO DAILY Qty: 14 RF: 0 (DME) BIPAP PRO Qty: 1 RF: 0 Referrals: Maryann Wray PA-C [Primary Care Provider] - Kendra Ellis MD [Physician] -
--- NOTE | 2021-06-28 09:50 | DI.RAD.S_ITS ---
PROCEDURE: XR ABDOMEN MIN 2V INDICATIONS: constipation/urinary retention s/p back surgery TECHNIQUE: 2 views of the abdomen were acquired. COMPARISON: [facility], , XR ABDOMEN MIN 2V, 05/09/2021, 12:26. FINDINGS: Surgical changes and devices: surgical clips are seen in right lower abdomen. Post fusion hardware in lower lumbar spine are seen. Bowel: No pneumoperitoneum. The bowel gas pattern is nonobstructive. Moderate fecal stasis in the colon is seen. Soft tissues: No masses; visualized solid organ contours appear normal in size. No suspicious abdominal calcifications. Bones: No suspicious bony abnormalities. IMPRESSION: Mild constipation. No gross free air. Dictated by: Tony Marie M.D. on 06/28/2021 at 10:59 Approved by: Tony Marie M.D. on 06/28/2021 at 11:03
[2021-06-28 10:21] LABS: Bacteria Urine None Seen
[2021-06-28 10:22] LABS: Add Manual Diff / Slide Review NO; Basophils Absolute Auto 0 /uL (0-100); Basophils Percent Auto 0.3 % (0-2); Eosinophils Absolute Auto 100 /uL (0-450); Eosinophils Percent Auto 0.8 % (2-4); Hematocrit 42.1 % (41-53); Lymphocytes Absolute Auto 1800 /uL (1100-4500); Lymphocytes Percent Auto 16.4 % (25-40); Mean Corpuscular HGB Conc 33.3 % (30-36); Mean Corpuscular Hemoglobin 28.6 PG (26-34); Monocytes Absolute Auto 1400 /uL (0-900); Monocytes Percent Auto 12.9 % (3-14); Neutrophils Absolute Auto 7700 /uL (1500-7000); Neutrophils Percent Auto 69.6 % (50-75); Platelet Count 196 X10^3/uL (150-400); Red Cell Distribution Width 15.3 % (11.6-14.8); White Blood Cell Count 11.1 X10^3/uL (4.5-11.0)
[2021-06-28 10:23] LABS: Appearance Urine UA CLEAR; Bilirubin Urine UA NEGATIVE (NEGATIVE); Color Urine UA YELLOW; Glucose Urine UA NEGATIVE (Negative); Ketones Urine UA NEGATIVE (NEGATIVE); Leukocyte Esterase Urine UA NEGATIVE (NEGATIVE); Nitrite Urine UA NEGATIVE (Negative); Occult Blood Urine UA 3+ (Negative); Protein Urine UA 1+ (Negative); Specific Gravity Urine UA 1.015 (1.000-1.035); Urobilinogen Urine UA 0.2 E.U./dL (0.2)
[2021-06-28 10:29] LABS: Culture Indicated Urine Cult Not Indicated; RBC Urine 30-100/HPF (0-5/HPF); WBC Urine 0-1/HPF (0-5/HPF)
[2021-06-28 10:33] LABS: Alanine Aminotransferase 27 IU/L (<50); Albumin 4.1 g/dL (3.5-5.0); Albumin Globulin Ratio 1.4 (1.0-2.8); Alkaline Phosphatase 63 U/L (38-126); Aspartate Aminotransferase 40 IU/L (17-59); BUN Creatinine Ratio 21.8 (6-22); Bilirubin Total 1.7 mg/dL (0.2-1.3); Blood Urea Nitrogen 17 mg/dL (9-20); Calcium 9.5 mg/dL (8.4-10.2); Carbon Dioxide 27 mmol/L (22-32); Chloride 102 mmol/L (98-107); Estimated Glomerular Filt Rate > 60.0 mL/min (>60); Glucose 123 mg/dL (80-110); HEMOLYSIS < 15 (0-50); Lipase 284 U/L (23-300); Potassium 3.7 mmol/L (3.4-5.1); Sodium 135 mmol/L (137-145); Total Protein 7.1 g/dL (6.3-8.2)
--- NOTE | 2021-06-28 11:20 | PC.NURSE ---
Leg bag applied prior to DC
== END 2021-06-28 11:47 | disposition home or self-care (01) ==
PROVIDERS: Emergency Provider Emergency Medicine; PCP Physician Assistant
DX: R33.8 Other retention of urine (principal); K59.00 Constipation, unspecified; Z98.890 Other specified postprocedural states
CPT/HCPCS: 36415; 51702; 51798; 74019; 80053; 81001; 83690; 85025; 99284

== ENCOUNTER → 2021-09-02 13:02 | Outpatient (CLI) | payer MEDICARE, OTHER, SELFPAY ==
[2021-06-28 15:08] VITALS: BMI 34.8
--- NOTE | 2021-09-02 | DI.CT.S_ITS ---
PROCEDURE: CT ABDOMEN PELVIS W CON INDICATIONS: Unspecified abdominal pain TECHNIQUE: After the administration of oral and IV contrast, axial sections were acquired from the lung bases to the pubic symphysis. Coronal and sagittal reformats were performed. For radiation dose reduction, the following was used: automated exposure control, adjustment of mA and/or kV according to patient size. COMPARISON: [facility], CT, CT ABDOMEN PELVIS W CON, 12/04/2020, 16:38. [facility], CT, CT ABDOMEN PELVIS WITH CONTRAST, 06/13/2021, 12:31. [facility], CT, CT ABDOMEN PELVIS W CON, 05/09/2021, 15:48. FINDINGS: Image quality: Excellent. Lung bases: Atelectasis in right lower lobe and lingula. Small hiatal hernia. Heart: Heart size is normal. There is moderate coronary artery calcification.. ABDOMEN: Liver: Normal in size. Mild hepatic steatosis. There is a linear hypodensity in the posterior segment of the right hepatic lobe peripherally, unchanged, most likely secondary to focal fat. Gallbladder: Grossly normal. Biliary ducts: Unremarkable. Pancreas: Unremarkable. Spleen: Unremarkable. Adrenal Glands: Unremarkable. Kidneys and Ureters: There is a 5.6 cm diameter simple appearing cyst in the inferior pole of the right kidney. Small low density cortical nodules are noted bilaterally, also atelectasis. Stomach and Bowel: Stomach, small bowel loops, and colon are normal in caliber. Diverticulosis without diverticulitis. Moderate amount of stool in colon. Peritoneum: No abnormal intraperitoneal fluid. No free air. Ventral Wall: Small fat containing umbilical hernia. Abdominal Nodes: No retroperitoneal or mesenteric adenopathy by size criteria. Vessels: Aorta and inferior vena cava are normal in size. Aorta is tortuous. There is moderate to severe aortic and iliac artery calcifications. PELVIS: Pelvic Organs: Unremarkable. Bladder: Unremarkable. Suspect TURP. Pelvic Nodes: No enlarged lymph nodes. Miscellaneous: No inguinal hernias are seen. Bones: There are degenerative and postsurgical changes in lumbar spine. IMPRESSION: 1. No acute abnormalities in abdomen or pelvis. 2. Diverticulosis without diverticulitis. 3. There is hepatic steatosis. A linear hypodensity is seen in the posterior segment of the right hepatic lobe, unchanged, likely secondary to focal fat. 4. Bilateral renal cysts. 5. Small fat containing umbilical hernia. 6. Moderate atherosclerosis. Dictated by: Taye Pastrana M.D. on 09/02/2021 at 17:11 Approved by: Taye Pastrana M.D. on 09/02/2021 at 17:24
== END ==
PROVIDERS: PCP Physician Assistant; Referring Provider Internal Medicine; Visit Provider Internal Medicine
DX: R10.9 Unspecified abdominal pain (principal); K44.9 Diaphragmatic hernia without obstruction or gangrene; K76.0 Fatty (change of) liver, not elsewhere classified; K57.90 Diverticulosis of intestine, part unspecified, without perforation or abscess without bleeding; N20.0 Calculus of kidney; I25.10 Atherosclerotic heart disease of native coronary artery without angina pectoris; R59.0 Localized enlarged lymph nodes
CPT/HCPCS: 74177

== ENCOUNTER → 2021-11-18 07:52 | Outpatient (CLI) | payer MEDICARE, OTHER, SELFPAY ==
[2021-06-28 15:08] VITALS: BMI 34.8
--- NOTE | 2021-11-18 | DI.ECHO.S_ITS ---
[facility] +---------+ : : [address] : [address] [place] : : : : [id number] : : : : Phone: [phone]+ Echocardiogram Report + + :Name: FRANTZ LANZA Study Date: 11/18/2021 Height: 70 in : :[facility] ReadingLocation: Weight: 252 lb : : Gender: Male BSA: 2.3 m2 : :: 1945 Age: 76 yrs BP: 148/87 mmHg: :Reason For Study: PULMONARY EMBOLISM : :Ordering Physician: : :JUANI KOHLI Performed By: Sandra Singleton : :Referring: JUANI KOHLI : + + Interpretation Summary Normal left ventricle size with ejection fraction 60-65%. Mildly dilated right ventricle with normal right ventricular systolic function. Mildly dilated left atrium. Mild aortic valve sclerosis. Mild to moderate aortic regurgitation. Comparison is made with the echocardiogram of 07/25/2021, LV function has improved and RV size has decreased. Procedure: A two-dimensional transthoracic echocardiogram with color flow and Doppler was performed. The study quality was technically adequate. Comparison is made with the echocardiogram of 07/25/2021. The patient was in sinus bradycardia with heart rates between 49-53 bpm during the exam. Left Ventricle: The left ventricle is normal in size and wall thickness. The ejection fraction is estimated to be 60-65%. There are no focal wall motion abnormalities. Right Ventricle: The right ventricle is mildly dilated. The right ventricular systolic function is normal. Atria: The left atrium is mildly dilated. Right atrial size is normal. There is no Doppler evidence for an interatrial shunt. Mitral Valve: The mitral valve is normal in structure and function. There is trace mitral regurgitation. Aortic Valve: There is mild aortic valve sclerosis. The aortic valve opens well. There is no aortic valve stenosis. There is mild to moderate aortic regurgitation. Tricuspid Valve: The tricuspid valve is normal in structure and function. There is trace tricuspid regurgitation. Pulmonic Valve: The pulmonic valve leaflets are thin and pliable; valve motion is normal. There is mild pulmonic regurgitation. Great Vessels: The aortic root is borderline dilated. The ascending aorta is at the upper limits of normal in size. The IVC is of normal diameter and collapses greater than 50% with a sniff. This suggests a low right atrial pressure of 3 mm Hg. Pericardium/ Pleura There is no pericardial effusion. There is no pleural effusion. MMode/2D Measurements & Calculations LVIDd: 5.5 cm LVOT diam: 2.0 cm LVIDs: 3.8 cm Ao root diam: 4.1 cm FS: 31.0 % asc Aorta Diam: 3.7 cm IVSd: 0.85 cm Ao Arch Diam (Prox Trans): 3.3 cm LVPWd: 0.86 cm LV mcneil. diameter/BSA (cm/m^2): 2.4 LV sys. diameter/BSA (cm/m^2): 1.7 LA A2 area: 26.7 cm2 RA long axis: 5.8 cm LA A4 area: 22.0 cm2 RA area: 16.8 cm2 LA length (vol): 6.3 cm RA vol: 41.5 ml LA vol: 80.0 ml RA : 18.0 ml/m2 LA vol index: 34.7 ml/m2 IVC diam: 1.8 cm RVDd major: 6.4 cm RVD1 (basal): 4.8 cm RVD2 (mid): 4.9 cm TAPSE: 1.9 cm Doppler Measurements & Calculations Ao V2 max: 123.9 cm/sec LVOT Max Brian: 96.0 cm/sec Ao V2 mean: 89.6 cm/sec LV V1 max P.7 mmHg Ao max P.2 mmHg LV V1 VTI: 20.3 cm Ao mean P.5 mmHg CHANDLER(I,D): 2.3 cm2 Ao V2 VTI: 28.3 cm CHANDLER(V,D): 2.5 cm2 sev ratio: 0.72 CHANDLER indexed to BSA (cm^2/m^2): 1.0 AI P1/2t: 835.1 msec AI dec slope: 164.8 cm/sec2 MV E max brian: 50.8 cm/sec PA V2 max: 89.8 cm/sec MV A max brian: 42.9 cm/sec PA V2 mean: 58.8 cm/sec MV E/A: 1.2 PA mean P.6 mmHg Med Peak E' Brian: 8.1 cm/sec E/E' med: 6.3 Lat Peak E' Brian: 9.2 cm/sec E/E' lat: 5.5 E/e' average: 5.9 MV dec time: 0.23 sec SV(LVOT): 65.4 ml Electronically signed by: Juani Cortez on Reading Physician:11/18/2021 04:39 PM
== END ==
PROVIDERS: PCP Physician Assistant; Referring Provider Internal Medicine Interventional Cardiology; Visit Provider Internal Medicine Interventional Cardiology
DX: Z86.711 Personal history of pulmonary embolism (principal); I35.8 Other nonrheumatic aortic valve disorders; I35.1 Nonrheumatic aortic (valve) insufficiency
CPT/HCPCS: 93306

== ENCOUNTER → 2022-01-07 14:46 | Outpatient (CLI) | payer MEDICARE, OTHER, SELFPAY ==
[2021-06-28 15:08] VITALS: BMI 34.8
== END ==
PROVIDERS: PCP Physician Assistant; Referring Provider Specialist; Visit Provider Specialist
DX: R97.20 Elevated prostate specific antigen [PSA] (principal)
CPT/HCPCS: 36415; 84153

== ENCOUNTER → 2022-06-17 14:07 | Outpatient (CLI) | payer MEDICARE, OTHER, SELFPAY ==
[2022-01-15 15:15] VITALS: BMI 34.8
[2022-06-17 15:58] LABS: Prostate Specific Antigen 0.411 ng/mL (0.10-4.00)
== END ==
PROVIDERS: PCP Physician Assistant; Referring Provider Specialist; Visit Provider Specialist
DX: R97.20 Elevated prostate specific antigen [PSA] (principal)
CPT/HCPCS: 36415; 84153

== ENCOUNTER 2022-07-24 14:55 | Emergency (ER) | payer MEDICARE, OTHER, SELFPAY ==
[2022-01-15 15:15] VITALS: BMI 34.8
[2022-07-24] VITALS (9 sets, daily range): BP systolic 137–194; BP diastolic 61–86; PULSE 50–67; RESP 20–29; O2SAT 96–98; BMI 34.4
--- NOTE | 2022-07-24 15:01 | DI.RAD.S_ITS ---
PROCEDURE: XR CHEST 2V INDICATIONS: shortness of breath TECHNIQUE: 2 views of the chest were acquired. COMPARISON: [facility], RG, XR CXR 2V, 12/27/2018, 14:28. [facility], CR, XR CHEST 1 VIEW, 07/23/2021, 16:14. [facility], CR, XR CHEST 1V, 03/01/2019, 16:34. FINDINGS: Surgical changes and devices: Lower cervical spine fixation hardware is partially seen. Lungs and pleura: An incomplete inspiratory result is noted, causing a crowded appearance to the lung markings. No focal infiltrates are seen. No pneumothorax or significant pleural effusions are seen. Mediastinum: Mediastinal contours are normal. Heart size is normal. Bones and chest wall: Age-appropriate bony degenerative changes are seen. No suspicious bony abnormalities. Soft tissues appear unremarkable. IMPRESSION: Low lung volumes, without an acute abnormality seen by plain film. Dictated by: Taiwo Rosario M.D. on 07/24/2022 at 14:54 Approved by: Taiwo Rosario M.D. on 07/24/2022 at 14:55
[2022-07-24 15:33] LABS: Add Manual Diff / Slide Review NO; Basophils Absolute Auto 100 /uL (0-100); Basophils Percent Auto 0.9 % (0-2); Eosinophils Absolute Auto 500 /uL (0-450); Eosinophils Percent Auto 7.4 % (2-4); Hematocrit 45.1 % (41-53); Hemoglobin 15.3 g/dL (13.5-17.5); Lymphocytes Absolute Auto 1900 /uL (1100-4500); Lymphocytes Percent Auto 29.8 % (25-40); Mean Corpuscular HGB Conc 33.9 % (30-36); Mean Corpuscular Hemoglobin 29.1 PG (26-34); Mean Corpuscular Volume 85.9 fL (80-100); Monocytes Absolute Auto 600 /uL (0-900); Monocytes Percent Auto 9.4 % (3-14); Neutrophils Absolute Auto 3400 /uL (1500-7000); Neutrophils Percent Auto 52.5 % (50-75); Platelet Count 209 X10^3/uL (150-400); Red Blood Cell Count 5.25 X10^6/uL (4.5-5.9); Red Cell Distribution Width 14.2 % (11.6-14.8); White Blood Cell Count 6.4 X10^3/uL (4.5-11.0)
[2022-07-24 15:36] LABS: Lactate (Lactic Acid) 1.3 mmol/L (0.7-2.1)
[2022-07-24 15:37] LABS: Alanine Aminotransferase 24 IU/L (<50); Albumin 4.4 g/dL (3.5-5.0); Albumin Globulin Ratio 1.4 (1.0-2.8); Alkaline Phosphatase 64 U/L (38-126); Aspartate Aminotransferase 28 IU/L (17-59); BUN Creatinine Ratio 17.9 (6-22); Bilirubin Total 0.8 mg/dL (0.2-1.3); Blood Urea Nitrogen 17 mg/dL (9-20); COVID19 -Nasal RAPID Negative (Negative); Calcium 9.4 mg/dL (8.4-10.2); Carbon Dioxide 24 mmol/L (22-32); Chloride 105 mmol/L (98-107); Estimated Glomerular Filt Rate > 60 mL/min (>60); Globulin 3.1 g/dL (1.7-4.1); Glucose 131 mg/dL (80-110); HEMOLYSIS < 15 (0-50); Potassium 3.8 mmol/L (3.4-5.1); Sodium 139 mmol/L (137-145); Total Protein 7.5 g/dL (6.3-8.2)
[2022-07-24 17:04] LABS: D Dimer 497 ng/ml (<500)
--- NOTE | 2022-07-24 18:33 | ED.SOB ---
HPI - SOB/Dyspnea <Dalila Rhodes, 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 He denies any fever chills, abdominal pain, nausea vomiting, diarrhea or changes to his routine. States that he is COVID vaccinated, states that humidity over 50% is what triggers his shortness of breath. His primary care provider is Dr. Maryann Wray, [place] states he talked to her about his sinus symptoms and she recommended fluticasone but he was concerned about the side effects and has not taken this. Related Data Home Medications Medication Instructions Recorded Confirmed allopurinol 300 mg tablet 150 mg PO BEDTIME ##0 12/14/12 07/22/22 amlodipine 5 mg tablet 5 mg PO BEDTIME 09/03/18 07/22/22 BIPAP PRO #1 ea 01/12/19 07/22/22 losartan 100 mg tablet 100 mg PO BEDTIME 03/01/19 07/22/22 gabapentin 300 mg capsule 300 mg PO BID 11/23/20 07/22/22 apixaban 5 mg tablet (Eliquis) 5 mg PO BID 08/14/21 07/22/22 hydroxyzine pamoate 25 mg capsule 25 mg PO BEDTIME 01/15/22 07/22/22 (Vistaril) Previous Rx's Medication Instructions Recorded acetaminophen 500 mg capsule 500 mg PO Q4-5H pain #90 caps 06/27/21 amoxicillin 875 mg-potassium 1 tab PO BID 7 days #14 tabs 07/24/22 clavulanate 125 mg tablet amoxicillin 875 mg-potassium 1 tab PO BID 7 days #14 tabs 07/24/22 clavulanate 125 mg tablet cetirizine 10 mg tablet 10 mg PO BEDTIME #30 tabs 07/24/22 cetirizine 10 mg tablet 10 mg PO DAILY PRN allergy 07/24/22 symptoms #30 tabs fluticasone propionate 50 1 spray intranasal BID PRN nasal 07/24/22 mcg/actuation nasal congestion #16 grams spray,suspension fluticasone propionate 50 1 spray intranasal BID PRN nasal 07/24/22 mcg/actuation nasal congestion #16 grams spray,suspension (Allergy Relief (fluticasone)) sodium chloride 3 % nasal mist 1 spray intranasal Q2HR PRN dry 07/24/22 (Saline Nasal Mist) nasal passages #126 mL Allergies Allergy/AdvReac Type Severity Reaction Status Date / Time tamsulosin Allergy Severe Difficulty Verified 07/22/22 09:55 Breathing cefuroxime [From Ceftin] Allergy Unknown Pt does Verified 07/22/22 09:55 not recall cyclobenzaprine AdvReac Severe Drowsy Verified 07/22/22 09:55 [From Flexeril] doxazosin AdvReac Severe SOB, Verified 07/22/22 09:55 fever, extreme fatigue, cough, flu-like symptoms ezetimibe [From Vytorin] AdvReac Severe Back Pain Verified 07/22/22 09:55 pravastatin [From Pravachol] AdvReac Severe Back Pain Verified 07/22/22 09:55 simvastatin [From Vytorin] AdvReac Severe Back Pain Verified 07/22/22 09:55 hydrocodone [HYDROCODONE] AdvReac Mild CONSTIPATIO Verified 07/22/22 09:55 N lisinopril AdvReac Mild COUGH, Verified 07/22/22 09:55 Palpitations Review of Systems <DEVONTE Love - Last Filed: 07/24/22 19:59> Review of Systems Narrative: Review of systems is negative for acute abnormalities unless otherwise noted in HPI Patient History <DEVONTE Love - Last Filed: 07/24/22 19:59> Medical History Allergic rhinitis Anemia Arthritis BPH (benign prostatic hyperplasia) BPH NOS w/o ur obs/LUTS BPH w urinary obs/LUTS Chronic pain syndrome Chronic UTI DDD (degenerative disc disease), lumbosacral Degenerative disc disease, lumbar Depression Diverticular disease GERD (gastroesophageal reflux disease) Gout Hemorrhage (09/05/20) History of UTI Hyperlipidemia Hypertension Low back pain Male circumcision Nephrolithiasis SOTERO treated with BiPAP Osteoarthritis Osteoporosis Polio Pulmonary embolism (09/05/20) Shingles Skin cancer Snoring Spinal stenosis Tingling of right upper extremity UTI (urinary tract infection) Surgical History H/O prostatectomy History of colon resection (12/2020) History of colonoscopy (06/05/21) History of lumbar spinal fusion (10/21/18) History of lumbar spinal fusion History of surgery (09/05/20) History of vasectomy Hx of circumcision Hx of microdiscectomy (09/24/16) Hx of transurethral resection of prostate (12/26/19) Previous back surgery S/P cervical spinal fusion (09/06/18) S/P excision of lipoma Status post cataract extraction of both eyes with insertion of intraocular lens Family History Mother COPD (chronic obstructive pulmonary disease) Social History marital status: number of children: 3 household members: spouse occupational status: previously employed Smoking Status: Former smoker alcohol intake: current substance use type: does not use caffeine: Yes Smoking Status: Former smoker alcohol intake frequency: a few times a week Substance Use Type: does not use Exam <DEVONTE Love - Last Filed: 07/24/22 19:59> Narrative Exam Narrative: Reviewed vitals signs and nursing notes. General: cooperative, comfortable, in no acute distress, well groomed HEENT: symmetrical facial expressions, moist mucous membranes, without sinus tenderness, nares patent bilaterally, posterior pharynx without erythema Cardiovascular: regular rate and rhythm, no peripheral edema, warm extremities Respiratory: normal effort, able to speak in complete sentences, without wheezing, stridor, or abnormal breath sounds. No retractions or tachypnea. Patient's breathing is shallow breaths but without wheezing or abnormal breath sounds GI: abdomen soft, nontender to palpation, nondistended, without masses, rebound tenderness or exquisite tenderness with exam. MSK: moves all extremities, neurovascularly intact, no weakness, normal tone Skin: brisk capillary refill, without pallor or erythema Neuro: normal speech and cognition, A&O x3, ambulatory, clear speech Psych: mental status is grossly normal, congruent mood, normal affect, pleasant and cooperative Initial Vital Signs Initial Vital Signs: Vital Signs Pulse Rate 67 07/24/22 14:58 Respiratory Rate 22 07/24/22 14:58 Blood Pressure 194/86 H 07/24/22 14:58 Pulse Oximetry 98 07/24/22 14:58 Oxygen Delivery Method 07/24/22 14:58 <Diane Mackey DO - Last Filed: 07/25/22 01:41> Initial Vital Signs Initial Vital Signs: Vital Signs Pulse Rate 67 07/24/22 14:58 Respiratory Rate 07/24/22 14:58 Blood Pressure 194/86 H 07/24/22 14:58 Pulse Oximetry 98 07/24/22 14:58 Oxygen Delivery Method 07/24/22 14:58 Scores <DEVONTE Love - Last Filed: 07/24/22 19:59> Keegan' Criteria for PE Clinical signs and symptoms of DVT: No PE is #1 Dx or equally likely: No Heart rate > 100: No Immobilization at least 3 days or surg in previous 4 weeks: No History of PE or DVT: Yes Hemoptysis: No Malignancy w/Treatment within 6 months or palliative: No Wells' PE Score total: 1.5 <Diane Mackey DO - Last Filed: 07/25/22 01:41> Wells' Criteria for PE Wells' PE Score total: 1.5 Course <DEVONTE Love - Last Filed: 07/24/22 19:59> Orders Ordered: ED Orders 07/24/22 15:01 XR chest 2V Stat EKG-12 Lead Stat Measure peak expiratory flow ONCE RT Consult Eval and Treat Now 07/24/22 15:05 BNP [NT-proBNP (BNP-Adult 18+)] Stat COVID19 -Nasal RAPID/Pre-Proc Stat Complete Blood Count AUTO DIFF Stat Comprehensive Metabolic Panel Stat D Dimer Stat Lactate (Lactic Acid) Stat Prothrombin Time INR Stat Troponin & CK Cardiac Panel Stat Vital Signs Vital signs: Vital Signs - 8 hr 07/24/22 18:00 07/24/22 18:00 07/24/22 18:30 Pulse Rate 55 L 52 L Respiratory Rate 21 21 Blood Pressure 137/61 Pulse Oximetry 97 97 Oxygen Delivery Method Room Air Room Air 07/24/22 19:00 07/24/22 19:00 07/24/22 19:30 Pulse Rate 52 L Respiratory Rate 21 Blood Pressure 157/81 H 171/79 H Pulse Oximetry 98 Oxygen Delivery Method Room Air 07/24/22 19:30 07/24/22 20:00 Pulse Rate 50 L 65 Respiratory Rate 22 20 Blood Pressure 168/78 H Pulse Oximetry 98 96 Oxygen Delivery Method Room Air <Diane Mackey DO - Last Filed: 07/25/22 01:41> Orders Ordered: ED Orders 07/24/22 15:01 XR chest 2V Stat EKG-12 Lead Stat Measure peak expiratory flow ONCE RT Consult Eval and Treat Now 07/24/22 15:05 BNP [NT-proBNP (BNP-Adult 18+)] Stat COVID19 -Nasal RAPID/Pre-Proc Stat Complete Blood Count AUTO DIFF Stat Comprehensive Metabolic Panel Stat D Dimer Stat Lactate (Lactic Acid) Stat Prothrombin Time INR Stat Troponin & CK Cardiac Panel Stat Vital Signs Vital signs: Vital Signs - 8 hr 07/24/22 18:00 07/24/22 18:00 07/24/22 18:30 Pulse Rate 55 L 52 L Respiratory Rate 21 21 Blood Pressure 137/61 Pulse Oximetry 97 97 Oxygen Delivery Method Room Air Room Air 07/24/22 19:00 07/24/22 19:00 07/24/22 19:30 Pulse Rate 52 L Respiratory Rate 21 Blood Pressure 157/81 H 171/79 H Pulse Oximetry 98 Oxygen Delivery Method Room Air 07/24/22 19:30 07/24/22 20:00 Pulse Rate 50 L 65 Respiratory Rate 22 20 Blood Pressure 168/78 H Pulse Oximetry 98 96 Oxygen Delivery Method Room Air MDM - SOB/Dyspnea <DEVONTE Love - Last Filed: 07/24/22 19:59> Lab Data Result diagrams: 07/24/22 15:05 07/24/22 15:05 Labs: Lab Results 07/24/22 07/24/22 07/24/22 Range/Units 15:05 15:05 15:05 WBC 6.4 (4.5-11.0) X10^3/uL RBC 5.25 (4.5-5.9) X10^6/uL Hgb 15.3 (13.5-17.5) g/dL Hct 45.1 (41-53) % MCV 85.9 (80-100) fL MCH 29.1 (26-34) PG MCHC 33.9 (30-36) % RDW 14.2 (11.6-14.8) % Plt Count 209 (150-400) X10^3/uL Neut % (Auto) 52.5 (50-75) % Lymph % (Auto) 29.8 (25-40) % Moore % (Auto) 9.4 (3-14) % Eos % (Auto) 7.4 H (2-4) % Baso % (Auto) 0.9 (0-2) % Neut # (Auto) 3400 (7078-0362) /uL Lymph # (Auto) 1900 (4709-7578) /uL Moore # (Auto) 600 (0-900) /uL Eos # (Auto) 500 H (0-450) /uL Baso # (Auto) 100 (0-100) /uL PT (10.1-12.7) SECONDS INR (0.9-1.3) D-Dimer (<500) ng/ml Sodium 139 (137-145) mmol/L Potassium 3.8 (3.4-5.1) mmol/L Chloride 105 (98-107) mmol/L Carbon Dioxide 24 (22-32) mmol/L BUN 17 (9-20) mg/dL Creatinine 0.95 (0.66-1.25) mg/dL Estimated GFR > 60 (>60) mL/min BUN/Creatinine Ratio 17.9 (6-22) Glucose 131 H (80-110) mg/dL Lactate 1.3 (0.7-2.1) mmol/L Calcium 9.4 (8.4-10.2) mg/dL Total Bilirubin 0.8 (0.2-1.3) mg/dL AST 28 (17-59) IU/L ALT 24 (<50) IU/L Alkaline Phosphatase 64 (38-126) U/L Total Creatine Kinase (55-170) U/L CK-MB (CK-2) (<2.37) ng/mL CK-MB (CK-2) Rel Index (1.5-5.0) % Troponin I (0.01-0.034) ng/mL NT-Pro-B Natriuret Pep (<450) pg/mL Total Protein 7.5 (6.3-8.2) g/dL Albumin 4.4 (3.5-5.0) g/dL Globulin 3.1 (1.7-4.1) g/dL Albumin/Globulin Ratio 1.4 (1.0-2.8) SARS-CoV-2 (PCR) (Negative) 07/24/22 07/24/22 07/24/22 Range/Units 15:05 15:05 15:05 WBC (4.5-11.0) X10^3/uL RBC (4.5-5.9) X10^6/uL Hgb (13.5-17.5) g/dL Hct (41-53) % MCV (80-100) fL MCH (26-34) PG MCHC (30-36) % RDW (11.6-14.8) % Plt Count (150-400) X10^3/uL Neut % (Auto) (50-75) % Lymph % (Auto) (25-40) % Moore % (Auto) (3-14) % Eos % (Auto) (2-4) % Baso % (Auto) (0-2) % Neut # (Auto) (0083-6105) /uL Lymph # (Auto) (9727-8584) /uL Moore # (Auto) (0-900) /uL Eos # (Auto) (0-450) /uL Baso # (Auto) (0-100) /uL PT (10.1-12.7) SECONDS INR (0.9-1.3) D-Dimer 497 (<500) ng/ml Sodium (137-145) mmol/L Potassium (3.4-5.1) mmol/L Chloride (98-107) mmol/L Carbon Dioxide (22-32) mmol/L BUN (9-20) mg/dL Creatinine (0.66-1.25) mg/dL Estimated GFR (>60) mL/min BUN/Creatinine Ratio (6-22) Glucose (80-110) mg/dL Lactate (0.7-2.1) mmol/L Calcium (8.4-10.2) mg/dL Total Bilirubin (0.2-1.3) mg/dL AST (17-59) IU/L ALT (<50) IU/L Alkaline Phosphatase (38-126) U/L Total Creatine Kinase 122 (55-170) U/L CK-MB (CK-2) 1.72 (<2.37) ng/mL CK-MB (CK-2) Rel Index 1.4 L (1.5-5.0) % Troponin I < 0.012 (0.01-0.034) ng/mL NT-Pro-B Natriuret Pep (<450) pg/mL Total Protein (6.3-8.2) g/dL Albumin (3.5-5.0) g/dL Globulin (1.7-4.1) g/dL Albumin/Globulin Ratio (1.0-2.8) SARS-CoV-2 (PCR) Negative (Negative) 07/24/22 07/24/22 Range/Units 15:05 15:05 WBC (4.5-11.0) X10^3/uL RBC (4.5-5.9) X10^6/uL Hgb (13.5-17.5) g/dL Hct (41-53) % MCV (80-100) fL MCH (26-34) PG MCHC (30-36) % RDW (11.6-14.8) % Plt Count (150-400) X10^3/uL Neut % (Auto) (50-75) % Lymph % (Auto) (25-40) % Moore % (Auto) (3-14) % Eos % (Auto) (2-4) % Baso % (Auto) (0-2) % Neut # (Auto) (5807-1009) /uL Lymph # (Auto) (2042-3406) /uL Moore # (Auto) (0-900) /uL Eos # (Auto) (0-450) /uL Baso # (Auto) (0-100) /uL PT 13.6 H (10.1-12.7) SECONDS INR 1.2 (0.9-1.3) D-Dimer (<500) ng/ml Sodium (137-145) mmol/L Potassium (3.4-5.1) mmol/L Chloride (98-107) mmol/L Carbon Dioxide (22-32) mmol/L BUN (9-20) mg/dL Creatinine (0.66-1.25) mg/dL Estimated GFR (>60) mL/min BUN/Creatinine Ratio (6-22) Glucose (80-110) mg/dL Lactate (0.7-2.1) mmol/L Calcium (8.4-10.2) mg/dL Total Bilirubin (0.2-1.3) mg/dL AST (17-59) IU/L ALT (<50) IU/L Alkaline Phosphatase (38-126) U/L Total Creatine Kinase (55-170) U/L CK-MB (CK-2) (<2.37) ng/mL CK-MB (CK-2) Rel Index (1.5-5.0) % Troponin I (0.01-0.034) ng/mL NT-Pro-B Natriuret Pep 63 (<450) pg/mL Total Protein (6.3-8.2) g/dL Albumin (3.5-5.0) g/dL Globulin (1.7-4.1) g/dL Albumin/Globulin Ratio (1.0-2.8) SARS-CoV-2 (PCR) (Negative) Imaging Data Chest x-ray: Radiologist's Impression: PROCEDURE:? XR CHEST 2V ? INDICATIONS:? shortness of breath ? TECHNIQUE:? 2 views of the chest were acquired.? ? COMPARISON:? [facility], RG, XR CXR 2V, 12/27/2018, 14:28.? [facility], CR, XR CHEST 1 VIEW, 07/23/2021, 16:14.? [facility], CR, XR CHEST 1V, 03/01/2019, 16:34. ? FINDINGS:? ? Surgical changes and devices:? Lower cervical spine fixation hardware is partially seen. ? Lungs and pleura:? An incomplete inspiratory result is noted, causing a crowded appearance to the lung markings.? No focal infiltrates are seen.? No pneumothorax or significant pleural effusions are seen. ? ? Mediastinum:? Mediastinal contours are normal.? Heart size is normal.? ? Bones and chest wall:? Age-appropriate bony degenerative changes are seen.? No suspicious bony abnormalities.? Soft tissues appear unremarkable.? ? ? IMPRESSION:? Low lung volumes, without an acute abnormality seen by plain film. ? ? Dictated by: Taiwo Rosario M.D. on 07/24/2022 at 14:54 ? ? Approved by: Taiwo Rosario M.D. on 07/24/2022 at 14:55 ? ECG Data Interpretation: EKG independently reviewed by myself at 1505 reveals normal sinus rhythm at 54 bpm with regular axis and intervals. No STEMI, ST segment changes, arrhythmia, or acute ischemic changes. MDM Narrative Medical decision making narrative: This is a 77-year-old male with history of pulmonary embolism x2 within the last year and is indefinitely anticoagulated on Eliquis who presents to the emergency department today for worsening dyspnea and sinus congestion over the last 10 days with concern for another pulmonary embolism. Patient also has a history of allergic rhinitis, he has had difficulty with his CPAP at night due to stuffiness. He denies any chest pain, states that his shortness of breath is related to the humidity and it has been over 50% humidity lately and this has been bothersome to him. His lab work overall is reassuring, his chest x-ray shows low lung volumes without acute abnormality. His lab work overall is unremarkable, no leukocytosis, no anemia, INR is 1.2, D-dimer is 497 and with age correction is not clinically significant, creatinine is 0.95, glucose is 131, lactate is 1.3, total bilirubin is 0.8, COVID PCR is negative, BNP is 63, troponin is 0.012. This is most likely sinusitis without sinus pain, discussed starting with fluticasone and Zyrtec with oral hydration for his symptoms. Encouraged him to use saline spray as needed for his nares. Patient has scheduled follow-up with Dr. Wray on Thursday07/28/22. Encouraged him to use Augmentin antibiotic I prescribed for him if his sinuses become tender or if they become worse. Patient states understanding and understands to come back to the emergency department for any worsening of his symptoms. Patient is appropriate and amenable to discharge home. Vital signs are stable on repeat examination is unremarkable. Patient has been informed of results. Patient has been given strict return to ER precautions for any new or worsening symptoms. Patient understands to follow up closely with outpatient providers as instructed. Patient understands plan and agrees to discharge home. All questions and concerns answered at this time. #331 & 332: Antibiotic use with Sinusitis *if the second, third, or fourth prompt is selected, only then should the clinician see the sub-prompts addressing amoxicillin [] The patient has sinusitis and antibiotics are not indicated/not prescribed at this time. [SATISFIES MIPS PERFORMANCE] [x] The patient has sinusitis with symptom onset greater than 10 days ago and the patient was prescribed antibiotics. [SATISFIES MIPS PERFORMANCE] [x] Patient was prescribed an amoxicillin-based antibiotic. <Diane Mackey, DO - Last Filed: 07/25/22 01:41> Lab Data Labs: Lab Results 07/24/22 07/24/22 07/24/22 Range/Units 15:05 15:05 15:05 WBC 6.4 (4.5-11.0) X10^3/uL RBC 5.25 (4.5-5.9) X10^6/uL Hgb 15.3 (13.5-17.5) g/dL Hct 45.1 (41-53) % MCV 85.9 (80-100) fL MCH 29.1 (26-34) PG MCHC 33.9 (30-36) % RDW 14.2 (11.6-14.8) % Plt Count 209 (150-400) X10^3/uL Neut % (Auto) 52.5 (50-75) % Lymph % (Auto) 29.8 (25-40) % Moore % (Auto) 9.4 (3-14) % Eos % (Auto) 7.4 H (2-4) % Baso % (Auto) 0.9 (0-2) % Neut # (Auto) 3400 (4488-7379) /uL Lymph # (Auto) 1900 (9334-1639) /uL Moore # (Auto) 600 (0-900) /uL Eos # (Auto) 500 H (0-450) /uL Baso # (Auto) 100 (0-100) /uL PT (10.1-12.7) SECONDS INR (0.9-1.3) D-Dimer (<500) ng/ml Sodium 139 (137-145) mmol/L Potassium 3.8 (3.4-5.1) mmol/L Chloride 105 (98-107) mmol/L Carbon Dioxide 24 (22-32) mmol/L BUN 17 (9-20) mg/dL Creatinine 0.95 (0.66-1.25) mg/dL Estimated GFR > 60 (>60) mL/min BUN/Creatinine Ratio 17.9 (6-22) Glucose 131 H (80-110) mg/dL Lactate 1.3 (0.7-2.1) mmol/L Calcium 9.4 (8.4-10.2) mg/dL Total Bilirubin 0.8 (0.2-1.3) mg/dL AST 28 (17-59) IU/L ALT 24 (<50) IU/L Alkaline Phosphatase 64 (38-126) U/L Total Creatine Kinase (55-170) U/L CK-MB (CK-2) (<2.37) ng/mL CK-MB (CK-2) Rel Index (1.5-5.0) % Troponin I (0.01-0.034) ng/mL NT-Pro-B Natriuret Pep (<450) pg/mL Total Protein 7.5 (6.3-8.2) g/dL Albumin 4.4 (3.5-5.0) g/dL Globulin 3.1 (1.7-4.1) g/dL Albumin/Globulin Ratio 1.4 (1.0-2.8) SARS-CoV-2 (PCR) (Negative) 07/24/22 07/24/22 07/24/22 Range/Units 15:05 15:05 15:05 WBC (4.5-11.0) X10^3/uL RBC (4.5-5.9) X10^6/uL Hgb (13.5-17.5) g/dL Hct (41-53) % MCV (80-100) fL MCH (26-34) PG MCHC (30-36) % RDW (11.6-14.8) % Plt Count (150-400) X10^3/uL Neut % (Auto) (50-75) % Lymph % (Auto) (25-40) % Moore % (Auto) (3-14) % Eos % (Auto) (2-4) % Baso % (Auto) (0-2) % Neut # (Auto) (8058-4824) /uL Lymph # (Auto) (4258-5569) /uL Moore # (Auto) (0-900) /uL Eos # (Auto) (0-450) /uL Baso # (Auto) (0-100) /uL PT (10.1-12.7) SECONDS INR (0.9-1.3) D-Dimer 497 (<500) ng/ml Sodium (137-145) mmol/L Potassium (3.4-5.1) mmol/L Chloride (98-107) mmol/L Carbon Dioxide (22-32) mmol/L BUN (9-20) mg/dL Creatinine (0.66-1.25) mg/dL Estimated GFR (>60) mL/min BUN/Creatinine Ratio (6-22) Glucose (80-110) mg/dL Lactate (0.7-2.1) mmol/L Calcium (8.4-10.2) mg/dL Total Bilirubin (0.2-1.3) mg/dL AST (17-59) IU/L ALT (<50) IU/L Alkaline Phosphatase (38-126) U/L Total Creatine Kinase 122 (55-170) U/L CK-MB (CK-2) 1.72 (<2.37) ng/mL CK-MB (CK-2) Rel Index 1.4 L (1.5-5.0) % Troponin I < 0.012 (0.01-0.034) ng/mL NT-Pro-B Natriuret Pep (<450) pg/mL Total Protein (6.3-8.2) g/dL Albumin (3.5-5.0) g/dL Globulin (1.7-4.1) g/dL Albumin/Globulin Ratio (1.0-2.8) SARS-CoV-2 (PCR) Negative (Negative) 07/24/22 07/24/22 Range/Units 15:05 15:05 WBC (4.5-11.0) X10^3/uL RBC (4.5-5.9) X10^6/uL Hgb (13.5-17.5) g/dL Hct (41-53) % MCV (80-100) fL MCH (26-34) PG MCHC (30-36) % RDW (11.6-14.8) % Plt Count (150-400) X10^3/uL Neut % (Auto) (50-75) % Lymph % (Auto) (25-40) % Moore % (Auto) (3-14) % Eos % (Auto) (2-4) % Baso % (Auto) (0-2) % Neut # (Auto) (5412-3739) /uL Lymph # (Auto) (1659-0590) /uL Moore # (Auto) (0-900) /uL Eos # (Auto) (0-450) /uL Baso # (Auto) (0-100) /uL PT 13.6 H (10.1-12.7) SECONDS INR 1.2 (0.9-1.3) D-Dimer (<500) ng/ml Sodium (137-145) mmol/L Potassium (3.4-5.1) mmol/L Chloride (98-107) mmol/L Carbon Dioxide (22-32) mmol/L BUN (9-20) mg/dL Creatinine (0.66-1.25) mg/dL Estimated GFR (>60) mL/min BUN/Creatinine Ratio (6-22) Glucose (80-110) mg/dL Lactate (0.7-2.1) mmol/L Calcium (8.4-10.2) mg/dL Total Bilirubin (0.2-1.3) mg/dL AST (17-59) IU/L ALT (<50) IU/L Alkaline Phosphatase (38-126) U/L Total Creatine Kinase (55-170) U/L CK-MB (CK-2) (<2.37) ng/mL CK-MB (CK-2) Rel Index (1.5-5.0) % Troponin I (0.01-0.034) ng/mL NT-Pro-B Natriuret Pep 63 (<450) pg/mL Total Protein (6.3-8.2) g/dL Albumin (3.5-5.0) g/dL Globulin (1.7-4.1) g/dL Albumin/Globulin Ratio (1.0-2.8) SARS-CoV-2 (PCR) (Negative) ECG Data Interpretation: EKG independently reviewed by myself at 1505 reveals normal sinus rhythm at 54 bpm with regular axis and intervals. No STEMI, ST segment changes, arrhythmia, or acute ischemic changes. Botnick-sinus rhythm rate 54 [place] interval 192 QRS [address] changes or T-wave inversions previous EKG is similar with PVCs Discharge Plan Departure Patient Disposition: Home Clinical Impression: Acute dyspnea Allergic rhinitis Qualifiers: Allergic rhinitis trigger: unspecified Allergic rhinitis seasonality: unspecified Qualified Code(s): J30.9 - Allergic rhinitis, unspecified Instructions: Allergic Rhinitis, DI for Sinusitis, DI for Shortness of Breath Activity Restrictions/Additional Instructions: *You have been diagnosed with congestion which hopefully will in prove with Zyrtec at night, fluticasone nasal spray morning and night, and saline nasal spray as needed. These 2 medications can cause drying of the nasal mucosa so please picker operator plain saline spray for your nares at the pharmacy. Thank you for trusting us with your care, I hope you start feeling better soon. Please picker operator antibiotic if you have worsening of your sinus congestion with sinus pain and feeling worse. Please follow-up with your primary doctor on Thursday as scheduled. Thank you for your patients today. Your COVID was negative, there are no signs of a blood clot or heart strain, you do not have fluid overload or signs of heart failure. And your D-dimer is a normal level which does not indicate any active blood clot or growing blood clot. Please feel reassured and return for any worsening. *What to do: *Please continue to take your regular medications as directed. [ x] New medication prescriptions sent to your pharmacy: [[facility] [place] ] [ ] New medication written as a paper prescription [ ] No new medications given *Please follow up with your primary care provider in 2-3 days, call for an appointment. Let them know you were seen in the Emergency Department and that we asked that you be seen for follow-up. We will electronically transmit a record of today's note if your PCP is in our system *If you do not have a primary care provider please contact [phone] to establish care with one of the [facility] primary care providers. *Return to Emergency Department if you should have any new, worsening, or concerning symptoms, such as [fever greater than 101F, chills, worsening pain, persistent vomiting or other bothersome symptoms]. Prescriptions: New fluticasone propionate [Allergy Relief (fluticasone)] 50 mcg/actuation spray,suspension 1 spray intranasal BID PRN (Reason: nasal congestion) Qty: 16 0RF Rx Instructions: administer into each nostril cetirizine 10 mg tablet 10 mg PO BEDTIME Qty: 30 0RF Saline Nasal Mist 3 % mist 1 spray intranasal Q2HR PRN (Reason: dry nasal passages) Qty: 126 0RF amoxicillin-pot clavulanate 875-125 mg tablet 1 tab PO BID 7 Days Qty: 14 0RF amoxicillin-pot clavulanate 875-125 mg tablet 1 tab PO BID 7 Days Qty: 14 0RF fluticasone propionate 50 mcg/actuation spray,suspension 1 spray intranasal BID PRN (Reason: nasal congestion) Qty: 16 0RF Rx Instructions: administer into each nostril cetirizine 10 mg tablet 10 mg PO DAILY PRN (Reason: allergy symptoms) Qty: 30 0RF No Action allopurinol 300 MG tablet 150 mg PO BEDTIME Qty: 0 gabapentin 300 mg capsule 300 mg PO BID amlodipine 5 mg Tablet 5 mg PO BEDTIME losartan 100 mg tablet 100 mg PO BEDTIME acetaminophen 500 mg capsule 500 mg PO Q4-5H MDD 6 tabs/day Qty: 90 0RF (DME) BIPAP PRO Qty: 1 Dose Instruction: As directed Label Comments: PRESSURE: IPAP 16 EPAP 12 DME: [facility] Rx Instructions: As directed Eliquis 5 mg tablet 5 mg PO BID hydroxyzine pamoate [Vistaril] 25 mg capsule 25 mg PO BEDTIME Referrals: Maryann Wray PA-C [Primary Care Provider] - Visit Report Forms: Patient Portal/API <Diane Mackey DO - Last Filed: 07/25/22 01:41> Cosign ED Attending Beverly Attestation: I was immediately available in the department for consultation. Documentation has been reviewed. I agree with assessment and plan.
[2022-07-24 18:43] LABS: INR 1.2 (0.9-1.3); Prothrombin Time 13.6 SECONDS (10.1-12.7)
[2022-07-24 18:47] LABS: Creatine Kinase 122 U/L (55-170)
[2022-07-24 18:58] LABS: NT-proBNP (BNP-Adult 18+) 63 pg/mL (<450)
[2022-07-24 19:00] LABS: Troponin I < 0.012 ng/mL (0.01-0.034)
[2022-07-24 19:03] LABS: CKMB % Relative Index 1.4 % (1.5-5.0); Creatine Kinase MB 1.72 ng/mL (<2.37)
== END 2022-07-24 20:02 | disposition home or self-care (01) ==
PROVIDERS: Emergency Medicine; Emergency Provider Nurse Practitioner Critical Care Medicine; PCP Physician Assistant
DX: R06.00 Dyspnea, unspecified (principal); J30.9 Allergic rhinitis, unspecified; Z79.01 Long term (current) use of anticoagulants; Z20.822 Contact with and (suspected) exposure to COVID-19; Z86.711 Personal history of pulmonary embolism; I10 Essential (primary) hypertension; I49.3 Ventricular premature depolarization
CPT/HCPCS: 36415; 71046; 80053; 82550; 82553; 83605; 83880; 84484; 85025; 85379; 85610; 87635; 93005; 93010; 99283; 99284; C9803

== ENCOUNTER → 2022-08-28 10:12 | Outpatient (CLI) | payer MEDICARE, OTHER, SELFPAY ==
[2022-01-15 15:15] VITALS: BMI 34.8
--- NOTE | 2022-08-28 10:14 | DI.ECHO.S_ITS ---
[place]---------+ [facility] +---------+ : : [address] : [address] : : : : [id number] : : : : Phone: [phone]---------+ Echocardiogram Report + + :Name: FRANTZ LANZA Study Date: 08/28/2022 Height: 70 in : :[facility] ReadingLocation: Weight: 247 lb : : Gender: Male BSA: 2.3 m2 : :: 1945 Age: 77 yrs BP: 156/86 mmHg: :Reason For Study: SOB : :Ordering Physician: MONIKA, : :DEE Performed By: Arnol Goldberg : :Referring: DEE FRANK : + + Interpretation Summary The ejection fraction is estimated to be 60-65%. Diastolic parameters suggest probable normal left ventricular diastolic function and normal filling pressures. The right ventricular systolic function is normal. The right ventricular systolic pressure is estimated to be at least 27 mmHg based on an estimated right atrial pressure of 3 mm Hg. There is mild to moderate aortic regurgitation. Overall, no significant change when compared to last TTE from 11/2021. Procedure: A two-dimensional transthoracic echocardiogram with color flow and Doppler was performed. The study quality was technically adequate. Comparison is made with the echocardiogram of 11/18/2021. Left Ventricle: The left ventricle is normal in size and wall thickness. Left ventricular systolic function is normal. The ejection fraction is estimated to be 60-65%. There are no focal wall motion abnormalities. Diastolic parameters suggest probable normal left ventricular diastolic function and normal filling pressures. Right Ventricle: The right ventricle is mildly dilated. The right ventricular systolic function is normal. Atria: The left atrium is mildly dilated. Right atrial size is normal. The interatrial septum grossly appears intact with no obvious evidence for an atrial septal defect. Mitral Valve: The mitral valve is normal in structure and function. There is trace mitral regurgitation. Aortic Valve: There is mild aortic valve sclerosis. There is mild to moderate aortic regurgitation. There is an eccentric jet of aortic insufficiency directed against the anterior mitral leaflet. Tricuspid Valve: The tricuspid valve is normal in structure and function. There is trace tricuspid regurgitation. The right ventricular systolic pressure is estimated to be at least 27 mmHg based on an estimated right atrial pressure of 3 mm Hg. Pulmonic Valve: The pulmonic valve is not well seen, but is grossly normal. There is trace pulmonic regurgitation. Great Vessels: The aortic root is normal size. The dimensions of the ascending aorta are normal. The IVC is of normal diameter and collapses greater than 50% with a sniff. This suggests a low right atrial pressure of 3 mm Hg. Pericardium/ Pleura There is no pericardial effusion. There is no pleural effusion. MMode/2D Measurements & Calculations LVIDd: 5.2 cm LVOT diam: 2.2 cm LVIDs: 3.7 cm Ao root diam: 3.8 cm FS: 28.8 % asc Aorta Diam: 3.5 cm IVSd: 0.80 cm LVPWd: 0.90 cm LV mcneil. diameter/BSA (cm/m^2): 2.3 LV sys. diameter/BSA (cm/m^2): 1.6 LA dimension: 3.7 cm RA long axis: 5.7 cm LA A2 area: 23.9 cm2 RA area: 16.7 cm2 LA A4 area: 26.3 cm2 RA vol: 41.7 ml LA length (vol): 6.2 cm RA : 18.3 ml/m2 LA vol: 85.5 ml LA vol index: 37.4 ml/m2 LVLd ap2: 8.0 cm TAPSE_phl: 2.2 cm LVLs ap2: 7.0 cm Doppler Measurements & Calculations Ao V2 max: 125.0 cm/sec LVOT Max Brian: 102.0 cm/sec Ao V2 mean: 87.8 cm/sec LV V1 max P.2 mmHg Ao max P.0 mmHg LV V1 VTI: 22.7 cm Ao mean P.0 mmHg CHANDLER(I,D): 3.1 cm2 Ao V2 VTI: 28.0 cm CHANDLER(V,D): 3.1 cm2 sev ratio: 0.81 CHANDLER indexed to BSA (cm^2/m^2): 1.3 AI P1/2t: 801.9 msec AI dec slope: 145.0 cm/sec2 MV E max brian: 58.7 cm/sec TR max brian: 246.0 cm/sec MV A max brian: 43.3 cm/sec TR max P.2 mmHg MV E/A: 1.4 Med Peak E' Brian: 4.6 cm/sec E/E' med: 12.7 Lat Peak E' Brian: 11.0 cm/sec E/E' lat: 5.3 E/e' average: 9.0 MV dec time: 0.17 sec SV(LVOT): 86.3 ml AV P1/2t-pr_phl: 802.0 msec AV VR_phl: 0.82 CHANDLER(VTI)/BSA_phl: 1.4 MV P1/2t-pr_phl: 51.0 msec Reading Physician:PM
== END ==
PROVIDERS: PCP Physician Assistant; Referring Provider Physician Assistant; Visit Provider Physician Assistant
DX: I35.1 Nonrheumatic aortic (valve) insufficiency (principal); R06.02 Shortness of breath
CPT/HCPCS: 93306

== ENCOUNTER 2022-12-27 15:30 | Emergency (ER) | payer MEDICARE, OTHER, SELFPAY ==
[2022-01-15 15:15] VITALS: BMI 34.8
[2022-12-27 15:42] VITALS: BP 175/85; PULSE 56; RESP 18; TEMP 36.3; O2SAT 99; BMI 35.1
[2022-12-27 16:39] LABS: RBC Urine 1-5/HPF (0-5/HPF)
[2022-12-27 16:40] LABS: Bacteria Urine Few (2-10); Squamous Epithelial Cell Urine 0-1 /HPF (0-5/HPF); WBC Urine 0-1/HPF (0-5/HPF)
[2022-12-27 16:41] LABS: Culture Indicated Urine Cult Not Indicated
--- NOTE | 2022-12-27 18:13 | DI.CT.S_ITS ---
PROCEDURE: CT KIDNEY URETER BLADDER (KUB) INDICATIONS: rt flank pain, hx low back pain and multiple msk surgeries TECHNIQUE: Axial sections were acquired from the lung bases to the pubic symphysis. Coronal and sagittal reformats were performed. For radiation dose reduction, the following was used: automated exposure control, adjustment of mA and/or kV according to patient size. COMPARISON: [facility], CT, KIDNEY/ URETER/BLADDER, 08/13/2016, 19:23. FINDINGS: Lower thorax: The lung bases are clear. Dense coronary artery vascular calcification. No hiatal hernia. Liver: Normal in size and attenuation. No contour deformity present. Biliary system: No calcified cholelithiasis or pericholecystic inflammation. No intra or extrahepatic bile duct dilatation. Pancreas: Unremarkable without mass or inflammation evident. Spleen: Normal in size and density. Adrenals: Normal morphology and density. Reproductive system: Unremarkable as visualized. Urinary system: Interval enlargement of right renal cyst now measures 6.4 cm, previously 4.8 cm. No hydronephrosis bilaterally. 1.2 cm left renal hyperdense cyst is also enlarged from the prior. Gastrointestinal system: The bowel is unremarkable without evidence of bowel obstruction or inflammation. The stomach appears unremarkable. Multiple diverticula arise from the sigmoid colon without evidence of diverticulitis. Appendix: No findings to suggest acute appendicitis. Peritoneal spaces: No mesenteric or retroperitoneal adenopathy. No free air. No free fluid. mid peritoneal metallic densities probably postsurgical Vasculature: The IVC, aorta and iliac vasculature are unremarkable. Abdominal wall: Small umbilical hernia containing fat without bowel involvement. Musculoskeletal: Normal bone mineralization. Degenerative disc disease and arthropathy noted in lower lumbar spine. Lower lumbar spine instrumentation No acute fractures. Moderate central stenosis T12-L1 IMPRESSION: 1. No acute CT findings in the abdomen and pelvis. 2. Prominent right renal cyst, has increased in size compared to the prior exam 2016 Approved by: Maxwell Barajas M.D. on 12/27/2022 at 18:11
--- NOTE | 2022-12-27 18:26 | ED_ITS ---
HPI - Back Pain/Injury <Dalila Rhodes, [facility] - Last Filed: 12/27/22 19:39> General Chief Complaint: Back Pain/Injury Stated Complaint: Poss kidney stone Time Seen by Provider: 12/27/22 17:49 Source: patient History of Present Illness HPI Narrative: This is a 77-year-old gentleman with history of UTIs, BPH, degenerative disc disease, multiple lumbar and spinal surgeries, chronic pain, multiple allergies and history of pulmonary embolism anticoagulated on Pradaxa who presents to the emergency department today after seeing his primary care provider, pain specialist, orthopedic provider and having ongoing right-sided flank pain for th e last 3 weeks. States that he saw chronic pain specialist Dr. Duy Rubio in [place] who prescribed for patient Cymbalta to take for 1 week, patient states he took 3 doses of it and made him feel ?like and he did not continue taking this. He was told to start taking Lyrica 1 week after Cymbalta and see how he feels with both of these medications on board. He has not done this in his no longer taking Cymbalta. He is scheduled to see Dr. Grant in 3 days for lumbar spinal injection for chronic pain. He is not seen Rheumatology in the past but states that he has been worked up for inflammatory/rheumatological causes by his PCP and did not hear back that this was positive. He denies chest pain, shortness of breath or weakness that is new, denies any recent trauma, denies urinary retention or inability to void. Patient has history of urinary tract infections with most recent urine culture showing staph epidermis but he is also had Enterococcus faecalis growth his urine cultures have showed resistance to Bactrim, tetracyclines, and streptomycin. No recent antibiotics. Related Data Home Medications Medication Instructions Recorded Confirmed allopurinol 300 mg tablet 150 mg PO BEDTIME ##0 12/14/12 07/22/22 amlodipine 5 mg tablet 5 mg PO BEDTIME 09/03/18 07/22/22 BIPAP PRO #1 ea 01/12/19 07/22/22 losartan 100 mg tablet 100 mg PO BEDTIME 03/01/19 07/22/22 gabapentin 300 mg capsule 300 mg PO BID 11/23/20 07/22/22 apixaban 5 mg tablet (Eliquis) 5 mg PO BID 08/14/21 07/22/22 hydroxyzine pamoate 25 mg capsule 25 mg PO BEDTIME 01/15/22 07/22/22 (Vistaril) Previous Rx's Medication Instructions Recorded acetaminophen 500 mg capsule 500 mg PO Q4-5H pain #90 caps 06/27/21 cetirizine 10 mg tablet 10 mg PO BEDTIME #30 tabs 07/24/22 cetirizine 10 mg tablet 10 mg PO DAILY PRN allergy 07/24/22 symptoms #30 tabs fluticasone propionate 50 1 spray intranasal BID PRN nasal 07/24/22 mcg/actuation nasal congestion #16 grams spray,suspension fluticasone propionate 50 1 spray intranasal BID PRN nasal 07/24/22 mcg/actuation nasal congestion #16 grams spray,suspension (Allergy Relief (fluticasone)) sodium chloride 3 % nasal mist 1 spray intranasal Q2HR PRN dry 07/24/22 (Saline Nasal Mist) nasal passages #126 mL ciprofloxacin HCl 500 mg tablet 500 mg PO BID 7 days #14 tabs 12/27/22 ciprofloxacin HCl 500 mg tablet 500 mg PO BID 7 days #14 tabs 12/27/22 (Cipro) diclofenac sodium 1 % topical gel 2 g topical QID #100 grams 12/27/22 lidocaine 5 % topical patch 1 patch topical DAILY PRN back 12/27/22 (Lidoderm) pain #30 ea lidocaine 5 % topical patch 1 patch topical DAILY PRN 12/27/22 (Lidoderm) flank/back pain #15 ea methocarbamol 500 mg tablet 500 mg PO TID #30 tabs 12/27/22 methocarbamol 750 mg tablet 750 mg PO Q8H PRN muscle spasm #20 12/27/22 tabs methocarbamol 750 mg tablet 750 mg PO TID PRN muscle spasm #30 12/27/22 tabs oxycodone 5 mg tablet 5 mg PO BID PRN pain #10 tabs 12/27/22 polyethylene glycol 3350 17 17 g PO DAILY PRN constipation 12/27/22 gram/dose oral powder (Miralax) #238 grams prednisone 20 mg tablet 20 mg PO DAILY #5 tabs 12/27/22 prednisone 20 mg tablet 20 mg PO DAILY 5 days #5 tabs 12/27/22 Allergies Allergy/AdvReac Type Severity Reaction Status Date / Time tamsulosin Allergy Severe Difficulty Verified 09/20/22 09:55 Breathing cefuroxime [From Ceftin] Allergy Unknown Pt does Verified 07/22/22 09:55 not recall cyclobenzaprine AdvReac Severe Drowsy Verified 07/22/22 09:55 [From Flexeril] doxazosin AdvReac Severe SOB, Verified 07/22/22 09:55 fever, extreme fatigue, cough, flu-like symptoms ezetimibe [From Vytorin] AdvReac Severe Back Pain Verified 07/22/22 09:55 pravastatin [From Pravachol] AdvReac Severe Back Pain Verified 07/22/22 09:55 simvastatin [From Vytorin] AdvReac Severe Back Pain Verified 07/22/22 09:55 hydrocodone [HYDROCODONE] AdvReac Mild CONSTIPATIO Verified 07/22/22 09:55 N lisinopril AdvReac Mild COUGH, Verified 07/22/22 09:55 Palpitations Review of Systems <DEVONTE Love - Last Filed: 12/27/22 19:39> Review of Systems ROS Unobtainable: All systems reviewed & are unremarkable except as noted in HPI and below Patient History <DEVONTE Love - Last Filed: 12/27/22 19:39> Medical History Allergic rhinitis Anemia Arthritis BPH (benign prostatic hyperplasia) BPH NOS w/o ur obs/LUTS BPH w urinary obs/LUTS Chronic pain syndrome Chronic UTI DDD (degenerative disc disease), lumbosacral Degenerative disc disease, lumbar Depression Diverticular disease GERD (gastroesophageal reflux disease) Gout Hemorrhage (09/05/20) History of UTI Hyperlipidemia Hypertension Low back pain Male circumcision Nephrolithiasis SOTERO treated with BiPAP Osteoarthritis Osteoporosis Polio Pulmonary embolism (09/05/20) Shingles Skin cancer Snoring Spinal stenosis Tingling of right upper extremity UTI (urinary tract infection) Surgical History H/O prostatectomy History of colon resection (12/2020) History of colonoscopy (06/05/21) History of lumbar spinal fusion (10/21/18) History of lumbar spinal fusion History of surgery (09/05/20) History of vasectomy Hx of circumcision Hx of microdiscectomy (09/24/16) Hx of transurethral resection of prostate (12/26/19) Previous back surgery S/P cervical spinal fusion (09/06/18) S/P excision of lipoma Status post cataract extraction of both eyes with insertion of intraocular lens Family History Mother COPD (chronic obstructive pulmonary disease) Social History marital status: number of children: 3 household members: spouse occupational status: previously employed Smoking Status: Former smoker alcohol intake: current substance use type: does not use caffeine: Yes Smoking Status: Former smoker tobacco type: cigarettes alcohol intake frequency: holidays/special occasions only Substance Use Type: does not use Exam <DEVONTE Love - Last Filed: 12/27/22 19:39> Narrative Exam Narrative: Reviewed vitals signs and nursing notes. General: cooperative, comfortable, in no acute distress, well groomed HEENT: symmetrical facial expressions, moist mucous membranes Cardiovascular: regular rate and rhythm, no peripheral edema, warm extremities Respiratory: normal effort, able to speak in complete sentences, without wheezing, stridor, or abnormal breath sounds. No retractions or tachypnea. GI: abdomen soft, nontender to palpation, nondistended, without masses, rebound tenderness or exquisite tenderness with exam. Right CVA tenderness to palpation, no abdominal tenderness to palpation, paraspinal musculature to the right is tender and 10 however without rash, MSK: moves all extremities, neurovascularly intact, no weakness, normal tone Skin: brisk capillary refill, without pallor or erythema Neuro: normal speech and cognition, A&O x3, ambulatory, clear speech Psych: mental status is grossly normal, congruent mood, normal affect, pleasant and cooperative Initial Vital Signs Initial Vital Signs: Vital Signs Temperature 97.3 F L 12/27/22 15:42 Pulse Rate 56 L 12/27/22 15:42 Respiratory Rate 18 12/27/22 15:42 Blood Pressure 175/85 H 12/27/22 15:42 Pulse Oximetry 99 12/27/22 15:42 Oxygen Delivery Method 12/27/22 15:42 <Deandre Dangelo DO - Last Filed: 12/27/22 22:53> Initial Vital Signs Initial Vital Signs: Vital Signs Temperature 97.3 F L 12/27/22 15:42 Pulse Rate 56 L 12/27/22 15:42 Respiratory Rate 18 12/27/22 15:42 Blood Pressure 175/85 H 12/27/22 15:42 Pulse Oximetry 99 12/27/22 15:42 Oxygen Delivery Method 12/27/22 15:42 Course <DEVONTE Love - Last Filed: 12/27/22 19:39> Orders Ordered: ED Orders 12/27/22 16:17 Urine Microscopic Stat 12/27/22 18:13 CT kidney ureter bladder (KUB) Stat Discontinued Medications Ciprofloxacin (Ciprofloxacin 250 Mg Tablet) 500 mg PO NOW ONE Stop: 12/27/22 18:33 Last Admin: 12/27/22 18:45 Dose: 500 mg Documented By: KYLIE Lidocaine (Lidocaine Patch 1 Each Adh..Patch) 1 each TOP NOW ONE Stop: 12/27/22 18:27 Last Admin: 12/27/22 18:46 Dose: 1 each Documented By: KYLIE Methocarbamol (Methocarbamol 500 Mg Tablet) 500 mg PO NOW ONE Stop: 12/27/22 18:27 Last Admin: 12/27/22 18:45 Dose: 500 mg Documented By: KYLIE Ondansetron HCl (Ondansetron 4 Mg/2 Ml Inj) 4 mg IV NOW PRN PRN Reason: Nausea And Vomiting Ondansetron HCl (Ondansetron 4 Mg Odt) 4 mg SL NOW PRN PRN Reason: Nausea And Vomiting Last Admin: 12/27/22 18:45 Dose: 4 mg Documented By: KYLIE Oxycodone/Acetaminophen (Oxycodone/Acetaminophen 5/325 Tablet) 1 tab PO NOW ONE Stop: 12/27/22 18:27 Last Admin: 12/27/22 18:45 Dose: 1 tab Documented By: KYLIE Oxycodone/Acetaminophen (Oxycodone/Apap 5/325 Prepack) 1 bottle MISC SEEINSTR ONE Stop: 12/27/22 19:34 Last Admin: 12/27/22 19:57 Dose: 1 bottle Documented By: KYLIE Prednisone (Prednisone 20 Mg Tablet) 20 mg PO NOW ONE Stop: 12/27/22 19:33 Last Admin: 12/27/22 19:57 Dose: 20 mg Documented By: KYLIE Trimethoprim/Sulfamethoxazole (Trimeth/Sulfa 160/800 (Ds) Tablet) 1 tab PO NOW ONE Stop: 12/27/22 18:27 Last Admin: 12/27/22 18:51 Dose: Not Given Documented By: KYLIE Vital Signs Vital signs: Vital Signs - 8 hr 12/27/22 15:42 Temperature 97.3 F L Pulse Rate 56 L Respiratory Rate 18 Blood Pressure 175/85 H Pulse Oximetry 99 Oxygen Delivery Method Room Air <Deandre Dangelo DO - Last Filed: 12/27/22 22:53> Orders Ordered: ED Orders 12/27/22 16:17 Urine Microscopic Stat 12/27/22 18:13 CT kidney ureter bladder (KUB) Stat Discontinued Medications Ciprofloxacin (Ciprofloxacin 250 Mg Tablet) 500 mg PO NOW ONE Stop: 12/27/22 18:33 Last Admin: 12/27/22 18:45 Dose: 500 mg Documented By: KYLIE Lidocaine (Lidocaine Patch 1 Each Adh..Patch) 1 each TOP NOW ONE Stop: 12/27/22 18:27 Last Admin: 12/27/22 18:46 Dose: 1 each Documented By: KYLIE Methocarbamol (Methocarbamol 500 Mg Tablet) 500 mg PO NOW ONE Stop: 12/27/22 18:27 Last Admin: 12/27/22 18:45 Dose: 500 mg Documented By: KYLIE Ondansetron HCl (Ondansetron 4 Mg/2 Ml Inj) 4 mg IV NOW PRN PRN Reason: Nausea And Vomiting Ondansetron HCl (Ondansetron 4 Mg Odt) 4 mg SL NOW PRN PRN Reason: Nausea And Vomiting Last Admin: 12/27/22 18:45 Dose: 4 mg Documented By: KYLIE Oxycodone/Acetaminophen (Oxycodone/Acetaminophen 5/325 Tablet) 1 tab PO NOW ONE Stop: 12/27/22 18:27 Last Admin: 12/27/22 18:45 Dose: 1 tab Documented By: KYLIE Oxycodone/Acetaminophen (Oxycodone/Apap 5/325 Prepack) 1 bottle MISC SEEINSTR ONE Stop: 12/27/22 19:34 Last Admin: 12/27/22 19:57 Dose: 1 bottle Documented By: KYLIE Prednisone (Prednisone 20 Mg Tablet) 20 mg PO NOW ONE Stop: 12/27/22 19:33 Last Admin: 12/27/22 19:57 Dose: 20 mg Documented By: KYLIE Trimethoprim/Sulfamethoxazole (Trimeth/Sulfa 160/800 (Ds) Tablet) 1 tab PO NOW ONE Stop: 12/27/22 18:27 Last Admin: 12/27/22 18:51 Dose: Not Given Documented By: KYLIE Vital Signs Vital signs: Vital Signs - 8 hr 12/27/22 15:42 Temperature 97.3 F L Pulse Rate 56 L Respiratory Rate 18 Blood Pressure 175/85 H Pulse Oximetry 99 Oxygen Delivery Method Room Air MDM - Back Pain/Injury <Dalila Rhodes, [facility] - Last Filed: 12/27/22 19:39> Lab Data Labs: Lab Results 12/27/22 Range/Units 16:17 Urine RBC 1-5/hpf D (0-5/HPF) Urine WBC 0-1/hpf (0-5/HPF) Ur Squamous Epith Cells 0-1 /hpf (0-5/HPF) Other Crystals Urine Bacteria Few (2-10) H (None) Ur Culture Indicated? Cult not indicated Urine Dip Bedside Urine Glucose Negative Bedside Urine Bilirubin - Negative Bedside Urine Ketone - Negative Urine Specific Zoe 1.010 Bedside Urine Occult Blood + Bedside Urine pH 6.0 Bedside Urine Protein - Negative Bedside Urine Urobilinogen - Negative Bedside Urine Nitrite - Negative Bedside Urine Leukocytes - Negative Esterase Imaging Data CT scan - abdomen/pelvis: Radiologist's Impression: PROCEDURE:? CT KIDNEY URETER BLADDER (KUB) ? INDICATIONS:? rt flank pain, hx low back pain and multiple msk surgeries ? TECHNIQUE:? Axial sections were acquired from the lung bases to the pubic symphysis.? Coronal and sagittal reformats were performed.? For radiation dose reduction, the following was used: ?automated exposure control, adjustment of mA and/or kV according to patient size.? ? COMPARISON:? [facility], CT, KIDNEY/ URETER/BLADDER, 08/13/2016, 19:23. ? FINDINGS: ? Lower thorax: The lung bases are clear.? Dense coronary artery vascular calcification.? No hiatal hernia. ? Liver:? Normal in size and attenuation. No contour deformity present. ? Biliary system:? No calcified cholelithiasis or pericholecystic inflammation.? No intra or extrahepatic bile duct dilatation. ? Pancreas:? Unremarkable without mass or inflammation evident. ? Spleen:? Normal in size and density. ? Adrenals:? Normal morphology and density. ? Reproductive system:? Unremarkable as visualized. ? Urinary system:? Interval enlargement of right renal cyst now measures 6.4 cm, previously 4.8 cm.? No hydronephrosis bilaterally.? 1.2 cm left renal hyperdense cyst is also enlarged from the prior. ? Gastrointestinal system:? The bowel is unremarkable without evidence of bowel obstruction or inflammation. The stomach appears unremarkable.? Multiple diverticula arise from the sigmoid colon without evidence of diverticulitis. ? ? Appendix:? No findings to suggest acute appendicitis. ? Peritoneal spaces:? No mesenteric or retroperitoneal adenopathy.? No free air.? No free fluid.? mid peritoneal metallic densities probably postsurgical ? Vasculature:? The IVC, aorta and iliac vasculature are unremarkable. ? Abdominal wall:? Small umbilical hernia containing fat without bowel involvement. ? Musculoskeletal:? Normal bone mineralization.? Degenerative disc disease and arthropathy noted in lower lumbar spine.? Lower lumbar spine instrumentation? No acute fractures.? Moderate central stenosis T12-L1 ? IMPRESSION: ? 1. No acute CT findings in the abdomen and pelvis.? ? 2. Prominent right renal cyst, has increased in size compared to the prior exam 2016 ? Approved by: Maxwell Barajas M.D. on 12/27/2022 at 18:11? [facility] Narrative Medical decision making narrative: Chief Complaint: Right-sided flank pain Independent historian: Patient Differential diagnoses include ut are not limited to: disc injury/herniation w/radiculopathy, acute fracture, renal colic, pyelonephritis, degenerative disc disease, cauda equina, AAA, osteomyelitis, epidural abscess, degenerative arthritis, spinal stenosis with radiculopathy, ligamental injury, paraspinal or other muscular strain, chronic pain, osteoarthritis, acute cystitis, pyelonephritis, nephrolithiasis, BPH, urinary retention, prostatitis. I have independently reviewed the patient's vital signs and nursing notes as well as prior records if available. Pertinent lab findings reviewed: Pertinent Imaging reviewed: CT KUB Course of care: I saw the patient and he does not have any red flag symptoms on exam or history, no significant tenderness except for over his right flank with positive CVA tenderness, no masses or abdominal tenderness to palpation, urine culture history shows resistance to Bactrim UA shows few bacteria without contaminant. We will likely treat for acute cystitis but this could be due to BPH, urinary retention or nephrolithiasis. CT KUB is pending. Pain and symptoms were treated with Zofran, Percocet, lidocaine patch, methocarbamol and bacteria in urine was treated with ciprofloxacin as prior urine culture shows susceptibility to this and this will also cover for prostatitis. He denies rectal pain, denies blood in his urine or his stool. He is ambulatory with steady gait using a cane and was ambulatory to CT. No back pain red flags on history or physical. No history of IV substance use, or bony tenderness to palpation, no trauma, no bony tenderness to palpation , afebrile, no CVAT, no urinary symptoms. No bowel or urinary incontinence or retention, no saddle anesthesia, no new/worsening distal weakness, decreased reflexes or foot drop. Pt is nontoxic appearing. Patient has soft tissue tenderness to palpation. Pt is neurovascularly intact distally, afebrile, with out immunosuppression or evidence of infection, peritoneal signs, hypertensive crisis, incontinence, or meningeal signs. Patient's pain improved with medication, CT KUB does not show evidence of nephrolithiasis or obstructive uropathy, no acute abnormalities on CT per radiologist, there is a prominent right renal cyst that has increased in size prior to last exam in 2016. It measures 6.4 cm and previously was 4.8, no hydro nephrosis bilaterally. Patient had diverticulosis without diverticulitis of the sigmoid colon. He is p.o. tolerant, without systemic symptoms including fever, chills, nausea or vomiting. Since he is anticoagulated on apixaban, will treat his lumbar radiculopathy symptoms with low-dose prednisone 20 mg daily, he is scheduled for steroid injection Thursday and today is Thursday. He has a history of BPH and has bacteria in his urine with history of UTIs in the past with some resistance to antibiotics. Opted to treat him today with ciprofloxacin b.i.d. x7 days, most recent urine culture grew staph epidermis with resistance to Bactrim, he may have some aspect prostatitis since he is had symptoms on and off for the last 3 weeks. He denies rectal pain or blood in his stool. He is not constipated and states that he does not have this problem. I encouraged him to use MiraLax daily while treating his pain with opiate medications. He was given a prepack prior to going home, muscle relaxers, Percocet for pain and patient has allergy to tamsulosin so we will not prescribe this for him. Social considerations that may affect disposition: none Questions are addressed and there is agreement with the plan and for follow-up. Patient is appropriate for outpatient management. MIPS: This encounter doesn't have any diagnosis' associated with MIPS criteria. <Deandre Dangelo, DO - Last Filed: 12/27/22 22:53> Lab Data Labs: Lab Results 12/27/22 Range/Units 16:17 Urine RBC 1-5/hpf D (0-5/HPF) Urine WBC 0-1/hpf (0-5/HPF) Ur Squamous Epith Cells 0-1 /hpf (0-5/HPF) Other Crystals Urine Bacteria Few (2-10) H (None) Ur Culture Indicated? Cult not indicated Urine Dip Bedside Urine Glucose Negative Bedside Urine Bilirubin - Negative Bedside Urine Ketone - Negative Urine Specific Zoe 1.010 Bedside Urine Occult Blood + Bedside Urine pH 6.0 Bedside Urine Protein - Negative Bedside Urine Urobilinogen - Negative Bedside Urine Nitrite - Negative Bedside Urine Leukocytes - Negative Esterase Discharge Plan Departure Patient Disposition: Home Clinical Impression: Rt flank pain, Lumbar radiculopathy, acute, Acute UTI Instructions: Urinary Tract Infection, Lumbar Radiculopathy Activity Restrictions/Additional Instructions: *You have been diagnosed with bacteria in your urine which is likely related to BPH in mild urinary retention so we will treat this for urine infection with ciprofloxacin which would also treat prostatitis if you have this going on. Your symptoms are most consistent with lumbar radiculopathy since you have long history of chronic pain and back pain, I think this is mildly under treated related to your acute flare which could also be related to this current infection. Please use something topical in addition to oral medications, since you are on a blood thinner you can not take anti-inflammatories, please follow- up with the pain specialist on Thursday for your steroid injection, I will start you on a low dose of prednisone 20 mg daily for the next 5 days and this should help decrease inflammation. I have given you muscle spasm medication called methocarbamol, this will make you sleepy, take it every 8 hours with food and water, please take a stool softener while taking other medications including your oxycodone so that your stool soft and you do not have worsened pain related to this urine infection. Follow-up with your primary care provider as you may benefit from physical therapy. Please follow-up with a pain specialist and let them know you are not taking the Cymbalta because it made you feel terrible and also that you are not taking the Lyrica. I do not recommend starting these med ications if you have had adverse reactions to Cymbalta like you did. Please schedule follow-up with Dr. Canales from Urology for follow-up about your bladder infections/prostate. *What to do: *Please continue to take your regular medications as directed. [ x] New medication prescriptions sent to your pharmacy: [[facility]] [ ] New medication written as a paper prescription [ ] No new medications given *Please follow up with your primary care provider in 2-3 days, call for an appointment. Let them know you were seen in the Emergency Department and that we asked that you be seen for follow-up. We will electronically transmit a record of today's note if your PCP is in our system *If you do not have a primary care provider please contact [phone] to establish care with one of [facility] primary care providers. *Return to Emergency Department if you should have any new, worsening, or concerning symptoms, such as [fever greater than 101F, chills, worsening pain, persistent vomiting or other bothersome symptoms]. Prescriptions: New methocarbamol 500 mg tablet 500 mg PO TID Qty: 30 0RF ciprofloxacin HCl [Cipro] 500 mg tablet 500 mg PO BID 7 Days Qty: 14 0RF methocarbamol 750 mg tablet 750 mg PO Q8H PRN (Reason: muscle spasm) Qty: 20 0RF lidocaine [Lidoderm] 5 % adhesive patch,medicated 1 patch topical DAILY PRN (Reason: flank/back pain) Qty: 15 0RF Rx Instructions: leave on most painful area for up to 12 hrs prednisone 20 mg tablet 20 mg PO DAILY 5 Days Qty: 5 0RF oxycodone 5 mg tablet 5 mg PO BID PRN (Reason: pain) Qty: 10 0RF polyethylene glycol 3350 [Miralax] 17 gram/dose powder 17 g PO DAILY PRN (Reason: constipation) Qty: 238 0RF methocarbamol 750 mg tablet 750 mg PO TID PRN (Reason: muscle spasm) Qty: 30 0RF prednisone 20 mg tablet 20 mg PO DAILY Qty: 5 0RF lidocaine [Lidoderm] 5 % adhesive patch,medicated 1 patch topical DAILY PRN (Reason: back pain) Qty: 30 0RF Rx Instructions: leave on most painful area for up to 12 hrs ciprofloxacin HCl 500 mg tablet 500 mg PO BID 7 Days Qty: 14 0RF diclofenac sodium 1 % gel 2 g topical QID Qty: 100 0RF Rx Instructions: apply to area of pain up to 4 times daily No Action allopurinol 300 MG tablet 150 mg PO BEDTIME Qty: 0 gabapentin 300 mg capsule 300 mg PO BID amlodipine 5 mg Tablet 5 mg PO BEDTIME losartan 100 mg tablet 100 mg PO BEDTIME acetaminophen 500 mg capsule 500 mg PO Q4-5H MDD 6 tabs/day Qty: 90 0RF fluticasone propionate [Allergy Relief (fluticasone)] 50 mcg/actuation spray,suspension 1 spray intranasal BID PRN (Reason: nasal congestion) Qty: 16 0RF Rx Instructions: administer into each nostril cetirizine 10 mg tablet 10 mg PO BEDTIME Qty: 30 0RF Saline Nasal Mist 3 % mist 1 spray intranasal Q2HR PRN (Reason: dry nasal passages) Qty: 126 0RF fluticasone propionate 50 mcg/actuation spray,suspension 1 spray intranasal BID PRN (Reason: nasal congestion) Qty: 16 0RF Rx Instructions: administer into each nostril cetirizine 10 mg tablet 10 mg PO DAILY PRN (Reason: allergy symptoms) Qty: 30 0RF (DME) BIPAP PRO Qty: 1 Dose Instruction: As directed Label Comments: PRESSURE: IPAP 16 EPAP 12 DME: [facility] Rx Instructions: As directed Eliquis 5 mg tablet 5 mg PO BID hydroxyzine pamoate [Vistaril] 25 mg capsule 25 mg PO BEDTIME Referrals: Andrew Grant MD [Physician] - Maryann Wray PA-C [Primary Care Provider] - Koko Burgos MD [Non-Staff] - (At the [facility] [address] [place] [address] [place] [address] ) Lee Canales MD [Physician] - Stand Alone Forms: Patient Portal/API <Deandre Dangelo DO - Last Filed: 12/27/22 22:53> Cosign ED Attending Cosignature Attestation: I was immediately available in the department for consultation. This documentation has been reviewed and I agree with assessment and plan. Supervised by Deandre Dangelo DO
[2022-12-27] MEDS: OXYCODONE/ACETAMINOPHEN 5/325 TABLET 1 TAB PO (18:45)
[2022-12-27] MEDS: ONDANSETRON 4 MG ODT SL (18:45)
[2022-12-27] MEDS: methocarbamoL 500 MG TABLET PO (18:45)
[2022-12-27] MEDS: CIPROFLOXACIN 250 MG TABLET 500 MG PO (18:45)
[2022-12-27] MEDS: LIDOCAINE PATCH 1 EACH ADH..PATCH TOP (18:46)
[2022-12-27] MEDS: OXYCODONE/APAP 5/325 PREPACK 1 BOTTLE MISC (19:57)
[2022-12-27] MEDS: predniSONE 20 MG TABLET PO (19:57)
== END 2022-12-27 20:13 | disposition home or self-care (01) ==
PROVIDERS: Emergency Medicine; Emergency Provider Nurse Practitioner Critical Care Medicine; PCP Physician Assistant
DX: M54.16 Radiculopathy, lumbar region (principal); N39.0 Urinary tract infection, site not specified; R10.9 Unspecified abdominal pain
CPT/HCPCS: 74176; 81003; 81015; 99283; 99284

== ENCOUNTER → 2023-01-20 13:23 | Outpatient (CLI) | payer MEDICARE, OTHER, SELFPAY ==
[2022-01-15 15:15] VITALS: BMI 34.8
--- NOTE | 2023-01-20 13:26 | DI.MRI.S_ITS ---
PROCEDURE: MR ABDOMEN WO/W CON INDICATIONS: Acute UTI. Renal cyst. Right flank pain TECHNIQUE: Coronal HASTE through abdomen and pelvis; axial 2D FLASH in- and [id number] (with and without fat saturation), and breath-hold T2 FSE from the hepatic dome to the bottom of the kidneys. Coronal HASTE MR urogram of kidneys and bladder. Dynamic coronal VIBE during IV gadolinium administration; postgadolinium axial VIBE or 2D FLASH with fat saturation from the hepatic dome through the kidneys. COMPARISON: [facility], US, US RENAL COMPLETE, 12/23/2018, 11:22. [facility], CT, CT ABDOMEN PELVIS W CON, 09/02/2021, 14:13. [facility], CT, CT KIDNEY URETER BLADDER (KUB), 12/27/2022, 18:28. FINDINGS: Genitourinary system: No hydronephrosis. Redemonstrated cortical cyst right posterior kidney, 6.3 cm, possible single thin internal septation, no highly suspicious features identified, Bosniak 1-2. Small hemorrhagic/proteinaceous cyst exophytic from the left inferior kidney not substantially changed. Right mid-upper kidney cyst, 1.4 cm, few smooth minimally thickened septations, at least one enhances on post-contrast images (coronal delayed post-contrast series 15, image 74), Bosniak 2F. No adjacent abnormal enhancement of the renal parenchyma to raise high suspicion for pyelonephritis by imaging. This finding is not definitively identified on prior imaging, which could be due to differences in modality Other solid organs: No large gallstones. No dilation of the biliary tree or main pancreatic duct. No definite suspicious liver lesion identified within the field of view. Spleen is normal size. No adrenal nodules. Nodes and vessels: No highly suspicious lymph nodes identified in the field of view. No abdominal aortic aneurysm. Bowel and peritoneum: Visualized large and small bowel is non-dilated. Scattered colonic diverticula Lung bases: No pleural effusion IMPRESSION: A 1.4 cm cyst at the right mid-upper kidney is consistent with Bosniak category IIF. No adjacent abnormal enhancement of the renal parenchyma to raise high suspicion for pyelonephritis/abscess by imaging, clinical correlation is recommended. The large majority of Bosniak IIF masses are benign. When malignant, nearly all are indolent. Generally, Bosniak IIF masses are followed by imaging at 6 months and 12 months, then annually for a total of 5 years to assess for morphologic change. Dictated by: Raul Collazo M.D. on 01/20/2023 at 16:36 Approved by: Raul Collazo M.D. on 01/20/2023 at 17:10
== END ==
PROVIDERS: Referring Provider Specialist; Visit Provider Specialist
DX: N28.1 Cyst of kidney, acquired (principal); N40.0 Benign prostatic hyperplasia without lower urinary tract symptoms; N39.0 Urinary tract infection, site not specified; R10.9 Unspecified abdominal pain; R31.9 Hematuria, unspecified
CPT/HCPCS: 74183; A9579

== ENCOUNTER → 2023-05-27 16:59 | Outpatient (CLI) | payer MEDICARE, OTHER, SELFPAY ==
[2022-01-15 15:15] VITALS: BMI 34.8
--- NOTE | 2023-05-27 | DI.RAD.S_ITS ---
PROCEDURE: XR CHEST 2V INDICATIONS: short of breath TECHNIQUE: 2 views of the chest were acquired. COMPARISON: [facility], ROLAN, XR CHEST 2V, 07/24/2022, 15:02. [facility], CR, XR CHEST 1V, 03/01/2019, 16:34. FINDINGS: Surgical changes and devices: None. Lungs and pleura: Lungs are clear. No pleural effusions or pneumothorax. Mediastinum: Mediastinal contours are normal. Heart size is normal. Bones and chest wall: No suspicious bony abnormalities. Soft tissues appear unremarkable. IMPRESSION: No acute cardiopulmonary process. Dictated by: Rj Martinez M.D. on 05/28/2023 at 8:49 Approved by: Rj Martinez M.D. on 05/28/2023 at 8:49
== END ==
PROVIDERS: Referring Provider Physician Assistant; Visit Provider Physician Assistant
DX: R06.02 Shortness of breath (principal)
CPT/HCPCS: 71046

== ENCOUNTER 2023-07-15 17:01 | Emergency (ER) | payer MEDICARE, OTHER, SELFPAY ==
[2022-01-15 15:15] VITALS: BMI 34.8
[2023-07-15] VITALS (9 sets, daily range): BP systolic 139–180; BP diastolic 65–95; PULSE 55–79; RESP 18–22; TEMP 36.6; O2SAT 95–97; BMI 34.0
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
[2023-07-15 17:39] LABS: Add Manual Diff / Slide Review NO; Basophils Absolute Auto 100 /uL (0-100); Basophils Percent Auto 0.8 % (0-2); Eosinophils Absolute Auto 300 /uL (0-450); Eosinophils Percent Auto 3.3 % (2-4); Hemoglobin 14.9 g/dL (13.5-17.5); Lymphocytes Absolute Auto 1800 /uL (1100-4500); Mean Corpuscular HGB Conc 34.6 % (30-36); Mean Corpuscular Hemoglobin 29.5 PG (26-34); Mean Corpuscular Volume 85.1 fL (80-100); Monocytes Absolute Auto 600 /uL (0-900); Monocytes Percent Auto 7.2 % (3-14); Neutrophils Absolute Auto 5200 /uL (1500-7000); Neutrophils Percent Auto 65.7 % (50-75); Platelet Count 206 X10^3/uL (150-400); Red Blood Cell Count 5.05 X10^6/uL (4.5-5.9); White Blood Cell Count 7.9 X10^3/uL (4.5-11.0)
--- NOTE | 2023-07-15 17:42 | PC.NURSE ---
Pt in a monitored hallway bed until an ER room is ready
[2023-07-15 17:45] LABS: INR 1.2 (0.9-1.3); Prothrombin Time 14.1 SECONDS (10.1-12.7)
[2023-07-15 17:55] LABS: Alanine Aminotransferase 22 IU/L (<50); Albumin 4.3 g/dL (3.5-5.0); Albumin Globulin Ratio 1.4 (1.0-2.8); Alkaline Phosphatase 57 U/L (38-126); Aspartate Aminotransferase 28 IU/L (17-59); BUN Creatinine Ratio 21.3 (6-22); Blood Urea Nitrogen 20 mg/dL (9-20); Calcium 9.7 mg/dL (8.4-10.2); Carbon Dioxide 23 mmol/L (22-32); Chloride 105 mmol/L (98-107); Estimated Glomerular Filt Rate > 60 mL/min (>60); Globulin 3.1 g/dL (1.7-4.1); Glucose 115 mg/dL (80-110); HEMOLYSIS < 15 (0-50); Potassium 3.5 mmol/L (3.4-5.1); Sodium 138 mmol/L (137-145); Total Protein 7.4 g/dL (6.3-8.2)
[2023-07-15 18:06] LABS: COVID19 -Nasal RAPID Negative (Negative)
[2023-07-15 18:07] LABS: NT-proBNP (BNP-Adult 18+) 100 pg/mL (<450); Troponin I < 0.012 ng/mL (0.01-0.034)
--- NOTE | 2023-07-15 18:11 | DI.CT.S_ITS ---
PROCEDURE: CT ANGIO CHEST PE PROTOCOL INDICATIONS: Dyspnea TECHNIQUE: After the administration of intravenous contrast, 2 mm thick sections acquired from the pulmonary apices to the posterior costophrenic angles. 3-dimensional maximum intensity projection (MIP) coronal and sagittal reformats were then acquired through the thorax. For radiation dose reduction, the following was used: automated exposure control, adjustment of mA and/or kV according to patient size. COMPARISON: [facility], CT, CT KIDNEY URETER BLADDER (KUB), 12/27/2022, 18:28. [facility], CT, CT ANGIO CHEST PE PROTOCOL, 09/04/2020, 4:35. FINDINGS: Image quality: Excellent. Pulmonary arteries: Pulmonary arteries are normal in size, and demonstrate no intraluminal filling defects to suggest central pulmonary embolism. Lungs and pleura: 7 mm nodular focus within the left lateral lingula new since 12/27/2022. No pleural effusions or pneumothorax. Central and peripheral airways are patent. Mediastinum: Heart size is enlarged, without pericardial effusion. No mediastinal or hilar adenopathy. Thoracic aorta is normal in caliber and enhancement. Esophagus is normal in caliber, without hiatal hernia. Bones and chest wall: No suspicious bony lesions. Ribs and thoracic spine appear intact throughout. Thyroid gland is unremarkable within visualized portions. No axillary or supraclavicular adenopathy. Abdomen: Heterogeneously enhancing right hepatic mass unchanged and suggestive of hemangioma. IMPRESSION: No pulmonary embolism. No effusions or consolidations. 7 mm nodular focus within the lingula. This may represent interval scarring. However, recommend interval follow-up as below. Fleischner Society criteria for SOLID lung nodule followup. Nodule size (mm)Low-risk patientHigh-risk patient<6 (single or multiple)No routine followup.Optional CT at 12 months. 6-8 (single or multiple)CT at 6-12 months, then optional CT at 18-24 mo.CT at 6-12 months, then CT at 18-24 months. >8 (single)CT, PET-CT, or biopsy at 3 months. Same as for low-risk pts. >8 (multiple)CT at 3-6 months, then optional CT at 18-24 mo.CT at 3-6 months, then CT at 18-24 months. Recommendations do not apply to lung cancer screening, patients with immunosuppression, or patients with known primary cancer. Dictated by: Regina Rubalcava M.D. on 07/15/2023 at 19:07 Approved by: Regina Rubalcava M.D. on 07/15/2023 at 19:10
== END 2023-07-15 21:55 | disposition home or self-care (01) ==
PROVIDERS: Emergency Medicine; Emergency Provider Emergency Medicine; PCP Physician Assistant
DX: R06.00 Dyspnea, unspecified (principal); Z79.01 Long term (current) use of anticoagulants; Z20.822 Contact with and (suspected) exposure to COVID-19
CPT/HCPCS: 36415; 71275; 80053; 83605; 83880; 84484; 85025; 85610; 87635; 93005; 93010; 99284; C9803; Q9967

== ENCOUNTER → 2023-08-26 17:10 | Outpatient (CLI) | payer OTHER, SELFPAY ==
[2022-01-15 15:15] VITALS: BMI 34.8
--- NOTE | 2023-08-26 | DI.MRI.S_ITS ---
PROCEDURE: MR CERVICAL SPINE WO CON INDICATIONS: radiculopathy, cervical region TECHNIQUE: Noncontrast sagittal T1 spin echo and T2 fast spin echo, sagittal STIR, foraminal oblique sagittal T2 fast spin echo, and axial gradient echo or T2 fast spin echo through the cervical spine. COMPARISON: [facility], MR, MR CERVICAL SPINE WO CON, 07/21/2018, 14:00. FINDINGS: Image quality: Excellent. Alignment and Curvature: Straightening of the normal cervical lordosis. Bone Marrow: Status post C4 through C6 ACDF. Marrow demonstrates normal overall signal. Spinal Cord: Visualized spinal cord has normal size and signal. No cerebellar tonsillar herniation. Paraspinous Soft Tissues: No paravertebral masses. Prevertebral soft tissues are normal in thickness. C2-C3: Disc desiccation. Posterior disc bulge with superimposed left far lateral broad-based protrusion/osteophyte. Facet and uncovertebral arthropathy. Stable mild central canal stenosis. Stable moderate right and severe left neural foraminal stenosis. C3-C4: Disc desiccation. Stable mild central canal stenosis. Facet and uncovertebral arthropathy. Stable severe right and moderate left neural foraminal stenosis.. C4-C5: ACDF. Improvement in now mild central canal stenosis. Facet and uncovertebral arthropathy. Stable moderate right and [id number]-mo-suurdunj left neural foraminal stenosis. C5-C6: ACDF. Improvement in now mild central canal stenosis. Facet and uncovertebral arthropathy. Severe bilateral neural foraminal stenosis. C6-C7: Severe disc desiccation and height loss. Posterior disc osteophyte complex. Stable moderate central canal stenosis. Severe bilateral neural foraminal stenosis C7-T1: Severe disc desiccation height loss. Minimal posterior disc osteophyte complex. Mild central canal stenosis. Facet and uncovertebral arthropathy. Severe bilateral neural foraminal stenosis. IMPRESSION: 1. Multilevel degenerative changes of the cervical spine. Postsurgical changes from C4 through C6 ACDF. There is improvement in central canal stenosis at C4-C5 and C5-C6. Previously severe central canal stenosis at C5-C6, now mild. 2. Redemonstration of multilevel severe neural foraminal stenosis as described above. Dictated by: Florin Stinson M.D. on 08/27/2023 at 10:07 Approved by: Florin Stinson M.D. on 08/27/2023 at 10:20
== END ==
PROVIDERS: PCP Physician Assistant; Referring Provider Family Medicine; Visit Provider Family Medicine
DX: Z98.1 Arthrodesis status; M47.22 Other spondylosis with radiculopathy, cervical region; M48.02 Spinal stenosis, cervical region
CPT/HCPCS: 72141

== ENCOUNTER → 2023-08-27 09:59 | Outpatient (CLI) | payer MEDICARE, OTHER, SELFPAY ==
[2022-01-15 15:15] VITALS: BMI 34.8
== END ==
PROVIDERS: PCP Physician Assistant; Referring Provider Internal Medicine Critical Care Medicine; Visit Provider Internal Medicine Critical Care Medicine
DX: R06.00 Dyspnea, unspecified (principal); Z87.891 Personal history of nicotine dependence; J98.8 Other specified respiratory disorders
CPT/HCPCS: 94060; 94726; 94729

== ENCOUNTER → 2023-10-21 14:41 | Outpatient (CLI) | payer MEDICARE, OTHER, SELFPAY ==
[2022-01-15 15:15] VITALS: BMI 34.8
--- NOTE | 2023-10-21 | DI.CT.S_ITS ---
PROCEDURE: CT LUMBAR SPINE WO CON INDICATIONS: Spinal stenosis, lumbar region without neurogenic claudicati TECHNIQUE: Noncontrast 3 mm thick sections acquired from the T12 level to the sacrum. Sagittal and coronal reformats were constructed. For radiation dose reduction, the following was used: automated exposure control. COMPARISON: [facility], CT, CT LUMBAR SPINE WO CON, 04/03/2021, 11:24. FINDINGS: Image quality: Excellent. Bones: There is normal bony alignment. No acute vertebral body compression fractures. No suspicious lytic or blastic bony lesions. No pars defects. T12-L1: Moderate disc height loss with intradiscal gas consistent with degenerative disc disease. There is a posteriorly directed endplate osteophyte which causes moderate to severe central canal stenosis at this level. No significant change compared to the prior study. The foramina bilaterally have moderate stenosis. L1-L2: Severe disc height loss with intradiscal gas consistent with degenerative disc disease. There are disc osteophytes. The left foramen has severe stenosis. The right foramen has moderate stenosis. The central canal has mild stenosis. L2-L3: Diffuse disc bulge with no significant foraminal or central canal stenosis. L3-L4: Diffuse disc bulge with no significant foraminal or central canal stenosis. L4-L5: Postoperative changes of discectomy with posterior fixation. The foramina and central canal appear patent. The screws are seen above the superior endplate. L5-S1: Postoperative changes of discectomy with posterior fixation. Disc osteophytes cause moderate bilateral foraminal stenosis. The central canal is patent. Soft tissues: No retroperitoneal masses or hematomas. 6.3 cm cyst of the right kidney. Visualized aorta is normal in caliber. IMPRESSION: 1. Postoperative changes as detailed above. 2. Multilevel lumbar spondylosis causing foraminal and central canal stenosis at the remaining levels as detailed above. Dictated by: Edis Diego M.D. on 10/21/2023 at 16:29 Approved by: Edis Diego M.D. on 10/21/2023 at 16:35
== END ==
PROVIDERS: PCP Physician Assistant; Referring Provider Orthopaedic Surgery Orthopaedic Surgery of the Spine; Visit Provider Orthopaedic Surgery Orthopaedic Surgery of the Spine
DX: M48.061 Spinal stenosis, lumbar region without neurogenic claudication (principal); M48.07 Spinal stenosis, lumbosacral region; M47.816 Spondylosis without myelopathy or radiculopathy, lumbar region
CPT/HCPCS: 72131

== ENCOUNTER 2023-11-22 15:38 | Emergency (ER) | payer MEDICARE, OTHER, SELFPAY ==
[2022-01-15 15:15] VITALS: BMI 34.8
[2023-11-22] VITALS (13 sets, daily range): BP systolic 151–183; BP diastolic 70–89; PULSE 56–84; RESP 18–20; TEMP 36.4; O2SAT 95–98; BMI 33.5
--- NOTE | 2023-11-22 15:56 | DI.RAD.S_ITS ---
PROCEDURE: XR CHEST 2V INDICATIONS: Shortness of breath TECHNIQUE: 2 views of the chest were acquired. COMPARISON: [facility], CR, XR CHEST 2V, 05/27/2023, 17:00. FINDINGS: Surgical changes and devices: None. Lungs and pleura: Lungs are clear. No pleural effusions or pneumothorax. Mediastinum: Mediastinal contours are normal. Heart size is normal. Bones and chest wall: No suspicious bony abnormalities. Soft tissues appear unremarkable. IMPRESSION: Minimal bibasilar atelectasis and or infiltrate Approved by: Maxwell Barajas M.D. on 11/22/2023 at 15:36
--- NOTE | 2023-11-22 17:21 | ED.SOB ---
HPI - SOB/Dyspnea <Marialuisa Mathews MD - Last Filed: 11/23/23 17:03> General Chief Complaint: Shortness of Breath/Dyspnea Stated Complaint: hard time breathing Time Seen by Provider: 11/22/23 15:51 Source: patient Mode of arrival: Ambulatory Limitations: no limitations Related Data Home Medications Medication Instructions Recorded Confirmed allopurinol 300 mg tablet 150 mg PO BEDTIME ##0 12/14/12 09/16/23 amlodipine 5 mg tablet 5 mg PO BEDTIME 09/03/18 09/16/23 BIPAP PRO #1 ea 01/12/19 09/16/23 losartan 100 mg tablet 100 mg PO BEDTIME 03/01/19 09/16/23 gabapentin 300 mg capsule 300 mg PO BID 11/23/20 09/16/23 apixaban 5 mg tablet (Eliquis) 5 mg PO BID 08/14/21 09/16/23 Previous Rx's Medication Instructions Recorded acetaminophen 500 mg capsule 500 mg PO Q4-5H pain #90 caps 06/27/21 fluticasone propionate 50 1 spray intranasal BID PRN nasal 07/24/22 mcg/actuation nasal congestion #16 grams spray,suspension (Allergy Relief (fluticasone)) diclofenac sodium 1 % topical gel 2 g topical QID #100 grams 12/27/22 polyethylene glycol 3350 17 17 g PO DAILY PRN constipation 12/27/22 gram/dose oral powder (Miralax) #238 grams albuterol sulfate 90 mcg/actuation 2 inh inhalation Q6H PRN shortness 07/09/23 breath activated powder inhaler of breath or wheezing #1 ea Allergies Allergy/AdvReac Type Severity Reaction Status Date / Time tamsulosin Allergy Severe Difficulty Verified 11/22/23 15:44 Breathing cefuroxime [From Ceftin] Allergy Unknown Pt does Verified 11/22/23 15:44 not recall cyclobenzaprine AdvReac Severe Drowsy Verified 11/22/23 15:44 [From Flexeril] doxazosin AdvReac Severe SOB, Verified 11/22/23 15:44 fever, extreme fatigue, cough, flu-like symptoms ezetimibe [From Vytorin] AdvReac Severe Back Pain Verified 11/22/23 15:44 pravastatin [From Pravachol] AdvReac Severe Back Pain Verified 01/21/24 15:44 simvastatin [From Vytorin] AdvReac Severe Back Pain Verified 11/22/23 15:44 hydrocodone [HYDROCODONE] AdvReac Mild CONSTIPATIO Verified 11/22/23 15:44 N lisinopril AdvReac Mild COUGH, Verified 11/22/23 15:44 Palpitations <Marialuisa Coronado DO - Last Filed: 11/22/23 21:02> History of Present Illness HPI Narrative: 78-year-old male with history of pulmonary emboli after back surgery, had stopped his Eliquis had another back surgery and then developed pulmonary emboli again. He has been taking it regularly since then. Patient states does use a CPAP home, has history of hypertension, obstructive sleep apnea, chronic pain and degenerative disc disease. Patient states he gets whole-body pain that typically starts it his legs goes all the way up to his head sometimes. He is seen primary care he finds sometimes Tylenol is helpful he takes it very early, oxycodone can be helpful typically he has been put on Lyrica and gabapentin in the past but did not tolerate it well. States had an episode early this morning felt similar to prior episodes. Then laid down to have a nap at about 1300 today states woke up feeling like he was gasping for air. Took off his CPAP mask and was able to breathe. He states he has not been having persistent symptoms since. Denies fevers chills cold cough congestion symptoms. No syncope. Patient states no other GI or urinary symptoms reported. He states he is taking his Eliquis daily without any skipped doses. He has follow up Thursday with his primary care physician. Review of Systems <Marialuisa Coronado DO - Last Filed: 11/22/23 21:02> Review of Systems ROS Unobtainable: All systems reviewed & are unremarkable except as noted in HPI and below Patient History <Marialuisa Mathews MD - Last Filed: 11/23/23 17:03> Medical History Bilateral renal cysts Pulmonary embolism (09/05/20) Hemorrhage (09/05/20) Chronic pain syndrome DDD (degenerative disc disease), lumbosacral BPH NOS w/o ur obs/LUTS History of UTI UTI (urinary tract infection) Anemia Male circumcision Diverticular disease Depression Chronic UTI Skin cancer BPH (benign prostatic hyperplasia) Arthritis BPH w urinary obs/LUTS Tingling of right upper extremity Nephrolithiasis Low back pain Spinal stenosis Osteoporosis Polio Shingles SOTERO treated with BiPAP Degenerative disc disease, lumbar GERD (gastroesophageal reflux disease) Allergic rhinitis Osteoarthritis Gout Hypertension Hyperlipidemia Snoring Surgical History History of colonoscopy (06/05/21) History of colon resection (12/2020) History of surgery (09/05/20) Hx of transurethral resection of prostate (12/26/19) History of lumbar spinal fusion H/O prostatectomy Previous back surgery History of lumbar spinal fusion (10/21/18) Hx of circumcision History of vasectomy S/P cervical spinal fusion (09/06/18) Hx of microdiscectomy (09/24/16) S/P excision of lipoma Status post cataract extraction of both eyes with insertion of intraocular lens Family History Mother COPD (chronic obstructive pulmonary disease) Social History marital status: number of children: 3 household members: spouse occupational status: previously employed Smoking Status: Former smoker alcohol intake: current substance use type: does not use caffeine: Yes Smoking Status: Former smoker tobacco type: cigarettes alcohol intake frequency: holidays/special occasions only Substance Use Type: does not use Exam <Marialuisa Mathews MD - Last Filed: 11/23/23 17:03> Initial Vital Signs Initial Vital Signs: Vital Signs Temperature 97.6 F 11/22/23 15:44 Pulse Rate 84 11/22/23 15:44 Respiratory Rate 20 11/22/23 15:44 Blood Pressure 180/89 H 11/22/23 15:44 Pulse Oximetry 95 11/22/23 15:44 Oxygen Delivery Method Room Air 11/22/23 15:44 <Marialuisa Coronado DO - Last Filed: 11/22/23 21:02> Narrative Exam Narrative: GENERAL: Alert and oriented x three, obese male in mild distress. HEENT: Head normocephalic, atraumatic, EOMI, pupils reactive, face symmetric, moist mucous membranes NECK: Supple, full range of motion CARDIOVASCULAR: Regular rate and rhythm without murmurs, rubs or gallops. No JVD. No swelling bilateral lower extremities. RESPIRATORY: Breath sounds equal bilaterally, no wheezes rales or rhonchi. No tachypnea or accessory muscle use. Patient's speaks in full sentences. ABDOMEN: Soft, nontender. Normoactive bowel sounds all 4 quadrants. No guarding or rebound, rigidity, no mass : No CVA tenderness EXTREMITIES: Normal range of motion, no clubbing or edema. Neurovascularly intact NEUROLOGICAL: Cranial nerves II through XII grossly intact. Moving all extremities SKIN: Warm, dry, no petechiae, no rashes or lesions. Initial Vital Signs Initial Vital Signs: Vital Signs Temperature 97.6 F 11/22/23 15:44 Pulse Rate 84 11/22/23 15:44 Respiratory Rate 20 11/22/23 15:44 Blood Pressure 180/89 H 11/22/23 15:44 Pulse Oximetry 95 11/22/23 15:44 Oxygen Delivery Method Room Air 11/22/23 15:44 Course <Marialuisa Mathews MD - Last Filed: 11/23/23 17:03> Orders Ordered: ED Orders 11/22/23 15:56 XR chest 2V Stat 11/22/23 17:44 CBC Auto Diff [Complete Blood Count AUTO DIFF] Stat CMP [Comprehensive Metabolic Panel] Stat PT [Prothrombin Time INR] Stat Troponin & CK Cardiac Panel Stat 11/22/23 18:24 EKG-12 Lead Stat Vital Signs Vital signs: Vital Signs - 8 hr 11/22/23 15:44 11/22/23 15:53 11/22/23 15:54 Temperature 97.6 F Pulse Rate 84 Respiratory Rate 20 Blood Pressure 180/89 H 162/76 H Pulse Oximetry 95 98 Oxygen Delivery Method Room Air 11/22/23 15:54 11/22/23 16:00 11/22/23 16:01 Temperature Pulse Rate 56 L 76 Respiratory Rate Blood Pressure 181/84 H Pulse Oximetry 96 98 Oxygen Delivery Method 11/22/23 16:01 11/22/23 16:30 11/22/23 17:00 Temperature Pulse Rate 75 57 L 59 L Respiratory Rate Blood Pressure Pulse Oximetry 98 96 96 Oxygen Delivery Method 11/22/23 17:30 11/22/23 17:45 11/22/23 17:45 Temperature Pulse Rate 69 70 Respiratory Rate Blood Pressure 168/84 H Pulse Oximetry 97 98 Oxygen Delivery Method 11/22/23 18:00 11/22/23 18:00 11/22/23 18:30 Temperature Pulse Rate 57 L 76 Respiratory Rate Blood Pressure 183/84 H Pulse Oximetry 98 97 Oxygen Delivery Method Room Air 11/22/23 18:31 11/22/23 18:31 11/22/23 19:00 Temperature Pulse Rate 72 Respiratory Rate Blood Pressure 158/73 H 151/70 H Pulse Oximetry 97 Oxygen Delivery Method 11/22/23 19:00 Temperature Pulse Rate 80 Respiratory Rate 18 Blood Pressure Pulse Oximetry 96 Oxygen Delivery Method <Marialuisa Coronado, - Last Filed: 11/22/23 21:02> Orders Ordered: ED Orders 11/22/23 15:56 XR chest 2V Stat 11/22/23 17:44 CBC Auto Diff [Complete Blood Count AUTO DIFF] Stat CMP [Comprehensive Metabolic Panel] Stat PT [Prothrombin Time INR] Stat Troponin & CK Cardiac Panel Stat 11/22/23 18:24 EKG-12 Lead Stat Vital Signs Vital signs: Vital Signs - 8 hr 11/22/23 15:44 11/22/23 15:53 11/22/23 15:54 Temperature 97.6 F Pulse Rate 84 Respiratory Rate 20 Blood Pressure 180/89 H 162/76 H Pulse Oximetry 95 98 Oxygen Delivery Method Room Air 11/22/23 15:54 11/22/23 16:00 11/22/23 16:01 Temperature Pulse Rate 56 L 76 Respiratory Rate Blood Pressure 181/84 H Pulse Oximetry 96 98 Oxygen Delivery Method 11/22/23 16:01 11/22/23 16:30 11/22/23 17:00 Temperature Pulse Rate 75 57 L 59 L Respiratory Rate Blood Pressure Pulse Oximetry 98 96 96 Oxygen Delivery Method 11/22/23 17:30 11/22/23 17:45 11/22/23 17:45 Temperature Pulse Rate 69 70 Respiratory Rate Blood Pressure 168/84 H Pulse Oximetry 97 98 Oxygen Delivery Method 11/22/23 18:00 11/22/23 18:00 11/22/23 18:30 Temperature Pulse Rate 57 L 76 Respiratory Rate Blood Pressure 183/84 H Pulse Oximetry 98 97 Oxygen Delivery Method Room Air 11/22/23 18:31 11/22/23 18:31 11/22/23 19:00 Temperature Pulse Rate 72 Respiratory Rate Blood Pressure 158/73 H 151/70 H Pulse Oximetry 97 Oxygen Delivery Method 11/22/23 19:00 Temperature Pulse Rate 80 Respiratory Rate 18 Blood Pressure Pulse Oximetry 96 Oxygen Delivery Method MDM - SOB/Dyspnea <Marialuisa Mathews MD - Last Filed: 11/23/23 17:03> Lab Data 11/22/23 17:44 11/22/23 17:44 Labs: Lab Results 11/22/23 Range/Units 17:44 WBC 7.8 (4.5-11.0) X10^3/uL RBC 5.27 (4.5-5.9) X10^6/uL Hgb 15.3 (13.5-17.5) g/dL Hct 45.0 (41-53) % MCV 85.4 (80-100) fL MCH 29.1 (26-34) PG MCHC 34.1 (30-36) % RDW 13.7 (11.6-14.8) % Plt Count 210 (150-400) X10^3/uL Neut % (Auto) 69.1 (50-75) % Lymph % (Auto) 19.2 L (25-40) % Pender % (Auto) 6.9 (3-14) % Eos % (Auto) 3.8 (2-4) % Baso % (Auto) 1.0 (0-2) % Neut # (Auto) 5400 (7646-6137) /uL Lymph # (Auto) 1500 (9718-9817) /uL Pender # (Auto) 500 (0-900) /uL Eos # (Auto) 300 (0-450) /uL Baso # (Auto) 100 (0-100) /uL PT 13.1 H (9.4-12.5) SECONDS INR 1.1 (0.9-1.3) Sodium 139 (137-145) mmol/L Potassium 4.0 (3.4-5.1) mmol/L Chloride 101 (98-107) mmol/L Carbon Dioxide 28 (22-32) mmol/L BUN 18 (9-20) mg/dL Creatinine 0.97 (0.66-1.25) mg/dL Estimated GFR > 60 (>60) mL/min BUN/Creatinine Ratio 18.6 (6-22) Glucose 131 H (80-110) mg/dL Calcium 10.1 (8.4-10.2) mg/dL Total Bilirubin 1.0 (0.2-1.3) mg/dL AST 26 (17-59) IU/L ALT 20 (<50) IU/L Alkaline Phosphatase 60 (38-126) U/L Total Creatine Kinase 62 (55-170) U/L Troponin I < 0.012 (0.01-0.034) ng/mL Total Protein 7.9 (6.3-8.2) g/dL Albumin 4.5 (3.5-5.0) g/dL Globulin 3.4 (1.7-4.1) g/dL Albumin/Globulin Ratio 1.3 (1.0-2.8) <Marialuisa Coronado, DO - Last Filed: 11/22/23 21:02> Lab Data Labs: Lab Results 11/22/23 Range/Units 17:44 WBC 7.8 (4.5-11.0) X10^3/uL RBC 5.27 (4.5-5.9) X10^6/uL Hgb 15.3 (13.5-17.5) g/dL Hct 45.0 (41-53) % MCV 85.4 (80-100) fL MCH 29.1 (26-34) PG MCHC 34.1 (30-36) % RDW 13.7 (11.6-14.8) % Plt Count 210 (150-400) X10^3/uL Neut % (Auto) 69.1 (50-75) % Lymph % (Auto) 19.2 L (25-40) % Pender % (Auto) 6.9 (3-14) % Eos % (Auto) 3.8 (2-4) % Baso % (Auto) 1.0 (0-2) % Neut # (Auto) 5400 (1138-8426) /uL Lymph # (Auto) 1500 (6656-5120) /uL Pender # (Auto) 500 (0-900) /uL Eos # (Auto) 300 (0-450) /uL Baso # (Auto) 100 (0-100) /uL PT 13.1 H (9.4-12.5) SECONDS INR 1.1 (0.9-1.3) Sodium 139 (137-145) mmol/L Potassium 4.0 (3.4-5.1) mmol/L Chloride 101 (98-107) mmol/L Carbon Dioxide 28 (22-32) mmol/L BUN 18 (9-20) mg/dL Creatinine 0.97 (0.66-1.25) mg/dL Estimated GFR > 60 (>60) mL/min BUN/Creatinine Ratio 18.6 (6-22) Glucose 131 H (80-110) mg/dL Calcium 10.1 (8.4-10.2) mg/dL Total Bilirubin 1.0 (0.2-1.3) mg/dL AST 26 (17-59) IU/L ALT 20 (<50) IU/L Alkaline Phosphatase 60 (38-126) U/L Total Creatine Kinase 62 (55-170) U/L Troponin I < 0.012 (0.01-0.034) ng/mL Total Protein 7.9 (6.3-8.2) g/dL Albumin 4.5 (3.5-5.0) g/dL Globulin 3.4 (1.7-4.1) g/dL Albumin/Globulin Ratio 1.3 (1.0-2.8) Imaging Data Chest x-ray: Radiologist's Impression: [address] [address] XRay Report Signed Patient: Huey Newman MR#: [id number] : 1945 Acct:[id number] Age/Sex: 78 / M Date of Service: 11/22/23 Loc: ED Accession Number: [id number] Procedure: XR chest 2V Ordering Provider: Marialuisa Mathews MD PROCEDURE: XR CHEST 2V INDICATIONS: Shortness of breath TECHNIQUE: 2 views of the chest were acquired. COMPARISON: [facility], , XR CHEST 2V, 05/27/2023, 17:00. FINDINGS: Surgical changes and devices: None. Lungs and pleura: Lungs are clear. No pleural effusions or pneumothorax. Mediastinum: Mediastinal contours are normal. Heart size is normal. Bones and chest wall: No suspicious bony abnormalities. Soft tissues appear unremarkable. IMPRESSION: Minimal bibasilar atelectasis and or infiltrate Approved by: Maxwell Barajas M.D. on 11/22/2023 at 15:36 ECG Data Attestation: I personally reviewed and interpreted this ECG as follows: Prior ECG tracings: available for review Interpretation: Sinus bradycardia rate of 49 NE 192 QRS of 126 QTC of 401, history of left ventricular hypertrophy with widening, patient has prior from 07/15/2023 which overall appears similar. MDM Narrative Medical decision making narrative: Patient signed out to myself by Dr. Mathews. Patient came in with complaint of undiagnosed episodes bad pain throughout the body as well as shortness of breath when he has these episodes and then he woke up with a CPAP not being able to breathe. Has a history of pulmonary embolism takes 5 mg Eliquis b.i.d., also takes oxycodone last dose was 0230 this a.m.. Patient had chest x-ray which shows atelectasis versus infiltrate, EKG shows no acute changes. Labs show a CBC with white count of 7.8 hemoglobin of 15 platelets of 210 lymphs are slightly low. Chemistries showed normal electrolytes, BUN and creatinine glucose of 131 with otherwise negative LFTs and a negative troponin. Patient endorses taking his medication regularly without any missed doses, O2 sats 98% on room air he is bradycardic without any hypotension making pulmonary emboli seem less likely as source of symptoms. Patient does not appear to have any cardiac episodes and his episode earlier today was greater than 12 hours ago. Exam overall is reassuring and patient felt safe for disposition. Patient is not really describing any new orthopnea with symptoms making CHF less likely. Lungs are clear on examination. Patient is describing whole body pain with these episodes. He has follow up this Thursday with primary care. Patient feels comfortable with plan for discharge home. Did discuss return precautions if new or changing symptoms. Discharge Plan Departure Patient Disposition: Home Clinical Impression: Shortness of breath Activity Restrictions/Additional Instructions: Follow-up with your primary care physician at your appointment on Thursday. I hope you continue to feel improved. Please return for new chest pain or pressure, shortness of breath, difficulty with lying flat, new swelling in your extremities, lightheadedness or passing out or other new or concerning changes. Prescriptions: No Action allopurinol 300 MG tablet 150 mg PO BEDTIME Qty: 0 gabapentin 300 mg capsule 300 mg PO BID amlodipine 5 mg Tablet 5 mg PO BEDTIME losartan 100 mg tablet 100 mg PO BEDTIME acetaminophen 500 mg capsule 500 mg PO Q4-5H MDD 6 tabs/day Qty: 90 0RF fluticasone propionate [Allergy Relief (fluticasone)] 50 mcg/actuation spray,suspension 1 spray intranasal BID PRN (Reason: nasal congestion) Qty: 16 0RF Rx Instructions: administer into each nostril polyethylene glycol 3350 [Miralax] 17 gram/dose powder 17 g PO DAILY PRN (Reason: constipation) Qty: 238 0RF diclofenac sodium 1 % gel 2 g topical QID Qty: 100 0RF Rx Instructions: apply to area of pain up to 4 times daily albuterol sulfate 90 mcg/actuation aerosol powdr breath activated 2 inh inhalation Q6H PRN (Reason: shortness of breath or wheezing) Qty: 1 0RF (DME) BIPAP PRO Qty: 1 Dose Instruction: As directed Patient Comments: PRESSURE: IPAP 16 EPAP 12 DME: [facility] Rx Instructions: As directed Eliquis 5 mg tablet 5 mg PO BID Referrals: Zandra Silverio PA-C [Primary Care Provider] - Stand Alone Forms: Patient Portal/API
[2023-11-22 17:54] LABS: Add Manual Diff / Slide Review NO; Basophils Absolute Auto 100 /uL (0-100); Eosinophils Absolute Auto 300 /uL (0-450); Eosinophils Percent Auto 3.8 % (2-4); Hemoglobin 15.3 g/dL (13.5-17.5); Lymphocytes Absolute Auto 1500 /uL (1100-4500); Lymphocytes Percent Auto 19.2 % (25-40); Mean Corpuscular HGB Conc 34.1 % (30-36); Mean Corpuscular Hemoglobin 29.1 PG (26-34); Mean Corpuscular Volume 85.4 fL (80-100); Monocytes Absolute Auto 500 /uL (0-900); Monocytes Percent Auto 6.9 % (3-14); Neutrophils Absolute Auto 5400 /uL (1500-7000); Neutrophils Percent Auto 69.1 % (50-75); Platelet Count 210 X10^3/uL (150-400); Red Blood Cell Count 5.27 X10^6/uL (4.5-5.9); Red Cell Distribution Width 13.7 % (11.6-14.8); White Blood Cell Count 7.8 X10^3/uL (4.5-11.0)
[2023-11-22 18:02] LABS: INR 1.1 (0.9-1.3); Prothrombin Time 13.1 SECONDS (9.4-12.5)
[2023-11-22 18:20] LABS: Creatine Kinase 62 U/L (55-170)
[2023-11-22 18:22] LABS: Alanine Aminotransferase 20 IU/L (<50); Albumin 4.5 g/dL (3.5-5.0); Albumin Globulin Ratio 1.3 (1.0-2.8); Alkaline Phosphatase 60 U/L (38-126); Aspartate Aminotransferase 26 IU/L (17-59); BUN Creatinine Ratio 18.6 (6-22); Blood Urea Nitrogen 18 mg/dL (9-20); Calcium 10.1 mg/dL (8.4-10.2); Carbon Dioxide 28 mmol/L (22-32); Chloride 101 mmol/L (98-107); Estimated Glomerular Filt Rate > 60 mL/min (>60); Globulin 3.4 g/dL (1.7-4.1); Glucose 131 mg/dL (80-110); HEMOLYSIS < 15 (0-50); Sodium 139 mmol/L (137-145); Total Protein 7.9 g/dL (6.3-8.2)
[2023-11-22 18:32] LABS: Troponin I < 0.012 ng/mL (0.01-0.034)
== END 2023-11-22 19:28 | disposition home or self-care (01) ==
PROVIDERS: Emergency Medicine; Emergency Provider Emergency Medicine; PCP Physician Assistant
DX: R06.02 Shortness of breath (principal); Z79.01 Long term (current) use of anticoagulants
CPT/HCPCS: 36415; 71046; 80053; 82550; 84484; 85025; 85610; 93005; 99283; 99284

== ENCOUNTER → 2023-12-27 15:10 | Outpatient (CLI) | payer MEDICARE, OTHER, SELFPAY ==
[2022-01-15 15:15] VITALS: BMI 34.8
--- NOTE | 2023-12-27 15:12 | DI.MRI.S_ITS ---
PROCEDURE: MR ABDOMEN RENAL PROTOCOL INDICATIONS: bilateral renal cyst TECHNIQUE: Coronal HASTE through abdomen and pelvis; axial 2D FLASH in- and [id number] (with and without fat saturation), and breath-hold T2 FSE from the hepatic dome to the bottom of the kidneys. Coronal HASTE MR urogram of kidneys and bladder. Dynamic coronal VIBE during IV gadolinium administration; postgadolinium axial VIBE or 2D FLASH with fat saturation from the hepatic dome through the kidneys. COMPARISON: [facility], CT, CT ABDOMEN PELVIS W CON, 09/02/2021, 14:13. FINDINGS: Image quality: Suboptimal due to motion artifact. Kidneys and Ureters: No hydronephrosis. No solid mass. Simple right renal cystic lesion measuring 6.4 cm, Bosniak 1. Hemorrhagic cyst with fluid-fluid level along the inferior margin of the left kidney measuring 1.4 cm, Bosniak 1. Additional smaller punctate T2 hyperintense cystic lesions, which are benign, Bosniak 1. OTHER: Lung bases: Unremarkable. Liver: No solid mass. [id number] hepatic steatosis. Gallbladder: No gallstones or wall thickening. Biliary ducts: No biliary dilation. Pancreas: No ductal dilation. Spleen: Size is within normal limits. Adrenal Glands: No adrenal nodules. Stomach and Bowel: Normal colonic caliber, without significant wall thickening. Colonic diverticulosis without evidence of diverticulitis. Peritoneum: No abnormal intraperitoneal fluid. No free air. Ventral Wall: Small umbilical hernia containing fat. Abdominal Nodes: No retroperitoneal or mesenteric adenopathy by size criteria. Vessels: Aorta and inferior vena cava are normal in size. Bones: No aggressive osseous abnormality. Surgical fusion of the lumbosacral spine. IMPRESSION: Bilateral, benign Bosniak 1 cystic lesions. No further follow-up is indicated. [id number] hepatic steatosis. Dictated by: Rj Martinez M.D. on 12/28/2023 at 8:46 Approved by: Rj Martinez M.D. on 12/28/2023 at 9:14
== END ==
LOC: MRI 15:11
PROVIDERS: PCP Physician Assistant; Referring Provider Specialist; Visit Provider Specialist
DX: N28.1 Cyst of kidney, acquired (principal); K76.0 Fatty (change of) liver, not elsewhere classified; K42.9 Umbilical hernia without obstruction or gangrene; K57.90 Diverticulosis of intestine, part unspecified, without perforation or abscess without bleeding; Z98.1 Arthrodesis status
CPT/HCPCS: 74183; A9579

== ENCOUNTER → 2024-01-28 13:45 | Outpatient (CLI) | payer MEDICARE, OTHER, SELFPAY ==
[2022-01-15 15:15] VITALS: BMI 34.8
== END ==
PROVIDERS: PCP Physician Assistant; Visit Provider Specialist
DX: N40.0 Benign prostatic hyperplasia without lower urinary tract symptoms (principal); R33.9 Retention of urine, unspecified; Z87.440 Personal history of urinary (tract) infections
CPT/HCPCS: 51798; 81002; 87077; 87086; 87147; 99214

== ENCOUNTER 2024-12-11 10:37 | Emergency (ER) | payer MEDICARE, OTHER, SELFPAY ==
[2022-01-15 15:15] VITALS: BMI 34.8
[2024-12-11 10:43] VITALS: BP 163/85; PULSE 104; RESP 16; TEMP 36.6; O2SAT 97; BMI 35.9
--- NOTE | 2024-12-11 10:47 | EKG_ITS ---
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
--- NOTE | 2024-12-11 11:00 | ED_ITS ---
HPI - Abdominal Pain General Chief Complaint: Abdominal Pain Stated Complaint: Poss food poisioning Time Seen by Provider: 12/11/24 10:58 Source: patient Mode of arrival: Ambulatory History of Present Illness HPI narrative: 79-year-old male with history of prior lower gastrointestinal bleeding and focal partial transverse colectomy surgery 2020, history of pulmonary embolism on Eliquis chronic anticoagulation, complains of nausea then nonbloody emesis since yesterday, multiple episodes nonbloody stools. Some sulfur like burping preceding onset of nausea then vomiting. No recent travel, no other persons in household with similar symptoms. No recent use of antibiotics. No history of ulcerative colitis or Crohn's disease or inflammatory bowel disease recalled. Related Data Home Medications Medication Instructions Recorded Confirmed allopurinol 300 mg tablet 150 mg PO BEDTIME ##0 12/14/12 01/28/24 amlodipine 5 mg tablet 5 mg PO BEDTIME 09/03/18 01/28/24 BIPAP PRO #1 ea 01/12/19 01/28/24 losartan 100 mg tablet 100 mg PO BEDTIME 03/01/19 01/28/24 apixaban 5 mg tablet (Eliquis) 5 mg PO BID 08/14/21 01/28/24 Previous Rx's Medication Instructions Recorded acetaminophen 500 mg capsule 500 mg PO Q4-5H pain #90 caps 06/27/21 fluticasone propionate 50 1 spray intranasal BID PRN nasal 07/24/22 mcg/actuation nasal congestion #16 grams spray,suspension (Allergy Relief (fluticasone)) diclofenac sodium 1 % topical gel 2 g topical QID #100 grams 12/27/22 polyethylene glycol 3350 17 17 g PO DAILY PRN constipation 12/27/22 gram/dose oral powder (Miralax) #238 grams fosfomycin tromethamine 3 gram 3 g PO ONCE #1 ea 01/29/24 oral packet vancomycin 125 mg capsule 125 mg PO QID 10 days #40 caps 12/11/24 Allergies Allergy/AdvReac Type Severity Reaction Status Date / Time tamsulosin Allergy Severe Difficulty Verified 11/22/23 15:44 Breathing cefuroxime [From Ceftin] Allergy Unknown Pt does Verified 11/22/23 15:44 not recall cyclobenzaprine AdvReac Severe Drowsy Verified 11/22/23 15:44 [From Flexeril] doxazosin AdvReac Severe SOB, Verified 11/22/23 15:44 fever, extreme fatigue, cough, flu-like symptoms ezetimibe [From Vytorin] AdvReac Severe Back Pain Verified 11/22/23 15:44 pravastatin [From Pravachol] AdvReac Severe Back Pain Verified 11/22/23 15:44 simvastatin [From Vytorin] AdvReac Severe Back Pain Verified 11/22/23 15:44 hydrocodone [HYDROCODONE] AdvReac Mild CONSTIPATIO Verified 11/22/23 15:44 N lisinopril AdvReac Mild COUGH, Verified 11/22/23 15:44 Palpitations Patient History Medical History (Updated 12/11/24 @ 21:09 by Albert Pearson MD) Incomplete bladder emptying Bilateral renal cysts Pulmonary embolism (09/05/20) Hemorrhage (09/05/20) Chronic pain syndrome DDD (degenerative disc disease), lumbosacral BPH NOS w/o ur obs/LUTS History of UTI UTI (urinary tract infection) Anemia Male circumcision Diverticular disease Depression Chronic UTI Skin cancer BPH (benign prostatic hyperplasia) Arthritis BPH w urinary obs/LUTS Tingling of right upper extremity Nephrolithiasis Low back pain Spinal stenosis Osteoporosis Polio Shingles SOTERO treated with BiPAP Degenerative disc disease, lumbar GERD (gastroesophageal reflux disease) Allergic rhinitis Osteoarthritis Gout Hypertension Hyperlipidemia Snoring Surgical History History of colonoscopy (06/05/21) History of colon resection (12/2020) History of surgery (09/05/20) Hx of transurethral resection of prostate (12/26/19) History of lumbar spinal fusion H/O prostatectomy Previous back surgery History of lumbar spinal fusion (10/21/18) Hx of circumcision History of vasectomy S/P cervical spinal fusion (09/06/18) Hx of microdiscectomy (09/24/16) S/P excision of lipoma Status post cataract extraction of both eyes with insertion of intraocular lens Family History Mother COPD (chronic obstructive pulmonary disease) Social History marital status: number of children: 3 household members: spouse occupational status: previously employed Smoking Status: Former smoker alcohol intake: current substance use type: does not use caffeine: Yes Smoking Status: Former smoker tobacco type: cigarettes alcohol intake frequency: holidays/special occasions only Exam Narrative Exam Narrative: GENERAL: Well-developed patient, in mild distress. HEAD: Atraumatic. Normocephalic. EYES: Pupils equal round and reactive. Extraocular motions intact. No scleral icterus. No injection or drainage. ENT: Nose without bleeding, purulent drainage. Throat without erythema, tonsillar hypertrophy or exudate. Airway patent. NECK: Trachea midline. Non tender CARDIOVASCULAR: Regular rate and rhythm without murmurs, gallops, or rubs. RESPIRATORY: Clear to auscultation. Breath sounds equal bilaterally. No wheezes, rales, or rhonchi. GASTROINTESTINAL: Abdomen soft, non-tender, nondistended. Well healed short vertical scar 8cm length centered above umbilicus and below xyphoid, no obvious ventral hernia incisional or otherwise. Bowel tones normal without rushes/tinkles. EXTREMITIES: No edema or joint tenderness. BACK: Nontender without deformity or crepitance. No flank tenderness. NEURO: AOx3. Motor functions grossly nonfocal SKIN: No rash or erythema of visible areas Initial Vital Signs Initial Vital Signs: Vital Signs Temperature 97.8 F 12/11/24 10:43 Pulse Rate 104 H 12/11/24 10:43 Respiratory Rate 16 12/11/24 10:43 Blood Pressure 163/85 H 12/11/24 10:43 Pulse Oximetry 97 12/11/24 10:43 Oxygen Delivery Method Room Air 12/11/24 10:43 Course Orders Ordered: ED Orders 12/11/24 12:40 GI Panel (Film Array) Stat Urinalysis Screen (Dip Only) Stat Urine Microscopic Stat Discontinued Medications Sodium Chloride (Normal Saline 0.9%) 1,000 mls @ 1,000 mls/hr IV BOLUS ONE Stop: 12/11/24 12:59 Last Infusion: 12/11/24 14:34 Dose: Infused Documented By: Admin: 12/11/24 12:48 Dose: 1,000 mls/hr Documented By: KANDACE Loperamide HCl (Loperamide 2 Mg Capsule) 2 mg PO NOW ONE Stop: 12/11/24 17:29 Last Admin: 12/11/24 17:44 Dose: 2 mg Documented By: VISHNU Ondansetron HCl (Ondansetron 4 Mg/2 Ml Inj) 4 mg IV NOW PRN PRN Reason: Nausea And Vomiting Last Admin: 12/11/24 12:26 Dose: 4 mg Documented By: KANDACE Ondansetron HCl (Ondansetron 4 Mg Odt) 4 mg PO NOW PRN PRN Reason: Nausea And Vomiting Ondansetron HCl (Ondansetron 4 Mg/2 Ml Inj) 4 mg IV NOW ONE Stop: 12/11/24 12:01 Ondansetron HCl (Ondansetron 4 Mg Odt Prepack) 1 bottle MISC DIRECTED ONE Stop: 12/11/24 17:29 Last Admin: 12/11/24 17:41 Dose: 1 bottle Documented By: VISHNU Vital Signs Vital signs: Vital Signs - 8 hr 12/11/24 13:16 12/11/24 13:16 12/11/24 15:52 Pulse Rate 85 84 Respiratory Rate 16 Blood Pressure 137/74 137/74 155/88 H Pulse Oximetry 95 96 Oxygen Delivery Method Room Air 12/11/24 17:44 Pulse Rate 72 Respiratory Rate 16 Blood Pressure 160/76 H Pulse Oximetry 95 Oxygen Delivery Method Room Air MDM - Abdominal Pain Lab Data Attestation: I reviewed the patient's lab results. Lab results narrative: White blood cell count 9200, hemoglobin 15, platelets adequate. Glucose 137. BUN creatinine normal. Electrolytes unremarkable. Total bilirubin 1.7, other liver functions unremarkable. Lipase normal. 12/11/24 11:04 12/11/24 11:04 Labs: Lab Results 12/11/24 12/11/24 Range/Units 11:04 12:40 WBC 9.2 (4.5-11.0) X10^3/uL RBC 5.14 (4.5-5.9) X10^6/uL Hgb 15.0 (13.5-17.5) g/dL Hct 44.2 (41-53) % MCV 85.9 (80-100) fL MCH 29.2 (26-34) PG MCHC 34.0 (30-36) % RDW 13.6 (11.6-14.8) % Plt Count 229 (150-400) X10^3/uL Neut % (Auto) 81.5 H (50-75) % Lymph % (Auto) 9.2 L (25-40) % [place] % (Auto) 8.7 (3-14) % Eos % (Auto) 0.4 L (2-4) % Baso % (Auto) 0.2 (0-2) % Neut # (Auto) 7500 H (6699-7126) /uL Lymph # (Auto) 800 L (6987-0817) /uL [place] # (Auto) 800 (0-900) /uL Eos # (Auto) 0 (0-450) /uL Baso # (Auto) 0 (0-100) /uL PT 15.6 H (9.4-12.5) SECONDS INR 1.4 H (0.9-1.3) Sodium 137 (137-145) mmol/L Potassium 3.6 (3.4-5.1) mmol/L Chloride 106 (98-107) mmol/L Carbon Dioxide 22 (22-32) mmol/L BUN 18 (9-20) mg/dL Creatinine 1.01 (0.66-1.25) mg/dL Estimated GFR > 60 (>60) mL/min BUN/Creatinine Ratio 17.8 (6-22) Glucose 137 H (80-110) mg/dL Lactate 1.2 (0.7-2.1) mmol/L Calcium 9.7 (8.4-10.2) mg/dL Total Bilirubin 1.7 H (0.2-1.3) mg/dL AST 35 (17-59) IU/L ALT 23 (<50) IU/L Alkaline Phosphatase 59 (38-126) U/L Total Protein 7.7 (6.3-8.2) g/dL Albumin 4.6 (3.5-5.0) g/dL Globulin 3.1 (1.7-4.1) g/dL Albumin/Globulin Ratio 1.5 (1.0-2.8) Lipase 30 (23-300) U/L Urine Color Yellow Urine Appearance Clear Urine pH 6.0 (4.5-8.0) Ur Specific [place] 1.025 (1.000-1.035) Urine Protein Trace H (Negative) Urine Glucose (UA) Negative (Negative) g/dL Urine Ketones Negative (NEGATIVE) Urine Occult Blood 1+ H (Negative) Urine Nitrate Negative (Negative) Urine Bilirubin Negative (NEGATIVE) Urine Urobilinogen 0.2 (0.2) E.U./dL Ur Leukocyte Esterase Negative (NEGATIVE) Urine RBC 1-5/hpf (0-5/HPF) Urine WBC 0-1/hpf (0-5/HPF) Ur Squamous Epith Cells 0-1 /hpf (0-5/HPF) Urine Bacteria None seen (None) Urine Mucus 1+ H (Negative) Ur Culture Indicated? Cult not indicated Vol Urine Centrifuged 10ml (spun) Stl C. cayetanensis PCR Not detected (Not Detect) Stool Rotavirus (PCR) Not detected (Not Detect) Stool Adenovirus (PCR) Not detected (Not Detect) Stool Astrovirus (PCR) Not detected (Not Detect) Stool Cryptosporidium PCR Not detected (Not Detect) Stl E.coli Shiga Tox PCR Not detected (Not Detect) St Sh/Enteroin Ecoli PCR Not detected (Not Detect) Stl Enterotoxigenic E PCR Not detected (Not Detect) Stool EPEC (PCR) Not detected (Not Detect) Stl E. histolytica PCR Not detected (Not Detect) Stool Giardia Lamblia PCR Not detected (Not Detect) Stool Sapovirus (PCR) Not detected (Not Detect) Stl P. shigelloides PCR Not detected (Not Detect) St Y.enterocolitica PCR Not detected (Not Detect) Stool Vibrio (PCR) Not detected (Not Detect) Stl Vibrio cholerae PCR Not detected (Not Detect) Stl Enteroaggr Ecoli PCR Not detected (Not Detect) Stl Norovirus GI/GII PCR Not detected (Not Detect) Campylobacter (PCR) Not detected (Not Detect) C. difficile Tox (PCR) Detected H (Not Detect) Salmonella (PCR) Not detected (Not Detect) ECG Data Attestation: I personally reviewed and interpreted this ECG as follows: Interpretation: Normal sinus rhythm with a rate of 90, first-degree AV block noted with SD interval 218. No obvious ST segment elevation or depression changes. QRS 124, QTC 484. MDM Narrative Medical decision making narrative: 79-year-old male with history of remote partial transverse colectomy for lower GI bleeding, pulmonary embolus, on Eliquis chronic anticoagulation, now with couple episodes of nonbloody emesis, and multiple episodes of nonbloody diarrhea since yesterday, egg smelling burping. No obvious risk factors for Giardia, no travel, no household exposure to persons with similar symptoms. Afebrile, sirs screen negative. Labs pending, he feels urge to have another loose stool, we will send GI pathogens panel. 1330, screening serum labs unremarkable. Patient did give specimen for stool specimen, results pending from lab. Stool study negative. Gave oral Loperamide dose in ED, homepack Rx ODT- ondansetron. No tenderness, hold CT Abd/P advanced imaging, patient agrees. [place] better after IV fluids and Zofran. Home with family. Discharge Plan Departure Patient Disposition: Home Clinical Impression: Nausea vomiting and diarrhea, Clostridioides difficile diarrhea Activity Restrictions/Additional Instructions: Mr. Newman, You had symptoms of nausea with a couple episodes of vomiting, nonbloody. You had multiple episodes of nonbloody stools. On triage you had no fever, with normal vital signs, and on examination of your abdomen did not seem to be distended or have any tenderness on palpation. Screening labs were unremarkable. Eventually a stool specimen was obtained, which was negative for all pathogens tested. There is C diff bacteria toxin that is a send out lab as a follow up study that is pending at this time. Advanced imaging such as CT abdomen pelvis, however given your lack of tenderness, stable vitals, no fever, not indicated at this time. Oral dose of loperamide given in the emergency department, to reduce stooling. Loperamide is an [id number] medication, can be taken for further doses if needed, typical dosing is 1 tablet after each loose stool, up to maximum 6 tablets in a day. Sometimes a single doses adequate however. Also prescription for oral absorbable sublingual ondansetron, to control nausea dispensed, to use if needed. IV fluids were given in the emergency department. You had control of your symptoms, improved, stable. Further workup as an outpatient for now. Return if not improving in the next 24 hours. Return earlier to this/nearest emergency department for any change worsening symptoms or any concerns prior. Thank you for allowing our team to take care of you today. Prescriptions: New vancomycin 125 mg capsule 125 mg PO QID 10 Days Qty: 40 0RF No Action allopurinol 300 MG tablet 150 mg PO BEDTIME Qty: 0 fosfomycin tromethamine 3 gram packet 3 g PO ONCE Qty: 1 0RF amlodipine 5 mg Tablet 5 mg PO BEDTIME losartan 100 mg tablet 100 mg PO BEDTIME acetaminophen 500 mg capsule 500 mg PO Q4-5H MDD 6 tabs/day Qty: 90 0RF fluticasone propionate [Allergy Relief (fluticasone)] 50 mcg/actuation spray,suspension 1 spray intranasal BID PRN (Reason: nasal congestion) Qty: 16 0RF Rx Instructions: administer into each nostril polyethylene glycol 3350 [Miralax] 17 gram/dose powder 17 g PO DAILY PRN (Reason: constipation) Qty: 238 0RF diclofenac sodium 1 % gel 2 g topical QID Qty: 100 0RF Rx Instructions: apply to area of pain up to 4 times daily (DME) BIPAP PRO Qty: 1 Dose Instruction: As directed Patient Comments: PRESSURE: IPAP 16 EPAP 12 DME: [facility] Rx Instructions: As directed Eliquis 5 mg tablet 5 mg PO BID Referrals: Zandra Silverio PA-C [Primary Care Provider] - Stand Alone Forms: Patient Portal/API/Survey
[2024-12-11 11:12] LABS: Add Manual Diff / Slide Review NO; Basophils Absolute Auto 0 /uL (0-100); Basophils Percent Auto 0.2 % (0-2); Eosinophils Absolute Auto 0 /uL (0-450); Eosinophils Percent Auto 0.4 % (2-4); Hematocrit 44.2 % (41-53); Lymphocytes Absolute Auto 800 /uL (1100-4500); Lymphocytes Percent Auto 9.2 % (25-40); Mean Corpuscular Hemoglobin 29.2 PG (26-34); Mean Corpuscular Volume 85.9 fL (80-100); Monocytes Absolute Auto 800 /uL (0-900); Monocytes Percent Auto 8.7 % (3-14); Neutrophils Absolute Auto 7500 /uL (1500-7000); Neutrophils Percent Auto 81.5 % (50-75); Platelet Count 229 X10^3/uL (150-400); Red Blood Cell Count 5.14 X10^6/uL (4.5-5.9); Red Cell Distribution Width 13.6 % (11.6-14.8); White Blood Cell Count 9.2 X10^3/uL (4.5-11.0)
[2024-12-11 11:17] LABS: INR 1.4 (0.9-1.3); Prothrombin Time 15.6 SECONDS (9.4-12.5)
[2024-12-11 11:21] LABS: Alanine Aminotransferase 23 IU/L (<50); Albumin 4.6 g/dL (3.5-5.0); Albumin Globulin Ratio 1.5 (1.0-2.8); Alkaline Phosphatase 59 U/L (38-126); Aspartate Aminotransferase 35 IU/L (17-59); BUN Creatinine Ratio 17.8 (6-22); Bilirubin Total 1.7 mg/dL (0.2-1.3); Blood Urea Nitrogen 18 mg/dL (9-20); Calcium 9.7 mg/dL (8.4-10.2); Carbon Dioxide 22 mmol/L (22-32); Chloride 106 mmol/L (98-107); Estimated Glomerular Filt Rate > 60 mL/min (>60); Globulin 3.1 g/dL (1.7-4.1); Glucose 137 mg/dL (80-110); HEMOLYSIS < 15 (0-50); Lipase 30 U/L (23-300); Potassium 3.6 mmol/L (3.4-5.1); Sodium 137 mmol/L (137-145); Total Protein 7.7 g/dL (6.3-8.2)
[2024-12-11 11:22] LABS: Lactate (Lactic Acid) 1.2 mmol/L (0.7-2.1)
[2024-12-11] MEDS: ONDANSETRON 4 MG/2 ML INJ IV (12:26)
[2024-12-11] MEDS: SODIUM CHLORIDE 0.9% 1,000 ML 1000 ML IV (12:48)
[2024-12-11 13:16] VITALS: BP 137/74; PULSE 85; O2SAT 95
[2024-12-11 13:20] LABS: Appearance Urine UA CLEAR; Bilirubin Urine UA NEGATIVE (NEGATIVE); Color Urine UA YELLOW; Glucose Urine UA NEGATIVE (Negative); Ketones Urine UA NEGATIVE (NEGATIVE); Leukocyte Esterase Urine UA NEGATIVE (NEGATIVE); Nitrite Urine UA NEGATIVE (Negative); Occult Blood Urine UA 1+ (Negative); Protein Urine UA TRACE (Negative); Specific Gravity Urine UA 1.025 (1.000-1.035); Urobilinogen Urine UA 0.2 E.U./dL (0.2)
[2024-12-11 13:37] LABS: Bacteria Urine None Seen; Culture Indicated Urine Cult Not Indicated; Mucus Urine 1+ (Negative); RBC Urine 1-5/HPF (0-5/HPF); Squamous Epithelial Cell Urine 0-1 /HPF (0-5/HPF); Urine Volume 10mL (spun); WBC Urine 0-1/HPF (0-5/HPF)
[2024-12-11 14:15] LABS: Adenovirus F 40/41 Not Detected (Not Detect); Astrovirus Not Detected (Not Detect); Campylobacter Not Detected (Not Detect); Clostridium difficile toxin AB Detected (Not Detect); Cryptosporidium Not Detected (Not Detect); Cyclospora cayetanensis Not Detected (Not Detect); Entamoeba histolytica Not Detected (Not Detect); Enteroaggregative E.coli Not Detected (Not Detect); Enteropathogenic E.coli Not Detected (Not Detect); Enterotoxigenic E.coli It/st Not Detected (Not Detect); Giardia lamblia Not Detected (Not Detect); Norovirus GI/GII Not Detected (Not Detect); Plesiomonsa shigelloides Not Detected (Not Detect); Rotavirus A Not Detected (Not Detect); Salmonella Not Detected (Not Detect); Sapovirus Not Detected (Not Detect); Shiga-like toxin-prod E.coli Not Detected (Not Detect); Shigella/Enteroinvasive E.coli Not Detected (Not Detect); Vibrio Not Detected (Not Detect); Vibrio cholerae Not Detected (Not Detect); Yersinia enterocolitica Not Detected (Not Detect)
[2024-12-11 15:52] VITALS: BP 155/88; PULSE 84; RESP 16; O2SAT 96
[2024-12-11] MEDS: ONDANSETRON 4 MG ODT PREPACK 1 BOTTLE MISC (17:41)
[2024-12-11 17:44] VITALS: BP 160/76; PULSE 72; RESP 16; O2SAT 95
[2024-12-11] MEDS: LOPERAMIDE 2 MG CAPSULE PO (17:44)
[2024-12-13 12:36] LABS: C difficie Toxins A and B, EIA Negative (Negative)
== END 2024-12-11 18:00 | disposition home or self-care (01) ==
PROVIDERS: Emergency Provider Emergency Medicine; PCP Physician Assistant
DX: A04.72 Enterocolitis due to Clostridium difficile, not specified as recurrent (principal); R11.2 Nausea with vomiting, unspecified; I10 Essential (primary) hypertension; Z86.711 Personal history of pulmonary embolism; Z79.01 Long term (current) use of anticoagulants; Z87.19 Personal history of other diseases of the digestive system; Z93.3 Colostomy status
CPT/HCPCS: 36415; 80053; 81003; 81015; 83605; 83690; 85025; 85610; 87324; 87507; 93005; 96361; 96374; 99284; J2405

== ENCOUNTER 2025-04-13 09:51 | Emergency (ER) | payer MEDICARE, OTHER, SELFPAY ==
[2022-01-15 15:15] VITALS: BMI 34.8
[2025-04-13] VITALS (11 sets, daily range): BP systolic 146–192; BP diastolic 68–88; PULSE 50–70; RESP 14–22; TEMP 36.3; O2SAT 92–97; BMI 34.8
--- NOTE | 2025-04-13 10:20 | DI.RAD.S_ITS ---
PROCEDURE: XR CHEST 1V INDICATIONS: Shortness of breath TECHNIQUE: One view of the chest was acquired. COMPARISON: [facility], CR, XR CHEST 2V, 11/22/2023, 16:16. [facility], CR, XR CHEST 2V, 05/27/2023, 17:00. FINDINGS: Surgical changes and devices: ACDF hardware. Lungs and pleura: Lungs are clear. No pleural effusions or pneumothorax. Mediastinum: Mediastinal contours appear normal. Heart size is normal. Bones and chest wall: No suspicious bony lesions. Overlying soft tissues appear unremarkable. IMPRESSION: No acute cardiopulmonary abnormality is seen. Dictated by: Florin Stinson M.D. on 04/13/2025 at 11:25 Approved by: Florin Stinson M.D. on 04/13/2025 at 11:26
--- NOTE | 2025-04-13 10:20 | EKG_ITS ---
[address] [address] Test Date: 2025-04-13 Pat Name: Huey Paty Department: [facility] Room: Gender: Male Toggle [employer] Feeder: CTS : 1945 Requested By: Order Number: [id number] Reading MD: Huey Ma Measurements Intervals [place] Rate: 50 P: 59 FL: 198 QRS: -11 QRSD: 132 T: 0 QT: 470 QTc: 428 Interpretive Statements Sinus bradycardia Nonspecific intraventricular block Electronically Signed On 04-14-2025 0:12:05 PDT by Huey Ma
[2025-04-13 10:42] LABS: Add Manual Diff / Slide Review NO; Basophils Absolute Auto 100 /uL (0-100); Basophils Percent Auto 0.9 % (0-2); Eosinophils Absolute Auto 200 /uL (0-450); Eosinophils Percent Auto 4.1 % (2-4); Hemoglobin 14.7 g/dL (13.5-17.5); Lymphocytes Absolute Auto 1400 /uL (1100-4500); Lymphocytes Percent Auto 25.7 % (25-40); Mean Corpuscular HGB Conc 34.1 % (30-36); Mean Corpuscular Hemoglobin 29.2 PG (26-34); Mean Corpuscular Volume 85.4 fL (80-100); Monocytes Absolute Auto 400 /uL (0-900); Monocytes Percent Auto 7.7 % (3-14); Neutrophils Absolute Auto 3400 /uL (1500-7000); Neutrophils Percent Auto 61.6 % (50-75); Platelet Count 191 X10^3/uL (150-400); Red Blood Cell Count 5.03 X10^6/uL (4.5-5.9); White Blood Cell Count 5.5 X10^3/uL (4.5-11.0)
[2025-04-13 10:49] LABS: INR 1.4 (0.9-1.3); Prothrombin Time 15.6 SECONDS (9.4-12.5)
[2025-04-13 10:54] LABS: Lactate (Lactic Acid) 0.8 mmol/L (0.7-2.1)
[2025-04-13 10:55] LABS: Alanine Aminotransferase 19 IU/L (<50); Albumin 4.4 g/dL (3.5-5.0); Albumin Globulin Ratio 1.5 (1.0-2.8); Alkaline Phosphatase 64 U/L (38-126); Aspartate Aminotransferase 33 IU/L (17-59); BUN Creatinine Ratio 15.6 (6-22); Bilirubin Total 1.1 mg/dL (0.2-1.3); Blood Urea Nitrogen 15 mg/dL (9-20); Calcium 9.7 mg/dL (8.4-10.2); Carbon Dioxide 26 mmol/L (22-32); Chloride 104 mmol/L (98-107); Estimated Glomerular Filt Rate > 60 mL/min (>60); Globulin 2.9 g/dL (1.7-4.1); Glucose 123 mg/dL (70-99); HEMOLYSIS 16 (0-50); Potassium 3.9 mmol/L (3.4-5.1); Sodium 138 mmol/L (137-145); Total Protein 7.3 g/dL (6.3-8.2)
[2025-04-13 11:06] LABS: NT-proBNP (BNP-Adult 18+) 115 pg/mL (<450)
[2025-04-13 11:07] LABS: Troponin I < 0.012 ng/mL (0.01-0.034)
[2025-04-13] MEDS: OXYCODONE/ACETAMINOPHEN 5/325 TABLET 1 TAB PO (14:37)
[2025-04-13 15:29] LABS: Troponin I < 0.012 ng/mL (0.01-0.034)
--- NOTE | 2025-04-13 16:06 | ED.SOB ---
HPI - SOB/Dyspnea General Chief Complaint: Shortness of Breath/Dyspnea Stated Complaint: SOB , Bilateral leg pain 4 years Time Seen by Provider: 04/13/25 13:39 Source: patient, RN notes reviewed and old records reviewed Mode of arrival: Ambulatory Limitations: no limitations History of Present Illness HPI Narrative: 80-year-old male with history of pulmonary embolism on Eliquis daily, hypertension, dyslipidemia, gout, chronic back pain who states he has been short of breath for 4 years. States he was had all over body pain on and off. He was notes some progressive worsening of his shortness of breath slowly over time. He states no new changes with the in the last week. Patient saw his primary care physician 2 weeks ago and they ordered an ultrasound to evaluate his gallbladder but also told him to go to the ER for further workup. Patient had outpatient ultrasound today in his came to the ER so he elected to come today. He states he was not had any new changes. He notes he has seen Rheumatology, Neurology, Cardiology, pulmonology and even Orthopedic surgery for all of these. He states he has had prior PEs had thrombolysis in the past back surgery. He continues to take his daily medications which include Eliquis b.i.d., amlodipine, losartan, allopurinol and oxycodone. Related Data Home Medications ?Medication ?Instructions ?Recorded ?Confirmed allopurinol 300 mg tablet 150 mg PO BEDTIME ##0 12/14/12 01/28/24 amlodipine 5 mg tablet 5 mg PO BEDTIME 09/03/18 01/28/24 BIPAP PRO #1 ea 01/12/19 01/28/24 losartan 100 mg tablet 100 mg PO BEDTIME 03/01/19 01/28/24 apixaban 5 mg tablet (Eliquis) 5 mg PO BID 08/14/21 01/28/24 Previous Rx's ?Medication ?Instructions ?Recorded acetaminophen 500 mg capsule 500 mg PO Q4-5H pain #90 caps 06/27/21 fluticasone propionate 50 1 spray intranasal BID PRN nasal 07/24/22 mcg/actuation nasal congestion #16 grams spray,suspension (Allergy Relief (fluticasone)) diclofenac sodium 1 % topical gel 2 g topical QID #100 grams 12/27/22 polyethylene glycol 3350 17 17 g PO DAILY PRN constipation 12/27/22 gram/dose oral powder (Miralax) #238 grams fosfomycin tromethamine 3 gram 3 g PO ONCE #1 ea 01/29/24 oral packet Allergies Allergy/AdvReac Type Severity Reaction Status Date / Time tamsulosin Allergy Severe Difficulty Verified 11/22/23 15:44 Breathing cefuroxime (From Ceftin) Allergy Unknown Pt does Verified 11/22/23 15:44 not recall cyclobenzaprine (From AdvReac Severe Drowsy Verified 11/22/23 15:44 Flexeril) doxazosin AdvReac Severe SOB, Verified 11/22/23 15:44 fever, extreme fatigue, cough, flu-like symptoms ezetimibe (From Vytorin) AdvReac Severe Back Pain Verified 11/22/23 15:44 pravastatin (From Pravachol) AdvReac Severe Back Pain Verified 11/22/23 15:44 simvastatin (From Vytorin) AdvReac Severe Back Pain Verified 11/22/23 15:44 hydrocodone (HYDROCODONE) AdvReac Mild CONSTIPATIO Verified 11/22/23 15:44 N lisinopril AdvReac Mild COUGH, Verified 11/22/23 15:44 Palpitations Review of Systems Review of Systems ROS Unobtainable: All systems reviewed & are unremarkable except as noted in HPI and below Patient History Medical History Incomplete bladder emptying Bilateral renal cysts Pulmonary embolism (09/05/20) Hemorrhage (09/05/20) Chronic pain syndrome DDD (degenerative disc disease), lumbosacral BPH NOS w/o ur obs/LUTS History of UTI UTI (urinary tract infection) Anemia Male circumcision Diverticular disease Depression Chronic UTI Skin cancer BPH (benign prostatic hyperplasia) Arthritis BPH w urinary obs/LUTS Tingling of right upper extremity Nephrolithiasis Low back pain Spinal stenosis Osteoporosis Polio Shingles SOTERO treated with BiPAP Degenerative disc disease, lumbar GERD (gastroesophageal reflux disease) Allergic rhinitis Osteoarthritis Gout Hypertension Hyperlipidemia Snoring Surgical History History of colonoscopy (06/05/21) History of colon resection (12/2020) History of surgery (09/05/20) Hx of transurethral resection of prostate (12/26/19) History of lumbar spinal fusion H/O prostatectomy Previous back surgery History of lumbar spinal fusion (10/21/18) Hx of circumcision History of vasectomy S/P cervical spinal fusion (09/06/18) Hx of microdiscectomy (09/24/16) S/P excision of lipoma Status post cataract extraction of both eyes with insertion of intraocular lens Family History Mother COPD (chronic obstructive pulmonary disease) Social History marital status: number of children: 3 household members: spouse occupational status: previously employed alcohol intake: current substance use type: does not use caffeine: Yes tobacco type: cigarettes alcohol intake frequency: holidays/special occasions only Exam Narrative Exam Narrative: GENERAL: Alert and oriented x three, male in mild distress HEENT: Head normocephalic, atraumatic, EOMI, pupils reactive, face symmetric, moist mucous membranes NECK: Supple, full range of motion CARDIOVASCULAR: Regular rate and rhythm without murmurs, rubs or gallops. No JVD. No bilateral lower extremity swelling. RESPIRATORY: Breath sounds equal bilaterally, no wheezes rales or rhonchi. ABDOMEN: Soft, nontender. Normoactive bowel sounds all 4 quadrants. No guarding or rebound, rigidity, no mass : No CVA tenderness EXTREMITIES: Normal range of motion, no clubbing or edema. Neurovascularly intact NEUROLOGICAL: Cranial nerves II through XII grossly intact. Moving all extremities SKIN: Warm, dry, no petechiae, no rashes or lesions. Initial Vital Signs Initial Vital Signs: Vital Signs Temperature 97.4 F L 04/13/25 10:16 Pulse Rate 51 L 04/13/25 10:16 Respiratory Rate 22 04/13/25 10:16 Blood Pressure 192/84 H 04/13/25 10:16 Pulse Oximetry 97 04/13/25 10:16 Oxygen Delivery Method Room Air 04/13/25 10:16 Course Orders Ordered: Discontinued Medications Oxycodone/Acetaminophen (Oxycodone/Acetaminophen 5/325 Tablet) 1 tab PO NOW ONE Stop: 04/13/25 14:28 Last Admin: 04/13/25 14:37 Dose: 1 tab Documented By: BRYON Vital Signs Vital signs: Vital Signs - 8 hr 04/13/25 10:16 04/13/25 15:23 Temperature 97.4 F L Pulse Rate 51 L 65 Respiratory Rate 22 22 Blood Pressure 192/84 H Pulse Oximetry 97 96 Oxygen Delivery Method Room Air MDM - SOB/Dyspnea Lab Data 04/13/25 10:33 04/13/25 10:33 Labs: Lab Results 04/13/25 04/13/25 Range/Units 10:33 14:45 WBC 5.5 (4.5-11.0) X10^3/uL RBC 5.03 (4.5-5.9) X10^6/uL Hgb 14.7 (13.5-17.5) g/dL Hct 43.0 (41-53) % MCV 85.4 (80-100) fL MCH 29.2 (26-34) PG MCHC 34.1 (30-36) % RDW 14.0 (11.6-14.8) % Plt Count 191 (150-400) X10^3/uL Neut % (Auto) 61.6 (50-75) % Lymph % (Auto) 25.7 (25-40) % [place] % (Auto) 7.7 (3-14) % Eos % (Auto) 4.1 H (2-4) % Baso % (Auto) 0.9 (0-2) % Neut # (Auto) 3400 (4495-8215) /uL Lymph # (Auto) 1400 (2141-4148) /uL [place] # (Auto) 400 (0-900) /uL Eos # (Auto) 200 (0-450) /uL Baso # (Auto) 100 (0-100) /uL PT 15.6 H (9.4-12.5) SECONDS INR 1.4 H (0.9-1.3) Sodium 138 (137-145) mmol/L Potassium 3.9 (3.4-5.1) mmol/L Chloride 104 (98-107) mmol/L Carbon Dioxide 26 (22-32) mmol/L BUN 15 (9-20) mg/dL Creatinine 0.96 (0.66-1.25) mg/dL Estimated GFR > 60 (>60) mL/min BUN/Creatinine Ratio 15.6 (6-22) Glucose 123 H (70-99) mg/dL Lactate 0.8 (0.7-2.1) mmol/L Calcium 9.7 (8.4-10.2) mg/dL Total Bilirubin 1.1 (0.2-1.3) mg/dL AST 33 (17-59) IU/L ALT 19 (<50) IU/L Alkaline Phosphatase 64 (38-126) U/L Troponin I < 0.012 < 0.012 (0.01-0.034) ng/mL NT-Pro-B Natriuret Pep 115 (<450) pg/mL Total Protein 7.3 (6.3-8.2) g/dL Albumin 4.4 (3.5-5.0) g/dL Globulin 2.9 (1.7-4.1) g/dL Albumin/Globulin Ratio 1.5 (1.0-2.8) ECG Data Attestation: I personally reviewed and interpreted this ECG as follows: Interpretation: EKG shows sinus bradycardia nonspecific intraventricular block rate of 50 MN 188 QRS of 132 QTC of 428.? Patient was prior from 12/11/2024 that shows sinus rhythm with first-degree AV block rate of 90 MN 218 QRS of 124 QTC of 396.? No acute ST changes appreciated appears similar to prior.? MDM Narrative Medical decision making narrative: Labs show white count of 5.5 hemoglobin of 14 platelets of 191, INR is 1.4 electrolytes are normal BUN and creatinine is normal, troponins less than 0.012 with a repeat troponin less than 0.012 and a BNP of 115. Repeat troponin in his negative. Chest x-ray shows no acute change. EKG shows sinus bradycardia nonspecific intraventricular block rate of 50 MN 188 QRS of 132 QTC of 428.? Patient was prior from 12/11/2024 that shows sinus rhythm with first-degree AV block rate of 90 MN 218 QRS of 124 QTC of 396.? No acute ST changes appreciated appears similar to prior.?? Abdominal ultrasound diffuse increased echogenic liver, only hepatic steatosis or intrinsic hepatic disease. No gallstones. Common bile duct 6 mm within normal limits. Patient does have a right renal cyst inferior pole measuring 7.4 x 6.6 x 5.7 cm. 80-year-old male with complaint of shortness of breath for the past 4 years has a history of pulmonary embolism in 2020 continues to take Eliquis daily so primary care 2 weeks ago patient presents simultaneously with his who also presented to the emergency department. Patient states no new changes recently he was told to come to the ER 2 weeks ago by his primary care physician. On workup today reviewed all of his findings he was aware of his right renal cyst. Discussed obtaining CT PE although my suspicion for blood clot as low as patient has been taking medications regularly his vitals are not suspicious he defers. He feels comfortable with discharge home we discussed some additional workup possibly PFTs, unclear if he was had any evaluation for pulmonary hypertension. Patient feels comfortable with return home. Discharge Plan Departure Patient Disposition: Home Clinical Impression: Dyspnea Instructions: DI for Shortness of Breath Activity Restrictions/Additional Instructions: Your workup today did not show any new changes did show the renal cyst which you are aware of. After our discussion I would recommend chatting with your physician about possibly workup for pulmonary hypertension or pulmonary function tests if these have not been done in the past. It sounds like you have seen a lot of subspecialist physicians but if these have not been evaluated they could potentially be contributing to your symptoms or be helpful. I hope you continue has a good week. Please return if you have any other new or concerning changes. Prescriptions: No Action allopurinol 300 MG tablet 150 mg PO BEDTIME Qty: 0 fosfomycin tromethamine 3 gram packet 3 g PO ONCE Qty: 1 0RF amlodipine 5 mg Tablet 5 mg PO BEDTIME losartan 100 mg tablet 100 mg PO BEDTIME acetaminophen 500 mg capsule 500 mg PO Q4-5H MDD 6 tabs/day Qty: 90 0RF fluticasone propionate [Allergy Relief (fluticasone)] 50 mcg/actuation spray,suspension 1 spray intranasal BID PRN (Reason: nasal congestion) Qty: 16 0RF Rx Instructions: administer into each nostril polyethylene glycol 3350 [Miralax] 17 gram/dose powder 17 g PO DAILY PRN (Reason: constipation) Qty: 238 0RF diclofenac sodium 1 % gel 2 g topical QID Qty: 100 0RF Rx Instructions: apply to area of pain up to 4 times daily (DME) BIPAP PRO Qty: 1 Dose Instruction: As directed Patient Comments: PRESSURE: IPAP 16 EPAP 12 DME: [facility] Rx Instructions: As directed Eliquis 5 mg tablet 5 mg PO BID Referrals: Zandra Silverio PA-C [Primary Care Provider, Medical] Stand Alone Forms: Patient Portal/API
== END 2025-04-13 17:40 | disposition home or self-care (01) ==
PROVIDERS: Emergency Provider Emergency Medicine; PCP Physician Assistant
DX: R06.00 Dyspnea, unspecified (principal); I44.0 Atrioventricular block, first degree; R00.1 Bradycardia, unspecified; Z86.711 Personal history of pulmonary embolism; Z79.01 Long term (current) use of anticoagulants
CPT/HCPCS: 36415; 71045; 76705; 80053; 83605; 83880; 84484; 85025; 85610; 93005; 99284

== ENCOUNTER → 2025-04-26 13:56 | Outpatient (CLI) | payer MEDICARE, OTHER, SELFPAY ==
[2022-01-15 15:15] VITALS: BMI 34.8
[2025-04-26 14:39] LABS: HEMOLYSIS < 15 (0-50); Iron 127 ug/dL (49-181)
[2025-04-26 14:52] LABS: Percent Iron Saturation 44 % (20-50); Total Iron Binding Capacity 289 ug/dL (261-462); Transferrin 246 mg/dL (206-381)
[2025-04-26 15:13] LABS: Ferritin 95 ng/mL (18-464)
== END ==
PROVIDERS: PCP Physician Assistant; Referring Provider Nurse Practitioner; Visit Provider Nurse Practitioner
DX: E83.10 Disorder of iron metabolism, unspecified (principal)
CPT/HCPCS: 36415; 82728; 83540; 83550

== ENCOUNTER → 2025-07-15 12:30 | Outpatient (CLI) | payer MEDICARE, OTHER, SELFPAY ==
[2022-01-15 15:15] VITALS: BMI 34.8
--- NOTE | 2025-07-15 12:31 | DI.CT.S_ITS ---
PROCEDURE: CT CHEST HIGH RESOLUTION INDICATIONS: Severe dyspnea, hypoxia, eval for ILD TECHNIQUE: Noncontrast 1.0 and 5.0 mm thick contiguous axial sections from the pulmonary apex to the posterior costophrenic angles, with 7 mm thick coronal and sagittal MIP reformats. 1 mm thick dynamic expiratory images acquired through the upper, mid, and lower lungs. 1.0 mm thick axial sections acquired from the kedar to the posterior costophrenic angles in the prone end-inspiration position. For radiation dose reduction, the following was used: automated exposure control, adjustment of mA and/or kV according to patient size. COMPARISON: None. FINDINGS: Image quality: Diagnostic. Lower Neck: No enlarged lymph nodes. Thyroid: No thyroid nodules which require sonographic follow up, per consensus guidelines. Axillae: No enlarged lymph nodes. Chest Wall: Unremarkable. Bones: Osteopenia. No compression fracture. Lungs and Pleura: No pneumothorax or pleural effusions. 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 Heart: Heart size is normal. Severe triple-vessel coronary atherosclerotic calcifications. No pericardial effusion. Thoracic Vessels: No aortic aneurysm. The right main pulmonary artery measures 3.5 cm on image 45 of series 4 suggesting possible pulmonary arterial hypertension. Mediastinum and Pearl: No enlarged lymph nodes. Esophagus: No wall thickening. No hiatal hernia. Upper Abdomen: Visualized upper abdomen solid organs and bowel loops appear normal. IMPRESSION: 1. 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 2. No pulmonary nodules. 3. No acute pulmonary infiltrates. 4. Severe coronary artery calcifications. 5. Enlargement of the right main pulmonary artery suggest possible pulmonary arterial hypertension. Dictated by: Philip Hunter M.D. on 07/16/2025 at 7:19 Approved by: Philip Hunter M.D. on 07/16/2025 at 7:26
== END ==
LOC: CT 12:31
PROVIDERS: PCP Physician Assistant; Referring Provider Internal Medicine Critical Care Medicine; Visit Provider Internal Medicine Critical Care Medicine
DX: R94.2 Abnormal results of pulmonary function studies (principal); J84.10 Pulmonary fibrosis, unspecified; I25.10 Atherosclerotic heart disease of native coronary artery without angina pectoris
CPT/HCPCS: 71250

== ENCOUNTER → 2025-09-11 13:12 | Outpatient (CLI) | payer MEDICARE, OTHER, SELFPAY ==
[2022-01-15 15:15] VITALS: BMI 34.8
== END ==
PROVIDERS: PCP Physician Assistant; Referring Provider Physician Assistant; Visit Provider Internal Medicine Critical Care Medicine
DX: R06.09 Other forms of dyspnea (principal); Z87.891 Personal history of nicotine dependence; R94.2 Abnormal results of pulmonary function studies
CPT/HCPCS: 94060; 94726; 94729